=== PATIENT | male | born 1955 | race Caucasian/White ===

== ENCOUNTER → 2020-09-23 | Outpatient (CLI) | payer OTHER ==
[2020-09-23 19:00] LABS: HCT 41.9 % (39.6-50.0); HGB 13.6 g/dL (13.0-17.0); MCH 29.6 pg (27.0-32.0); MCHC 32.5 g/dL (32.0-37.0); MCV 91.3 fL (80.0-97.0); Mean Platelet Volume 10.6 fL (9.5-12.2); Platelet Count 180 X 10*3/uL (140-440); RBC 4.59 X 10*6/uL (4.40-5.60); RDW 13.3 % (11.5-14.5); WBC 6.69 X 10*3/uL (4.50-10.00)
[2020-09-24 05:07] LABS: African American GFR (CKD) 66.8 (60.0-200.0); Anion Gap 9.9 mmol/L (4.00-12.00); Carbon Dioxide 27.1 mmol/L (21.6-31.8); Non-African American GFR(CKD) 57.7 (60.0-200.0)
== END | disposition home or self-care (01) ==
LOC: LABWHC1 11:04
PROVIDERS: ATTEND Internal Medicine Cardiovascular Disease
DX: Z01.812 Encounter for preprocedural laboratory examination (principal); R07.2 Precordial pain
CPT/HCPCS: 36415; 80051; 82565; 84520; 85027

== ENCOUNTER 2020-09-26 08:35 | Day surgery (SDC) | payer OTHER ==
[2020-09-23 09:07] VITALS: BMI 37.5
[~2020-09-26 08:35] MED LIST: ALPRAZolam 0.25 MG TAB PO PRN; ALPRAZolam 0.5 MG TAB PO PRN; ASPIRIN 325 MG TAB PO STA; ATORVASTATIN 80 MG TAB PO STA; NITROGLYCERIN SL TABS 0.4 MG TAB SUBLINGUAL PRN; SODIUM CHLORIDE 0.9% 1,000 ML in EMPTY BAG 1 BAG IV ONE
[2020-09-26 09:10] LABS: Glucose,Whole Blood 155 mg/dL (75-99)
[2020-09-26 09:15] LABS: Basophils % (A) 1 %; Eosinophils # (A) 0.3 k/uL (0-0.7); Eosinophils % (A) 4 %; HCT 41.5 % (39.0-53.0); HGB 14.5 gm/dL (13.0-17.5); Lymphocytes # (A) 1.3 k/uL (1.0-4.8); Lymphocytes % (A) 20 %; MCH 30.5 pg (25.0-35.0); MCHC 34.9 g/dL (31.0-37.0); MCV 87.5 fL (80.0-100.0); Mean Platelet Volume 7.5; Monocytes # (A) 0.5 k/uL (0-1.0); Monocytes % (A) 7 %; Neutrophils # (A) 4.3 k/uL (1.3-7.7); Neutrophils % (A) 66 %; Platelet Count 173 k/uL (150-450); RBC 4.74 m/uL (4.30-5.90); RDW 13.2 % (11.5-15.5); WBC 6.5 k/uL (3.8-10.6)
[2020-09-26 09:27] LABS: Calcium 9.4 mg/dL (8.4-10.2); Potassium 4.3 mmol/L (3.5-5.1)
[2020-09-26] MEDS ORDERED: LIDOCAINE 1% INJ 10MG/ML (20 ML MDV) ONE (10:28)
[2020-09-26] MEDS ORDERED: fentaNYL (PF) 50 MCG/ML 2 ML AMP ONE (10:28)
[2020-09-26] MEDS ORDERED: LIDOCAINE 1% INJ 10MG/ML (20 ML MDV) SQ ONE (10:43)
[2020-09-26] MEDS ORDERED: MIDAZOLAM 2 MG/2 ML VIAL IV ONE (10:43)
[2020-09-26] MEDS ORDERED: fentaNYL (PF) 50 MCG/ML 2 ML AMP IV ONE (10:44)
[2020-09-26] MEDS ORDERED: IOPAMIDOL-370 125ML BTL INJ ONE (11:09)
[2020-09-26] MEDS ORDERED: RX INFO: IV CONTRAST WAS GIVEN 1 EACH MISC MISCELLANE PRN (11:23)
--- NOTE | 2020-09-26 13:45 | P.GSCN ---
History of Present Illness Consult date: 09/26/20 Reason for Consult: Triple vessel coronary artery disease Requesting physician: Domingo Velazquez History of present illness: This is a 65-year-old gentleman who follows on an outpatient basis with Dr. Terry King and physician web production assistant Micki Walden. 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 Over the last several weeks he has been experiencing unstable angina in the form of precordial chest tightness with radiation to both arms, worse with exertion, relieved with rest. He has had a few episodes that happened even at rest. He was seen by Dr. Velazquez, EKG demonstrated evidence of prior inferior wall myocardial infarction, and he was recommended to undergo heart catheterization which was completed today and which demonstrated right coronary stenosis 70-80%, circumflex coronary stenosis 90%, proximal LAD stenosis 90%, and diagonal stenosis 70-80%. Due to these findings consultation was placed to Dr. Nichols from cardiac thoracic surgery for surgical revascularization recommendations. Of note he did have a transthoracic echocardiogram in the office on September 23 which demonstrated normal left ventricular systolic function with EF 55%, normal diastolic dysfunction, trace central mitral regurgitation, and mild central tricuspid regurgitation. Review of Systems Review of systems was completed and was negative except as noted - Cardiovascular Reports as per HPI, Reports chest pain - Integumentary Reports as per HPI, Reports foot/leg ulcers Past Medical History Past Medical History: Coronary Artery Disease (CAD), Chest Pain / Angina, Diabetes Mellitus, Hypertension, Skin Disorder, Vascular Disorder Additional Past Medical History / Comment(s): WOUND BELOW LITTLE TOE LEFT FOOT- HAS CAST & WALKING BOOT., History see 60 treatments of hyperbaric oxygen therapy last dose 07/28/2020 SEE CARDIOLOGY [facility] & P. History of Any Multi-Drug Resistant Organisms: MRSA Year Discovered:: 2013 MDRO Source:: toe Additional Past Surgical History / Comment(s): tin big toe amputation (2009, 2013)., Cataracts Past Anesthesia/Blood Transfusion Reactions: No Reported Reaction Past Psychological History: No Psychological Hx Reported Smoking Status: Never smoker Past Alcohol Use History: None Reported Past Drug Use History: None Reported - Past Family History Mother Family Medical History: Cancer Additional Family Medical History / Comment(s): of an aneurysm at 88 years old Father Family Medical History: Diabetes Mellitus Medications and Allergies Home Medications Medication Instructions Recorded Confirmed Type Ascorbic Acid [Vitamin C] 1,000 mg PO DAILY 09/23/20 09/26/20 History Aspirin [Adult Low Dose Aspirin EC] 81 mg PO DAILY 09/23/20 09/26/20 History Carvedilol [Coreg] 12.5 mg PO BID 09/23/20 09/26/20 History Cholecalciferol (Vitamin D3) 125 mcg PO DAILY 09/23/20 09/26/20 History [Vitamin D3 (5000 Iu)] Empagliflozin [Jardiance] 25 mg PO DAILY 09/23/20 09/26/20 History Lisinopril-Hctz 20-25 mg 1 tab PO DAILY 09/23/20 09/26/20 History [Zestoretic 20-25] Multivit-Min/FA/Lycopen/Lutein 1 each PO DAILY 09/23/20 09/26/20 History [Centrum Silver Men Tablet] glipiZIDE [Glucotrol] 10 mg PO BID 09/23/20 09/26/20 History sitaGLIPtin PHOS/metFORMIN HCL 1 each PO BID 09/23/20 09/26/20 History [Janumet Xr 50-1,000 mg Tablet] Allergies Allergy/AdvReac Type Severity Reaction Status Date / Time No Known Allergies Allergy Verified 09/26/20 08:49 Surgical - Exam Vital Signs Temp Pulse Resp BP 98 F 74 18 175/87 09/26/20 09:02 09/26/20 09:02 09/26/20 09:02 09/26/20 09:02 CONSTITUTIONAL: Awake and alert, appears comfortable, cooperative, well- developed, well-nourished, no pain, no acute distress EYES: Pupils equal, round, reactive to light, normal ocular movement ENT: Moist mucous membranes without oral lesions present NECK: No masses, no bruits, trachea midline RESPIRATORY: Lungs sounds clear to auscultation bilaterally. Respirations even, nonlabored. Currently on room air with oxygen saturation 98%. Strong cough. No chest wall deformities. No clubbing or cyanosis present CARDIOVASCULAR: S1, S2 present. Regular rate and rhythm, sinus rhythm on telemetry. Palpable peripheral pulses bilaterally. 1+ bilateral lower extremity edema present. No calf pain or tenderness noted. Left radial Christiano's test less than 8 seconds. GASTROINTESTINAL: Abdomen soft, nontender, nondistended without masses or organomegaly noted. There is no rebound or guarding present. Active bowel sounds present 4 quadrants. GENITOURINARY: Deferred INTEGUMENTARY: Skin is warm and dry. Right lower extremity with evidence of peripheral arterial disease, smooth and hairless. Left lower extremity in no contact cast NEUROLOGIC: Cranial nerves II through XII intact, normal coordination, no obvious motor or sensory deficits, speech is normal MUSKULOSKELETAL: Able to move all extremities, strength equal bilaterally, normal posture PSYCHIATRIC: Alert and oriented to person place and time, appropriate affect, intact judgment and insight Results - Labs 09/26/20 09:00 09/26/20 09:00 Abnormal Lab Results - Last 24 Hours (Table) 09/26/20 09/26/20 Range/Units 08:58 09:00 BUN 32 H (9-20) mg/dL Glucose 163 H (74-99) mg/dL POC Glucose (mg/dL) 155 H (75-99) mg/dL Diabetes panel 09/26/20 Range/Units 09:00 Sodium 140 (137-145) mmol/L Potassium 4.3 (3.5-5.1) mmol/L Chloride 107 (98-107) mmol/L Carbon Dioxide 26 (22-30) mmol/L BUN 32 H (9-20) mg/dL Creatinine 1.23 (0.66-1.25) mg/dL Glucose 163 H (74-99) mg/dL Calcium 9.4 (8.4-10.2) mg/dL Calcium panel 09/26/20 Range/Units 09:00 Calcium 9.4 (8.4-10.2) mg/dL Pituitary panel 09/26/20 Range/Units 09:00 Sodium 140 (137-145) mmol/L Potassium 4.3 (3.5-5.1) mmol/L Chloride 107 (98-107) mmol/L Carbon Dioxide 26 (22-30) mmol/L BUN 32 H (9-20) mg/dL Creatinine 1.23 (0.66-1.25) mg/dL Glucose 163 H (74-99) mg/dL Calcium 9.4 (8.4-10.2) mg/dL Adrenal panel 09/26/20 Range/Units 09:00 Sodium 140 (137-145) mmol/L Potassium 4.3 (3.5-5.1) mmol/L Chloride 107 (98-107) mmol/L Carbon Dioxide 26 (22-30) mmol/L BUN 32 H (9-20) mg/dL Creatinine 1.23 (0.66-1.25) mg/dL Glucose 163 H (74-99) mg/dL Calcium 9.4 (8.4-10.2) mg/dL - Imaging Additional studies: Heart catheterization films reviewed Assessment and Plan Assessment: 1. Triple-vessel coronary artery disease, unstable angina 2. Hypertension 3. Type 2 diabetes, patient reports last hemoglobin A1c 6.2% in March 2020 4. Peripheral arterial disease with bilateral lower cavity ulcers 5. 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 Never smoker Plan: The patient was seen and examined in the extended stay unit. Chart/diagnostics reviewed. The case was discussed in detail with Dr. Nichols who has been contacted by Dr. Velazquez. The usual perioperative course of coronary artery bypass surgery were discussed in detail with the patient and his daughter, risks and benefits were reviewed, all questions were answered. The patient does consent to surgery and preoperative testing has been initiated. Once all preoperative testing has been completed STS risk score will be calculated and discussed with the patient. Recommend continuing aspirin, beta ruperto therapy, initiate statin. Patient needs tight blood sugar control, he admits that he does not check his blood sugar which he was educated on. Patient may be discharged home from our standpoint after all testing has been completed to return as an outpatient for surgery, timing to be determined dependent on results of preoperative testing. This was discussed with the patient and daughter at length and they are in complete agreement. Medical management of other comorbidities per primary care service, cardiology. More recommendations to follow. Thank you Dr. Velazquez for this consult. We look forward to working with you in the care of your patient. Time with Patient: Greater than 30
[2020-09-26 14:30] LABS: Basophils % (A) 1 %; Eosinophils # (A) 0.2 k/uL (0-0.7); Eosinophils % (A) 4 %; HCT 39.7 % (39.0-53.0); Lymphocytes # (A) 1.2 k/uL (1.0-4.8); Lymphocytes % (A) 25 %; MCH 29.6 pg (25.0-35.0); MCHC 32.7 g/dL (31.0-37.0); MCV 90.6 fL (80.0-100.0); Monocytes # (A) 0.3 k/uL (0-1.0); Monocytes % (A) 7 %; Neutrophils # (A) 2.9 k/uL (1.3-7.7); Neutrophils % (A) 60 %; Platelet Count 144 k/uL (150-450); RBC 4.39 m/uL (4.30-5.90); RDW 13.8 % (11.5-15.5); WBC 4.8 k/uL (3.8-10.6)
[2020-09-26 14:34] LABS: Partial Thromboplastin Time 25.1 sec (22.0-30.0); Prothrombin Time 10.9 sec (9.0-12.0)
[2020-09-26 14:42] LABS: ALT 25 U/L (4-49); AST 27 U/L (17-59); African American GFR (CKD) 83 (>60 ml/min/1.73 sqM); Albumin 3.5 g/dL (3.5-5.0); Albumin/Globulin Ratio 1.3; Alkaline Phosphatase 81 U/L (38-126); Anion Gap 7 mmol/L; Blood Urea Nitrogen 30 mg/dL (9-20); Calcium 8.8 mg/dL (8.4-10.2); Carbon Dioxide 27 mmol/L (22-30); Chloride 105 mmol/L (98-107); Globulin 2.8 g/dL; Glucose 237 mg/dL (74-99); Non-African American GFR(CKD) 72 (>60 ml/min/1.73 sqM); Potassium 4.2 mmol/L (3.5-5.1); Sodium 139 mmol/L (137-145); Total Bilirubin 0.3 mg/dL (0.2-1.3); Total Protein 6.3 g/dL (6.3-8.2)
[2020-09-26 15:51] VITALS: RESP 16
[2020-09-26 15:53] LABS: Chol/HDL Ratio 4.88
--- NOTE | 2020-09-26 16:09 | US ---
EXAMINATION TYPE: US carotid duplex BILAT DATE OF EXAM: 09/26/2020 COMPARISON: NONE CLINICAL HISTORY: preop cardiac surgery. Preop EXAM MEASUREMENTS: RIGHT: Peak Systolic Velocity (PSV) cm/sec ----- Right CCA: 59.8 ----- Right ICA: 82.0 ----- Right ECA: 89.7 ICA/CCA ratio: 1.4 RIGHT: End Diastole cm/sec ----- Right CCA: 13.6 ----- Right ICA: 24.8 ----- Right ECA: 16.0 LEFT: Peak Systolic Velocity (PSV) cm/sec ----- Left CCA: 61.6 ----- Left ICA: 95.2 ----- Left ECA: 83.1 ICA/CCA ratio: 1.5 LEFT: End Diastole cm/sec ----- Left CCA: 13.6 ----- Left ICA: 32.5 ----- Left ECA: 9.5 VERTEBRALS (direction of flow): Right Vertebral: Antegrade Left Vertebral: Antegrade Rhythm: Normal Plaque in bilateral bulbs. Wall thickening. No elevated velocities. IMPRESSION: 1. Atheromatous plaquing without significant flow-limiting stenosis. Criteria for Assigning % of Stenosis / Diameter reduction (Estimation based on the indirect measurements of the internal carotid artery velocities (ICA PSV). 1. Normal (no stenosis)=ICA PSV < 125 cm/s: ratio < 2.0: ICA EDV<40 cm/s. 2. Less than 50% stenosis=ICA PSV < 125 cm/s: ratio < 2.0: ICA EDV<40 cm/s. 3. 50 to 69% stenosis=ICA PSV of 125 to 230 cm/s: ration 2.0 ? 4.0: ICA EDV 40-100 cm/s. 4. Greater than 70% stenosis to near occlusion= ICA PSV > 230 cm/s: ratio > 4.0: ICA EDV > 100 cm/s. 5. Near occlusion= ICA PSV velocities may be low or undetectable: variable ratio and ICA EDV. 6. Total occlusion=unable to detect flow.
--- NOTE | 2020-09-26 16:48 | XR ---
EXAMINATION TYPE: XR chest 2V DATE OF EXAM: 09/26/2020 COMPARISON: NONE HISTORY: Preop heart surgery TECHNIQUE: 2 views FINDINGS: Heart and mediastinum are normal. Lungs are clear. Diaphragm is normal. Bony thorax is inta ct. There are chest leads. IMPRESSION: Normal chest.
[2020-09-26] MEDS: ISOSORBIDE MONONITRATE ER 30 MG TAB.ER.24H PO SCH (17:04)
[2020-09-26] MEDS: INSULIN ASPART (NovoLOG) 100 UNIT/ML VIAL SQ SCH ×3 (17:04→22:41)
[2020-09-26 17:27] LABS: Glucose,Whole Blood 266 mg/dL (75-99)
[2020-09-26] MEDS: carvediloL 12.5 MG TAB PO SCH (17:35)
[2020-09-26 20:23] LABS: Glucose,Whole Blood 150 mg/dL (75-99)
[2020-09-26 20:54] LABS: Hepatitis A Antibody IgM Non-Reactive (Non-Reactive); Hepatitis B Core IgM Non-Reactive (Non-Reactive); Hepatitis B Surface Antigen Non-Reactive (Non-Reactive); Hepatitis C IgG Antibody Non-Reactive (Non-Reactive)
[2020-09-26] MEDS ORDERED: ATORVASTATIN 40 MG TAB PO SCH (21:00)
[2020-09-26 21:36] LABS: Appearance,Urine Clear (Clear); Bilirubin,Urine Negative (Negative); Blood,Urine Negative (Negative); Color,Urine Light Yellow; Glucose,Urine (UA) 4+ (Negative); Ketones,Urine Negative (Negative); Leukocyte Esterase,Urine Negative (Negative); Nitrite,Urine Negative (Negative); PH, Urine 6.5 (5.0-8.0); Protein,Urine Negative (Negative); Specific Gravity,Urine 1.025 (1.001-1.035); Urobilinogen,Urine <2.0 mg/dL (<2.0)
[2020-09-26] MEDS: glipiZIDE 10 MG TAB PO SCH (22:41)
[2020-09-26] MEDS: MUPIROCIN 2% OINT 22 GM TUBE NASAL SCH (22:47)
--- NOTE | 2020-09-26 23:10 | CC ---
CARDIAC CATHETERIZATION REPORT INDICATION: Unstable angina. PROCEDURE NOTE: After obtaining informed consent, left heart catheterization and coronary angiogram were performed via the right femoral artery using standard Daniel catheters. Patient tolerated the procedure well without any obvious immediate complications. A femoral angiogram was performed and Angio-Seal was deployed for hemostasis. Patient received moderate conscious sedation. Total sedation time was 15 minutes. FINDINGS: HEMODYNAMICS: Left ventricular end-diastolic pressure is 14 mm. There is no significant gradient across the aortic valve. LEFT VENTRICULOGRAM: Not performed. ANGIOGRAPHIC DATA: LEFT MAIN CORONARY ARTERY: Left main coronary artery appears calcified as does the LAD and circumflex coronary artery. There is a focal area of 95% stenosis in the proximal LAD and 70% stenosis involving the diagonal branch. CIRCUMFLEX CORONARY ARTERY: Circumflex coronary artery shows an 80% to 90% proximal stenosis. RIGHT CORONARY ARTERY: Right coronary artery is a large dominant vessel. In the mid right coronary artery shows a 70% stenosis. CONCLUSIONS: Severe three-vessel coronary artery disease as described above. PLAN: I am going to consult cardiothoracic surgeon to evaluate the patient for bypass surgery. MMODL / IJN: [id number] /
[2020-09-26 23:44] LABS: Hemoglobin A1C 6.4 % (4.0-6.0)
[2020-09-27 07:11] LABS: African American GFR (CKD) >90 (>60 ml/min/1.73 sqM); Anion Gap 6 mmol/L; Blood Urea Nitrogen 23 mg/dL (9-20); Calcium 9.1 mg/dL (8.4-10.2); Carbon Dioxide 28 mmol/L (22-30); Chloride 108 mmol/L (98-107); Glucose 121 mg/dL (74-99); Non-African American GFR(CKD) 78 (>60 ml/min/1.73 sqM); Potassium 4.2 mmol/L (3.5-5.1); Sodium 142 mmol/L (137-145)
[2020-09-27 07:18] LABS: Glucose,Whole Blood 132 mg/dL (75-99)
[2020-09-27 07:52] VITALS: BP 149/83; PULSE 73; TEMP 97.9
--- NOTE | 2020-09-27 07:59 | P.PN ---
Subjective Progress Note Date: 09/27/20 Principal diagnosis: Triple-vessel coronary artery disease, unstable angina. 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 Denies any chest pain or shortness of breath. Dr. Andrew did meet with the patient and his daughter yesterday, discussed open heart surgery, all questions answered. Catheterization films reviewed with Dr. Andrew, sent electronically to Dr. Nichols. All preoperative testing completed, STS risk score calculated and discussed with the patient. No new concerns. Objective - Vital Signs Vital signs: Vital Signs Temp 98.2 F 09/27/20 01:45 Pulse 76 09/27/20 01:45 Resp 16 09/27/20 01:45 BP 113/71 09/27/20 01:45 Pulse Ox 100 09/27/20 01:45 Intake & Output 09/26/20 09/27/20 09/27/20 18:59 06:59 18:59 Intake Total 200 Balance 200 Weight 129.274 kg Intake: IV 200 Other: Voiding Method Toilet # Voids 1 1 - Exam CONSTITUTIONAL: Appears comfortable, cooperative, no acute distress RESPIRATORY: Lungs sounds clear bilaterally. Respirations even, nonlabored. Currently on room air with oxygen saturation 100%. Able to achieve 3000 mL on incentive spirometry. Strong cough. CARDIOVASCULAR: S1, S2 present. Regular rate and rhythm, sinus rhythm on telemetry. Sternum stable. Palpable peripheral pulses bilaterally. Bilateral lower extremity edema present. No calf pain or tenderness noted. GASTROINTESTINAL: Abdomen soft, nontender, nondistended. Active bowel sounds present 4 quadrants. Tolerating diet. GENITOURINARY: Continues to void INTEGUMENTARY: Skin is warm and dry. No contact cast presents to left lower extremity NEUROLOGIC: Cranial nerves II through XII intact MUSKULOSKELETAL: Able to move all extremities, strength equal bilaterally, gait normal PSYCHIATRIC: Alert and oriented to person place and time, appropriate affect, intact judgment and insight - Labs CBC & Chem 7: 09/26/20 14:09 09/27/20 06:22 Labs: Abnormal Lab Results - Last 24 Hours (Table) 09/26/20 09/26/20 09/26/20 Range/Units 08:58 09:00 11:00 Plt Count (150-450) k/uL Chloride (98-107) mmol/L BUN 32 H (9-20) mg/dL Glucose 163 H (74-99) mg/dL POC Glucose (mg/dL) 155 H (75-99) mg/dL Hemoglobin A1c (4.0-6.0) % HDL Cholesterol 26.0 L (40.0-60.0) mg/dL Urine Glucose (UA) (Negative) 09/26/20 09/26/20 09/26/20 Range/Units 14:09 14:09 14:09 Plt Count 144 L (150-450) k/uL Chloride (98-107) mmol/L BUN 30 H (9-20) mg/dL Glucose 237 H (74-99) mg/dL POC Glucose (mg/dL) (75-99) mg/dL Hemoglobin A1c 6.4 H (4.0-6.0) % HDL Cholesterol (40.0-60.0) mg/dL Urine Glucose (UA) (Negative) 09/26/20 09/26/20 09/26/20 Range/Units 17:26 20:21 21:31 Plt Count (150-450) k/uL Chloride (98-107) mmol/L BUN (9-20) mg/dL Glucose (74-99) mg/dL POC Glucose (mg/dL) 266 H 150 H (75-99) mg/dL Hemoglobin A1c (4.0-6.0) % HDL Cholesterol (40.0-60.0) mg/dL Urine Glucose (UA) 4+ H (Negative) 09/27/20 09/27/20 Range/Units 06:22 07:16 Plt Count (150-450) k/uL Chloride 108 H (98-107) mmol/L BUN 23 H (9-20) mg/dL Glucose 121 H (74-99) mg/dL POC Glucose (mg/dL) 132 H (75-99) mg/dL Hemoglobin A1c (4.0-6.0) % HDL Cholesterol (40.0-60.0) mg/dL Urine Glucose (UA) (Negative) Microbiology - Last 24 Hours (Table) 09/26/20 16:54 Nasal Screen MRSA/MSSA - Preliminary Nasal Swab - Imaging and Cardiology Chest x-ray: report reviewed, image reviewed Carotid Dopplers, pulmonary function tests, labs reviewed Assessment and Plan Assessment: 1. Triple-vessel coronary artery disease, unstable angina 2. Hypertension 3. Type 2 diabetes, current hemoglobin A1c 6.4% 4. Peripheral arterial disease with bilateral lower cavity ulcers 5. 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 Never smoker, preoperative FEV1 87% of predicted Plan: 1. Continue aspirin, statin, beta ruperto therapy. Will stop Alex inhibitor 48 hours prior to surgery to prevent intraoperative and postoperative hypotension due to vasoplegia 2. Increase activity, ambulate as tolerated 3. Encourage incentive spirometry practice 4. Patient may be discharged home from cardiothoracic surgery standpoint to return for outpatient coronary artery bypass surgery with left internal mammary artery, possible left radial artery harvest, endovascular vein harvest with left atrial appendage ligation to be performed by Dr. Nichols on 10/04/2020. 5. Medical management comorbidities per primary Service, cardiology Time with Patient: Greater than 30
[2020-09-27] MEDS: glipiZIDE 10 MG TAB PO SCH (08:24)
[2020-09-27] MEDS: carvediloL 12.5 MG TAB PO SCH (08:24)
[2020-09-27] MEDS: INSULIN ASPART (NovoLOG) 100 UNIT/ML VIAL SQ SCH (08:24)
[2020-09-27] MEDS: ISOSORBIDE MONONITRATE ER 30 MG TAB.ER.24H PO SCH (08:24)
[2020-09-27] MEDS: MUPIROCIN 2% OINT 22 GM TUBE NASAL SCH (08:25)
[2020-09-27] MEDS ORDERED: LISINOPRIL-HCTZ 20-25 MG 1 EACH TAB PO SCH (09:00)
[2020-09-27] MEDS ORDERED: ASPIRIN 81 MG PO SCH (09:00)
--- NOTE | 2020-09-27 11:46 | P.DS ---
Providers Attending physician: Domingo Velazquez Consults: 09/26/20 11:31 Consult Physician Routine Consulting Provider: Augustine Nichols Consult Reason/Comments: triple vessel disease Do you want consulting provider notified?: Already Contacted Primary care physician: Terry Hunt [facility] Course: This is a pleasant 65-year-old male who was brought in electively for left heart catheterization revealing left main calcified. LAD with a focal 95% stenosis proximally, diagonal branch with a 70% stenosis, circumflex with 80-90% stenosis proximally and RCA with a 70% stenosis in the midportion. He was seen and evaluated by CT surgery and they recommend bypass grafting to be done on October 04. Patient is seen and examined resting comfortably sitting up in bed in no acute distress. He is having no active chest discomfort. He denies dizziness, shortness of breath or palpitations. Blood pressure 149/83 heart rate 73 afebrile maintaining oxygen saturation on room air. Laboratory data reviewed, sodium 142, potassium 4.2, creatinine 1.01. Bilateral carotid Doppler reveals erythematous plaquing without significant flow-limiting stenosis. Chest x-ray is negative for an acute cardiopulmonary process. He is currently maintained on aspirin 81 mg daily, atorvastatin 40 mg daily, carvedilol 12.5 mg twice a day and lisinopril/hydrochlorothiazide 20/25 mg daily. GENERAL: Well-appearing, well-nourished and in no acute distress. NECK: Supple without JVD or thyromegaly. LUNGS: Breath sounds clear to auscultation bilaterally. Respiration equal and unlabored. No wheezes, rales or rhonchi. HEART: Regular rate and rhythm without murmurs, rubs or gallops. S1 and S2 heard. EXTREMITIES: Normal range of motion, no edema. No clubbing or cyanosis. Peripheral pulses intact. ASSESSMENT Multi-vessel coronary artery disease Dyslipidemia Hypertension Diabetes mellitus PLAN Continue nitrates, aspirin, statin, beta ruperto and TUNDE inhibitor as previously ordered. Plan for bypass grafting with Dr. Nichols 10/04/2020. Clinically stable for discharge on current medical regimen. Nurse Practitioner note has been reviewed, I agree with a documented findings and plan of care. Patient was seen and examined. Patient Condition at Discharge: Stable Plan - Discharge Summary Discharge Rx Participant: Yes New Discharge Prescriptions: New Atorvastatin [Lipitor] 40 mg PO HS #90 tab Nitroglycerin Sl Tabs [Nitrostat] 0.4 mg SUBLINGUAL Q5M PRN #1 bottle PRN Reason: Chest Pain Isosorbide Mononitrate ER [Imdur] 30 mg PO DAILY #90 tab.er.24h Continue glipiZIDE [Glucotrol] 10 mg PO BID Lisinopril-Hctz 20-25 mg [Zestoretic 20-25] 1 tab PO DAILY Empagliflozin [Jardiance] 25 mg PO DAILY Ascorbic Acid [Vitamin C] 1,000 mg PO DAILY Aspirin [Adult Low Dose Aspirin EC] 81 mg PO DAILY Carvedilol [Coreg] 12.5 mg PO BID sitaGLIPtin PHOS/metFORMIN HCL [Janumet Xr 50-1,000 mg Tablet] 1 each PO BID Cholecalciferol (Vitamin D3) [Vitamin D3 (5000 Iu)] 125 mcg PO DAILY Multivit-Min/FA/Lycopen/Lutein [Centrum Silver Men Tablet] 1 each PO DAILY Discharge Medication List Ascorbic Acid [Vitamin C] 1,000 mg PO DAILY 09/23/20 [History] Aspirin [Adult Low Dose Aspirin EC] 81 mg PO DAILY 09/23/20 [History] Carvedilol [Coreg] 12.5 mg PO BID 09/23/20 [History] Cholecalciferol (Vitamin D3) [Vitamin D3 (5000 Iu)] 125 mcg PO DAILY 09/23/20 [History] Empagliflozin [Jardiance] 25 mg PO DAILY 09/23/20 [History] Lisinopril-Hctz 20-25 mg [Zestoretic 20-25] 1 tab PO DAILY 09/23/20 [History] Multivit-Min/FA/Lycopen/Lutein [Centrum Silver Men Tablet] 1 each PO DAILY 09/23/20 [History] glipiZIDE [Glucotrol] 10 mg PO BID 09/23/20 [History] sitaGLIPtin PHOS/metFORMIN HCL [Janumet Xr 50-1,000 mg Tablet] 1 each PO BID 09/23/20 [History] Atorvastatin [Lipitor] 40 mg PO HS #90 tab 09/27/20 [Rx] Isosorbide Mononitrate ER [Imdur] 30 mg PO DAILY #90 tab.er.24h 09/27/20 [Rx] Nitroglycerin Sl Tabs [Nitrostat] 0.4 mg SUBLINGUAL Q5M PRN #1 bottle 09/27/20 [Rx] Follow up Appointment(s)/Referral(s): Domingo Velazquez MD [STAFF PHYSICIAN] - 1 Week Patient Instructions/Handouts: Chest Pain (GEN), Heart Catheterization (GEN) Activity/Diet/Wound Care/Special Instructions: Open heart surgery planned for 10/07/20 @ 8 am. The OR will call the day before to let you know what time to come to the hospital and where to go. Preadmission testing will call to let you know what medications to take the day of surgery. For any other questions related to surgery please call expeditionary fighting vehicle crewman Andria or Tj
--- NOTE | 2020-09-28 12:35 | P.ARTDOP ---
Arterial Doppler Left radial artery study: Left side only, at physician request Date of study: 09/26/2020 Reason for study: Preop CABG Findings: Doppler assessment shows no significant right to left or segmental pressure gradient. With radial artery compression, there is a 61 mmHg pressure change in the first digit. Size is over 2 mm throughout. Impression: The left radial is not usable based on plethysmography criteria.
--- NOTE | 2020-09-28 12:38 | P.VSCSTY ---
Greater Saphenous Vein Mapping This is bilateral lower extremity greater saphenous vein mapping. Date of service: 09/26/2020 Vein quality and ultrasound appearance: We see no intraluminal thrombus or wall changes. Vein size groin right : 7.4 x 7.5 groin left: 7.6 x 7.3 High thigh right: 3.3 x 3.1 high thigh left: 3.1 x 3.3 Mid thigh right: 2.6 x 2.6 mid thigh left: 2.4 x 2.4 Above-knee right: 3.6 x 2.7 above-knee left: 2.7 x 2.1 Below knee right: 3.3 x 3.1 below-knee left: 3.9 x 2.9 Mid calf right: 2.9 x 2.7 mid calf left: 3.8 x 3.2 Ankle right: 3.0 x 2.6 ankle left: Cast Impression: Usable bilateral greater saphenous vein..
--- NOTE | 2020-10-03 16:01 | CONS ---
CONSULTATION DATE OF SERVICE: 09/26/20 I have seen, examined, and agree with the midlevel's findings. MMODL / IJN: [id number] / -02
== END 2020-09-27 11:40 | disposition home or self-care (01) ==
LOC: CATHCVL 08:35 → 6NMEDSUR 12:50 → CATHCVL 09-27 11:40
PROVIDERS: ATTEND Internal Medicine Cardiovascular Disease
DX: I25.110 Atherosclerotic heart disease of native coronary artery with unstable angina pectoris (principal); I25.84 Coronary atherosclerosis due to calcified coronary lesion; I10 Essential (primary) hypertension; E11.622 Type 2 diabetes mellitus with other skin ulcer; L97.929 Non-pressure chronic ulcer of unspecified part of left lower leg with unspecified severity; E11.51 Type 2 diabetes mellitus with diabetic peripheral angiopathy without gangrene; R94.31 Abnormal electrocardiogram [ECG] [EKG]; E78.5 Hyperlipidemia, unspecified; I25.2 Old myocardial infarction; Z83.3 Family history of diabetes mellitus; Z89.429 Acquired absence of other toe(s), unspecified side; Z79.84 Long term (current) use of oral hypoglycemic drugs; Z79.82 Long term (current) use of aspirin; Z79.899 Other long term (current) drug therapy; Z20.822 Contact with and (suspected) exposure to COVID-19
CPT/HCPCS: 94150; 93458; 80061; 80053; 80048; 80074; 84443; 83735; 85025; 85610; 85730; 81003; 87070; 83036; 87635; 71046; 93931; 93970; 93922; 93880; C1769 ×2; C1760; C1894; J2250; J2001; J3010; Q9967; 86850; 86900; 86901; 86920

== ENCOUNTER 2020-10-04 05:22 | Inpatient (IN) | payer OTHER ==
[~2020-10-04 05:22] MED LIST changes: +ALBUMIN HUMAN 25% 50 ML IV ONE; +ALBUMIN HUMAN 5% 500 ML IVPB ONE; -ALPRAZolam 0.25 MG TAB PO PRN; -ALPRAZolam 0.5 MG TAB PO PRN; +ASPIRIN 325 MG TAB PO ONE; -ASPIRIN 325 MG TAB PO STA; -ATORVASTATIN 80 MG TAB PO STA; +CALCIUM CHLORIDE 100 MG/ML 10 ML SYRINGE IV ONE; +CHLORHEXIDINE GLUCONATE 15 ML CUP MUCOUS MEM ONE; +CLEVIDIPINE BUTYRATE 25 MG in EMPTY BAG 1 BAG IV ONE; +DEXAMETHASONE SOD PHOSPHATE 4 MG/ML 1 ML VIAL IV ONE; +DILTIAZEM 125 MG in SODIUM CHLORIDE 0.9% 100 ML IV ONE; +ELECTROLYTE-A SOLUTION 1,000 ML with POTASSIUM CHLORIDE 100 MEQ, MAGNESIUM SULFATE 16 M... IV ONE; +ELECTROLYTE-A SOLUTION 1,000 ML with POTASSIUM CHLORIDE 40 MEQ, MAGNESIUM SULFATE 16 ME... IV ONE; +HEPARIN SODIUM 1,000 UN/ML (10ML VL) IV ONE; +HEPARIN SODIUM,PORCINE 5,000 UNIT in SODIUM CHLORIDE 0.9% 500 ML 500 ML IV ONE; +INSULIN REGULAR 100 UNIT in SODIUM CHLORIDE 0.9% 100 ML IV ONE; +LACTATED RINGERS 1,000 ML IV ONE; +LACTATED RINGERS 1,000 ML IV SCH; +MAGNESIUM SULFATE MG 500 MG/ML IV ONE; +MANNITOL 25% 12.5 GM/50 ML VIAL IV ONE; +NITROGLYCERIN SL TABS 0.4 MG TAB SUBLINGUAL ONE; -NITROGLYCERIN SL TABS 0.4 MG TAB SUBLINGUAL PRN; +NITROGLYCERIN-D5W PMX 25 MG/250 ML BTL IV ONE; +NITROGLYCERIN-D5W PMX 50 MG in DEXTROSE/WATER 1 250ML.BAG IV ONE; +NOREPINEPHRINE 4 MG in SODIUM CHLORIDE 0.9% 250 ML IV ONE; +ONDANSETRON 4 MG/2 ML VIAL IVP ONE; +PAPAVERINE 360 MG in SODIUM CHLORIDE 0.9% 90 ML IV ONE; +PHENYLEPHRINE 10 MG/ML VIAL IV ONE; +PHENYLEPHRINE 40 MG in SODIUM CHLORIDE 0.9% 250 ML IV ONE; +PROTAMINE SULFATE 10 MG/ML 25 ML VIAL IV ONE; +PROTAMINE SULFATE 250 MG in EMPTY BAG 1 BAG IV ONE; +SODIUM BICARB 8.4% 50 ML SYR (1 MEQ/ML) IV ONE; +SODIUM CHLORIDE 0.9% 1,000 ML IV ONE; -SODIUM CHLORIDE 0.9% 1,000 ML in EMPTY BAG 1 BAG IV ONE; +TRANEXAMIC ACID 2,000 MG in SODIUM CHLORIDE 0.9% 80 ML IV ONE; +ceFAZolin 1,000 MG in SODIUM CHLORIDE 0.9% IRRIGATIO 1,000 ML IRRIGATION ONE; +ceFAZolin 3 GM in SODIUM CHLORIDE 0.9% 100 ML IVPB ONE; +propofoL 1,000 MG/100 ML VIAL IV ONE
[2020-10-04] MEDS: ATORVASTATIN 10 MG TAB PO ONE ×2 (06:22→16:09)
[2020-10-04] MEDS: METOPROLOL TARTRATE 12.5 MG TAB PO ONE ×2 (06:22→16:09)
[2020-10-04] MEDS ORDERED: LIDOCAINE 1% (10MG/ML) FOR IV START SQ ONE (06:30)
[2020-10-04 06:35] LABS: Glucose,Whole Blood 132 mg/dL (75-99)
[2020-10-04] MEDS ORDERED: HYDROmorphone 0.5 MG/0.5 ML SYRINGE IVP PRN (07:00)
[2020-10-04] MEDS ORDERED: ELECTROLYTE-R (PH 7.4) 1,000 ML IV.SOLN IV ONE (07:35)
[2020-10-04] MEDS ORDERED: MIDAZOLAM 2 MG/2 ML VIAL ONE (07:35)
[2020-10-04] MEDS ORDERED: SODIUM CHLORIDE 0.9% 250 ML BAG ONE (07:35)
[2020-10-04] MEDS ORDERED: TRANEXAMIC ACID 1,000 MG/10 ML VIAL ONE (07:35)
[2020-10-04] MEDS ORDERED: HEPARIN SODIUM,PORCINE 10,000 UNIT/ML 1 ML VIAL ONE (07:35)
[2020-10-04] MEDS ORDERED: VECURONIUM 10 MG VIAL IV ONE (07:35)
[2020-10-04] MEDS ORDERED: LIDOCAINE 2% SYG (PF) 100 MG/5 ML ONE (07:35)
[2020-10-04] MEDS ORDERED: PROPOFOL 10 MG/ML 20 ML VIAL IV ONE (07:35)
[2020-10-04] MEDS ORDERED: SODIUM CHLORIDE 0.9% IRRIG 1,000 ML BTL IRRIGATION ONE (07:35)
[2020-10-04] MEDS ORDERED: fentaNYL (PF) 50 MCG/ML 50 ML VIAL ONE (07:35)
[2020-10-04] MEDS ORDERED: MAGNESIUM SULFATE 4 MEQ/ML 10ML VIAL ONE (07:35)
[2020-10-04] MEDS ORDERED: NITROGLYCERIN-D5W PMX 50 MG/250 ML BOTTLE IV ONE (07:35)
[2020-10-04] MEDS ORDERED: INSULIN REGULAR 100 UNIT/ML VIAL (IV) IV ONE (07:35)
[2020-10-04] MEDS ORDERED: PHENYLEPHRINE-0.9% NACL SYG 1,000 MCG/10 ML SYRINGE ONE (07:35)
[2020-10-04 08:38] LABS: ABG Base Excess 0.4 mmol/L; ABG Glucose Whole Blood 132 mg/dL (75-99); ABG HCO3 26 mmol/L (21-25); ABG Hematocrit 39 % (34.0-46.0); ABG Ionized Calcium 4.8 mg/dL (4.5-5.3); ABG Lactic Acid Whole Blood 1.1 mmol/L (0.5-1.6); ABG PCO2 43 mmHg (35-45); ABG PH 7.39 (7.35-7.45); ABG Sodium Whole Blood 142 mmol/L (135-146); ABG TCO2 27 mmol/L (19-24)
--- NOTE | 2020-10-04 09:00 | P.ANPRN ---
Procedure Note - Anesthesia - Invasive Line Right Arterial Line Time Out Performed: Yes Date of Procedure: 10/04/20 Time of Procedure: 06:54 Location of Patient: Phase I Preparation: Sterile Prep, Sterile Dressing Arterial Line Location: Radial Ultrasound Used: No Needle Guage: 20 Narrative: Right radial arterial line placed under sterile conditions by WAREHOUSE ANALYST Right Central Line Time Out Performed: Yes Date of Procedure: 10/04/20 Time of Procedure: 07:01 Location of Patient: Phase I Preparation: Sterile Prep, Sterile Dressing Ultrasound Used: Yes Purpose - Visualization and Identification of Vasculature: Yes Needle Guage: 18 Image Stored and Saved: Yes Narrative: Central line placement per sterile protocol utilized. 9F cordis under u/s guidance Right [place] Time Out Performed: Yes Date of Procedure: 10/04/20 Time of Procedure: 07:12 Location of Patient: Phase I Preparation: Sterile Prep, Sterile Dressing Narrative: SWAN placed under sterile conditions. Secured @ 43 cm once PA waveform obtained.
[2020-10-04 10:06] LABS: ABG Base Excess -1.3 mmol/L; ABG Glucose Whole Blood 152 mg/dL (75-99); ABG HCO3 24 mmol/L (21-25); ABG Hematocrit 37 % (34.0-46.0); ABG Ionized Calcium 4.7 mg/dL (4.5-5.3); ABG Lactic Acid Whole Blood 1.5 mmol/L (0.5-1.6); ABG PCO2 41 mmHg (35-45); ABG PH 7.37 (7.35-7.45); ABG PO2 228 mmHg (83-108); ABG Sodium Whole Blood 141 mmol/L (135-146); ABG TCO2 25 mmol/L (19-24)
[2020-10-04 11:27] LABS: ABG Glucose Whole Blood 131 mg/dL (75-99); ABG HCO3 24 mmol/L (21-25); ABG Hematocrit 35 % (34.0-46.0); ABG Ionized Calcium 4.7 mg/dL (4.5-5.3); ABG Lactic Acid Whole Blood 1.4 mmol/L (0.5-1.6); ABG PCO2 42 mmHg (35-45); ABG PH 7.38 (7.35-7.45); ABG PO2 276 mmHg (83-108); ABG Potassium Whole Blood 3.7 mmol/L (3.4-4.5); ABG Sodium Whole Blood 141 mmol/L (135-146); ABG TCO2 26 mmol/L (19-24)
[2020-10-04 11:53] LABS: ABG Base Excess -1.1 mmol/L; ABG Glucose Whole Blood 117 mg/dL (75-99); ABG HCO3 25 mmol/L (21-25); ABG Hematocrit 28 % (34.0-46.0); ABG Ionized Calcium 4.4 mg/dL (4.5-5.3); ABG Lactic Acid Whole Blood 1.8 mmol/L (0.5-1.6); ABG PCO2 46 mmHg (35-45); ABG PH 7.34 (7.35-7.45); ABG PO2 342 mmHg (83-108); ABG Potassium Whole Blood 4.7 mmol/L (3.4-4.5); ABG Sodium Whole Blood 139 mmol/L (135-146); ABG TCO2 26 mmol/L (19-24)
[2020-10-04 12:22] LABS: ABG Base Excess -0.7 mmol/L; ABG Glucose Whole Blood 112 mg/dL (75-99); ABG HCO3 25 mmol/L (21-25); ABG Hematocrit 28 % (34.0-46.0); ABG Ionized Calcium 4.4 mg/dL (4.5-5.3); ABG Lactic Acid Whole Blood 1.8 mmol/L (0.5-1.6); ABG PCO2 42 mmHg (35-45); ABG PH 7.37 (7.35-7.45); ABG PO2 268 mmHg (83-108); ABG Potassium Whole Blood 4.7 mmol/L (3.4-4.5); ABG Sodium Whole Blood 140 mmol/L (135-146); ABG TCO2 26 mmol/L (19-24)
[2020-10-04 12:56] LABS: ABG Base Excess -0.2 mmol/L; ABG Glucose Whole Blood 102 mg/dL (75-99); ABG HCO3 25 mmol/L (21-25); ABG Hematocrit 27 % (34.0-46.0); ABG Ionized Calcium 4.4 mg/dL (4.5-5.3); ABG Lactic Acid Whole Blood 1.8 mmol/L (0.5-1.6); ABG PCO2 42 mmHg (35-45); ABG PH 7.38 (7.35-7.45); ABG PO2 344 mmHg (83-108); ABG Potassium Whole Blood 4.6 mmol/L (3.4-4.5); ABG Sodium Whole Blood 140 mmol/L (135-146); ABG TCO2 26 mmol/L (19-24)
[2020-10-04 13:28] LABS: ABG Base Excess -0.4 mmol/L; ABG Glucose Whole Blood 97 mg/dL (75-99); ABG HCO3 25 mmol/L (21-25); ABG Hematocrit 28 % (34.0-46.0); ABG Ionized Calcium 4.4 mg/dL (4.5-5.3); ABG Lactic Acid Whole Blood 1.8 mmol/L (0.5-1.6); ABG PCO2 43 mmHg (35-45); ABG PH 7.38 (7.35-7.45); ABG PO2 322 mmHg (83-108); ABG Potassium Whole Blood 4.8 mmol/L (3.4-4.5); ABG Sodium Whole Blood 140 mmol/L (135-146); ABG TCO2 26 mmol/L (19-24)
[2020-10-04 14:19] LABS: ABG PO2 >420 mmHg (83-108)
--- NOTE | 2020-10-04 14:34 | P.ANPRN ---
Procedure Note - Anesthesia - KARLA Intraop Pre Bypass KARLA Intraop - Anesthesia Indication: CAD Date of Procedure: 10/04/20 Pre-operative Diagnosis: CAD Post-operative Diagnosis: Same Surgeon: Augustine Nichols Left Ventricle: EF 55% Ejection Fraction: Normal Regional Wall Motion Abnormalities: None Left Ventricle Hypertrophy: No R. Ventricle Function: Normal Anatomy: Trileaflet Aortic Stenosis: None Aortic Regurgitation: None Mitral Stenosis: None Mitral Regurgitation: Trace Tricuspid Stenosis: None Tricuspid Regurgitation: Trace Pulmonic Stenosis: None Pulmonic Regurgitation: None R. Atrial Dilation: No R. Atrial PFO: No L. Atrial Dilation: No Aortic Dissection: No Aortic Calcification: Moderate Plural Effusion: None - KARLA Intraop Post Bypass KARLA Intraop Post Bypass Procedure Performed: s/p CABG x 4 Left Ventricle: EF 50% Ejection Fraction: Normal Regional Wall Motion Abnormalities: Other (Paced. Good LV wall thickening) R. Ventricle Function: Normal Aortic Valve: Unchanged Mitral Valve: Unchanged Tricuspid: Unchanged Pulmonic: Unchanged Aortic Dissection: No
[2020-10-04] MEDS ORDERED: Phosphorus Replacement Protoco 1 EACH MISC MISCELLANE PRN (15:28)
[2020-10-04] MEDS ORDERED: Magnesium Replacement Protocol 1 EACH MISC MISCELLANE PRN (15:28)
[2020-10-04] MEDS ORDERED: ONDANSETRON 4 MG/2 ML VIAL IVP PRN (15:28)
[2020-10-04] MEDS ORDERED: METOCLOPRAMIDE 5 MG/ML 2 ML VIAL IVP PRN (15:28)
[2020-10-04] MEDS ORDERED: Potassium Replacement Protocol 1 EACH MISC MISCELLANE PRN (15:28)
[2020-10-04 15:45] LABS: Glucose,Whole Blood 103 mg/dL (75-99)
[2020-10-04] MEDS: LACTATED RINGERS 1,000 ML IV SCH (16:10)
--- NOTE | 2020-10-04 16:11 | XR ---
EXAMINATION TYPE: XR chest 1V portable DATE OF EXAM: 10/04/2020 COMPARISON: 09/26/2020 INDICATION: Postop cardiac surgery TECHNIQUE: Single frontal view of the chest is obtained. FINDINGS: The heart size is enlarged. The pulmonary vasculature is normal. Mild increased lung markings at the left base. Correlate for atelectasis. Left sided chest tube is present. No pneumothorax is evident. Endotracheal tube has tip above the car spencer. Nasogastric tube extends into the proximal left upper quadrant of the abdomen and could be advan wilbur. Mediastinal tube is present. [place] catheter has its tip in the main pulmonary artery region. IMPRESSION: 1. Suggestion of some mild atelectasis at the left base. 2. Multiple lines and catheters discussed above.
[2020-10-04] MEDS ORDERED: NITROGLYCERIN-D5W PMX 50 MG in DEXTROSE/WATER 1 250ML.BAG IV SCH (16:15)
[2020-10-04] MEDS ORDERED: CLEVIDIPINE BUTYRATE 25 MG in EMPTY BAG 1 BAG IV SCH (16:15)
[2020-10-04] MEDS ORDERED: DEXMEDETOMIDINE/0.9% NACL(PMX) 400 MCG in EMPTY BAG 1 BAG IV SCH (16:15)
[2020-10-04] MEDS ORDERED: DEXTROSE 5% IN WATER 100 ML with AMIODARONE 150 MG IV PRN (16:15)
[2020-10-04 16:19] LABS: ABG Base Excess -1.7 mmol/L; ABG HCO3 24 mmol/L (21-25); ABG Oxygen Saturation 99.7 % (94-97); ABG PCO2 45 mmHg (35-45); ABG PH 7.34 (7.35-7.45); ABG PO2 >400 mmHg (83-108); ABG TCO2 26 mmol/L (19-24); Allen Test Performed? Yes
[2020-10-04] MEDS ORDERED: AMIODARONE 360 MG in DEXTROSE 5% IN WATER 200 ML IV PRN ×2 (16:30)
[2020-10-04] MEDS ORDERED: hydrALAZINE HCL 20 MG/ML 1 ML VIAL IVP PRN (16:30)
[2020-10-04] MEDS ORDERED: IPRATROPIUM-ALBUTEROL 3 ML NEB INHALATION SCH (16:30)
[2020-10-04] MEDS ORDERED: CALCIUM GLUCONATE 2 GM in SODIUM CHLORIDE 0.9% 100 ML IVPB PRN (16:30)
[2020-10-04] MEDS ORDERED: IPRATROPIUM-ALBUTEROL 3 ML NEB INHALATION PRN (16:30)
[2020-10-04] MEDS ORDERED: BENZOCAINE/MENTHOL LOZENG 1 EACH LOZENGE MUCOUS MEM PRN (16:30)
[2020-10-04 16:37] LABS: Basophils # (A) 0.1 k/uL (0-0.2); Basophils % (A) 1 %; Eosinophils # (A) 0.1 k/uL (0-0.7); Eosinophils % (A) 1 %; HGB 11.4 gm/dL (13.0-17.5); Lymphocytes % (A) 10 %; MCH 30.5 pg (25.0-35.0); MCHC 33.5 g/dL (31.0-37.0); MCV 91.2 fL (80.0-100.0); Mean Platelet Volume 7.6; Monocytes # (A) 0.7 k/uL (0-1.0); Monocytes % (A) 7 %; Neutrophils # (A) 8.4 k/uL (1.3-7.7); Neutrophils % (A) 81 %; Platelet Count 119 k/uL (150-450); RBC 3.73 m/uL (4.30-5.90); RDW 13.5 % (11.5-15.5); WBC 10.4 k/uL (3.8-10.6)
[2020-10-04] MEDS: ceFAZolin 3 GM in SODIUM CHLORIDE 0.9% 100 ML IVPB SCH ×2 (16:45→22:53)
[2020-10-04] MEDS: DILTIAZEM 125 MG in SODIUM CHLORIDE 0.9% 100 ML IV SCH ×2 (16:45→21:06)
[2020-10-04 16:47] LABS: ALT 24 U/L (4-49); AST 57 U/L (17-59); African American GFR (CKD) >90 (>60 ml/min/1.73 sqM); Albumin 2.6 g/dL (3.5-5.0); Alkaline Phosphatase 58 U/L (38-126); Anion Gap 4 mmol/L; Blood Urea Nitrogen 23 mg/dL (9-20); Calcium 8.1 mg/dL (8.4-10.2); Carbon Dioxide 25 mmol/L (22-30); Chloride 111 mmol/L (98-107); Glucose 109 mg/dL (74-99); Magnesium 2.4 mg/dL (1.6-2.3); Non-African American GFR(CKD) 88 (>60 ml/min/1.73 sqM); Potassium 4.7 mmol/L (3.5-5.1); Sodium 140 mmol/L (137-145); Total Bilirubin 0.9 mg/dL (0.2-1.3); Total Protein 4.9 g/dL (6.3-8.2)
[2020-10-04 17:00] LABS: INR 1.1 (<1.2); Partial Thromboplastin Time 32.7 sec (22.0-30.0); Prothrombin Time 11.4 sec (9.0-12.0)
[2020-10-04 17:06] LABS: Glucose,Whole Blood 134 mg/dL (75-99)
[2020-10-04 18:10] LABS: Glucose,Whole Blood 141 mg/dL (75-99)
[2020-10-04] MEDS: ACETAMINOPHEN IV (For NPO) 1,000 MG in EMPTY BAG 1 BAG IVPB SCH ×2 (18:10→22:53)
[2020-10-04] MEDS: INSULIN REGULAR 100 UNIT in SODIUM CHLORIDE 0.9% 100 ML IV SCH (18:11)
[2020-10-04 18:15] LABS: Basophils % (A) 0 %; Eosinophils # (A) 0.1 k/uL (0-0.7); Eosinophils % (A) 0 %; HCT 35.1 % (39.0-53.0); HGB 11.9 gm/dL (13.0-17.5); Lymphocytes # (A) 0.8 k/uL (1.0-4.8); Lymphocytes % (A) 7 %; MCH 30.9 pg (25.0-35.0); MCHC 33.8 g/dL (31.0-37.0); MCV 91.5 fL (80.0-100.0); Mean Platelet Volume 9.7; Monocytes # (A) 0.6 k/uL (0-1.0); Monocytes % (A) 6 %; Neutrophils # (A) 9.8 k/uL (1.3-7.7); Neutrophils % (A) 86 %; Platelet Count 131 k/uL (150-450); RBC 3.83 m/uL (4.30-5.90); RDW 13.4 % (11.5-15.5); WBC 11.4 k/uL (3.8-10.6)
[2020-10-04 19:06] LABS: Glucose,Whole Blood 137 mg/dL (75-99)
--- NOTE | 2020-10-04 19:26 | OP ---
OPERATIVE REPORT DATE OF SERVICE: 10/04/2020 PREOPERATIVE DIAGNOSIS: Coronary artery disease. POSTOPERATIVE DIAGNOSIS: Same. PROCEDURE: 1. Coronary artery bypass grafting x3 vessels (left internal mammary artery to the left anterior descending artery, radial artery to obtuse marginal artery, saphenous vein graft to posterior descending artery). 2. Endoscopic harvest, left greater saphenous vein. 3. Endoscopic harvest, left radial artery. 4. Ligation of left atrial appendage using 55 mm atrial clip. 5. Epiaortic ultrasound. 6. Transesophageal cardiogram. 7. Closure of sternum using titanium plating system. SURGEON: Augustine Nichols MD. ASSISTANTS: Tj GALLEGOS NP. aMdhavi Garcia, ( ). ANESTHESIA: General. SPECIMEN: None. COMPLICATION: None. INDICATION: The patient is a 65-year-old male with past medical history significant for hypertension, diabetes mellitus, peripheral arterial disease with bilateral lower extremity ulcers with a nonhealing ulcer in his left leg despite hyperbaric oxygen therapy, who reports chest pain with radiation to both arms, worsening over the past several weeks. Cardiac catheterization revealed multivessel coronary artery disease. Coronary bypass recommended. The risks, benefits and alternatives of the procedure were discussed with the patient. All his questions were answered. Consent was obtained. FINDINGS: The left internal mammary artery was good, brisk flow. The saphenous vein was an adequate conduit. The radial artery was good conduit. The LAD measured 1.5 mm. The obtuse marginal measured 1.5 mm. The PDA measured 1.3 mm. PROCEDURE IN DETAIL: The patient was taken to the operating room, placed supine on the operating table. After the induction of anesthesia, he was prepped and draped in the usual sterile fashion. Preoperative transesophageal cardiogram confirmed a preserved ejection fraction with trace to mild central mitral regurgitation. A median sternotomy was performed. The left internal mammary artery was harvested in standard fashion taking care to clip all branches. Intravenous heparin was administered. The vessel was transected distally revealing brisk flow. Simultaneously greater saphenous vein was harvested from left lower extremity, above the knee, and there was there were chronic skin changes below the knee. In addition, the radial artery was harvested from the left upper extremity using endoscopic technique. All branches were tied. A pericardial cradle was created. The ascending was palpated. There was no significant calcific plaque noted. Epiaortic ultrasound was then performed on the ascending aorta. Again, no calcific plaque or atheromatous disease was identified. Arterial cannula placed in the distal ACR. Venous cannula was placed through the right atrial appendage, directed into the IVC. Both antegrade and retrograde catheters were placed as well. The patient was then placed on a cardiopulmonary bypass with good decompression of the heart. The aortic cross-clamp was applied. Cold blood potassium cardioplegia was delivered both antegrade and retrograde fashion to achieve arrest of the heart. Of note, cardioplegia was delivered every 15-20 minutes with the patient under crossclamp. Again I identified the left atrial appendage. ( ) suture ligation. Next, attention was turned to the inferior wall. The posterior descending artery was ( ), dissected free proximally. A small tear was made. This vessel accepted a 1.0 mm probe. Using saphenous vein arch fashion, anastomosis created. This was performed several branches. The grafts were hemostatic and had great flow. Next, attention was turned to the lateral wall. The obtuse marginal was identified. Dissected free. Small tear was created. This vessel did contain diffuse calcific disease. The vessel accepted a 1.0 mm probe. Using the radial artery, an end-to-side anastomosis created. This was performed using running 7 Prolene suture. The graft was taking great flow. Attention was turned to the anterior wall. The left anterior descending artery was identified. It was dissected free and A small trial was With this vessel had a 1.5 mm probe. Using the left internal mammary artery, an end-to-side anastomosis. This was running 8-0 Prolene suture. The graft was hemostatic. The mammary pedicle was tacked down to the anterior side. Attention was then turned to the proximal anastomoses. These were both performed in end-to-side fashion using 6-0 Prolene suture. A liter of warm blood was delivered in retrograde fashion. Lidocaine and magnesium were administered as well. The cross- clamp was removed. The vein graft was de-aired in the standard fashion. Distal anastomoses were inspected and appeared hemostatic. The temporary atrial ventricular pacing wires were placed and brought through the skin. The patient was then weaned off cardiopulmonary bypass. He without difficulty. Followup transesophageal echocardiogram confirmed preserved ejection fraction with no change in trace to mild mitral regurgitation. Protamine was administered. There were no adverse reactions. The remaining cannulas were then removed. The was copiously irrigated with warm saline solution. All surgical sites were personally inspected appeared to be hemostatic. Soft tissues were reapproximated, the ascending aorta, as well as the apex of the heart. A straight 32-[place] chest tube was placed in the left pleural space. A straight 36-[place] chest tube was placed at this time. These were both secured to skin using sutures. Due to the patient's morbid obesity, I elected to reapproximate the sternum using the titanium plating system. Two [place] cables, 1 stainless steel wire, 2 X plates, and 2 B plates were used to bring the sternum together. A mixture of both 16 mm screws and 14 mm screws were used as well. was closed, the sternum was well aligned. The remainder of the wound was closed in multiple layers. Sterile dressing was applied. The patient appeared to tolerate the procedure well. No immediate complications. He returned to the ICU in critical but stable condition. He did not receive any intraoperative blood products. He was on low-dose Levophed upon arrival to the scene to the ICU. MMODL / IJN: [id number] /
[2020-10-04 19:49] LABS: Glucose,Whole Blood 148 mg/dL (75-99)
[2020-10-04] MEDS: ALBUMIN HUMAN 5% 250 ML in EMPTY BAG 1 BAG IVPB PRN (19:54)
[2020-10-04] MEDS: NOREPINEPHRINE 4 MG in SODIUM CHLORIDE 0.9% 250 ML IV SCH (20:06)
[2020-10-04] MEDS: HEPARIN SODIUM,PORCINE/PF 5,000 UNIT/0.5 ML SYRINGE SQ SCH ×2 (20:07→22:54)
[2020-10-04] MEDS: ATORVASTATIN 40 MG TAB PO SCH (20:11)
[2020-10-04] MEDS: KETOROLAC 15 MG/ML 1 ML VIAL IVP SCH ×2 (20:12→22:53)
[2020-10-04 20:29] LABS: Glucose,Whole Blood 148 mg/dL (75-99)
[2020-10-04 20:41] LABS: Basophils % (A) 0 %; Eosinophils % (A) 0 %; HCT 32.3 % (39.0-53.0); HGB 10.9 gm/dL (13.0-17.5); Lymphocytes # (A) 0.6 k/uL (1.0-4.8); Lymphocytes % (A) 5 %; MCH 30.9 pg (25.0-35.0); MCHC 33.7 g/dL (31.0-37.0); MCV 91.7 fL (80.0-100.0); Mean Platelet Volume 9.4; Monocytes # (A) 0.7 k/uL (0-1.0); Monocytes % (A) 6 %; Neutrophils % (A) 88 %; Platelet Count 123 k/uL (150-450); RBC 3.53 m/uL (4.30-5.90); RDW 13.6 % (11.5-15.5); WBC 12.6 k/uL (3.8-10.6)
[2020-10-04 21:33] LABS: ABG Base Excess -2.6 mmol/L; ABG HCO3 23 mmol/L (21-25); ABG Oxygen Saturation 99.1 % (94-97); ABG PCO2 41 mmHg (35-45); ABG PH 7.36 (7.35-7.45); ABG PO2 138 mmHg (83-108); ABG TCO2 24 mmol/L (19-24); Allen Test Performed? Yes
[2020-10-04] MEDS ORDERED: MUPIROCIN 2% OINT 22 GM TUBE NASAL ONE (21:45)
[2020-10-04 22:04] LABS: Glucose,Whole Blood 143 mg/dL (75-99)
[2020-10-04] MEDS: METOPROLOL TARTRATE 12.5 MG TAB PO SCH (22:16)
[2020-10-04] MEDS ORDERED: AMIODARONE 450 MG in DEXTROSE 5% IN WATER 250 ML IV PRN ×2 (22:30)
[2020-10-04 22:52] LABS: Glucose,Whole Blood 145 mg/dL (75-99)
[2020-10-05] MEDS: NOREPINEPHRINE 4 MG in SODIUM CHLORIDE 0.9% 250 ML IV SCH ×3 (01:20→23:31)
[2020-10-05] MEDS ORDERED: HYDROcodone/APAP 5-325MG 1 EACH TAB PO PRN ×2 (02:26)
[2020-10-05 05:18] LABS: Basophils % (A) 0 %; Eosinophils % (A) 0 %; HCT 28.6 % (39.0-53.0); Ionized Calcium 4.9 mg/dL (4.5-5.3); Lymphocytes # (A) 0.7 k/uL (1.0-4.8); Lymphocytes % (A) 7 %; MCH 30.2 pg (25.0-35.0); MCHC 32.7 g/dL (31.0-37.0); MCV 92.6 fL (80.0-100.0); Mean Platelet Volume 8.7; Monocytes # (A) 0.6 k/uL (0-1.0); Monocytes % (A) 6 %; Neutrophils # (A) 8.9 k/uL (1.3-7.7); Neutrophils % (A) 86 %; Platelet Count 135 k/uL (150-450); RBC 3.09 m/uL (4.30-5.90); RDW 14.1 % (11.5-15.5); WBC 10.4 k/uL (3.8-10.6)
[2020-10-05 05:33] LABS: Albumin 2.9 g/dL (3.5-5.0); Calcium 8.2 mg/dL (8.4-10.2); Magnesium 2.1 mg/dL (1.6-2.3); Potassium 4.5 mmol/L (3.5-5.1); Total Bilirubin 0.6 mg/dL (0.2-1.3); Total Protein 5.1 g/dL (6.3-8.2)
[2020-10-05 05:57] LABS: Glucose,Whole Blood 138 mg/dL (75-99)
[2020-10-05 05:57] LABS: Glucose,Whole Blood 134 mg/dL (75-99)
[2020-10-05 05:57] LABS: Glucose,Whole Blood 142 mg/dL (75-99)
[2020-10-05 05:57] LABS: Glucose,Whole Blood 141 mg/dL (75-99)
[2020-10-05 06:02] LABS: Glucose,Whole Blood 144 mg/dL (75-99)
[2020-10-05] MEDS: KETOROLAC 15 MG/ML 1 ML VIAL IVP SCH ×3 (06:44→18:03)
[2020-10-05 06:59] LABS: Glucose,Whole Blood 145 mg/dL (75-99)
[2020-10-05 07:19] LABS: HGB 9.3 gm/dL (13.0-17.5)
[2020-10-05 08:07] LABS: Glucose,Whole Blood 230 mg/dL (75-99)
--- NOTE | 2020-10-05 08:15 | P.PN ---
Subjective Progress Note Date: 10/05/20 Principal diagnosis: Triple-vessel coronary artery disease, unstable angina. 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, never smoker, history of Covid infection in December 2019, remains unvaccinated POD #1 coronary artery bypass grafting 3 vessels, left internal mammary artery to the left anterior descending artery, left radial artery to the obtuse m arginal artery, reverse saphenous vein graft to posterior descending artery, endoscopic harvesting of the left greater saphenous vein above the knee, endoscopic harvesting of the left radial artery, ligation of the left atrial appendage using a 35 mm AtriClip, epi-aortic ultrasound, intraoperative t ransesophageal echocardiogram, closure of the sternum using titanium plating system Postoperative acute blood loss anemia and thrombocytopenia, expected outcomes of cardiac surgery given hemodilution and cardiopulmonary bypass pump Patient's currently sitting up in a recliner in the intensive care unit in no acute distress. He was successfully extubated last night at 21:43. States pain is controlled on current medication regimen, denies shortness of breath. Had a relatively uneventful night. Remains in sinus rhythm with PACs, hemodynamically stable on low-dose Levophed, remains on IV Cardizem for radial artery spasm prophylaxis. Right internal jugular Kingston/Cordis, right radial arterial line, mediastinal/left pleural chest tubes all remaining present. No new concerns. Objective - Vital Signs Vital signs: Vital Signs Temp 98.4 F 10/05/20 04:00 Pulse 81 10/05/20 04:00 Resp 8 L 10/05/20 04:00 BP 101/57 10/05/20 04:00 Pulse Ox 97 10/05/20 04:00 Intake & Output 10/04/20 10/05/20 10/05/20 18:59 06:59 18:59 Intake Total 135.152 4494.458 100.609 Output Total 2775 1101 90 Balance -2142.062 739.458 10.609 Weight 132 kg Intake: IV 239 1608 59 Albumin Human 5% 250 ml 750 In Empty Bag 1 bag @ 250 mls/hr IVPB Q1HR PRN Rx#: [id number] Lactated Ringers 1,000 ml 550 50 @ 50 mls/hr IV .Q20H JACOB Rx#:[id number] cardiac output 60 200 pressure bag 27 108 9 Intake, IV Titration 393.938 232.458 41.609 Amount ACETAMINOPHEN IV (For NPO 100 ) 1,000 mg In Empty Bag 1 bag @ 400 mls/hr IVPB Q6HR JACOB Rx#:[id number] Clevidipine Butyrate 25 4.8 0.867 mg In Empty Bag 1 bag @ 1 MG/HR 2 mls/hr IV .Q24H JACOB Rx#:[id number] Diltiazem 125 mg In 21.75 Sodium Chloride 0.9% 100 ml @ 5 MG/HR 5 mls/hr IV .Q24H JACOB Rx#:[id number] Insulin Regular 100 unit 21.092 7.701 In Sodium Chloride 0.9% 100 ml @ Per Protocol IV .Q0M AJCOB Rx#:[id number] Lactated Ringers 1,000 ml 150 50 @ 50 mls/hr IV .Q20H JACOB Rx#:[id number] Nitroglycerin-D5w Pmx 50 22.7 mg In Dextrose/Water 1 250ml.bag @ 5 MCG/MIN 1.5 mls/hr IV .Q24H JACOB Rx#: [id number] Norepinephrine 4 mg In 129.540 11.208 Sodium Chloride 0.9% 250 ml @ 0.05 MCG/KG/MIN 24. 365 mls/hr IV .[id number] JACOB Rx#:[id number] ceFAZolin 3 gm In Sodium 100 Chloride 0.9% 100 ml @ 100 mls/hr IVPB Q8HR JACOB Rx#:[id number] propofoL 1,000 mg In 39.138 9.209 Empty Bag 1 bag @ Titrate IV .Q0M JACOB Rx#: [id number] Output: Chest Tube Drainage 160 461 50 left pleural 65 171 30 mediastinal 95 290 20 Drainage 10 30 Left Arm 10 30 Urine 805 610 40 Estimated Blood Loss 1800 Other: Voiding Method Indwelling Catheter Indwelling Catheter ABP, PAP, CO, CI - Last Documented Arterial Blood Pressure 119/49 Pulmonary Artery Pressure 26/11 Cardiac Output 6.1 Cardiac Index 2.5 - Exam CONSTITUTIONAL: Appears comfortable, cooperative, no acute distress RESPIRATORY: Lungs sounds diminished bilaterally. Respirations even, nonlabored. Currently on 2 L nasal cannula with oxygen saturation 98%. Able to achieve 1250 mL on incentive spirometry. Strong cough. CARDIOVASCULAR: S1, S2 present. Regular rate and rhythm, sinus rhythm with PACs on telemetry. Sternum stable. Palpable peripheral pulses bilaterally. No edema present. No calf pain or tenderness noted. Heart hugger in place with patient demonstrating appropriate use. Antiembolism stockings, SCDs present. GASTROINTESTINAL: Abdomen soft, nontender, nondistended. Active bowel sounds present 4 quadrants. Tolerating clear liquids. Positive flatus. GENITOURINARY: Padgett present draining clear, yellow urine. Output overnight 40-50 mL per hour INTEGUMENTARY: Skin is warm and dry with evidence of good perfusion. Anterior chest incision well approximated and covered with dry intact dressing. EVH site well approximated without redness or drainage. Left radial artery harvest site without redness, ABHAY drain present with minimal output, patient able to wiggle all fingers and group appropriately, good cap refill. Chronic pressure ulcer present to plantar surface of foot, no redness or drainage present. NEUROLOGIC: Cranial nerves II through XII intact MUSKULOSKELETAL: Able to move all extremities, strength equal bilaterally PSYCHIATRIC: Alert and oriented to person place and time, appropriate affect, intact judgment and insight INVASIVE LINES AND TUBES: Mediastinal/left pleural chest tubes present and c onnected to wall suction, no air leaks present. Mediastinal tube with 220 mL serosanguineous drainage overnight, 400 mL since surgery. Left pleural chest tube with 125 mL serosanguineous drainage overnight, 400 mL since surgery. A/V epicardial pacemaker wires present, connected to generator, AAI mode with backup rate 50 bpm. Right internal jugular Kingston/Cordis, right radial arterial line present. Last CO/CI 6.3/2.6, PA 19/5, CVP 4. - Allied health notes Allied health notes reviewed: nursing - Labs CBC & Chem 7: 10/05/20 03:29 10/05/20 03:29 Labs: Abnormal Lab Results - Last 24 Hours (Table) 09/27/20 10/04/20 10/04/20 Range/Units 06:22 08:30 08:41 WBC (3.8-10.6) k/uL RBC (4.30-5.90) m/uL Hgb (13.0-17.5) gm/dL Hct (39.0-53.0) % Plt Count (150-450) k/uL Neutrophils # (1.3-7.7) k/uL Lymphocytes # (1.0-4.8) k/uL APTT (22.0-30.0) sec ABG pH (7.35-7.45) ABG pCO2 (35-45) mmHg ABG pO2 276 H >420 H (83-108) mmHg ABG HCO3 26 H (21-25) mmol/L ABG Total CO2 26 H 27 H (19-24) mmol/L ABG O2 Saturation 100.0 H 100.0 H (94-97) % ABG Hematocrit (34.0-46.0) % ABG Potassium (3.4-4.5) mmol/L ABG Ionized Calcium (4.5-5.3) mg/dL ABG Glucose 131 H 132 H (75-99) mg/dL ABG Lactic Acid (0.5-1.6) mmol/L Hemoglobin 11.5 L 12.7 L (13.0-17.5) gm/dL Chloride (98-107) mmol/L BUN (9-20) mg/dL Glucose (74-99) mg/dL POC Glucose (mg/dL) (75-99) mg/dL Calcium (8.4-10.2) mg/dL Magnesium (1.6-2.3) mg/dL Total Protein (6.3-8.2) g/dL Albumin (3.5-5.0) g/dL Arterial Blood Potassium (3.4-4.5) mmol/L Arterial Blood Glucose 131 H 132 H (75-99) mg/dL Crossmatch See Detail 10/04/20 10/04/20 10/04/20 Range/Units 10:09 11:56 12:25 WBC (3.8-10.6) k/uL RBC (4.30-5.90) m/uL Hgb (13.0-17.5) gm/dL Hct (39.0-53.0) % Plt Count (150-450) k/uL Neutrophils # (1.3-7.7) k/uL Lymphocytes # (1.0-4.8) k/uL APTT (22.0-30.0) sec ABG pH 7.34 L (7.35-7.45) ABG pCO2 46 H (35-45) mmHg ABG pO2 228 H 342 H 268 H (83-108) mmHg ABG HCO3 (21-25) mmol/L ABG Total CO2 25 H 26 H 26 H (19-24) mmol/L ABG O2 Saturation 100.0 H 100.0 H 100.0 H (94-97) % ABG Hematocrit 28 L 28 L (34.0-46.0) % ABG Potassium 4.7 H 4.7 H (3.4-4.5) mmol/L ABG Ionized Calcium 4.4 L 4.4 L (4.5-5.3) mg/dL ABG Glucose 152 H 117 H 112 H (75-99) mg/dL ABG Lactic Acid 1.8 H 1.8 H (0.5-1.6) mmol/L Hemoglobin 12.1 L 9.0 L 9.1 L (13.0-17.5) gm/dL Chloride (98-107) mmol/L BUN (9-20) mg/dL Glucose (74-99) mg/dL POC Glucose (mg/dL) (75-99) mg/dL Calcium (8.4-10.2) mg/dL Magnesium (1.6-2.3) mg/dL Total Protein (6.3-8.2) g/dL Albumin (3.5-5.0) g/dL Arterial Blood Potassium 4.7 H 4.7 H (3.4-4.5) mmol/L Arterial Blood Glucose 152 H 117 H 112 H (75-99) mg/dL Crossmatch 10/04/20 10/04/20 10/04/20 Range/Units 12:59 13:31 15:44 WBC (3.8-10.6) k/uL RBC (4.30-5.90) m/uL Hgb (13.0-17.5) gm/dL Hct (39.0-53.0) % Plt Count (150-450) k/uL Neutrophils # (1.3-7.7) k/uL Lymphocytes # (1.0-4.8) k/uL APTT (22.0-30.0) sec ABG pH (7.35-7.45) ABG pCO2 (35-45) mmHg ABG pO2 344 H 322 H (83-108) mmHg ABG HCO3 (21-25) mmol/L ABG Total CO2 26 H 26 H (19-24) mmol/L ABG O2 Saturation 100.0 H 100.0 H (94-97) % ABG Hematocrit 27 L 28 L (34.0-46.0) % ABG Potassium 4.6 H 4.8 H (3.4-4.5) mmol/L ABG Ionized Calcium 4.4 L 4.4 L (4.5-5.3) mg/dL ABG Glucose 102 H (75-99) mg/dL ABG Lactic Acid 1.8 H 1.8 H (0.5-1.6) mmol/L Hemoglobin 8.9 L 9.2 L (13.0-17.5) gm/dL Chloride (98-107) mmol/L BUN (9-20) mg/dL Glucose (74-99) mg/dL POC Glucose (mg/dL) 103 H (75-99) mg/dL Calcium (8.4-10.2) mg/dL Magnesium (1.6-2.3) mg/dL Total Protein (6.3-8.2) g/dL Albumin (3.5-5.0) g/dL Arterial Blood Potassium 4.6 H 4.8 H (3.4-4.5) mmol/L Arterial Blood Glucose 102 H (75-99) mg/dL Crossmatch 10/04/20 10/04/20 10/04/20 Range/Units 15:45 15:45 15:45 WBC (3.8-10.6) k/uL RBC 3.73 L (4.30-5.90) m/uL Hgb 11.4 L (13.0-17.5) gm/dL Hct 34.0 L (39.0-53.0) % Plt Count 119 L (150-450) k/uL Neutrophils # 8.4 H (1.3-7.7) k/uL Lymphocytes # (1.0-4.8) k/uL APTT 32.7 H (22.0-30.0) sec ABG pH (7.35-7.45) ABG pCO2 (35-45) mmHg ABG pO2 (83-108) mmHg ABG HCO3 (21-25) mmol/L ABG Total CO2 (19-24) mmol/L ABG O2 Saturation (94-97) % ABG Hematocrit (34.0-46.0) % ABG Potassium (3.4-4.5) mmol/L ABG Ionized Calcium (4.5-5.3) mg/dL ABG Glucose (75-99) mg/dL ABG Lactic Acid (0.5-1.6) mmol/L Hemoglobin (13.0-17.5) gm/dL Chloride 111 H (98-107) mmol/L BUN 23 H (9-20) mg/dL Glucose 109 H (74-99) mg/dL POC Glucose (mg/dL) (75-99) mg/dL Calcium 8.1 L (8.4-10.2) mg/dL Magnesium 2.4 H (1.6-2.3) mg/dL Total Protein 4.9 L (6.3-8.2) g/dL Albumin 2.6 L (3.5-5.0) g/dL Arterial Blood Potassium (3.4-4.5) mmol/L Arterial Blood Glucose (75-99) mg/dL Crossmatch 10/04/20 10/04/20 10/04/20 Range/Units 16:16 17:04 18:05 WBC 11.4 H (3.8-10.6) k/uL RBC 3.83 L (4.30-5.90) m/uL Hgb 11.9 L (13.0-17.5) gm/dL Hct 35.1 L (39.0-53.0) % Plt Count 131 L (150-450) k/uL Neutrophils # 9.8 H (1.3-7.7) k/uL Lymphocytes # 0.8 L (1.0-4.8) k/uL APTT (22.0-30.0) sec ABG pH 7.34 L (7.35-7.45) ABG pCO2 (35-45) mmHg ABG pO2 >400 H (83-108) mmHg ABG HCO3 (21-25) mmol/L ABG Total CO2 26 H (19-24) mmol/L ABG O2 Saturation 99.7 H (94-97) % ABG Hematocrit (34.0-46.0) % ABG Potassium (3.4-4.5) mmol/L ABG Ionized Calcium (4.5-5.3) mg/dL ABG Glucose (75-99) mg/dL ABG Lactic Acid (0.5-1.6) mmol/L Hemoglobin (13.0-17.5) gm/dL Chloride (98-107) mmol/L BUN (9-20) mg/dL Glucose (74-99) mg/dL POC Glucose (mg/dL) 134 H (75-99) mg/dL Calcium (8.4-10.2) mg/dL Magnesium (1.6-2.3) mg/dL Total Protein (6.3-8.2) g/dL Albumin (3.5-5.0) g/dL Arterial Blood Potassium (3.4-4.5) mmol/L Arterial Blood Glucose (75-99) mg/dL Crossmatch 10/04/20 10/04/20 10/04/20 Range/Units 18:08 19:05 19:47 WBC (3.8-10.6) k/uL RBC (4.30-5.90) m/uL Hgb (13.0-17.5) gm/dL Hct (39.0-53.0) % Plt Count (150-450) k/uL Neutrophils # (1.3-7.7) k/uL Lymphocytes # (1.0-4.8) k/uL APTT (22.0-30.0) sec ABG pH (7.35-7.45) ABG pCO2 (35-45) mmHg ABG pO2 (83-108) mmHg ABG HCO3 (21-25) mmol/L ABG Total CO2 (19-24) mmol/L ABG O2 Saturation (94-97) % ABG Hematocrit (34.0-46.0) % ABG Potassium (3.4-4.5) mmol/L ABG Ionized Calcium (4.5-5.3) mg/dL ABG Glucose (75-99) mg/dL ABG Lactic Acid (0.5-1.6) mmol/L Hemoglobin (13.0-17.5) gm/dL Chloride (98-107) mmol/L BUN (9-20) mg/dL Glucose (74-99) mg/dL POC Glucose (mg/dL) 141 H 137 H 148 H (75-99) mg/dL Calcium (8.4-10.2) mg/dL Magnesium (1.6-2.3) mg/dL Total Protein (6.3-8.2) g/dL Albumin (3.5-5.0) g/dL Arterial Blood Potassium (3.4-4.5) mmol/L Arterial Blood Glucose (75-99) mg/dL Crossmatch 10/04/20 10/04/20 10/04/20 Range/Units 20:10 20:27 21:28 WBC 12.6 H (3.8-10.6) k/uL RBC 3.53 L (4.30-5.90) m/uL Hgb 10.9 L (13.0-17.5) gm/dL Hct 32.3 L (39.0-53.0) % Plt Count 123 L (150-450) k/uL Neutrophils # 11.0 H (1.3-7.7) k/uL Lymphocytes # 0.6 L (1.0-4.8) k/uL APTT (22.0-30.0) sec ABG pH (7.35-7.45) ABG pCO2 (35-45) mmHg ABG pO2 138 H (83-108) mmHg ABG HCO3 (21-25) mmol/L ABG Total CO2 (19-24) mmol/L ABG O2 Saturation 99.1 H (94-97) % ABG Hematocrit (34.0-46.0) % ABG Potassium (3.4-4.5) mmol/L ABG Ionized Calcium (4.5-5.3) mg/dL ABG Glucose (75-99) mg/dL ABG Lactic Acid (0.5-1.6) mmol/L Hemoglobin (13.0-17.5) gm/dL Chloride (98-107) mmol/L BUN (9-20) mg/dL Glucose (74-99) mg/dL POC Glucose (mg/dL) 148 H (75-99) mg/dL Calcium (8.4-10.2) mg/dL Magnesium (1.6-2.3) mg/dL Total Protein (6.3-8.2) g/dL Albumin (3.5-5.0) g/dL Arterial Blood Potassium (3.4-4.5) mmol/L Arterial Blood Glucose (75-99) mg/dL Crossmatch 10/04/20 10/04/20 10/05/20 Range/Units 22:03 22:50 00:05 WBC (3.8-10.6) k/uL RBC (4.30-5.90) m/uL Hgb (13.0-17.5) gm/dL Hct (39.0-53.0) % Plt Count (150-450) k/uL Neutrophils # (1.3-7.7) k/uL Lymphocytes # (1.0-4.8) k/uL APTT (22.0-30.0) sec ABG pH (7.35-7.45) ABG pCO2 (35-45) mmHg ABG pO2 (83-108) mmHg ABG HCO3 (21-25) mmol/L ABG Total CO2 (19-24) mmol/L ABG O2 Saturation (94-97) % ABG Hematocrit (34.0-46.0) % ABG Potassium (3.4-4.5) mmol/L ABG Ionized Calcium (4.5-5.3) mg/dL ABG Glucose (75-99) mg/dL ABG Lactic Acid (0.5-1.6) mmol/L Hemoglobin (13.0-17.5) gm/dL Chloride (98-107) mmol/L BUN (9-20) mg/dL Glucose (74-99) mg/dL POC Glucose (mg/dL) 143 H 145 H 141 H (75-99) mg/dL Calcium (8.4-10.2) mg/dL Magnesium (1.6-2.3) mg/dL Total Protein (6.3-8.2) g/dL Albumin (3.5-5.0) g/dL Arterial Blood Potassium (3.4-4.5) mmol/L Arterial Blood Glucose (75-99) mg/dL Crossmatch 10/05/20 10/05/20 10/05/20 Range/Units 01:22 02:15 03:29 WBC (3.8-10.6) k/uL RBC 3.09 L (4.30-5.90) m/uL Hgb 9.3 L D (13.0-17.5) gm/dL Hct 28.6 L (39.0-53.0) % Plt Count 135 L (150-450) k/uL Neutrophils # 8.9 H (1.3-7.7) k/uL Lymphocytes # 0.7 L (1.0-4.8) k/uL APTT (22.0-30.0) sec ABG pH (7.35-7.45) ABG pCO2 (35-45) mmHg ABG pO2 (83-108) mmHg ABG HCO3 (21-25) mmol/L ABG Total CO2 (19-24) mmol/L ABG O2 Saturation (94-97) % ABG Hematocrit (34.0-46.0) % ABG Potassium (3.4-4.5) mmol/L ABG Ionized Calcium (4.5-5.3) mg/dL ABG Glucose (75-99) mg/dL ABG Lactic Acid (0.5-1.6) mmol/L Hemoglobin (13.0-17.5) gm/dL Chloride (98-107) mmol/L BUN (9-20) mg/dL Glucose (74-99) mg/dL POC Glucose (mg/dL) 134 H 138 H (75-99) mg/dL Calcium (8.4-10.2) mg/dL Magnesium (1.6-2.3) mg/dL Total Protein (6.3-8.2) g/dL Albumin (3.5-5.0) g/dL Arterial Blood Potassium (3.4-4.5) mmol/L Arterial Blood Glucose (75-99) mg/dL Crossmatch 10/05/20 10/05/20 10/05/20 Range/Units 03:29 03:34 06:01 WBC (3.8-10.6) k/uL RBC (4.30-5.90) m/uL Hgb (13.0-17.5) gm/dL Hct (39.0-53.0) % Plt Count (150-450) k/uL Neutrophils # (1.3-7.7) k/uL Lymphocytes # (1.0-4.8) k/uL APTT (22.0-30.0) sec ABG pH (7.35-7.45) ABG pCO2 (35-45) mmHg ABG pO2 (83-108) mmHg ABG HCO3 (21-25) mmol/L ABG Total CO2 (19-24) mmol/L ABG O2 Saturation (94-97) % ABG Hematocrit (34.0-46.0) % ABG Potassium (3.4-4.5) mmol/L ABG Ionized Calcium (4.5-5.3) mg/dL ABG Glucose (75-99) mg/dL ABG Lactic Acid (0.5-1.6) mmol/L Hemoglobin (13.0-17.5) gm/dL Chloride 110 H (98-107) mmol/L BUN 27 H (9-20) mg/dL Glucose 140 H (74-99) mg/dL POC Glucose (mg/dL) 142 H 144 H (75-99) mg/dL Calcium 8.2 L (8.4-10.2) mg/dL Magnesium (1.6-2.3) mg/dL Total Protein 5.1 L (6.3-8.2) g/dL Albumin 2.9 L (3.5-5.0) g/dL Arterial Blood Potassium (3.4-4.5) mmol/L Arterial Blood Glucose (75-99) mg/dL Crossmatch 10/05/20 Range/Units 06:58 WBC (3.8-10.6) k/uL RBC (4.30-5.90) m/uL Hgb (13.0-17.5) gm/dL Hct (39.0-53.0) % Plt Count (150-450) k/uL Neutrophils # (1.3-7.7) k/uL Lymphocytes # (1.0-4.8) k/uL APTT (22.0-30.0) sec ABG pH (7.35-7.45) ABG pCO2 (35-45) mmHg ABG pO2 (83-108) mmHg ABG HCO3 (21-25) mmol/L ABG Total CO2 (19-24) mmol/L ABG O2 Saturation (94-97) % ABG Hematocrit (34.0-46.0) % ABG Potassium (3.4-4.5) mmol/L ABG Ionized Calcium (4.5-5.3) mg/dL ABG Glucose (75-99) mg/dL ABG Lactic Acid (0.5-1.6) mmol/L Hemoglobin (13.0-17.5) gm/dL Chloride (98-107) mmol/L BUN (9-20) mg/dL Glucose (74-99) mg/dL POC Glucose (mg/dL) 145 H (75-99) mg/dL Calcium (8.4-10.2) mg/dL Magnesium (1.6-2.3) mg/dL Total Protein (6.3-8.2) g/dL Albumin (3.5-5.0) g/dL Arterial Blood Potassium (3.4-4.5) mmol/L Arterial Blood Glucose (75-99) mg/dL Crossmatch - Imaging and Cardiology Chest x-ray: image reviewed Assessment and Plan Assessment: 1. Triple-vessel coronary artery disease, unstable angina, status post three- vessel CABG 2. History of hypertension, currently hypotensive on IV Levophed 3. Type 2 diabetes, preoperative hemoglobin A1c 6.4% 4. Peripheral arterial disease with bilateral lower extremity ulcers 5. Current nonhealing ulcer to the left foot with completion of 60 treatments of hyperbaric oxygen therapy, seeks treatment in the wound care center in [place] every Saturday 6. 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 Never smoker 8. History of Covid infection in December 2019, remains unvaccinated 9. Postoperative acute blood loss anemia and thrombocytopenia Plan: 1. Continue aspirin, statin, Plavix, beta ruperto therapy. Will increase beta ruperto therapy as tolerated 2. Discontinue IV nitro. Wean levo as tolerated 3. Continue Cardizem for radial artery spasm, will transition to oral. Do not discontinue CCB without discussed with cardiac surgery 4. Wean O2 as tolerated. Encourage incentive spirometry use 10 times every hour while awake. Bronchodilators per pulmonology 5. Increase activity, ambulate as tolerated. PT/OT/cardiac rehab consulted 6. Will monitor daily labs and x-rays. Electrolyte replacement per protocol. No transfusion 7. GI/DVT prophylaxis 8. Pain control with current medication regimen 9. Insulin management per primary care service. Patient needs tight blood sugar control to promote sternal union and prevent infection 10. Wound care consulted for management of patient's chronic left foot wound, may replace noncontact cast 11. Discontinue [place]. Connect cordis to continuous CVP monitoring 12. Continue mediastinal/left pleural chest tubes, Cordis, arterial line for another 24 hours 13. Continue Padgett catheter for another 24 hours for strict accurate intake and output. Daily weights 14. More recommendations to follow Time with Patient: Greater than 30
[2020-10-05] MEDS: IPRATROPIUM-ALBUTEROL 3 ML NEB INHALATION SCH ×4 (08:21→19:29)
--- NOTE | 2020-10-05 08:55 | XR ---
EXAMINATION TYPE: XR chest 1V portable DATE OF EXAM: 10/05/2020 COMPARISON: 10/04/2020 HISTORY: Postop TECHNIQUE: Single frontal view of the chest is obtained. FINDINGS: Heart is enlarged and there is a [place] catheter and left-sided chest tube. ET and NG t ube have been removed. Scattered areas of patchy infiltrate are noted. No sizable pneumothorax. Media stinal drain may still be present. Correlate clinically. IMPRESSION: 1. Postoperative change with patchy bilateral areas of infiltrate and suspected mild residual venous congestion
[2020-10-05 08:56] LABS: Glucose,Whole Blood 247 mg/dL (75-99)
[2020-10-05] MEDS ORDERED: PANTOPRAZOLE 40 MG/10 ML VIAL IVP SCH (09:00)
[2020-10-05] MEDS ORDERED: METOPROLOL TARTRATE 12.5 MG TAB PO SCH (09:00)
[2020-10-05] MEDS ORDERED: MAGNESIUM HYDROXIDE 2,400 MG/10 ML CUP PO PRN (09:00)
[2020-10-05] MEDS ORDERED: bisacodyL 10 MG SUPP RECTAL PRN (09:00)
--- NOTE | 2020-10-05 09:07 | P.CNPUL ---
History of Present Illness Consult date: 10/05/20 Requesting physician: Augustine Nichols Reason for consult: other Chief complaint: Coronary artery disease History of present illness: This is a 65-year-old white male patient of Dr. Terry Watts/Lacie Walden with past medical history of hypertension, type 2 diabetes mellitus, peripheral arterial disease with left lower extremity nonhealing ulcer with history of amputation of toes. Patient was recently hospitalized with unstable angina at this hospital. EKG demonstrated evidence of prior inferior wall myocardial infarction. Heart catheterization showed RCA stenosis of 70-80%, circumflex stenosis of 90%, proximal LAD stenosis of 90% and the diagonal stenosis of 70- 80%. Transthoracic echocardiogram from 09/23/2020 demonstrated normal left ventricular systolic function with an EF of 55%, normal diastolic dysfunction, trace central mitral regurgitation and mild central tricuspid regurgitation. He was referred to CT surgery for coronary artery bypass grafting. On 10/04/2020 patient had a three-vessel coronary artery bypass grafting with a ARAMBULA to LAD, radial artery to obtuse marginal, SVG to the PDA, with endoscopic harvest of the left greater saphenous vein, and left radial artery, and ligation of the left atrial appendage. We are seeing the patient today on 10/05/2020, this is postoperative day #1. He was successfully weaned and extubated on postoperative day #0 at 215. This morning he is on 2 L of oxygen his pulse ox is 100%. Today's chest x-ray has been reviewed showing some mild atelectasis at the left base. Is breathing comfortably, is awake and alert. He has left pleural and mediastinal chest tubes in place, with 400 mL of serosanguineous output from the left and 385 ML of serosanguineous output from the mediastinal chest tube. Urine output is in the order of 40-50 ML per hour. He is on lactated Ringer's at 50 ML per hour, insulin drip is at 3 units per hour, he is on Cardizem 5 mg per hour, and levofed at 0.02 mics per kilo per minute. patient received 1 L of 5% albumin early this morning. Today's labs have been reviewed, white blood cell count is 10.4, hemoglobin is 9.3, INR is 1.1 from yesterday's labs, sodium is 139, potassium is 4.5, chloride is 110, BUN of 27, and creatinine of 1.1, LFTs are unremarkable. Currently patient is in sinus mechanism with a rate of 83 bpm, blood pressure is 101/57, PA pressure is 22/10, with CVP of 9, cardiac output is 7.3, and cardiac index is 3.0. Review of Systems All systems: negative Constitutional: Denies chills, Denies fever Eyes: denies blurred vision, denies pain Ears, nose, mouth and throat: Denies headache, Denies sore throat Cardiovascular: Reports chest pain, Denies shortness of breath Respiratory: Denies cough Gastrointestinal: Denies abdominal pain, Denies diarrhea, Denies nausea, Denies vomiting Musculoskeletal: Denies myalgias Integumentary: Denies pruritus, Denies rash Neurological: Denies numbness, Denies weakness Psychiatric: Denies anxiety, Denies depression Endocrine: Denies fatigue, Denies weight change Past Medical History Past Medical History: Coronary Artery Disease (CAD), Chest Pain / Angina, Diabetes Mellitus, Hyperlipidemia, Hypertension, Skin Disorder, Vascular Disorder Additional Past Medical History / Comment(s): WOUND BELOW LITTLE TOE LEFT FOOT- HAS CAST & WALKING BOOT., 60 treatments of hyperbaric oxygen therapy last dose 07/28/2020 History of Any Multi-Drug Resistant Organisms: MRSA Date of last positivie culture/infection: 2013 MDRO Source:: toe Past Surgical History: Heart Catheterization Additional Past Surgical History / Comment(s): tin big toe amputation (2009, 2013)., Cataract removed left eye Past Anesthesia/Blood Transfusion Reactions: No Reported Reaction Smoking Status: Never smoker - Past Family History Mother Family Medical History: Cancer Additional Family Medical History / Comment(s): of an aneurysm at 88 years old Father Family Medical History: Diabetes Mellitus Medications and Allergies Home Medications Medication Instructions Recorded Confirmed Type Ascorbic Acid [Vitamin C] 1,000 mg PO DAILY 09/23/20 09/28/20 History Aspirin [Adult Low Dose Aspirin EC] 81 mg PO DAILY 09/23/20 09/28/20 History Carvedilol [Coreg] 12.5 mg PO BID 09/23/20 09/28/20 History Cholecalciferol (Vitamin D3) 125 mcg PO DAILY 09/23/20 09/28/20 History [Vitamin D3 (5000 Iu)] Empagliflozin [Jardiance] 25 mg PO DAILY 09/23/20 09/28/20 History Lisinopril-Hctz 20-25 mg 1 tab PO DAILY 09/23/20 09/28/20 History [Zestoretic 20-25] Multivit-Min/FA/Lycopen/Lutein 1 each PO DAILY 09/23/20 09/28/20 History [Centrum Silver Men Tablet] glipiZIDE [Glucotrol] 10 mg PO BID 09/23/20 09/28/20 History Atorvastatin [Lipitor] 40 mg PO HS #90 tab 09/27/20 09/28/20 Rx Isosorbide Mononitrate ER [Imdur] 30 mg PO DAILY #90 tab.er.24h 09/27/20 09/28/20 Rx Nitroglycerin Sl Tabs [Nitrostat] 0.4 mg SUBLINGUAL Q5M PRN #1 bottle 09/27/20 09/28/20 Rx Mupirocin 2% Oint [Bactroban 2% 1 applic NASAL DAILY 09/28/20 09/28/20 History Oint] Allergies Allergy/AdvReac Type Severity Reaction Status Date / Time No Known Allergies Allergy Verified 10/04/20 06:40 Physical Exam Vitals: Vital Signs Temp Pulse Pulse Resp BP BP Pulse Ox 10/05/20 07:00 72 11 L 99/53 100 10/05/20 06:00 88 70 10 L 101/57 102/55 97 10/05/20 05:00 83 71 12 101/57 97 10/05/20 04:00 98.4 F 81 8 L 101/57 97 10/05/20 03:00 78 8 L 100/55 98 10/05/20 02:30 78 8 L 100/55 98 10/05/20 02:00 74 8 L 98 10/05/20 01:30 77 7 L 82/49 96 10/05/20 01:00 78 8 L 83/53 95 10/05/20 00:36 79 9 L 96 10/05/20 00:30 79 11 L 95/56 95 10/05/20 00:00 98.2 F 78 14 97 10/04/20 23:30 79 9 L 96 10/04/20 23:00 80 9 L 95 10/04/20 22:30 79 12 143/62 95 10/04/20 22:00 84 13 143/62 96 10/04/20 21:51 99 10/04/20 21:43 96 10/04/20 21:30 71 8 L 99 10/04/20 21:00 71 9 L 95/55 99 10/04/20 20:30 68 12 99 10/04/20 20:24 70 10/04/20 20:08 68 10/04/20 20:00 98.6 F 67 12 91/54 99 10/04/20 19:30 73 10 L 100 10/04/20 19:00 72 11 L 100 10/04/20 18:30 74 10 L 100 10/04/20 18:00 70 13 100 10/04/20 17:30 71 12 100 10/04/20 17:10 73 13 100 10/04/20 17:00 71 14 100 10/04/20 16:50 73 14 99 10/04/20 16:40 76 13 99 10/04/20 16:30 79 14 100 10/04/20 16:28 88 10/04/20 16:20 71 21 100 10/04/20 16:15 98 10/04/20 16:10 74 11 L 100 10/04/20 16:00 80 9 L 100 10/04/20 15:50 80 16 100 10/04/20 15:40 98.1 F 80 11 L 100 10/04/20 15:30 100 Intake and Output 10/04/20 10/05/20 10/05/20 22:59 06:59 14:59 Intake Total 489.955 6719.175 100.609 Output Total 3231 645 90 Balance -2325.779 771.175 10.609 Intake: IV 422 1273 59 Albumin Human 5% 250 ml 750 In Empty Bag 1 bag @ 250 mls/hr IVPB Q1HR PRN Rx#: [id number] Lactated Ringers 1,000 ml 200 350 50 @ 50 mls/hr IV .Q20H JACOB Rx#:[id number] cardiac output 150 110 pressure bag 72 63 9 Intake, IV Titration 483.221 143.175 41.609 Amount ACETAMINOPHEN IV (For NPO 100 ) 1,000 mg In Empty Bag 1 bag @ 400 mls/hr IVPB Q6HR JACOB Rx#:[id number] Clevidipine Butyrate 25 5.667 mg In Empty Bag 1 bag @ 1 MG/HR 2 mls/hr IV .Q24H JACOB Rx#:[id number] Diltiazem 125 mg In 21.75 Sodium Chloride 0.9% 100 ml @ 5 MG/HR 5 mls/hr IV .Q24H JACOB Rx#:[id number] Insulin Regular 100 unit 7.457 13.635 7.701 In Sodium Chloride 0.9% 100 ml @ Per Protocol IV .Q0M JACOB Rx#:[id number] Lactated Ringers 1,000 ml 200 @ 50 mls/hr IV .Q20H JACOB Rx#:[id number] Nitroglycerin-D5w Pmx 50 22.7 mg In Dextrose/Water 1 250ml.bag @ 5 MCG/MIN 1.5 mls/hr IV .Q24H JACOB Rx#: [id number] Norepinephrine 4 mg In 129.540 11.208 Sodium Chloride 0.9% 250 ml @ 0.05 MCG/KG/MIN 24. 365 mls/hr IV .[id number] JACOB Rx#:[id number] ceFAZolin 3 gm In Sodium 100 Chloride 0.9% 100 ml @ 100 mls/hr IVPB Q8HR JACOB Rx#:[id number] propofoL 1,000 mg In 48.347 Empty Bag 1 bag @ Titrate IV .Q0M JACOB Rx#: [id number] Output: Chest Tube Drainage 311 310 50 left pleural 136 100 30 mediastinal 175 210 20 Drainage 20 20 Left Arm 20 20 Urine 1100 315 40 Estimated Blood Loss 1800 Other: Voiding Method Indwelling Catheter Indwelling Catheter Weight 132 kg ABP, PAP, CO, CI - Last 8 Hours Arterial Blood Pressure 99/43 Arterial Blood Pressure 90/50 Arterial Blood Pressure 119/49 Arterial Blood Pressure 117/49 Arterial Blood Pressure 109/46 Arterial Blood Pressure 113/47 Arterial Blood Pressure 88/42 Arterial Blood Pressure 88/40 Arterial Blood Pressure 90/43 Arterial Blood Pressure 86/41 Arterial Blood Pressure 110/47 Pulmonary Artery Pressure 13/5 Pulmonary Artery Pressure 22/10 Pulmonary Artery Pressure 26/11 Pulmonary Artery Pressure 27/10 Pulmonary Artery Pressure 29/13 Pulmonary Artery Pressure 22/11 Pulmonary Artery Pressure 23/11 Pulmonary Artery Pressure 21/10 Pulmonary Artery Pressure 21/10 Pulmonary Artery Pressure 22/9 Cardiac Output 5.2 Cardiac Output 6.1 Cardiac Output 5.2 Cardiac Output 5.4 Cardiac Index 2.1 Cardiac Index 2.5 Cardiac Index 2.1 Cardiac Index 2.2 GENERAL EXAM: 65-year-old white male, sitting up in the recliner, currently on 2 L of oxygen a pulse ox in the 100% comfortable in no apparent distress. HEAD: Normocephalic/atraumatic. EYES: Normal reaction of pupils, equal size. Conjunctiva pink, sclera white. NOSE: Clear with pink turbinates. THROAT: No erythema or exudates. NECK: No masses, no JVD, no thyroid enlargement, no adenopathy. CHEST: No chest wall deformity. Symmetrical expansion. Midsternal incision is clean dry and intact, left pleural and mediastinal chest tubes in place, insertion site clean dry and intact, chest tubes are connected to Pleur-evac's, with small amount of serosanguineous output, no evidence of air leak noted. LUNGS: Equal air entry with no crackles, wheeze, rhonchi or dullness. CVS: Regular rate and rhythm, normal S1 and S2, no gallops, no murmurs, no rubs ABDOMEN: Soft, nontender. No hepatosplenomegaly, normal bowel sounds, no guarding or rigidity. EXTREMITIES: No clubbing, no edema, no cyanosis, 2+ pulses and upper and lower extremities. Patient has an ulcer on his left lateral foot, an open sore to the right hedrick. 2 toes amputated from his left foot MUSCULOSKELETAL: Muscle strength and tone normal. SPINE: No scoliosis or deformity SKIN: No rashes CENTRAL NERVOUS SYSTEM: Alert and oriented -3. No focal deficits, tone is normal in all 4 extremities. PSYCHIATRIC: Alert and oriented -3. Appropriate affect. Intact judgment and insight. Results - Laboratory Findings CBC and BMP: 10/05/20 03:29 10/05/20 03:29 ABG ABG pH 7.36 (7.35-7.45) 10/04/20 21:28 ABG pCO2 41 mmHg (35-45) 10/04/20 21:28 ABG pO2 138 mmHg (83-108) H 10/04/20 21:28 ABG O2 Saturation 99.1 % (94-97) H 10/04/20 21:28 PT/INR, D-dimer PT 11.4 sec (9.0-12.0) 10/04/20 15:45 INR 1.1 (<1.2) 10/04/20 15:45 Abnormal lab findings: Abnormal Labs 09/27/20 10/04/20 10/04/20 06:22 06:24 08:30 WBC RBC Hgb Hct Plt Count Neutrophils # Lymphocytes # APTT ABG pH ABG pCO2 ABG pO2 276 H ABG HCO3 ABG Total CO2 26 H ABG O2 Saturation 100.0 H ABG Hematocrit ABG Potassium ABG Ionized Calcium ABG Glucose 131 H ABG Lactic Acid Hemoglobin 11.5 L Chloride BUN Glucose POC Glucose (mg/dL) 132 H Calcium Magnesium Total Protein Albumin Arterial Blood Potassium Arterial Blood Glucose 131 H Crossmatch See Detail 10/04/20 10/04/20 10/04/20 08:41 10:09 11:56 WBC RBC Hgb Hct Plt Count Neutrophils # Lymphocytes # APTT ABG pH 7.34 L ABG pCO2 46 H ABG pO2 >420 H 228 H 342 H ABG HCO3 26 H ABG Total CO2 27 H 25 H 26 H ABG O2 Saturation 100.0 H 100.0 H 100.0 H ABG Hematocrit 28 L ABG Potassium 4.7 H ABG Ionized Calcium 4.4 L ABG Glucose 132 H 152 H 117 H ABG Lactic Acid 1.8 H Hemoglobin 12.7 L 12.1 L 9.0 L Chloride BUN Glucose POC Glucose (mg/dL) Calcium Magnesium Total Protein Albumin Arterial Blood Potassium 4.7 H Arterial Blood Glucose 132 H 152 H 117 H Crossmatch 10/04/20 10/04/20 10/04/20 12:25 12:59 13:31 WBC RBC Hgb Hct Plt Count Neutrophils # Lymphocytes # APTT ABG pH ABG pCO2 ABG pO2 268 H 344 H 322 H ABG HCO3 ABG Total CO2 26 H 26 H 26 H ABG O2 Saturation 100.0 H 100.0 H 100.0 H ABG Hematocrit 28 L 27 L 28 L ABG Potassium 4.7 H 4.6 H 4.8 H ABG Ionized Calcium 4.4 L 4.4 L 4.4 L ABG Glucose 112 H 102 H ABG Lactic Acid 1.8 H 1.8 H 1.8 H Hemoglobin 9.1 L 8.9 L 9.2 L Chloride BUN Glucose POC Glucose (mg/dL) Calcium Magnesium Total Protein Albumin Arterial Blood Potassium 4.7 H 4.6 H 4.8 H Arterial Blood Glucose 112 H 102 H Crossmatch 10/04/20 10/04/20 10/04/20 15:44 15:45 15:45 WBC RBC 3.73 L Hgb 11.4 L Hct 34.0 L Plt Count 119 L Neutrophils # 8.4 H Lymphocytes # APTT 32.7 H ABG pH ABG pCO2 ABG pO2 ABG HCO3 ABG Total CO2 ABG O2 Saturation ABG Hematocrit ABG Potassium ABG Ionized Calcium ABG Glucose ABG Lactic Acid Hemoglobin Chloride BUN Glucose POC Glucose (mg/dL) 103 H Calcium Magnesium Total Protein Albumin Arterial Blood Potassium Arterial Blood Glucose Crossmatch 10/04/20 10/04/20 10/04/20 15:45 16:16 17:04 WBC RBC Hgb Hct Plt Count Neutrophils # Lymphocytes # APTT ABG pH 7.34 L ABG pCO2 ABG pO2 >400 H ABG HCO3 ABG Total CO2 26 H ABG O2 Saturation 99.7 H ABG Hematocrit ABG Potassium ABG Ionized Calcium ABG Glucose ABG Lactic Acid Hemoglobin Chloride 111 H BUN 23 H Glucose 109 H POC Glucose (mg/dL) 134 H Calcium 8.1 L Magnesium 2.4 H Total Protein 4.9 L Albumin 2.6 L Arterial Blood Potassium Arterial Blood Glucose Crossmatch 10/04/20 10/04/20 10/04/20 18:05 18:08 19:05 WBC 11.4 H RBC 3.83 L Hgb 11.9 L Hct 35.1 L Plt Count 131 L Neutrophils # 9.8 H Lymphocytes # 0.8 L APTT ABG pH ABG pCO2 ABG pO2 ABG HCO3 ABG Total CO2 ABG O2 Saturation ABG Hematocrit ABG Potassium ABG Ionized Calcium ABG Glucose ABG Lactic Acid Hemoglobin Chloride BUN Glucose POC Glucose (mg/dL) 141 H 137 H Calcium Magnesium Total Protein Albumin Arterial Blood Potassium Arterial Blood Glucose Crossmatch 10/04/20 10/04/20 10/04/20 19:47 20:10 20:27 WBC 12.6 H RBC 3.53 L Hgb 10.9 L Hct 32.3 L Plt Count 123 L Neutrophils # 11.0 H Lymphocytes # 0.6 L APTT ABG pH ABG pCO2 ABG pO2 ABG HCO3 ABG Total CO2 ABG O2 Saturation ABG Hematocrit ABG Potassium ABG Ionized Calcium ABG Glucose ABG Lactic Acid Hemoglobin Chloride BUN Glucose POC Glucose (mg/dL) 148 H 148 H Calcium Magnesium Total Protein Albumin Arterial Blood Potassium Arterial Blood Glucose Crossmatch 10/04/20 10/04/20 10/04/20 21:28 22:03 22:50 WBC RBC Hgb Hct Plt Count Neutrophils # Lymphocytes # APTT ABG pH ABG pCO2 ABG pO2 138 H ABG HCO3 ABG Total CO2 ABG O2 Saturation 99.1 H ABG Hematocrit ABG Potassium ABG Ionized Calcium ABG Glucose ABG Lactic Acid Hemoglobin Chloride BUN Glucose POC Glucose (mg/dL) 143 H 145 H Calcium Magnesium Total Protein Albumin Arterial Blood Potassium Arterial Blood Glucose Crossmatch 10/05/20 10/05/20 10/05/20 00:05 01:22 02:15 WBC RBC Hgb Hct Plt Count Neutrophils # Lymphocytes # APTT ABG pH ABG pCO2 ABG pO2 ABG HCO3 ABG Total CO2 ABG O2 Saturation ABG Hematocrit ABG Potassium ABG Ionized Calcium ABG Glucose ABG Lactic Acid Hemoglobin Chloride BUN Glucose POC Glucose (mg/dL) 141 H 134 H 138 H Calcium Magnesium Total Protein Albumin Arterial Blood Potassium Arterial Blood Glucose Crossmatch 10/05/20 10/05/20 10/05/20 03:29 03:29 03:34 WBC RBC 3.09 L Hgb 9.3 L D Hct 28.6 L Plt Count 135 L Neutrophils # 8.9 H Lymphocytes # 0.7 L APTT ABG pH ABG pCO2 ABG pO2 ABG HCO3 ABG Total CO2 ABG O2 Saturation ABG Hematocrit ABG Potassium ABG Ionized Calcium ABG Glucose ABG Lactic Acid Hemoglobin Chloride 110 H BUN 27 H Glucose 140 H POC Glucose (mg/dL) 142 H Calcium 8.2 L Magnesium Total Protein 5.1 L Albumin 2.9 L Arterial Blood Potassium Arterial Blood Glucose Crossmatch 10/05/20 10/05/20 06:01 06:58 WBC RBC Hgb Hct Plt Count Neutrophils # Lymphocytes # APTT ABG pH ABG pCO2 ABG pO2 ABG HCO3 ABG Total CO2 ABG O2 Saturation ABG Hematocrit ABG Potassium ABG Ionized Calcium ABG Glucose ABG Lactic Acid Hemoglobin Chloride BUN Glucose POC Glucose (mg/dL) 144 H 145 H Calcium Magnesium Total Protein Albumin Arterial Blood Potassium Arterial Blood Glucose Crossmatch - Diagnostic Findings Chest x-ray: report reviewed, image reviewed Assessment and Plan Plan: Assessment: #1. Symptomatic coronary artery disease, status post three-vessel coronary artery bypass grafting with the ARAMBULA to LAD, radial arterial graft to obtuse marginal, SVG to PDA, with endoscopic harvest of the left greater saphenous vein, and left radial artery, and ligation of the left atrial appendage on 10/04/2020, today is postoperative day #1 #2. Routine postoperative ventilator management, patient was successfully weaned and extubated on postop day #0 on 10/04/2020 at 2155, a little over 6 hour shalom after OR exit time #3. Hypertension #4. Type 2 diabetes mellitus #5. Peripheral arterial disease with bilateral lower extremity ulcers, status post amputation of 2 toes on left foot #6. Nonhealing ulcer to left foot #7. History of cataracts #8. Never smoker, with a normal preop FEV1 of 3.1 L or 87% of predicted Plan: Continue encouraging deep breathing and coughing Incentive spirometry use Today's chest x-ray has been reviewed showing bibasilar atelectasis Questionable small apical pneumothorax however the radiologist did not see any pneumothorax Patient is tolerating extubation well so far patient is in sinus mechanism, there has been no arrhythmias Continues on small amount of Cardizem for radial artery radial artery spasm He is requiring small amount of norepinephrine Urine output is adequate and has received 1 L in the 5% albumin No significant bleeding out of the chest tubes Continue close glucose monitoring Pain control Continue to monitor the patient in the intensive care unit I performed a history & physical examination of the patient and discussed their management with my nurse practitioner, Alexus Jc. I reviewed the nurse practitioner's note and agree with the documented findings and plan of care. Lung sounds are positive for diminished breath sounds throughout the lung marsh. The findings and the impression was discussed with the patient. I attest to the documentation by the nurse practitioner. Time with Patient: Greater than 30
[2020-10-05] MEDS: HEPARIN SODIUM,PORCINE/PF 5,000 UNIT/0.5 ML SYRINGE SQ SCH ×2 (09:16→16:18)
[2020-10-05] MEDS: ceFAZolin 3 GM in SODIUM CHLORIDE 0.9% 100 ML IVPB SCH ×2 (09:16→16:18)
[2020-10-05] MEDS: DILTIAZEM ORAL 30 MG TAB PO SCH ×2 (09:16→16:18)
[2020-10-05] MEDS: MULTIVITAMINS, THERA 1 EACH TAB PO SCH (09:17)
[2020-10-05] MEDS: ASPIRIN 325 MG TAB PO SCH (09:17)
[2020-10-05] MEDS: METOPROLOL TARTRATE 12.5 MG TAB PO SCH ×2 (09:17→20:34)
[2020-10-05] MEDS: CLOPIDOGREL 75 MG TAB PO SCH (09:17)
[2020-10-05] MEDS: CHOLECALCIFEROL 25 MCG (1000 IU) TABLET PO SCH (09:17)
[2020-10-05] MEDS: ASCORBIC ACID 500 MG TAB PO SCH (09:17)
--- NOTE | 2020-10-05 09:36 | P.CRDCN ---
History of Present Illness History of present illness: HISTORY OF PRESENTING ILLNESS This is a pleasant 65-year-old male past medical history significant for coronary artery disease, hypertension, dyslipidemia and diabetes mellitus. He follows in the office with Dr. Velazquez. He underwent coronary artery bypass grafting with ARAMBULA to LAD, ANNA to OM and SVG to PDA with left atrial appendage ligation. He is seen and examined sitting up in the recliner in no acute distress. He complains of incisional site pain and soreness but no exertional chest pain or significant shortness of breath. Chest x-ray this morning reveals patchy bilateral areas of infiltrate with some residual venous congestion. I reviewed her data reviewed, WBC 10.4, hemoglobin 9.3, platelets 135, sodium 139, potassium 4.5, creatinine 1.11 and magnesium 2.1. Preoperative echocardiogram reveals preserved LV systolic function with ejection fraction 55%. REVIEW OF SYSTEMS At the time of my exam: CONSTITUTIONAL: Denies fever or chills. CARDIOVASCULAR: Complains of incisional site discomfort. Denies chest pain, shortness of breath, orthopnea, PND or palpitations. RESPIRATORY: Denies cough. GASTROINTESTINAL: Denies abdominal pain, diarrhea, constipation, nausea or vomiting. MUSCULOSKELETAL: Denies myalgias. NEUROLOGIC: Denies numbness, tingling, headacbe or weakness. ENDOCRINE: Denies fatigue, weight change, polydipsia or polyurina. GENITOURINARY: Denies burning, hematuria or urgency with micturation. HEMATOLOGIC: Denies history of anemia or bleeding. PHYSICAL EXAMINATION Blood pressure 105/39 CVP 6 heart rate 86 afebrile and maintaining oxygen saturation on oh cannula cardiac output 6.3. CONSTITUTIONAL: No apparent distress. HEENT: Head is normocephalic. Pupils are equal, round. Sclerae anicteric. Mucous membranes of the mouth are moist. No JVD. No carotid bruit. CHEST EXAMINATION: Lungs are clear to auscultation. No chest wall tenderness is noted on palpation or with deep breathing. Heart regular in place. Mediastinal and left pleural chest tube in place. HEART EXAMINATION: Regular rate and rhythm. S1, S2 heard. No murmurs, gallops or rub. ABDOMEN: Soft, nontender. Positive bowel sounds. EXTREMITIES: 2+ peripheral pulses, no lower extremity edema and no calf tenderness. Right IJ [place] in place. Right radial art line in place. NEUROLOGIC EXAMINATION: Patient is awake, alert and oriented x3. ASSESSMENT Triple-vessel coronary artery disease status post bypass grafting Hypertension Diabetes mellitus Dyslipidemia Peripheral vascular disease PLAN Continue current medical regimen, primary care provided by CT surgery. Encourage incentive spirometer use. Encourage activity and ambulation as tolerated. Further recommendations to follow based upon clinical course. Thank you kindly for this consultation. Nurse Practitioner note has been reviewed, I agree with a documented findings and plan of care. Patient was seen and examined. Past Medical History Past Medical History: Coronary Artery Disease (CAD), Chest Pain / Angina, Diabetes Mellitus, Hyperlipidemia, Hypertension, Skin Disorder, Vascular Disorder Additional Past Medical History / Comment(s): WOUND BELOW LITTLE TOE LEFT FOOT- HAS CAST & WALKING BOOT., 60 treatments of hyperbaric oxygen therapy last dose 07/28/2020 History of Any Multi-Drug Resistant Organisms: MRSA Date of last positivie culture/infection: 2013 MDRO Source:: toe Past Surgical History: Heart Catheterization Additional Past Surgical History / Comment(s): tin big toe amputation (2009, 2013)., Cataract removed left eye Past Anesthesia/Blood Transfusion Reactions: No Reported Reaction Smoking Status: Never smoker - Past Family History Mother Family Medical History: Cancer Additional Family Medical History / Comment(s): of an aneurysm at 88 years old Father Family Medical History: Diabetes Mellitus Medications and Allergies Home Medications Medication Instructions Recorded Confirmed Type Ascorbic Acid [Vitamin C] 1,000 mg PO DAILY 09/23/20 09/28/20 History Aspirin [Adult Low Dose Aspirin EC] 81 mg PO DAILY 09/23/20 09/28/20 History Carvedilol [Coreg] 12.5 mg PO BID 09/23/20 09/28/20 History Cholecalciferol (Vitamin D3) 125 mcg PO DAILY 09/23/20 09/28/20 History [Vitamin D3 (5000 Iu)] Empagliflozin [Jardiance] 25 mg PO DAILY 09/23/20 09/28/20 History Lisinopril-Hctz 20-25 mg 1 tab PO DAILY 09/23/20 09/28/20 History [Zestoretic 20-25] Multivit-Min/FA/Lycopen/Lutein 1 each PO DAILY 09/23/20 09/28/20 History [Centrum Silver Men Tablet] glipiZIDE [Glucotrol] 10 mg PO BID 09/23/20 09/28/20 History Atorvastatin [Lipitor] 40 mg PO HS #90 tab 09/27/20 09/28/20 Rx Isosorbide Mononitrate ER [Imdur] 30 mg PO DAILY #90 tab.er.24h 09/27/20 09/28/20 Rx Nitroglycerin Sl Tabs [Nitrostat] 0.4 mg SUBLINGUAL Q5M PRN #1 bottle 09/27/20 09/28/20 Rx Mupirocin 2% Oint [Bactroban 2% 1 applic NASAL DAILY 09/28/20 09/28/20 History Oint] Allergies Allergy/AdvReac Type Severity Reaction Status Date / Time No Known Allergies Allergy Verified 10/04/20 06:40 Physical Exam Vitals: Vital Signs Temp Pulse Pulse Resp BP BP Pulse Ox 10/05/20 08:40 86 10/05/20 08:25 90 10/05/20 08:00 98.2 F 95 15 97 10/05/20 07:00 92 72 17 99/53 99 10/05/20 06:00 88 70 10 L 101/57 102/55 97 10/05/20 05:00 83 71 12 101/57 97 10/05/20 04:00 98.4 F 81 8 L 101/57 97 10/05/20 03:00 78 8 L 100/55 98 10/05/20 02:30 78 8 L 100/55 98 10/05/20 02:00 74 8 L 98 10/05/20 01:30 77 7 L 82/49 96 10/05/20 01:00 78 8 L 83/53 95 10/05/20 00:36 79 9 L 96 10/05/20 00:30 79 11 L 95/56 95 10/05/20 00:00 98.2 F 78 14 97 10/04/20 23:30 79 9 L 96 10/04/20 23:00 80 9 L 95 10/04/20 22:30 79 12 143/62 95 10/04/20 22:00 84 13 143/62 96 10/04/20 21:51 99 10/04/20 21:43 96 10/04/20 21:30 71 8 L 99 10/04/20 21:00 71 9 L 95/55 99 10/04/20 20:30 68 12 99 10/04/20 20:24 70 10/04/20 20:08 68 10/04/20 20:00 98.6 F 67 12 91/54 99 10/04/20 19:30 73 10 L 100 10/04/20 19:00 72 11 L 100 10/04/20 18:30 74 10 L 100 10/04/20 18:00 70 13 100 10/04/20 17:30 71 12 100 10/04/20 17:10 73 13 100 10/04/20 17:00 71 14 100 10/04/20 16:50 73 14 99 10/04/20 16:40 76 13 99 10/04/20 16:30 79 14 100 10/04/20 16:28 88 10/04/20 16:20 71 21 100 10/04/20 16:15 98 10/04/20 16:10 74 11 L 100 10/04/20 16:00 80 9 L 100 10/04/20 15:50 80 16 100 10/04/20 15:40 98.1 F 80 11 L 100 10/04/20 15:30 100 Intake and Output 10/04/20 10/05/20 10/05/20 22:59 06:59 14:59 Intake Total 040.990 1166.175 132.189 Output Total 3231 645 90 Balance -2325.779 771.175 42.189 Intake: IV 422 1273 59 Albumin Human 5% 250 ml 750 In Empty Bag 1 bag @ 250 mls/hr IVPB Q1HR PRN Rx#: [id number] Lactated Ringers 1,000 ml 200 350 50 @ 50 mls/hr IV .Q20H JACOB Rx#:[id number] cardiac output 150 110 pressure bag 72 63 9 Intake, IV Titration 483.221 143.175 73.189 Amount ACETAMINOPHEN IV (For NPO 100 ) 1,000 mg In Empty Bag 1 bag @ 400 mls/hr IVPB Q6HR JACOB Rx#:[id number] Clevidipine Butyrate 25 5.667 mg In Empty Bag 1 bag @ 1 MG/HR 2 mls/hr IV .Q24H JACOB Rx#:[id number] Diltiazem 125 mg In 21.75 Sodium Chloride 0.9% 100 ml @ 5 MG/HR 5 mls/hr IV .Q24H JACOB Rx#:[id number] Insulin Regular 100 unit 7.457 13.635 19.139 In Sodium Chloride 0.9% 100 ml @ Per Protocol IV .Q0M JACOB Rx#:[id number] Lactated Ringers 1,000 ml 200 @ 50 mls/hr IV .Q20H JACOB Rx#:[id number] Nitroglycerin-D5w Pmx 50 22.7 mg In Dextrose/Water 1 250ml.bag @ 5 MCG/MIN 1.5 mls/hr IV .Q24H JACOB Rx#: [id number] Norepinephrine 4 mg In 129.540 31.350 Sodium Chloride 0.9% 250 ml @ 0.05 MCG/KG/MIN 24. 365 mls/hr IV .[id number] JACOB Rx#:[id number] ceFAZolin 3 gm In Sodium 100 Chloride 0.9% 100 ml @ 100 mls/hr IVPB Q8HR JACOB Rx#:[id number] propofoL 1,000 mg In 48.347 Empty Bag 1 bag @ Titrate IV .Q0M JACOB Rx#: [id number] Output: Chest Tube Drainage 311 310 50 left pleural 136 100 30 mediastinal 175 210 20 Drainage 20 20 Left Arm 20 20 Urine 1100 315 40 Estimated Blood Loss 1800 Other: Voiding Method Indwelling Catheter Indwelling Catheter Weight 132 kg ABP, PAP, CO, CI - Last 8 Hours Arterial Blood Pressure 105/39 Arterial Blood Pressure 100/44 Arterial Blood Pressure 99/43 Arterial Blood Pressure 90/50 Arterial Blood Pressure 119/49 Arterial Blood Pressure 117/49 Arterial Blood Pressure 109/46 Arterial Blood Pressure 113/47 Arterial Blood Pressure 88/42 Pulmonary Artery Pressure 19/4 Pulmonary Artery Pressure 13/5 Pulmonary Artery Pressure 22/10 Pulmonary Artery Pressure 26/11 Pulmonary Artery Pressure 27/10 Pulmonary Artery Pressure 29/13 Pulmonary Artery Pressure 22/11 Cardiac Output 7.3 Cardiac Output 5.2 Cardiac Output 6.1 Cardiac Output 5.2 Cardiac Index 3.0 Cardiac Index 2.1 Cardiac Index 2.5 Cardiac Index 2.1 Results 10/05/20 03:29 10/05/20 03:29 Cardiac Enzymes 10/04/20 10/05/20 Range/Units 15:45 03:29 AST 57 52 (17-59) U/L Coagulation 10/04/20 Range/Units 15:45 PT 11.4 (9.0-12.0) sec APTT 32.7 H (22.0-30.0) sec CBC 10/04/20 10/04/20 10/04/20 Range/Units 15:45 18:05 20:10 WBC 10.4 11.4 H 12.6 H (3.8-10.6) k/uL RBC 3.73 L 3.83 L 3.53 L (4.30-5.90) m/uL Hgb 11.4 L 11.9 L 10.9 L (13.0-17.5) gm/dL Hct 34.0 L 35.1 L 32.3 L (39.0-53.0) % Plt Count 119 L 131 L 123 L (150-450) k/uL 10/05/20 Range/Units 03:29 WBC 10.4 (3.8-10.6) k/uL RBC 3.09 L (4.30-5.90) m/uL Hgb 9.3 L D (13.0-17.5) gm/dL Hct 28.6 L (39.0-53.0) % Plt Count 135 L (150-450) k/uL Comprehensive Metabolic Panel 10/04/20 10/05/20 Range/Units 15:45 03:29 Sodium 140 139 (137-145) mmol/L Potassium 4.7 4.5 (3.5-5.1) mmol/L Chloride 111 H 110 H (98-107) mmol/L Carbon Dioxide 25 23 (22-30) mmol/L BUN 23 H 27 H (9-20) mg/dL Creatinine 0.92 1.11 (0.66-1.25) mg/dL Glucose 109 H 140 H (74-99) mg/dL Calcium 8.1 L 8.2 L (8.4-10.2) mg/dL AST 57 52 (17-59) U/L ALT 24 19 (4-49) U/L Alkaline Phosphatase 58 47 (38-126) U/L Total Protein 4.9 L 5.1 L (6.3-8.2) g/dL Albumin 2.6 L 2.9 L (3.5-5.0) g/dL Current Medications Generic Name Dose Route Start Last Admin Trade Name Freq PRN Reason Stop Dose Admin Hydrocodone Bitart/Acetaminophen 2 each 10/05/20 02:26 Hydrocodone/Apap 5-325mg 1 Each Tab PO Q4HR PRN Severe Pain Hydrocodone Bitart/Acetaminophen 1 each 10/05/20 02:26 Hydrocodone/Apap 5-325mg 1 Each Tab PO Q4HR PRN Moderate Pain Albuterol/Ipratropium 3 ml 10/04/20 16:30 10/04/20 20:08 Ipratropium-Albuterol 3 Ml Neb INHALATION 3 ml RT-Q2H PRN Administration Shortness Of Breath Or Wheezing Albuterol/Ipratropium 3 ml 10/05/20 08:00 10/05/20 08:21 Ipratropium-Albuterol 3 Ml Neb INHALATION 3 ml RT-QID JAOCB Administration Ascorbic Acid 1,000 mg 10/05/20 09:00 10/05/20 09:17 Ascorbic Acid 500 Mg Tab PO 1,000 mg DAILY JACOB Administration Aspirin 325 mg 10/05/20 09:00 10/05/20 09:17 Aspirin 325 Mg Tab PO 325 mg DAILY JACOB Administration Atorvastatin Calcium 40 mg 10/04/20 21:00 10/04/20 20:11 Atorvastatin 40 Mg Tab PO 40 mg HS JACOB Administration Benzocaine/Menthol 1 each 10/04/20 16:30 Benzocaine/Menthol Lozeng 1 Each Lozenge MUCOUS MEM Q2H PRN Sore Throat Bisacodyl 10 mg 10/05/20 09:00 Bisacodyl 10 Mg Supp RECTAL DAILY PRN Constipation Cholecalciferol 125 mcg 10/05/20 09:00 10/05/20 09:17 Cholecalciferol 25 Mcg (1000 Iu) Tablet PO 125 mcg DAILY JACOB Administration Clopidogrel Bisulfate 75 mg 10/05/20 09:00 10/05/20 09:17 Clopidogrel 75 Mg Tab PO 75 mg DAILY JACOB Administration Diltiazem HCl 30 mg 10/05/20 08:00 10/05/20 09:16 Diltiazem Oral 30 Mg Tab PO 30 mg Q8HR JACOB Administration Heparin Sodium (Porcine) 5,000 unit 10/04/20 17:00 10/05/20 09:16 Heparin Sodium,Porcine/Pf 5,000 Unit/0.5 Ml Syringe SQ 5,000 unit Q8H JACOB Administration Norepinephrine Bitartrate 4 mg 254 mls @ 24.365 mls/hr 10/04/20 16:00 10/05/20 09:17 / Sodium Chloride IV 0.03 mcg/kg/min .[id number] JACOB 14.619 mls/hr Titration Protocol 0.05 MCG/KG/MIN Amiodarone HCl 150 mg/ 103 mls @ 618 mls/hr 10/04/20 16:15 Dextrose/Water IV .Q10M PRN A.FIB/FLUTTER Protocol Amiodarone HCl 360 mg/ 207.2 mls @ 34.533 mls/hr 10/04/20 16:30 Dextrose/Water IV .Q6H PRN A.FIB/FLUTTER Protocol 1 MG/MIN Amiodarone HCl 450 mg/ 250 mls @ 16.667 mls/hr 10/04/20 22:30 Dextrose/Water IV .Q15H PRN A.FIB/FLUTTER Protocol 0.5 MG/MIN Albumin Human 250 ml/ IV 250 mls @ 250 mls/hr 10/04/20 15:28 10/04/20 19:54 Solution IVPB 10/06/20 15:29 250 mls/hr Q1HR PRN Administration For Volume Lactated Ringer's 1,000 mls @ 20 mls/hr 10/04/20 16:15 10/04/20 16:10 Lactated Ringers IV 50 mls/hr .Q24H JACOB Administration Cefazolin Sodium 3 gm/ Sodium 100 mls @ 100 mls/hr 10/04/20 16:00 10/05/20 09:16 Chloride IVPB 10/06/20 00:59 100 mls/hr Q8HR JACOB Administration Calcium Gluconate 2 gm/ Sodium 120 mls @ 100 mls/hr 10/04/20 16:30 Chloride IVPB 11/03/20 16:31 ONCE PRN Ionized Calcium less than 4.4 Insulin Human Regular 100 unit 101 mls @ 0 mls/hr 10/04/20 16:30 10/05/20 09:23 / Sodium Chloride IV 10 units/hr .Q0M JACOB 10.1 mls/hr Titration Protocol Per Protocol Ketorolac Tromethamine 15 mg 10/04/20 18:00 10/05/20 06:44 Ketorolac 15 Mg/Ml 1 Ml Vial IVP 10/07/20 16:48 15 mg Q6HR JACOB Administration Magnesium Hydroxide 2,400 mg 10/05/20 09:00 Magnesium Hydroxide 2,400 Mg/10 Ml Cup PO BID PRN Constipation Metoclopramide HCl 10 mg 10/04/20 15:28 Metoclopramide 5 Mg/Ml 2 Ml Vial IVP Q4H PRN Nausea And Vomiting Metoprolol Tartrate 12.5 mg 10/04/20 21:00 10/05/20 09:17 Metoprolol Tartrate 12.5 Mg Tab PO 12.5 mg BID JACOB Administration Miscellaneous Information 1 each 10/04/20 15:28 Magnesium Replacement Protocol 1 Each [facility] MISCELLANE DAILY PRN Per Protocol Protocol Miscellaneous Information 1 each 10/04/20 15:28 Potassium Replacement Protocol 1 Each [facility] MISCELLANE DAILY PRN Per Protocol Protocol Miscellaneous Information 1 each 10/04/20 15:28 Phosphorus Replacement Protoco 1 Each [facility] MISCELLANE DAILY PRN Per Protocol Protocol Multivitamins 1 each 10/05/20 09:00 10/05/20 09:17 Multivitamins, Thera 1 Each Tab PO 1 each DAILY JACOB Administration Ondansetron HCl 4 mg 10/04/20 15:28 Ondansetron 4 Mg/2 Ml Vial IVP Q6HR PRN Nausea And Vomiting Oxycodone HCl 10 mg 10/04/20 16:30 10/04/20 21:07 Oxycodone Hcl 5 Mg Tab PO 10/05/20 16:31 10 mg Q4H PRN Administration Severe Pain Oxycodone HCl 5 mg 10/04/20 16:30 Oxycodone Hcl 5 Mg Tab PO 10/05/20 16:31 Q4H PRN Moderate Pain Pantoprazole Sodium 40 mg 10/05/20 09:00 10/05/20 09:16 Pantoprazole 40 Mg/10 Ml Vial IVP 10/05/20 10:00 40 mg DAILY JACOB Administration Pantoprazole Sodium 40 mg 10/06/20 07:30 Pantoprazole 40 Mg Tablet PO [id number] JACOB Senna/Docusate Sodium 2 each 10/05/20 21:00 Sennosides-Docusate Sodium 1 Each Tab PO HS JACOB Sodium Chloride 10 ml 10/04/20 21:00 10/05/20 09:16 Sodium Chloride 0.9% Flush 10 Ml Syringe IV 10 ml BID JACOB Administration Intake and Output 10/04/20 10/05/20 10/05/20 22:59 06:59 14:59 Intake Total 459.068 1111.175 132.189 Output Total 3231 645 90 Balance -2325.779 771.175 42.189 Intake: IV 422 1273 59 Albumin Human 5% 250 ml 750 In Empty Bag 1 bag @ 250 mls/hr IVPB Q1HR PRN Rx#: [id number] Lactated Ringers 1,000 ml 200 350 50 @ 50 mls/hr IV .Q20H JACOB Rx#:[id number] cardiac output 150 110 pressure bag 72 63 9 Intake, IV Titration 483.221 143.175 73.189 Amount ACETAMINOPHEN IV (For NPO 100 ) 1,000 mg In Empty Bag 1 bag @ 400 mls/hr IVPB Q6HR JACOB Rx#:[id number] Clevidipine Butyrate 25 5.667 mg In Empty Bag 1 bag @ 1 MG/HR 2 mls/hr IV .Q24H JACOB Rx#:[id number] Diltiazem 125 mg In 21.75 Sodium Chloride 0.9% 100 ml @ 5 MG/HR 5 mls/hr IV .Q24H JACOB Rx#:[id number] Insulin Regular 100 unit 7.457 13.635 19.139 In Sodium Chloride 0.9% 100 ml @ Per Protocol IV .Q0M JACOB Rx#:[id number] Lactated Ringers 1,000 ml 200 @ 50 mls/hr IV .Q20H JACOB Rx#:[id number] Nitroglycerin-D5w Pmx 50 22.7 mg In Dextrose/Water 1 250ml.bag @ 5 MCG/MIN 1.5 mls/hr IV .Q24H JACOB Rx#: [id number] Norepinephrine 4 mg In 129.540 31.350 Sodium Chloride 0.9% 250 ml @ 0.05 MCG/KG/MIN 24. 365 mls/hr IV .[id number] JACOB Rx#:[id number] ceFAZolin 3 gm In Sodium 100 Chloride 0.9% 100 ml @ 100 mls/hr IVPB Q8HR JACOB Rx#:[id number] propofoL 1,000 mg In 48.347 Empty Bag 1 bag @ Titrate IV .Q0M JACOB Rx#: [id number] Output: Chest Tube Drainage 311 310 50 left pleural 136 100 30 mediastinal 175 210 20 Drainage 20 20 Left Arm 20 20 Urine 1100 315 40 Estimated Blood Loss 1800 Other: Voiding Method Indwelling Catheter Indwelling Catheter Weight 132 kg 10/05/20 03:29 10/05/20 03:29
[2020-10-05 10:04] LABS: Glucose,Whole Blood 197 mg/dL (75-99)
[2020-10-05 10:37] VITALS: BMI 38.4
[2020-10-05] MEDS: ALBUMIN HUMAN 5% 250 ML in EMPTY BAG 1 BAG IVPB PRN ×2 (10:45→11:44)
[2020-10-05 10:56] LABS: Glucose,Whole Blood 203 mg/dL (75-99)
[2020-10-05] MEDS: LACTATED RINGERS 1,000 ML IV SCH (11:47)
[2020-10-05 12:07] LABS: Glucose,Whole Blood 173 mg/dL (75-99)
--- NOTE | 2020-10-05 13:19 | P.CONS ---
History of Present Illness - History of Present Illness This is a pleasant 65 years old male with past medical history of coronary ar hallie disease, diabetes mellitus, hypertension, status post cardiac cath. He is with severe triple vessel coronary artery disease and underwent bypass grafting with ARAMBULA to LAD. Today is postoperative day #1 Patient was sitting in chair with no significant dyspnea. He still have some pain at the surgery site. No nausea vomiting, no abdominal pain. No fever. Patient is diabetic and he is on Glucotrol, and Jardiance Hemodynamically patient is stable. Patient WBC is normal at 10.4, hemoglobin 9.3. Platelets slightly low at 135. BMP and liver enzymes are unremarkable. Sugars currently controlled 173 -247. Chest x-ray: Postoperative changes with patchy bilateral area of infiltrate Currently patient is on aspirin and Plavix, Review of Systems CONSTITUTIONAL: No fever, no malaise, no fatigue. HEENT: No recent visual problems or hearing problems. Denied any sore throat. CARDIOVASCULAR: No orthopnea, PND, no palpitations, no syncope. PULMONARY: No shortness of breath, no cough, no hemoptysis. GASTROINTESTINAL: No diarrhea, no nausea, no vomiting, no abdominal pain. Normoactive bowel sounds. NEUROLOGICAL: No headaches, no weakness, no numbness. HEMATOLOGICAL: Denies any bleeding or petechiae. GENITOURINARY: Denies any burning micturition, frequency, or urgency. MUSCULOSKELETAL/RHEUMATOLOGICAL: Denies any joint pain, swelling, or any muscle pain. ENDOCRINE: Denies any polyuria or polydipsia. Past Medical History Past Medical History: Coronary Artery Disease (CAD), Chest Pain / Angina, Diabetes Mellitus, Hyperlipidemia, Hypertension, Skin Disorder, Vascular Disorder Additional Past Medical History / Comment(s): WOUND BELOW LITTLE TOE LEFT FOOT- HAS CAST & WALKING BOOT., 60 treatments of hyperbaric oxygen therapy last dose 07/28/2020 History of Any Multi-Drug Resistant Organisms: MRSA Year Discovered:: 2013 MDRO Source:: toe Past Surgical History: Heart Catheterization Additional Past Surgical History / Comment(s): tin big toe amputation (2009, 2013)., Cataract removed left eye Past Anesthesia/Blood Transfusion Reactions: No Reported Reaction Smoking Status: Never smoker - Past Family History Mother Family Medical History: Cancer Additional Family Medical History / Comment(s): of an aneurysm at 88 years old Father Family Medical History: Diabetes Mellitus Medications and Allergies Home Medications Medication Instructions Recorded Confirmed Type Ascorbic Acid [Vitamin C] 1,000 mg PO DAILY 09/23/20 09/28/20 History Aspirin [Adult Low Dose Aspirin EC] 81 mg PO DAILY 09/23/20 09/28/20 History Carvedilol [Coreg] 12.5 mg PO BID 09/23/20 09/28/20 History Cholecalciferol (Vitamin D3) 125 mcg PO DAILY 09/23/20 09/28/20 History [Vitamin D3 (5000 Iu)] Empagliflozin [Jardiance] 25 mg PO DAILY 09/23/20 09/28/20 History Lisinopril-Hctz 20-25 mg 1 tab PO DAILY 09/23/20 09/28/20 History [Zestoretic 20-25] Multivit-Min/FA/Lycopen/Lutein 1 each PO DAILY 09/23/20 09/28/20 History [Centrum Silver Men Tablet] glipiZIDE [Glucotrol] 10 mg PO BID 09/23/20 09/28/20 History Atorvastatin [Lipitor] 40 mg PO HS #90 tab 09/27/20 09/28/20 Rx Isosorbide Mononitrate ER [Imdur] 30 mg PO DAILY #90 tab.er.24h 09/27/20 09/28/20 Rx Nitroglycerin Sl Tabs [Nitrostat] 0.4 mg SUBLINGUAL Q5M PRN #1 bottle 09/27/20 09/28/20 Rx Mupirocin 2% Oint [Bactroban 2% 1 applic NASAL DAILY 09/28/20 09/28/20 History Oint] Allergies Allergy/AdvReac Type Severity Reaction Status Date / Time No Known Allergies Allergy Verified 10/04/20 06:40 Physical Exam Vitals: Vital Signs Temp Pulse Pulse Resp BP BP Pulse Ox 10/05/20 07:00 72 11 L 99/53 100 10/05/20 06:00 88 70 10 L 101/57 102/55 97 10/05/20 05:00 83 71 12 101/57 97 10/05/20 04:00 98.4 F 81 8 L 101/57 97 10/05/20 03:00 78 8 L 100/55 98 10/05/20 02:30 78 8 L 100/55 98 10/05/20 02:00 74 8 L 98 07/28/21 01:30 77 7 L 82/49 96 10/05/20 01:00 78 8 L 83/53 95 10/05/20 00:36 79 9 L 96 10/05/20 00:30 79 11 L 95/56 95 10/05/20 00:00 98.2 F 78 14 97 10/04/20 23:30 79 9 L 96 10/04/20 23:00 80 9 L 95 10/04/20 22:30 79 12 143/62 95 10/04/20 22:00 84 13 143/62 96 10/04/20 21:51 99 10/04/20 21:43 96 10/04/20 21:30 71 8 L 99 10/04/20 21:00 71 9 L 95/55 99 10/04/20 20:30 68 12 99 10/04/20 20:24 70 10/04/20 20:08 68 10/04/20 20:00 98.6 F 67 12 91/54 99 10/04/20 19:30 73 10 L 100 10/04/20 19:00 72 11 L 100 10/04/20 18:30 74 10 L 100 10/04/20 18:00 70 13 100 10/04/20 17:30 71 12 100 10/04/20 17:10 73 13 100 10/04/20 17:00 71 14 100 10/04/20 16:50 73 14 99 10/04/20 16:40 76 13 99 10/04/20 16:30 79 14 100 10/04/20 16:28 88 10/04/20 16:20 71 21 100 10/04/20 16:15 98 10/04/20 16:10 74 11 L 100 10/04/20 16:00 80 9 L 100 10/04/20 15:50 80 16 100 10/04/20 15:40 98.1 F 80 11 L 100 10/04/20 15:30 100 Intake and Output 10/04/20 10/05/20 10/05/20 22:59 06:59 14:59 Intake Total 394.741 5806.175 100.609 Output Total 3231 645 90 Balance -2325.779 771.175 10.609 Intake: IV 422 1273 59 Albumin Human 5% 250 ml 750 In Empty Bag 1 bag @ 250 mls/hr IVPB Q1HR PRN Rx#: [id number] Lactated Ringers 1,000 ml 200 350 50 @ 50 mls/hr IV .Q20H JACOB Rx#:[id number] cardiac output 150 110 pressure bag 72 63 9 Intake, IV Titration 483.221 143.175 41.609 Amount ACETAMINOPHEN IV (For NPO 100 ) 1,000 mg In Empty Bag 1 bag @ 400 mls/hr IVPB Q6HR JACOB Rx#:[id number] Clevidipine Butyrate 25 5.667 mg In Empty Bag 1 bag @ 1 MG/HR 2 mls/hr IV .Q24H JACOB Rx#:[id number] Diltiazem 125 mg In 21.75 Sodium Chloride 0.9% 100 ml @ 5 MG/HR 5 mls/hr IV .Q24H JACOB Rx#:[id number] Insulin Regular 100 unit 7.457 13.635 7.701 In Sodium Chloride 0.9% 100 ml @ Per Protocol IV .Q0M JACOB Rx#:[id number] Lactated Ringers 1,000 ml 200 @ 50 mls/hr IV .Q20H JACOB Rx#:[id number] Nitroglycerin-D5w Pmx 50 22.7 mg In Dextrose/Water 1 250ml.bag @ 5 MCG/MIN 1.5 mls/hr IV .Q24H JACOB Rx#: [id number] Norepinephrine 4 mg In 129.540 11.208 Sodium Chloride 0.9% 250 ml @ 0.05 MCG/KG/MIN 24. 365 mls/hr IV .[id number] JACOB Rx#:[id number] ceFAZolin 3 gm In Sodium 100 Chloride 0.9% 100 ml @ 100 mls/hr IVPB Q8HR JACOB Rx#:[id number] propofoL 1,000 mg In 48.347 Empty Bag 1 bag @ Titrate IV .Q0M JACOB Rx#: [id number] Output: Chest Tube Drainage 311 310 50 left pleural 136 100 30 mediastinal 175 210 20 Drainage 20 20 Left Arm 20 20 Urine 1100 315 40 Estimated Blood Loss 1800 Other: Voiding Method Indwelling Catheter Indwelling Catheter Weight 132 kg ABP, PAP, CO, CI - Last 8 Hours Arterial Blood Pressure 99/43 Arterial Blood Pressure 90/50 Arterial Blood Pressure 119/49 Arterial Blood Pressure 117/49 Arterial Blood Pressure 109/46 Arterial Blood Pressure 113/47 Arterial Blood Pressure 88/42 Arterial Blood Pressure 88/40 Arterial Blood Pressure 90/43 Arterial Blood Pressure 86/41 Arterial Blood Pressure 110/47 Pulmonary Artery Pressure 13/5 Pulmonary Artery Pressure 22/10 Pulmonary Artery Pressure 26/11 Pulmonary Artery Pressure 27/10 Pulmonary Artery Pressure 29/13 Pulmonary Artery Pressure 22/11 Pulmonary Artery Pressure 23/11 Pulmonary Artery Pressure 21/10 Pulmonary Artery Pressure 21/10 Pulmonary Artery Pressure 22/9 Cardiac Output 5.2 Cardiac Output 6.1 Cardiac Output 5.2 Cardiac Output 5.4 Cardiac Index 2.1 Cardiac Index 2.5 Cardiac Index 2.1 Cardiac Index 2.2 GENERAL: The patient is alert and oriented x3, not in any acute distress. Well developed, well nourished. HEENT: Pupils are round and equally reacting to light. EOMI. No scleral icterus. No conjunctival pallor. Normocephalic, atraumatic. No pharyngeal erythema. No thyromegaly. CARDIOVASCULAR: S1 and S2 present. No murmurs, rubs, or gallops. PULMONARY: Chest is clear to auscultation, no wheezing or crackles. ABDOMEN: Soft, nontender, nondistended, normoactive bowel sounds. No palpable organomegaly. MUSCULOSKELETAL: No joint swelling or deformity. EXTREMITIES: No cyanosis, clubbing, or pedal edema. NEUROLOGICAL: Gross neurological examination did not reveal any focal deficits. SKIN: No rashes. No petechiae Results CBC & Chem 7: 10/05/20 03:29 10/05/20 03:29 Labs: Abnormal Lab Results - Last 24 Hours (Table) 09/27/20 10/04/20 10/04/20 Range/Units 06:22 08:30 08:41 WBC (3.8-10.6) k/uL RBC (4.30-5.90) m/uL Hgb (13.0-17.5) gm/dL Hct (39.0-53.0) % Plt Count (150-450) k/uL Neutrophils # (1.3-7.7) k/uL Lymphocytes # (1.0-4.8) k/uL APTT (22.0-30.0) sec ABG pH (7.35-7.45) ABG pCO2 (35-45) mmHg ABG pO2 276 H >420 H (83-108) mmHg ABG HCO3 26 H (21-25) mmol/L ABG Total CO2 26 H 27 H (19-24) mmol/L ABG O2 Saturation 100.0 H 100.0 H (94-97) % ABG Hematocrit (34.0-46.0) % ABG Potassium (3.4-4.5) mmol/L ABG Ionized Calcium (4.5-5.3) mg/dL ABG Glucose 131 H 132 H (75-99) mg/dL ABG Lactic Acid (0.5-1.6) mmol/L Hemoglobin 11.5 L 12.7 L (13.0-17.5) gm/dL Chloride (98-107) mmol/L BUN (9-20) mg/dL Glucose (74-99) mg/dL POC Glucose (mg/dL) (75-99) mg/dL Calcium (8.4-10.2) mg/dL Magnesium (1.6-2.3) mg/dL Total Protein (6.3-8.2) g/dL Albumin (3.5-5.0) g/dL Arterial Blood Potassium (3.4-4.5) mmol/L Arterial Blood Glucose 131 H 132 H (75-99) mg/dL Crossmatch See Detail 10/04/20 10/04/20 10/04/20 Range/Units 10:09 11:56 12:25 WBC (3.8-10.6) k/uL RBC (4.30-5.90) m/uL Hgb (13.0-17.5) gm/dL Hct (39.0-53.0) % Plt Count (150-450) k/uL Neutrophils # (1.3-7.7) k/uL Lymphocytes # (1.0-4.8) k/uL APTT (22.0-30.0) sec ABG pH 7.34 L (7.35-7.45) ABG pCO2 46 H (35-45) mmHg ABG pO2 228 H 342 H 268 H (83-108) mmHg ABG HCO3 (21-25) mmol/L ABG Total CO2 25 H 26 H 26 H (19-24) mmol/L ABG O2 Saturation 100.0 H 100.0 H 100.0 H (94-97) % ABG Hematocrit 28 L 28 L (34.0-46.0) % ABG Potassium 4.7 H 4.7 H (3.4-4.5) mmol/L ABG Ionized Calcium 4.4 L 4.4 L (4.5-5.3) mg/dL ABG Glucose 152 H 117 H 112 H (75-99) mg/dL ABG Lactic Acid 1.8 H 1.8 H (0.5-1.6) mmol/L Hemoglobin 12.1 L 9.0 L 9.1 L (13.0-17.5) gm/dL Chloride (98-107) mmol/L BUN (9-20) mg/dL Glucose (74-99) mg/dL POC Glucose (mg/dL) (75-99) mg/dL Calcium (8.4-10.2) mg/dL Magnesium (1.6-2.3) mg/dL Total Protein (6.3-8.2) g/dL Albumin (3.5-5.0) g/dL Arterial Blood Potassium 4.7 H 4.7 H (3.4-4.5) mmol/L Arterial Blood Glucose 152 H 117 H 112 H (75-99) mg/dL Crossmatch 10/04/20 10/04/20 10/04/20 Range/Units 12:59 13:31 15:44 WBC (3.8-10.6) k/uL RBC (4.30-5.90) m/uL Hgb (13.0-17.5) gm/dL Hct (39.0-53.0) % Plt Count (150-450) k/uL Neutrophils # (1.3-7.7) k/uL Lymphocytes # (1.0-4.8) k/uL APTT (22.0-30.0) sec ABG pH (7.35-7.45) ABG pCO2 (35-45) mmHg ABG pO2 344 H 322 H (83-108) mmHg ABG HCO3 (21-25) mmol/L ABG Total CO2 26 H 26 H (19-24) mmol/L ABG O2 Saturation 100.0 H 100.0 H (94-97) % ABG Hematocrit 27 L 28 L (34.0-46.0) % ABG Potassium 4.6 H 4.8 H (3.4-4.5) mmol/L ABG Ionized Calcium 4.4 L 4.4 L (4.5-5.3) mg/dL ABG Glucose 102 H (75-99) mg/dL ABG Lactic Acid 1.8 H 1.8 H (0.5-1.6) mmol/L Hemoglobin 8.9 L 9.2 L (13.0-17.5) gm/dL Chloride (98-107) mmol/L BUN (9-20) mg/dL Glucose (74-99) mg/dL POC Glucose (mg/dL) 103 H (75-99) mg/dL Calcium (8.4-10.2) mg/dL Magnesium (1.6-2.3) mg/dL Total Protein (6.3-8.2) g/dL Albumin (3.5-5.0) g/dL Arterial Blood Potassium 4.6 H 4.8 H (3.4-4.5) mmol/L Arterial Blood Glucose 102 H (75-99) mg/dL Crossmatch 10/04/20 10/04/20 10/04/20 Range/Units 15:45 15:45 15:45 WBC (3.8-10.6) k/uL RBC 3.73 L (4.30-5.90) m/uL Hgb 11.4 L (13.0-17.5) gm/dL Hct 34.0 L (39.0-53.0) % Plt Count 119 L (150-450) k/uL Neutrophils # 8.4 H (1.3-7.7) k/uL Lymphocytes # (1.0-4.8) k/uL APTT 32.7 H (22.0-30.0) sec ABG pH (7.35-7.45) ABG pCO2 (35-45) mmHg ABG pO2 (83-108) mmHg ABG HCO3 (21-25) mmol/L ABG Total CO2 (19-24) mmol/L ABG O2 Saturation (94-97) % ABG Hematocrit (34.0-46.0) % ABG Potassium (3.4-4.5) mmol/L ABG Ionized Calcium (4.5-5.3) mg/dL ABG Glucose (75-99) mg/dL ABG Lactic Acid (0.5-1.6) mmol/L Hemoglobin (13.0-17.5) gm/dL Chloride 111 H (98-107) mmol/L BUN 23 H (9-20) mg/dL Glucose 109 H (74-99) mg/dL POC Glucose (mg/dL) (75-99) mg/dL Calcium 8.1 L (8.4-10.2) mg/dL Magnesium 2.4 H (1.6-2.3) mg/dL Total Protein 4.9 L (6.3-8.2) g/dL Albumin 2.6 L (3.5-5.0) g/dL Arterial Blood Potassium (3.4-4.5) mmol/L Arterial Blood Glucose (75-99) mg/dL Crossmatch 10/04/20 10/04/20 10/04/20 Range/Units 16:16 17:04 18:05 WBC 11.4 H (3.8-10.6) k/uL RBC 3.83 L (4.30-5.90) m/uL Hgb 11.9 L (13.0-17.5) gm/dL Hct 35.1 L (39.0-53.0) % Plt Count 131 L (150-450) k/uL Neutrophils # 9.8 H (1.3-7.7) k/uL Lymphocytes # 0.8 L (1.0-4.8) k/uL APTT (22.0-30.0) sec ABG pH 7.34 L (7.35-7.45) ABG pCO2 (35-45) mmHg ABG pO2 >400 H (83-108) mmHg ABG HCO3 (21-25) mmol/L ABG Total CO2 26 H (19-24) mmol/L ABG O2 Saturation 99.7 H (94-97) % ABG Hematocrit (34.0-46.0) % ABG Potassium (3.4-4.5) mmol/L ABG Ionized Calcium (4.5-5.3) mg/dL ABG Glucose (75-99) mg/dL ABG Lactic Acid (0.5-1.6) mmol/L Hemoglobin (13.0-17.5) gm/dL Chloride (98-107) mmol/L BUN (9-20) mg/dL Glucose (74-99) mg/dL POC Glucose (mg/dL) 134 H (75-99) mg/dL Calcium (8.4-10.2) mg/dL Magnesium (1.6-2.3) mg/dL Total Protein (6.3-8.2) g/dL Albumin (3.5-5.0) g/dL Arterial Blood Potassium (3.4-4.5) mmol/L Arterial Blood Glucose (75-99) mg/dL Crossmatch 10/04/20 10/04/20 10/04/20 Range/Units 18:08 19:05 19:47 WBC (3.8-10.6) k/uL RBC (4.30-5.90) m/uL Hgb (13.0-17.5) gm/dL Hct (39.0-53.0) % Plt Count (150-450) k/uL Neutrophils # (1.3-7.7) k/uL Lymphocytes # (1.0-4.8) k/uL APTT (22.0-30.0) sec ABG pH (7.35-7.45) ABG pCO2 (35-45) mmHg ABG pO2 (83-108) mmHg ABG HCO3 (21-25) mmol/L ABG Total CO2 (19-24) mmol/L ABG O2 Saturation (94-97) % ABG Hematocrit (34.0-46.0) % ABG Potassium (3.4-4.5) mmol/L ABG Ionized Calcium (4.5-5.3) mg/dL ABG Glucose (75-99) mg/dL ABG Lactic Acid (0.5-1.6) mmol/L Hemoglobin (13.0-17.5) gm/dL Chloride (98-107) mmol/L BUN (9-20) mg/dL Glucose (74-99) mg/dL POC Glucose (mg/dL) 141 H 137 H 148 H (75-99) mg/dL Calcium (8.4-10.2) mg/dL Magnesium (1.6-2.3) mg/dL Total Protein (6.3-8.2) g/dL Albumin (3.5-5.0) g/dL Arterial Blood Potassium (3.4-4.5) mmol/L Arterial Blood Glucose (75-99) mg/dL Crossmatch 10/04/20 10/04/20 10/04/20 Range/Units 20:10 20:27 21:28 WBC 12.6 H (3.8-10.6) k/uL RBC 3.53 L (4.30-5.90) m/uL Hgb 10.9 L (13.0-17.5) gm/dL Hct 32.3 L (39.0-53.0) % Plt Count 123 L (150-450) k/uL Neutrophils # 11.0 H (1.3-7.7) k/uL Lymphocytes # 0.6 L (1.0-4.8) k/uL APTT (22.0-30.0) sec ABG pH (7.35-7.45) ABG pCO2 (35-45) mmHg ABG pO2 138 H (83-108) mmHg ABG HCO3 (21-25) mmol/L ABG Total CO2 (19-24) mmol/L ABG O2 Saturation 99.1 H (94-97) % ABG Hematocrit (34.0-46.0) % ABG Potassium (3.4-4.5) mmol/L ABG Ionized Calcium (4.5-5.3) mg/dL ABG Glucose (75-99) mg/dL ABG Lactic Acid (0.5-1.6) mmol/L Hemoglobin (13.0-17.5) gm/dL Chloride (98-107) mmol/L BUN (9-20) mg/dL Glucose (74-99) mg/dL POC Glucose (mg/dL) 148 H (75-99) mg/dL Calcium (8.4-10.2) mg/dL Magnesium (1.6-2.3) mg/dL Total Protein (6.3-8.2) g/dL Albumin (3.5-5.0) g/dL Arterial Blood Potassium (3.4-4.5) mmol/L Arterial Blood Glucose (75-99) mg/dL Crossmatch 10/04/20 10/04/20 10/05/20 Range/Units 22:03 22:50 00:05 WBC (3.8-10.6) k/uL RBC (4.30-5.90) m/uL Hgb (13.0-17.5) gm/dL Hct (39.0-53.0) % Plt Count (150-450) k/uL Neutrophils # (1.3-7.7) k/uL Lymphocytes # (1.0-4.8) k/uL APTT (22.0-30.0) sec ABG pH (7.35-7.45) ABG pCO2 (35-45) mmHg ABG pO2 (83-108) mmHg ABG HCO3 (21-25) mmol/L ABG Total CO2 (19-24) mmol/L ABG O2 Saturation (94-97) % ABG Hematocrit (34.0-46.0) % ABG Potassium (3.4-4.5) mmol/L ABG Ionized Calcium (4.5-5.3) mg/dL ABG Glucose (75-99) mg/dL ABG Lactic Acid (0.5-1.6) mmol/L Hemoglobin (13.0-17.5) gm/dL Chloride (98-107) mmol/L BUN (9-20) mg/dL Glucose (74-99) mg/dL POC Glucose (mg/dL) 143 H 145 H 141 H (75-99) mg/dL Calcium (8.4-10.2) mg/dL Magnesium (1.6-2.3) mg/dL Total Protein (6.3-8.2) g/dL Albumin (3.5-5.0) g/dL Arterial Blood Potassium (3.4-4.5) mmol/L Arterial Blood Glucose (75-99) mg/dL Crossmatch 10/05/20 10/05/20 10/05/20 Range/Units 01:22 02:15 03:29 WBC (3.8-10.6) k/uL RBC 3.09 L (4.30-5.90) m/uL Hgb 9.3 L D (13.0-17.5) gm/dL Hct 28.6 L (39.0-53.0) % Plt Count 135 L (150-450) k/uL Neutrophils # 8.9 H (1.3-7.7) k/uL Lymphocytes # 0.7 L (1.0-4.8) k/uL APTT (22.0-30.0) sec ABG pH (7.35-7.45) ABG pCO2 (35-45) mmHg ABG pO2 (83-108) mmHg ABG HCO3 (21-25) mmol/L ABG Total CO2 (19-24) mmol/L ABG O2 Saturation (94-97) % ABG Hematocrit (34.0-46.0) % ABG Potassium (3.4-4.5) mmol/L ABG Ionized Calcium (4.5-5.3) mg/dL ABG Glucose (75-99) mg/dL ABG Lactic Acid (0.5-1.6) mmol/L Hemoglobin (13.0-17.5) gm/dL Chloride (98-107) mmol/L BUN (9-20) mg/dL Glucose (74-99) mg/dL POC Glucose (mg/dL) 134 H 138 H (75-99) mg/dL Calcium (8.4-10.2) mg/dL Magnesium (1.6-2.3) mg/dL Total Protein (6.3-8.2) g/dL Albumin (3.5-5.0) g/dL Arterial Blood Potassium (3.4-4.5) mmol/L Arterial Blood Glucose (75-99) mg/dL Crossmatch 10/05/20 10/05/20 10/05/20 Range/Units 03:29 03:34 06:01 WBC (3.8-10.6) k/uL RBC (4.30-5.90) m/uL Hgb (13.0-17.5) gm/dL Hct (39.0-53.0) % Plt Count (150-450) k/uL Neutrophils # (1.3-7.7) k/uL Lymphocytes # (1.0-4.8) k/uL APTT (22.0-30.0) sec ABG pH (7.35-7.45) ABG pCO2 (35-45) mmHg ABG pO2 (83-108) mmHg ABG HCO3 (21-25) mmol/L ABG Total CO2 (19-24) mmol/L ABG O2 Saturation (94-97) % ABG Hematocrit (34.0-46.0) % ABG Potassium (3.4-4.5) mmol/L ABG Ionized Calcium (4.5-5.3) mg/dL ABG Glucose (75-99) mg/dL ABG Lactic Acid (0.5-1.6) mmol/L Hemoglobin (13.0-17.5) gm/dL Chloride 110 H (98-107) mmol/L BUN 27 H (9-20) mg/dL Glucose 140 H (74-99) mg/dL POC Glucose (mg/dL) 142 H 144 H (75-99) mg/dL Calcium 8.2 L (8.4-10.2) mg/dL Magnesium (1.6-2.3) mg/dL Total Protein 5.1 L (6.3-8.2) g/dL Albumin 2.9 L (3.5-5.0) g/dL Arterial Blood Potassium (3.4-4.5) mmol/L Arterial Blood Glucose (75-99) mg/dL Crossmatch 10/05/20 Range/Units 06:58 WBC (3.8-10.6) k/uL RBC (4.30-5.90) m/uL Hgb (13.0-17.5) gm/dL Hct (39.0-53.0) % Plt Count (150-450) k/uL Neutrophils # (1.3-7.7) k/uL Lymphocytes # (1.0-4.8) k/uL APTT (22.0-30.0) sec ABG pH (7.35-7.45) ABG pCO2 (35-45) mmHg ABG pO2 (83-108) mmHg ABG HCO3 (21-25) mmol/L ABG Total CO2 (19-24) mmol/L ABG O2 Saturation (94-97) % ABG Hematocrit (34.0-46.0) % ABG Potassium (3.4-4.5) mmol/L ABG Ionized Calcium (4.5-5.3) mg/dL ABG Glucose (75-99) mg/dL ABG Lactic Acid (0.5-1.6) mmol/L Hemoglobin (13.0-17.5) gm/dL Chloride (98-107) mmol/L BUN (9-20) mg/dL Glucose (74-99) mg/dL POC Glucose (mg/dL) 145 H (75-99) mg/dL Calcium (8.4-10.2) mg/dL Magnesium (1.6-2.3) mg/dL Total Protein (6.3-8.2) g/dL Albumin (3.5-5.0) g/dL Arterial Blood Potassium (3.4-4.5) mmol/L Arterial Blood Glucose (75-99) mg/dL Crossmatch Assessment and Plan Assessment: Triple vessel coronary artery disease status post cardiac cath and bypass grafting with ARAMBULA to LAD Diabetes mellitus Hypertension Plan: This is a pleasant 65 years old male who presents with bypass grafting to the LAD. Continue with insulin sliding scale while monitoring his glucose closely. Continue with aspirin and Plavix Several consultants on the case Labs and medication were reviewed.. Continue same treatment. Continue with symptomatic treatment. Resume home medication. Monitor lytes and vitals. DVT and GI prophylaxis. Further recommendations depends on the clinical course of the patient DVT prophylaxis: Subcutaneous heparin GI Prophylaxis: Ppi
[2020-10-05 14:14] LABS: Glucose,Whole Blood 213 mg/dL (75-99)
[2020-10-05] MEDS: INSULIN REGULAR 100 UNIT in SODIUM CHLORIDE 0.9% 100 ML IV SCH (14:30)
[2020-10-05 15:05] LABS: Glucose,Whole Blood 203 mg/dL (75-99)
[2020-10-05 16:14] LABS: Glucose,Whole Blood 174 mg/dL (75-99)
[2020-10-05 17:05] LABS: Glucose,Whole Blood 163 mg/dL (75-99)
[2020-10-05 18:02] LABS: Glucose,Whole Blood 202 mg/dL (75-99)
[2020-10-05 18:59] LABS: Glucose,Whole Blood 213 mg/dL (75-99)
[2020-10-05 20:13] LABS: Glucose,Whole Blood 174 mg/dL (75-99)
[2020-10-05] MEDS: ATORVASTATIN 40 MG TAB PO SCH (20:33)
[2020-10-05] MEDS: SENNOSIDES-DOCUSATE SODIUM 1 EACH TAB PO SCH (20:34)
[2020-10-05 21:19] LABS: Glucose,Whole Blood 153 mg/dL (75-99)
[2020-10-05 22:10] LABS: Glucose,Whole Blood 162 mg/dL (75-99)
[2020-10-05 23:17] LABS: Glucose,Whole Blood 134 mg/dL (75-99)
[2020-10-06 00:15] LABS: Glucose,Whole Blood 114 mg/dL (75-99)
[2020-10-06] MEDS: HEPARIN SODIUM,PORCINE/PF 5,000 UNIT/0.5 ML SYRINGE SQ SCH ×2 (00:20→08:01)
[2020-10-06] MEDS: DILTIAZEM ORAL 30 MG TAB PO SCH ×3 (00:21→16:33)
[2020-10-06] MEDS: KETOROLAC 15 MG/ML 1 ML VIAL IVP SCH ×4 (00:21→18:43)
[2020-10-06] MEDS: ceFAZolin 3 GM in SODIUM CHLORIDE 0.9% 100 ML IVPB SCH (00:21)
[2020-10-06 01:16] LABS: Glucose,Whole Blood 124 mg/dL (75-99)
[2020-10-06 02:19] LABS: Glucose,Whole Blood 123 mg/dL (75-99)
[2020-10-06 03:24] LABS: Glucose,Whole Blood 119 mg/dL (75-99)
[2020-10-06 04:50] LABS: Glucose,Whole Blood 119 mg/dL (75-99)
[2020-10-06 05:00] LABS: Basophils % (A) 0 %; Eosinophils # (A) 0.1 k/uL (0-0.7); Eosinophils % (A) 1 %; HCT 23.7 % (39.0-53.0); HGB 8.1 gm/dL (13.0-17.5); Lymphocytes % (A) 13 %; MCH 31.1 pg (25.0-35.0); MCHC 34.1 g/dL (31.0-37.0); MCV 91.2 fL (80.0-100.0); Monocytes # (A) 0.5 k/uL (0-1.0); Monocytes % (A) 6 %; Neutrophils # (A) 5.8 k/uL (1.3-7.7); Neutrophils % (A) 77 %; RBC 2.59 m/uL (4.30-5.90); RDW 13.7 % (11.5-15.5); WBC 7.5 k/uL (3.8-10.6)
[2020-10-06 05:10] LABS: Platelet Count 72 k/uL (150-450)
[2020-10-06 05:19] LABS: Ionized Calcium 4.9 mg/dL (4.5-5.3)
[2020-10-06 05:29] LABS: ALT 13 U/L (4-49); AST 46 U/L (17-59); African American GFR (CKD) >90 (>60 ml/min/1.73 sqM); Albumin 2.7 g/dL (3.5-5.0); Alkaline Phosphatase 44 U/L (38-126); Anion Gap 4 mmol/L; Blood Urea Nitrogen 28 mg/dL (9-20); Calcium 8.1 mg/dL (8.4-10.2); Carbon Dioxide 25 mmol/L (22-30); Chloride 108 mmol/L (98-107); Glucose 108 mg/dL (74-99); Non-African American GFR(CKD) 80 (>60 ml/min/1.73 sqM); Potassium 3.9 mmol/L (3.5-5.1); Sodium 137 mmol/L (137-145); Total Bilirubin 0.6 mg/dL (0.2-1.3); Total Protein 4.9 g/dL (6.3-8.2)
[2020-10-06 06:27] LABS: Glucose,Whole Blood 109 mg/dL (75-99)
[2020-10-06] MEDS: PANTOPRAZOLE 40 MG TABLET PO SCH (06:41)
[2020-10-06] MEDS ORDERED: POTASSIUM CHLORIDE ER 20 MEQ TAB.ER PO SCH (07:00)
[2020-10-06 07:10] LABS: Glucose,Whole Blood 142 mg/dL (75-99)
[2020-10-06] MEDS: ASCORBIC ACID 500 MG TAB PO SCH (07:59)
[2020-10-06] MEDS: METOPROLOL TARTRATE 12.5 MG TAB PO SCH ×3 (07:59→21:24)
[2020-10-06] MEDS: CHOLECALCIFEROL 25 MCG (1000 IU) TABLET PO SCH (07:59)
[2020-10-06] MEDS: MULTIVITAMINS, THERA 1 EACH TAB PO SCH (07:59)
[2020-10-06] MEDS: ASPIRIN 325 MG TAB PO SCH (08:00)
[2020-10-06 08:20] LABS: Glucose,Whole Blood 215 mg/dL (75-99)
[2020-10-06] MEDS: IPRATROPIUM-ALBUTEROL 3 ML NEB INHALATION SCH ×4 (08:37→21:05)
--- NOTE | 2020-10-06 09:20 | XR ---
EXAMINATION TYPE: XR chest 1V portable DATE OF EXAM: 10/06/2020 COMPARISON: 10/05/2020 HISTORY: Postop TECHNIQUE: Single frontal view of the chest is obtained. FINDINGS: Monument-Flora catheter has been removed. Persistent interstitial pattern with patchy bilateral infiltrate stable. Postoperative change, mediastinal drain and left-sided chest tube stable. Less th an 5% left apical pneumothorax on today's exam. IMPRESSION: 1. Less than 5% left apical pneumothorax with chest tube noted in position. 2. Mon[place]-Flora catheter removal with no right-sided pneumothorax. 3. Patchy areas of infiltrate or congestion stable.
[2020-10-06] MEDS: INSULIN REGULAR 100 UNIT in SODIUM CHLORIDE 0.9% 100 ML IV SCH (09:28)
[2020-10-06] MEDS: CLOPIDOGREL 75 MG TAB PO SCH (09:31)
[2020-10-06 09:36] LABS: Glucose,Whole Blood 186 mg/dL (75-99)
--- NOTE | 2020-10-06 09:39 | P.PN ---
Subjective Progress Note Date: 10/06/20 Principal diagnosis: Triple-vessel coronary artery disease, unstable angina. 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 POD #2 coronary artery bypass grafting 3 vessels, left internal mammary artery to the left anterior descending artery, left radial artery to the obtuse marginal artery, a reverse greater saphenous vein graft to posterior descending artery, endoscopic harvesting of the left greater saphenous vein above the knee, endoscopic harvesting of the left radial artery, ligation of the left atrial appendage using a 35 mm AtriClip, epi-aortic ultrasound, intraoperative transesophageal echocardiogram, closure of the sternum using titanium plating system. Postoperative acute blood loss anemia and thrombocytopenia, expected outcomes of cardiac surgery given hemodilution and cardiopulmonary bypass pump. The patient was seen in follow-up today 10/06/2020 at his bedside in the intensive care unit. Currently he is sitting up to the bedside chair, is awake, alert and oriented 3 and is in no acute distress. Denies any complaints of pain or shortness of breath at this time. Bedside telemetry showing sinus tachycardia heart rate 104 BPM. Right IJ cordis remains in place with continuous CVP monitoring, current CVP pressure 80 mmHg. Remains hemodynamically stable and is currently on no inotropic or pressor support. Mediastinal and left pleural chest tube remained in place to low continuous wall suction -20 cm H2O. No air leak is present. Draining thin serosanguineous drainage. The patient reports he has been up ambulating in the room with standby assistance from nursing and physical therapy staff. Objective - Vital Signs Vital signs: Vital Signs Temp 98.8 F 10/06/20 08:00 Pulse 102 H 10/06/20 08:52 Resp 15 10/06/20 08:00 BP 102/53 10/06/20 08:00 Pulse Ox 95 10/06/20 08:00 Intake & Output 10/05/20 10/06/20 10/06/20 18:59 06:59 18:59 Intake Total 2480.644 416.555 56.183 Output Total 845 845 50 Balance 1635.644 -428.445 6.183 Weight 132 kg 135 kg Intake: IV 1225 369 52 Albumin Human 5% 250 ml 500 In Empty Bag 1 bag @ 250 mls/hr IVPB Q1HR PRN Rx#: [id number] Lactated Ringers 1,000 ml 430 200 40 @ 20 mls/hr IV .Q24H JACOB Rx#:[id number] cardiac output 90 ceFAZolin 3 gm In Sodium 100 100 Chloride 0.9% 100 ml @ 100 mls/hr IVPB Q8HR JACOB Rx#:[id number] pressure bag 105 69 12 Intake, IV Titration 175.644 47.555 4.183 Amount Insulin Regular 100 unit 76.356 47.555 4.183 In Sodium Chloride 0.9% 100 ml @ Per Protocol IV .Q0M JACOB Rx#:[id number] Nitroglycerin-D5w Pmx 50 22.7 mg In Dextrose/Water 1 250ml.bag @ 5 MCG/MIN 1.5 mls/hr IV .Q24H JACOB Rx#: [id number] Norepinephrine 4 mg In 76.588 Sodium Chloride 0.9% 250 ml @ 0.05 MCG/KG/MIN 24. 365 mls/hr IV .[id number] JACOB Rx#:[id number] Oral 1080 Output: Chest Tube Drainage 350 290 50 left pleural 330 290 50 mediastinal 20 0 0 Drainage 20 Left Arm 20 Urine 495 535 Other: Voiding Method Indwelling Catheter Indwelling Catheter # Voids 0 ABP, PAP, CO, CI - Last Documented Arterial Blood Pressure 106/41 Pulmonary Artery Pressure 29/14 Cardiac Output 8.7 Cardiac Index 3.6 - Exam CONSTITUTIONAL: Sitting up to the bedside chair in the intensive care unit, appears comfortable, cooperative, no apparent acute distress. HEENT: Neck is supple, no JVD, no lymphadenopathy. Right IJ Cordis in place and functioning. RESPIRATORY: Lungs sounds essentially clear throughout, diminished to his bilat eral bases. Respirations are symmetrical and nonlabored. Currently on room air with oxygen saturations 93%. Able to achieve 1250 mL on his incentive spirometry. Strong cough. CARDIOVASCULAR: Regular rhythm and rate. S1 and S2 present, negative for S3, gallop or murmur. Sternum is stable. Palpable peripheral pulses bilaterally, +1 edema to his bilateral lower extremities. No calf pain or tenderness noted. Heart hugger in place with patient demonstrating appropriate use. Knee-high VEL hose and sequential compression devices in place to his bilateral lower extremities. Bedside telemetry showing sinus tachycardia heart rate 104 BPM. GASTROINTESTINAL: Abdomen soft, nontender, nondistended. Active bowel sounds present 4 quadrants. Tolerating diet. Passing flatus. No guarding or rigidity. GENITOURINARY: Continues to void, 380 mL of urine output in the last 8 hours. INTEGUMENTARY: Skin is warm and dry with no evidence of clubbing or cyanosis. Midline sternal incision clean dry and well approximated, covered with dry intact dressing. Left lower extremity EVH sites well approximated without redness or drainage. Left arm radial artery harvest sites clean, dry and approx imated. No drainage or redness is present. NEUROLOGIC: Cranial nerves II through XII intact. No focal deficits. MUSKULOSKELETAL: Able to move all extremities, strength equal bilaterally, generalized weakness. PSYCHIATRIC: Alert and oriented to person place and time, appropriate affect, intact judgment and insight. INVASIVE LINES AND TUBES: Mediastinal/left pleural chest tubes present and con nected to low continuous wall suction, no air leaks present. Mediastinal tube with thin serosanguineous drainage 0 mL output in the last 24 hours. Left pleural chest tube with 230 mL of thin serosanguineous drainage overnight, 600 mL output in the last 24 hours. Atrial and ventricular epicardial pacemaker wires present, connected to generator, VVI backup rate 50 bpm. Right internal jugular Cordis, right radial arterial line present. Last CVP 8 mmHg. Left arm ABHAY drain in place with scant thin serosanguineous drainage, 20 mL output in the last 8 hours. - Labs CBC & Chem 7: 10/06/20 04:45 10/06/20 04:45 Labs: Abnormal Lab Results - Last 24 Hours (Table) 10/05/20 10/05/20 10/05/20 Range/Units 10:03 10:55 12:05 RBC (4.30-5.90) m/uL Hgb (13.0-17.5) gm/dL Hct (39.0-53.0) % Plt Count (150-450) k/uL Chloride (98-107) mmol/L BUN (9-20) mg/dL Glucose (74-99) mg/dL POC Glucose (mg/dL) 197 H 203 H 173 H (75-99) mg/dL Calcium (8.4-10.2) mg/dL Total Protein (6.3-8.2) g/dL Albumin (3.5-5.0) g/dL 10/05/20 10/05/20 10/05/20 Range/Units 14:12 15:03 16:12 RBC (4.30-5.90) m/uL Hgb (13.0-17.5) gm/dL Hct (39.0-53.0) % Plt Count (150-450) k/uL Chloride (98-107) mmol/L BUN (9-20) mg/dL Glucose (74-99) mg/dL POC Glucose (mg/dL) 213 H 203 H 174 H (75-99) mg/dL Calcium (8.4-10.2) mg/dL Total Protein (6.3-8.2) g/dL Albumin (3.5-5.0) g/dL 10/05/20 10/05/20 10/05/20 Range/Units 17:04 18:01 18:56 RBC (4.30-5.90) m/uL Hgb (13.0-17.5) gm/dL Hct (39.0-53.0) % Plt Count (150-450) k/uL Chloride (98-107) mmol/L BUN (9-20) mg/dL Glucose (74-99) mg/dL POC Glucose (mg/dL) 163 H 202 H 213 H (75-99) mg/dL Calcium (8.4-10.2) mg/dL Total Protein (6.3-8.2) g/dL Albumin (3.5-5.0) g/dL 10/05/20 10/05/20 10/05/20 Range/Units 20:12 21:18 22:08 RBC (4.30-5.90) m/uL Hgb (13.0-17.5) gm/dL Hct (39.0-53.0) % Plt Count (150-450) k/uL Chloride (98-107) mmol/L BUN (9-20) mg/dL Glucose (74-99) mg/dL POC Glucose (mg/dL) 174 H 153 H 162 H (75-99) mg/dL Calcium (8.4-10.2) mg/dL Total Protein (6.3-8.2) g/dL Albumin (3.5-5.0) g/dL 10/05/20 10/06/20 10/06/20 Range/Units 23:15 00:13 01:15 RBC (4.30-5.90) m/uL Hgb (13.0-17.5) gm/dL Hct (39.0-53.0) % Plt Count (150-450) k/uL Chloride (98-107) mmol/L BUN (9-20) mg/dL Glucose (74-99) mg/dL POC Glucose (mg/dL) 134 H 114 H 124 H (75-99) mg/dL Calcium (8.4-10.2) mg/dL Total Protein (6.3-8.2) g/dL Albumin (3.5-5.0) g/dL 10/06/20 10/06/20 10/06/20 Range/Units 02:19 03:21 04:45 RBC 2.59 L (4.30-5.90) m/uL Hgb 8.1 L (13.0-17.5) gm/dL Hct 23.7 L (39.0-53.0) % Plt Count 72 L (150-450) k/uL Chloride (98-107) mmol/L BUN (9-20) mg/dL Glucose (74-99) mg/dL POC Glucose (mg/dL) 123 H 119 H (75-99) mg/dL Calcium (8.4-10.2) mg/dL Total Protein (6.3-8.2) g/dL Albumin (3.5-5.0) g/dL 10/06/20 10/06/20 10/06/20 Range/Units 04:45 04:48 06:26 RBC (4.30-5.90) m/uL Hgb (13.0-17.5) gm/dL Hct (39.0-53.0) % Plt Count (150-450) k/uL Chloride 108 H (98-107) mmol/L BUN 28 H (9-20) mg/dL Glucose 108 H (74-99) mg/dL POC Glucose (mg/dL) 119 H 109 H (75-99) mg/dL Calcium 8.1 L (8.4-10.2) mg/dL Total Protein 4.9 L (6.3-8.2) g/dL Albumin 2.7 L (3.5-5.0) g/dL 10/06/20 10/06/20 Range/Units 07:09 08:19 RBC (4.30-5.90) m/uL Hgb (13.0-17.5) gm/dL Hct (39.0-53.0) % Plt Count (150-450) k/uL Chloride (98-107) mmol/L BUN (9-20) mg/dL Glucose (74-99) mg/dL POC Glucose (mg/dL) 142 H 215 H (75-99) mg/dL Calcium (8.4-10.2) mg/dL Total Protein (6.3-8.2) g/dL Albumin (3.5-5.0) g/dL Assessment and Plan Assessment: 1. Triple-vessel coronary artery disease, unstable angina, status post three- vessel CABG 2. History of hypertension 3. Type 2 diabetes, preoperative hemoglobin A1c 6.4% 4. Peripheral arterial disease with bilateral lower extremity ulcers 5. Current nonhealing ulcer to the left foot with completion of 60 treatments of hyperbaric oxygen therapy, seeks treatment in the wound care center in [place] every Saturday 6. Amputation of bilateral great toes from gangrene 7. Lifetime nonsmoker 8. History of Covid infection in December 2019, remains unvaccinated 9. Postoperative acute blood loss anemia and thrombocytopenia Plan: 1. Continue aspirin, statin, Plavix, beta ruperto therapy. Will increase metoprolol tartrate 25 mg by mouth twice a day. 2. Remove mediastinal chest tube and keep left pleural chest tube in place to low continuous wall suction -20 cm H2O. 3. Continue Cardizem for radial artery spasm. Do not discontinue CCB without discussed with cardiac surgery. 4. Encourage incentive spirometry use 10 times every hour while awake. Bronchodilators per pulmonology. 5. Increase activity, ambulate as tolerated. PT/OT/cardiac rehab following. 6. Will monitor daily labs and chest x-rays. Electrolyte replacement per pro tocol. No transfusion. 7. GI/DVT prophylaxis. Discontinue subcu heparin as his platelets are 72 t laith. 8. Pain control with current medication regimen. 9. Insulin management per primary care service. Patient needs tight blood sugar control to promote sternal union and prevent infection. 10. Wound care consult pending for management of patient's chronic left foot wound, may replace noncontact cast. 11. Discontinue right IJ cordis. 12. Continue to record strict inaccurate I's and O's. Continue record daily weights. 13. We will place transfer orders to third floor cardiac stepdown unit, transfer when bed available. 14. More recommendations to follow based on patient's clinical course. Time with Patient: Greater than 30
--- NOTE | 2020-10-06 10:08 | P.PN ---
Subjective HISTORY OF PRESENTING ILLNESS This is a pleasant 65-year-old male past medical history significant for coronary artery disease, hypertension, dyslipidemia and diabetes mellitus. He follows in the office with Dr. Velazquez. He underwent coronary artery bypass grafting with ARAMBULA to LAD, ANNA to OM and SVG to PDA with left atrial appendage ligation. He is seen and examined sitting up in the recliner in no acute distress. He complains of incisional site pain and soreness but no exertional chest pain or significant shortness of breath. Chest x-ray this morning reveals patchy bilateral areas of infiltrate with some residual venous congestion. I reviewed her data reviewed, WBC 10.4, hemoglobin 9.3, platelets 135, sodium 139, potassium 4.5, creatinine 1.11 and magnesium 2.1. Preoperative echocardiogram reveals preserved LV systolic function with ejection fraction 55%. 10/06/2020 Pt seen and examined sitting up in recliner in no acute distress. He continues to have surgical site incision pain with movement or deep breathing, 2/. No exertional chest pain. Denies shortness of breath, dizziness or palpitations. Blood pressure 106/42 heart rate 101 afebrile and maintaining oxygen saturation on room air, CVP 6. Laboratory data reviewed, WBC 7.5, hemoglobin 8.1, platelets 72, sodium 137, potassium 3.9, creatinine 0.99. Chest x-ray this morning reveals a less than 5% left apical pneumothorax with chest tube noted in position and patchy areas of infiltrate or congestion stable. Telemetry tracings reveal he is maintaining persistent sinus mechanism. According to the nurse he gets mildly tachycardic with activity or exertion, however through the night he maintained sinus rhythm in the 80s. PHYSICAL EXAMINATION CONSTITUTIONAL: No apparent distress. HEENT: Head is normocephalic. Pupils are equal, round. Sclerae anicteric. Mucous membranes of the mouth are moist. No JVD. No carotid bruit. CHEST EXAMINATION: Lungs are clear to auscultation. No chest wall tenderness is noted on palpation or with deep breathing. Heart regular in place. Mediastinal and left pleural chest tube in place. HEART EXAMINATION: Regular rate and rhythm. S1, S2 heard. No murmurs, gallops or rub. EXTREMITIES: 2+ peripheral pulses, no lower extremity edema and no calf tenderness. Right IJ Prather in place. Right radial art line in place. ASSESSMENT Triple-vessel coronary artery disease status post bypass grafting Thrombocytopenia Hypertension Diabetes mellitus Dyslipidemia Peripheral vascular disease PLAN Beta blockers increase per CT surgery. Hold SQ heparin and follow platelets. Encourage incentive spirometer use. Increase activity and ambulation as tolerated. Further recommendations to follow based upon clinical course. Nurse Practitioner note has been reviewed, I agree with a documented findings and plan of care. Patient was seen and examined. Objective - Vital Signs Vital signs: Vital Signs Temp 98.8 F 10/06/20 08:00 Pulse 101 H 10/06/20 09:00 Resp 12 10/06/20 09:00 BP 102/53 10/06/20 09:00 Pulse Ox 95 10/06/20 09:00 Intake & Output 10/05/20 10/06/20 10/06/20 18:59 06:59 18:59 Intake Total 2480.644 416.555 91.166 Output Total 845 845 80 Balance 1635.644 -428.445 11.166 Weight 132 kg 135 kg Intake: IV 1225 369 78 Albumin Human 5% 250 ml 500 In Empty Bag 1 bag @ 250 mls/hr IVPB Q1HR PRN Rx#: [id number] Lactated Ringers 1,000 ml 430 200 60 @ 20 mls/hr IV .Q24H JACOB Rx#:[id number] cardiac output 90 ceFAZolin 3 gm In Sodium 100 100 Chloride 0.9% 100 ml @ 100 mls/hr IVPB Q8HR JACOB Rx#:[id number] pressure bag 105 69 18 Intake, IV Titration 175.644 47.555 13.166 Amount Insulin Regular 100 unit 76.356 47.555 13.166 In Sodium Chloride 0.9% 100 ml @ Per Protocol IV .Q0M JACOB Rx#:[id number] Nitroglycerin-D5w Pmx 50 22.7 mg In Dextrose/Water 1 250ml.bag @ 5 MCG/MIN 1.5 mls/hr IV .Q24H JACOB Rx#: [id number] Norepinephrine 4 mg In 76.588 Sodium Chloride 0.9% 250 ml @ 0.05 MCG/KG/MIN 24. 365 mls/hr IV .[id number] JACOB Rx#:[id number] Oral 1080 Output: Chest Tube Drainage 350 290 80 left pleural 330 290 80 mediastinal 20 0 0 Drainage 20 Left Arm 20 Urine 495 535 Other: Voiding Method Indwelling Catheter Indwelling Catheter # Voids 0 ABP, PAP, CO, CI - Last Documented Arterial Blood Pressure 106/42 Pulmonary Artery Pressure 29/14 Cardiac Output 8.7 Cardiac Index 3.6 - Labs CBC & Chem 7: 10/06/20 04:45 10/06/20 04:45 Labs: Abnormal Lab Results - Last 24 Hours (Table) 10/05/20 10/05/20 10/05/20 Range/Units 10:03 10:55 12:05 RBC (4.30-5.90) m/uL Hgb (13.0-17.5) gm/dL Hct (39.0-53.0) % Plt Count (150-450) k/uL Chloride (98-107) mmol/L BUN (9-20) mg/dL Glucose (74-99) mg/dL POC Glucose (mg/dL) 197 H 203 H 173 H (75-99) mg/dL Calcium (8.4-10.2) mg/dL Total Protein (6.3-8.2) g/dL Albumin (3.5-5.0) g/dL 10/05/20 10/05/20 10/05/20 Range/Units 14:12 15:03 16:12 RBC (4.30-5.90) m/uL Hgb (13.0-17.5) gm/dL Hct (39.0-53.0) % Plt Count (150-450) k/uL Chloride (98-107) mmol/L BUN (9-20) mg/dL Glucose (74-99) mg/dL POC Glucose (mg/dL) 213 H 203 H 174 H (75-99) mg/dL Calcium (8.4-10.2) mg/dL Total Protein (6.3-8.2) g/dL Albumin (3.5-5.0) g/dL 10/05/20 10/05/20 10/05/20 Range/Units 17:04 18:01 18:56 RBC (4.30-5.90) m/uL Hgb (13.0-17.5) gm/dL Hct (39.0-53.0) % Plt Count (150-450) k/uL Chloride (98-107) mmol/L BUN (9-20) mg/dL Glucose (74-99) mg/dL POC Glucose (mg/dL) 163 H 202 H 213 H (75-99) mg/dL Calcium (8.4-10.2) mg/dL Total Protein (6.3-8.2) g/dL Albumin (3.5-5.0) g/dL 10/05/20 10/05/20 10/05/20 Range/Units 20:12 21:18 22:08 RBC (4.30-5.90) m/uL Hgb (13.0-17.5) gm/dL Hct (39.0-53.0) % Plt Count (150-450) k/uL Chloride (98-107) mmol/L BUN (9-20) mg/dL Glucose (74-99) mg/dL POC Glucose (mg/dL) 174 H 153 H 162 H (75-99) mg/dL Calcium (8.4-10.2) mg/dL Total Protein (6.3-8.2) g/dL Albumin (3.5-5.0) g/dL 10/05/20 10/06/20 10/06/20 Range/Units 23:15 00:13 01:15 RBC (4.30-5.90) m/uL Hgb (13.0-17.5) gm/dL Hct (39.0-53.0) % Plt Count (150-450) k/uL Chloride (98-107) mmol/L BUN (9-20) mg/dL Glucose (74-99) mg/dL POC Glucose (mg/dL) 134 H 114 H 124 H (75-99) mg/dL Calcium (8.4-10.2) mg/dL Total Protein (6.3-8.2) g/dL Albumin (3.5-5.0) g/dL 10/06/20 10/06/20 10/06/20 Range/Units 02:19 03:21 04:45 RBC 2.59 L (4.30-5.90) m/uL Hgb 8.1 L (13.0-17.5) gm/dL Hct 23.7 L (39.0-53.0) % Plt Count 72 L (150-450) k/uL Chloride (98-107) mmol/L BUN (9-20) mg/dL Glucose (74-99) mg/dL POC Glucose (mg/dL) 123 H 119 H (75-99) mg/dL Calcium (8.4-10.2) mg/dL Total Protein (6.3-8.2) g/dL Albumin (3.5-5.0) g/dL 10/06/20 10/06/20 10/06/20 Range/Units 04:45 04:48 06:26 RBC (4.30-5.90) m/uL Hgb (13.0-17.5) gm/dL Hct (39.0-53.0) % Plt Count (150-450) k/uL Chloride 108 H (98-107) mmol/L BUN 28 H (9-20) mg/dL Glucose 108 H (74-99) mg/dL POC Glucose (mg/dL) 119 H 109 H (75-99) mg/dL Calcium 8.1 L (8.4-10.2) mg/dL Total Protein 4.9 L (6.3-8.2) g/dL Albumin 2.7 L (3.5-5.0) g/dL 10/06/20 10/06/20 10/06/20 Range/Units 07:09 08:19 09:34 RBC (4.30-5.90) m/uL Hgb (13.0-17.5) gm/dL Hct (39.0-53.0) % Plt Count (150-450) k/uL Chloride (98-107) mmol/L BUN (9-20) mg/dL Glucose (74-99) mg/dL POC Glucose (mg/dL) 142 H 215 H 186 H (75-99) mg/dL Calcium (8.4-10.2) mg/dL Total Protein (6.3-8.2) g/dL Albumin (3.5-5.0) g/dL
[2020-10-06 10:15] LABS: Glucose,Whole Blood 174 mg/dL (75-99)
--- NOTE | 2020-10-06 10:21 | P.PN ---
Subjective Progress Note Date: 10/06/20 This is a 65-year-old white male patient of Dr. Terry Watts/Lacie Walden with past medical history of hypertension, type 2 diabetes mellitus, peripheral arterial disease with left lower extremity nonhealing ulcer with history of amputation of toes. Patient was recently hospitalized with unstable angina at this hospital. EKG demonstrated evidence of prior inferior wall myocardial infarction. Heart catheterization showed RCA stenosis of 70-80%, circumflex stenosis of 90%, proximal LAD stenosis of 90% and the diagonal stenosis of 70- 80%. Transthoracic echocardiogram from 09/23/2020 demonstrated normal left ventricular systolic function with an EF of 55%, normal diastolic dysfunction, trace central mitral regurgitation and mild central tricuspid regurgitation. He was referred to CT surgery for coronary artery bypass grafting. On 10/04/2020 patient had a three-vessel coronary artery bypass grafting with a ARAMBULA to LAD, radial artery to obtuse marginal, SVG to the PDA, with endoscopic harvest of the left greater saphenous vein, and left radial artery, and ligation of the left atrial appendage. We are seeing the patient today on 10/05/2020, this is postoperative day #1. He was successfully weaned and extubated on postoperative day #0 at 2151. This morning he is on 2 L of oxygen his pulse ox is 100%. Today's chest x-ray has been reviewed showing some mild atelectasis at the left base. Is breathing comfortably, is awake and alert. He has left pleural and mediastinal chest tubes in place, with 400 mL of serosanguineous output from the left and 385 ML of serosanguineous output from the mediastinal chest tube. Urine output is in the order of 40-50 ML per hour. He is on lactated Ringer's at 50 ML per hour, insulin drip is at 3 units per hour, he is on Cardizem 5 mg per hour, and levofed at 0.02 mics per kilo per minute. patient received 1 L of 5% albumin early this morning. Today's labs have been reviewed, white blood cell count is 10.4, hemoglobin is 9.3, INR is 1.1 from yesterday's labs, sodium is 139, potassium is 4.5, chloride is 110, BUN of 27, and creatinine of 1.1, LFTs are unremarkable. Currently patient is in sinus mechanism with a rate of 83 bpm, blood pressure is 101/57, PA pressure is 22/10, with CVP of 9, cardiac output is 7.3, and cardiac index is 3.0. On 10/06/2020 patient seen in follow-up in the intensive care, he is postoperative day #2, status post three-vessel coronary artery bypass grafting with a ARAMBULA to LAD, radial arterial graft to the obtuse marginal, and SVG to the PDA. Patient is awake and alert, oriented 3, currently on room air, with a pulse ox of 95%, he is on lactated Ringer's at 20 ML per hour, and insulin infusion is at 7 units per hour, no vasoactive drips, he is in sinus mechanism, with a controlled rate. Blood pressure is stable, 106/42, CVP is 11, his Kyle- Flora catheter has been removed. His left pleural chest tube had 620 ML of serosanguineous output in the last 24 hours, there is minimal output out of his mediastinal chest tube and there has only been 20 mL in last 24 hours, his urine output in the order of 35-45 ML per hour. He denies any shortness of breath, today's chest x-ray has been reviewed showing less than 5% left apical pneumothorax, and patchy areas of infiltrates or pulmonary congestion there is stable in appearance. No evidence of air leak out of the chest tubes, his pain is fairly well controlled, he is working on incentive spirometer, and he is achieving about all thousand units a day. Today's labs have been reviewed, his white blood cell count is 7.5, hemoglobin is 8.1, platelet count is 77, sodium is 137, potassium 3.9, chloride is 108, BUN is 28, creatinine 0.99 Objective - Vital Signs Vital signs: Vital Signs Temp 98.8 F 10/06/20 08:00 Pulse 101 H 10/06/20 09:00 Resp 12 10/06/20 09:00 BP 102/53 10/06/20 09:00 Pulse Ox 95 10/06/20 09:00 Intake & Output 10/05/20 10/06/20 10/06/20 18:59 06:59 18:59 Intake Total 2480.644 416.555 91.166 Output Total 845 845 80 Balance 1635.644 -428.445 11.166 Weight 132 kg 135 kg Intake: IV 1225 369 78 Albumin Human 5% 250 ml 500 In Empty Bag 1 bag @ 250 mls/hr IVPB Q1HR PRN Rx#: [id number] Lactated Ringers 1,000 ml 430 200 60 @ 20 mls/hr IV .Q24H JACOB Rx#:[id number] cardiac output 90 ceFAZolin 3 gm In Sodium 100 100 Chloride 0.9% 100 ml @ 100 mls/hr IVPB Q8HR JACOB Rx#:[id number] pressure bag 105 69 18 Intake, IV Titration 175.644 47.555 13.166 Amount Insulin Regular 100 unit 76.356 47.555 13.166 In Sodium Chloride 0.9% 100 ml @ Per Protocol IV .Q0M JACOB Rx#:[id number] Nitroglycerin-D5w Pmx 50 22.7 mg In Dextrose/Water 1 250ml.bag @ 5 MCG/MIN 1.5 mls/hr IV .Q24H JACOB Rx#: [id number] Norepinephrine 4 mg In 76.588 Sodium Chloride 0.9% 250 ml @ 0.05 MCG/KG/MIN 24. 365 mls/hr IV .[id number] JACOB Rx#:[id number] Oral 1080 Output: Chest Tube Drainage 350 290 80 left pleural 330 290 80 mediastinal 20 0 0 Drainage 20 Left Arm 20 Urine 495 535 Other: Voiding Method Indwelling Catheter Indwelling Catheter # Voids 0 ABP, PAP, CO, CI - Last Documented Arterial Blood Pressure 106/42 Pulmonary Artery Pressure 29/14 Cardiac Output 8.7 Cardiac Index 3.6 - Exam GENERAL EXAM: 65-year-old white male, sitting up in the recliner, currently on 2 L of oxygen a pulse ox in the 100% comfortable in no apparent distress. HEAD: Normocephalic/atraumatic. EYES: Normal reaction of pupils, equal size. Conjunctiva pink, sclera white. NOSE: Clear with pink turbinates. THROAT: No erythema or exudates. NECK: No masses, no JVD, no thyroid enlargement, no adenopathy. CHEST: No chest wall deformity. Symmetrical expansion. Midsternal incision is clean dry and intact, left pleural and mediastinal chest tubes in place, insertion site clean dry and intact, chest tubes are connected to Pleur-evac's, with small amount of serosanguineous output, no evidence of air leak noted. LUNGS: Equal air entry with no crackles, wheeze, rhonchi or dullness. CVS: Regular rate and rhythm, normal S1 and S2, no gallops, no murmurs, no rubs ABDOMEN: Soft, nontender. No hepatosplenomegaly, normal bowel sounds, no guarding or rigidity. EXTREMITIES: No clubbing, no edema, no cyanosis, 2+ pulses and upper and lower extremities. Patient has an ulcer on his left lateral foot, an open sore to the right hedrick. 2 toes amputated from his left foot MUSCULOSKELETAL: Muscle strength and tone normal. SPINE: No scoliosis or deformity SKIN: No rashes CENTRAL NERVOUS SYSTEM: Alert and oriented -3. No focal deficits, tone is normal in all 4 extremities. PSYCHIATRIC: Alert and oriented -3. Appropriate affect. Intact judgment and insight. - Labs CBC & Chem 7: 10/06/20 04:45 10/06/20 04:45 Labs: Abnormal Lab Results - Last 24 Hours (Table) 10/05/20 10/05/20 10/05/20 Range/Units 10:55 12:05 14:12 RBC (4.30-5.90) m/uL Hgb (13.0-17.5) gm/dL Hct (39.0-53.0) % Plt Count (150-450) k/uL Chloride (98-107) mmol/L BUN (9-20) mg/dL Glucose (74-99) mg/dL POC Glucose (mg/dL) 203 H 173 H 213 H (75-99) mg/dL Calcium (8.4-10.2) mg/dL Total Protein (6.3-8.2) g/dL Albumin (3.5-5.0) g/dL 10/05/20 10/05/20 10/05/20 Range/Units 15:03 16:12 17:04 RBC (4.30-5.90) m/uL Hgb (13.0-17.5) gm/dL Hct (39.0-53.0) % Plt Count (150-450) k/uL Chloride (98-107) mmol/L BUN (9-20) mg/dL Glucose (74-99) mg/dL POC Glucose (mg/dL) 203 H 174 H 163 H (75-99) mg/dL Calcium (8.4-10.2) mg/dL Total Protein (6.3-8.2) g/dL Albumin (3.5-5.0) g/dL 10/05/20 10/05/20 10/05/20 Range/Units 18:01 18:56 20:12 RBC (4.30-5.90) m/uL Hgb (13.0-17.5) gm/dL Hct (39.0-53.0) % Plt Count (150-450) k/uL Chloride (98-107) mmol/L BUN (9-20) mg/dL Glucose (74-99) mg/dL POC Glucose (mg/dL) 202 H 213 H 174 H (75-99) mg/dL Calcium (8.4-10.2) mg/dL Total Protein (6.3-8.2) g/dL Albumin (3.5-5.0) g/dL 10/05/20 10/05/20 10/05/20 Range/Units 21:18 22:08 23:15 RBC (4.30-5.90) m/uL Hgb (13.0-17.5) gm/dL Hct (39.0-53.0) % Plt Count (150-450) k/uL Chloride (98-107) mmol/L BUN (9-20) mg/dL Glucose (74-99) mg/dL POC Glucose (mg/dL) 153 H 162 H 134 H (75-99) mg/dL Calcium (8.4-10.2) mg/dL Total Protein (6.3-8.2) g/dL Albumin (3.5-5.0) g/dL 10/06/20 10/06/20 10/06/20 Range/Units 00:13 01:15 02:19 RBC (4.30-5.90) m/uL Hgb (13.0-17.5) gm/dL Hct (39.0-53.0) % Plt Count (150-450) k/uL Chloride (98-107) mmol/L BUN (9-20) mg/dL Glucose (74-99) mg/dL POC Glucose (mg/dL) 114 H 124 H 123 H (75-99) mg/dL Calcium (8.4-10.2) mg/dL Total Protein (6.3-8.2) g/dL Albumin (3.5-5.0) g/dL 10/06/20 10/06/20 10/06/20 Range/Units 03:21 04:45 04:45 RBC 2.59 L (4.30-5.90) m/uL Hgb 8.1 L (13.0-17.5) gm/dL Hct 23.7 L (39.0-53.0) % Plt Count 72 L (150-450) k/uL Chloride 108 H (98-107) mmol/L BUN 28 H (9-20) mg/dL Glucose 108 H (74-99) mg/dL POC Glucose (mg/dL) 119 H (75-99) mg/dL Calcium 8.1 L (8.4-10.2) mg/dL Total Protein 4.9 L (6.3-8.2) g/dL Albumin 2.7 L (3.5-5.0) g/dL 10/06/20 10/06/20 10/06/20 Range/Units 04:48 06:26 07:09 RBC (4.30-5.90) m/uL Hgb (13.0-17.5) gm/dL Hct (39.0-53.0) % Plt Count (150-450) k/uL Chloride (98-107) mmol/L BUN (9-20) mg/dL Glucose (74-99) mg/dL POC Glucose (mg/dL) 119 H 109 H 142 H (75-99) mg/dL Calcium (8.4-10.2) mg/dL Total Protein (6.3-8.2) g/dL Albumin (3.5-5.0) g/dL 10/06/20 10/06/20 10/06/20 Range/Units 08:19 09:34 10:13 RBC (4.30-5.90) m/uL Hgb (13.0-17.5) gm/dL Hct (39.0-53.0) % Plt Count (150-450) k/uL Chloride (98-107) mmol/L BUN (9-20) mg/dL Glucose (74-99) mg/dL POC Glucose (mg/dL) 215 H 186 H 174 H (75-99) mg/dL Calcium (8.4-10.2) mg/dL Total Protein (6.3-8.2) g/dL Albumin (3.5-5.0) g/dL Assessment and Plan Plan: Assessment: #1. Symptomatic coronary artery disease, status post three-vessel coronary artery bypass grafting with the ARAMBULA to LAD, radial arterial graft to obtuse marginal, SVG to PDA, with endoscopic harvest of the left greater saphenous vein, and left radial artery, and ligation of the left atrial appendage on 10/04/2020, today is postoperative day #2 #2. Routine postoperative ventilator management, patient was successfully weaned and extubated on postop day #0 on 10/04/2020 at 2155, a little over 6 hour shalom after OR exit time #3. Hypertension #4. Type 2 diabetes mellitus #5. Peripheral arterial disease with bilateral lower extremity ulcers, status post amputation of 2 toes on left foot #6. Nonhealing ulcer to left foot #7. History of cataracts #8. Never smoker, with a normal preop FEV1 of 3.1 L or 87% of predicted Plan: Patient is doing well on the postoperative day #2 Not on any vasoactive drips Breathing comfortably Today's chest x-ray has been reviewed showing small left apical pneumothorax Encourage deep breathing and coughing Encourage incentive spirometry use Remains in sinus mechanism, there has been no arrhythmias Kyle-Flora catheter has been discontinued Possibly mediastinal chest tube will be discontinued Ambulate the patient Weaning FiO2 Continue to follow in the intensive care unit I performed a history & physical examination of and discussed their management with my nurse practitioner, Alexus Jc. I reviewed the nurse practitioner's note and agree with the documented findings and plan of care. Lung sounds are positive for diminished breath sounds throughout the lung marsh. The findings and the impression was discussed with the patient. I attest to the documentation by the nurse practitioner. Time with Patient: Greater than 30
--- NOTE | 2020-10-06 10:53 | P.CONS ---
History of Present Illness - Reason for Consult Consult date: 10/06/20 wound care - History of Present Illness This is a 65-year-old patient being seen in ICU post CABG. Patient has a nonhealing ulceration to the left foot lateral plantar aspect. Patient was recently and a total contact cast. He received his wound care at [facility]. The total contact cast was removed prior to surgery. Patient has been utilizing absorptive silver to the site. The ulceration measures katlin roximately 1.4 x 1.6 x 0.2 cm with granulation seen with throughout the wound bed and minimal Slough and nonviable tissue. The wound edges are attached to the wound base no tenderness or undermining noted. Periwound shows no scarring or maceration. Patient's past medical history significant for coronary artery disease, diabetes mellitus, hypo-tension, hyperlipidemia, peripheral vascular disease. Patient is a lifelong nonsmoker. Review Of Systems: Constitutional: No fever, no chills, no night sweats. No weight change. No weakness, fatigue or lethargy. No daytime sleepiness. Integumentary:reports wounds, no lesions. No rash or pruritus. No unusual bruising. No change in hair or nails. Physical exam: General Appearance: Alert, cooperative, no distress, appears stated age. Skin: See HPI all other Skin color, texture, tugor normal, no rashes or lesions. Neurologic: Alert oriented x3 Assessment: 1. Nonhealing ulceration of left foot with fat layer exposure 2. Diabetic foot ulcer Plan: 1.Apply absorptive silver, saline moistened gauze, dry gauze, rolled gauze secured with paper tape. Change Saturday. Patient to return to [facility] upon discharge. Nonweightbearing to the left forefoot. May use heel for transfer. Patient to utilize walker when walking. Thank you for the consultation any questions please contact the wound care center DNP note has been reviewed and discussed with Dr. Yancey and the impression and plan of care has been directed as dictated. Past Medical History Past Medical History: Coronary Artery Disease (CAD), Chest Pain / Angina, Diabetes Mellitus, Hyperlipidemia, Hypertension, Skin Disorder, Vascular Disorder Additional Past Medical History / Comment(s): WOUND BELOW LITTLE TOE LEFT FOOT- HAS CAST & WALKING BOOT., 60 treatments of hyperbaric oxygen therapy last dose 07/28/2020 History of Any Multi-Drug Resistant Organisms: MRSA Year Discovered:: 2013 MDRO Source:: toe Past Surgical History: Heart Catheterization Additional Past Surgical History / Comment(s): tin big toe amputation (2009, 2013)., Cataract removed left eye Past Anesthesia/Blood Transfusion Reactions: No Reported Reaction Smoking Status: Never smoker - Past Family History Mother Family Medical History: Cancer Additional Family Medical History / Comment(s): of an aneurysm at 88 years old Father Family Medical History: Diabetes Mellitus Medications and Allergies Home Medications Medication Instructions Recorded Confirmed Type Ascorbic Acid [Vitamin C] 1,000 mg PO DAILY 09/23/20 09/28/20 History Aspirin [Adult Low Dose Aspirin EC] 81 mg PO DAILY 09/23/20 09/28/20 History Carvedilol [Coreg] 12.5 mg PO BID 09/23/20 09/28/20 History Cholecalciferol (Vitamin D3) 125 mcg PO DAILY 09/23/20 09/28/20 History [Vitamin D3 (5000 Iu)] Empagliflozin [Jardiance] 25 mg PO DAILY 09/23/20 09/28/20 History Lisinopril-Hctz 20-25 mg 1 tab PO DAILY 09/23/20 09/28/20 History [Zestoretic 20-25] Multivit-Min/FA/Lycopen/Lutein 1 each PO DAILY 09/23/20 09/28/20 History [Centrum Silver Men Tablet] glipiZIDE [Glucotrol] 10 mg PO BID 09/23/20 09/28/20 History Atorvastatin [Lipitor] 40 mg PO HS #90 tab 09/27/20 09/28/20 Rx Isosorbide Mononitrate ER [Imdur] 30 mg PO DAILY #90 tab.er.24h 09/27/20 1 Rx Nitroglycerin Sl Tabs [Nitrostat] 0.4 mg SUBLINGUAL Q5M PRN #1 bottle 09/27/20 09/28/20 Rx Mupirocin 2% Oint [Bactroban 2% 1 applic NASAL DAILY 09/28/20 09/28/20 History Oint] Allergies Allergy/AdvReac Type Severity Reaction Status Date / Time No Known Allergies Allergy Verified 10/04/20 06:40 Physical Exam Vitals: Vital Signs Temp Pulse Resp BP Pulse Ox 10/06/20 09:00 101 H 12 102/53 95 10/06/20 08:52 102 H 10/06/20 08:40 104 H 10/06/20 08:30 101 H 13 102/53 95 10/06/20 08:00 98.8 F 104 H 15 102/53 95 10/06/20 07:30 106 H 17 95 10/06/20 07:00 101 H 17 94 L 10/06/20 06:30 101 H 18 93 L 10/06/20 06:00 101 H 17 96 10/06/20 05:30 101 H 17 97 10/06/20 05:00 98 15 98 10/06/20 04:30 98.6 F 97 16 97 10/06/20 04:00 93 15 98 10/06/20 03:30 90 13 98 10/06/20 03:00 89 13 98 10/06/20 02:30 88 13 98 10/06/20 02:00 87 11 L 97 10/06/20 01:30 90 13 99 10/06/20 01:00 90 14 99 10/06/20 00:30 91 17 99 10/06/20 00:00 98.2 F 88 14 99 10/05/20 23:30 89 16 100 10/05/20 23:00 82 12 100 10/05/20 22:30 85 13 100 10/05/20 22:00 87 15 100 10/05/20 21:30 89 15 99 10/05/20 21:00 96 18 120/54 99 10/05/20 20:30 90 14 100 10/05/20 20:00 98.3 F 96 14 99 10/05/20 19:41 88 10/05/20 19:30 89 18 99 10/05/20 19:29 88 10/05/20 19:00 87 19 99 10/05/20 18:30 92 11 L 98 10/05/20 18:00 85 16 99 10/05/20 17:30 98 19 97 10/05/20 17:03 82 10/05/20 17:00 80 13 100 10/05/20 16:53 81 10/05/20 16:30 90 13 100 10/05/20 16:00 82 15 99 10/05/20 15:30 87 16 100 10/05/20 15:00 80 12 95/50 100 10/05/20 14:30 79 18 100 10/05/20 14:00 75 11 L 100 10/05/20 13:30 77 10 L 113/56 99 10/05/20 13:00 80 18 100 10/05/20 12:30 94 17 99 10/05/20 12:17 82 10/05/20 12:07 80 10/05/20 12:00 98.1 F 79 14 99 10/05/20 11:00 84 17 113/56 99 Intake and Output 10/05/20 10/06/20 10/06/20 22:59 06:59 14:59 Intake Total 865.401 311.412 91.166 Output Total 430 630 80 Balance 435.401 -318.588 11.166 Intake: IV 317 285 78 Lactated Ringers 1,000 ml 150 140 60 @ 20 mls/hr IV .Q24H JACOB Rx#:[id number] cardiac output 10 ceFAZolin 3 gm In Sodium 100 100 Chloride 0.9% 100 ml @ 100 mls/hr IVPB Q8HR JACOB Rx#:[id number] pressure bag 57 45 18 Intake, IV Titration 68.401 26.412 13.166 Amount Insulin Regular 100 unit 46.797 26.412 13.166 In Sodium Chloride 0.9% 100 ml @ Per Protocol IV .Q0M JACOB Rx#:[id number] Norepinephrine 4 mg In 21.604 Sodium Chloride 0.9% 250 ml @ 0.05 MCG/KG/MIN 24. 365 mls/hr IV .[id number] JACOB Rx#:[id number] Oral 480 Output: Chest Tube Drainage 120 230 80 left pleural 120 230 80 mediastinal 0 0 0 Drainage 20 Left Arm 20 Urine 310 380 Other: Voiding Method Indwelling Catheter Indwelling Catheter # Voids 0 Weight 135 kg ABP, PAP, CO, CI - Last 8 Hours Arterial Blood Pressure 106/42 Arterial Blood Pressure 113/43 Arterial Blood Pressure 106/41 Arterial Blood Pressure 127/46 Arterial Blood Pressure 117/46 Arterial Blood Pressure 134/51 Arterial Blood Pressure 153/60 Arterial Blood Pressure 128/49 Arterial Blood Pressure 128/48 Arterial Blood Pressure 136/52 Arterial Blood Pressure 131/50 Arterial Blood Pressure 118/46 Arterial Blood Pressure 111/43 Results CBC & Chem 7: 10/06/20 04:45 10/06/20 04:45 Labs: Abnormal Lab Results - Last 24 Hours (Table) 10/05/20 10/05/20 10/05/20 Range/Units 10:55 12:05 14:12 RBC (4.30-5.90) m/uL Hgb (13.0-17.5) gm/dL Hct (39.0-53.0) % Plt Count (150-450) k/uL Chloride (98-107) mmol/L BUN (9-20) mg/dL Glucose (74-99) mg/dL POC Glucose (mg/dL) 203 H 173 H 213 H (75-99) mg/dL Calcium (8.4-10.2) mg/dL Total Protein (6.3-8.2) g/dL Albumin (3.5-5.0) g/dL 10/05/20 10/05/20 10/05/20 Range/Units 15:03 16:12 17:04 RBC (4.30-5.90) m/uL Hgb (13.0-17.5) gm/dL Hct (39.0-53.0) % Plt Count (150-450) k/uL Chloride (98-107) mmol/L BUN (9-20) mg/dL Glucose (74-99) mg/dL POC Glucose (mg/dL) 203 H 174 H 163 H (75-99) mg/dL Calcium (8.4-10.2) mg/dL Total Protein (6.3-8.2) g/dL Albumin (3.5-5.0) g/dL 10/05/20 10/05/20 10/05/20 Range/Units 18:01 18:56 20:12 RBC (4.30-5.90) m/uL Hgb (13.0-17.5) gm/dL Hct (39.0-53.0) % Plt Count (150-450) k/uL Chloride (98-107) mmol/L BUN (9-20) mg/dL Glucose (74-99) mg/dL POC Glucose (mg/dL) 202 H 213 H 174 H (75-99) mg/dL Calcium (8.4-10.2) mg/dL Total Protein (6.3-8.2) g/dL Albumin (3.5-5.0) g/dL 10/05/20 10/05/20 10/05/20 Range/Units 21:18 22:08 23:15 RBC (4.30-5.90) m/uL Hgb (13.0-17.5) gm/dL Hct (39.0-53.0) % Plt Count (150-450) k/uL Chloride (98-107) mmol/L BUN (9-20) mg/dL Glucose (74-99) mg/dL POC Glucose (mg/dL) 153 H 162 H 134 H (75-99) mg/dL Calcium (8.4-10.2) mg/dL Total Protein (6.3-8.2) g/dL Albumin (3.5-5.0) g/dL 10/06/20 10/06/20 10/06/20 Range/Units 00:13 01:15 02:19 RBC (4.30-5.90) m/uL Hgb (13.0-17.5) gm/dL Hct (39.0-53.0) % Plt Count (150-450) k/uL Chloride (98-107) mmol/L BUN (9-20) mg/dL Glucose (74-99) mg/dL POC Glucose (mg/dL) 114 H 124 H 123 H (75-99) mg/dL Calcium (8.4-10.2) mg/dL Total Protein (6.3-8.2) g/dL Albumin (3.5-5.0) g/dL 10/06/20 10/06/20 10/06/20 Range/Units 03:21 04:45 04:45 RBC 2.59 L (4.30-5.90) m/uL Hgb 8.1 L (13.0-17.5) gm/dL Hct 23.7 L (39.0-53.0) % Plt Count 72 L (150-450) k/uL Chloride 108 H (98-107) mmol/L BUN 28 H (9-20) mg/dL Glucose 108 H (74-99) mg/dL POC Glucose (mg/dL) 119 H (75-99) mg/dL Calcium 8.1 L (8.4-10.2) mg/dL Total Protein 4.9 L (6.3-8.2) g/dL Albumin 2.7 L (3.5-5.0) g/dL 10/06/20 10/06/20 10/06/20 Range/Units 04:48 06:26 07:09 RBC (4.30-5.90) m/uL Hgb (13.0-17.5) gm/dL Hct (39.0-53.0) % Plt Count (150-450) k/uL Chloride (98-107) mmol/L BUN (9-20) mg/dL Glucose (74-99) mg/dL POC Glucose (mg/dL) 119 H 109 H 142 H (75-99) mg/dL Calcium (8.4-10.2) mg/dL Total Protein (6.3-8.2) g/dL Albumin (3.5-5.0) g/dL 10/06/20 10/06/20 10/06/20 Range/Units 08:19 09:34 10:13 RBC (4.30-5.90) m/uL Hgb (13.0-17.5) gm/dL Hct (39.0-53.0) % Plt Count (150-450) k/uL Chloride (98-107) mmol/L BUN (9-20) mg/dL Glucose (74-99) mg/dL POC Glucose (mg/dL) 215 H 186 H 174 H (75-99) mg/dL Calcium (8.4-10.2) mg/dL Total Protein (6.3-8.2) g/dL Albumin (3.5-5.0) g/dL Assessment and Plan (1) Diabetic foot ulcer Current Visit: Yes Status: Acute Code(s): E11.621 - TYPE 2 DIABETES MELLITUS WITH FOOT ULCER; L97.509 - NON-PRESSURE CHRONIC ULCER OTH PRT UNSP FOOT W UNSP SEVERITY SNOMED Code(s): 375601746 (2) Non-healing ulcer of left foot with fat layer exposed Current Visit: Yes Status: Acute Code(s): L97.522 - NON-PRS CHRONIC ULCER OTH PRT LEFT FOOT W FAT LAYER EXPOSED SNOMED Code(s): 082977741
[2020-10-06 11:05] LABS: Glucose,Whole Blood 164 mg/dL (75-99)
[2020-10-06] MEDS ORDERED: METOPROLOL TARTRATE 12.5 MG TAB PO STA (11:25)
[2020-10-06 12:45] LABS: Glucose,Whole Blood 190 mg/dL (75-99)
[2020-10-06 13:48] LABS: Glucose,Whole Blood 242 mg/dL (75-99)
[2020-10-06 14:19] LABS: Glucose,Whole Blood 229 mg/dL (75-99)
[2020-10-06 15:23] LABS: Glucose,Whole Blood 223 mg/dL (75-99)
[2020-10-06] MEDS ORDERED: INSULIN DETEMIR (LEVEMIR) 100 UNIT/ML SYR SQ SCH (16:30)
[2020-10-06] MEDS: glipiZIDE 10 MG TAB PO SCH (16:33)
[2020-10-06 16:52] LABS: Glucose,Whole Blood 182 mg/dL (75-99)
[2020-10-06] MEDS: INSULIN ASPART (NovoLOG) 100 UNIT/ML VIAL SQ SCH ×2 (16:56→21:24)
--- NOTE | 2020-10-06 18:14 | P.PN ---
Subjective This is a pleasant 65 years old male with past medical history of coronary artery disease, diabetes mellitus, hypertension, status post cardiac cath. He is with severe triple vessel coronary artery disease and underwent bypass grafting with ARAMBULA to LAD. Today is postoperative day #1 Patient was sitting in chair with no significant dyspnea. He still have some pain at the surgery site. No nausea vomiting, no abdominal pain. No fever. Patient is diabetic and he is on Glucotrol, and Jardiance Hemodynamically patient is stable. Patient WBC is normal at 10.4, hemoglobin 9.3. Platelets slightly low at 135. BMP and liver enzymes are unremarkable. Sugars currently controlled 173 -247. Chest x-ray: Postoperative changes with patchy bilateral area of infiltrate Currently patient is on aspirin and Plavix, 10/06/2020 Patient sitting in chair. Feels better and less pain at surgical site. He is hemodynamically stable and in sinus rhythm. Labs showing slight drop of hemoglobin down to 8.1 as well as platelets 272 k . Patient has blood on his chest tube which most likely the source. Patient is currently on aspirin and Plavix while his heparin is held due to thrombocytopenia He was on insulin drip at 7 units per hour, last was discontinued and placed back on home dose of glipizide 10 mg twice daily. However jardiance 's is nonformulary in this hospital so start him on Levemir 7 units plus insulin sliding scale Objective - Vital Signs Vital signs: Vital Signs Temp 97.8 F 10/06/20 12:00 Pulse 102 H 10/06/20 17:00 Resp 18 10/06/20 17:00 BP 109/54 10/06/20 16:00 Pulse Ox 96 10/06/20 17:00 Intake & Output 10/05/20 10/06/20 10/06/20 18:59 06:59 18:59 Intake Total 2480.644 416.555 511.133 Output Total 845 845 175 Balance 1635.644 -428.445 336.133 Weight 132 kg 135 kg Intake: IV 1225 369 224 Albumin Human 5% 250 ml 500 In Empty Bag 1 bag @ 250 mls/hr IVPB Q1HR PRN Rx#: [id number] Lactated Ringers 1,000 ml 430 200 200 @ 20 mls/hr IV .Q24H JACOB Rx#:[id number] cardiac output 90 ceFAZolin 3 gm In Sodium 100 100 Chloride 0.9% 100 ml @ 100 mls/hr IVPB Q8HR JACOB Rx#:[id number] pressure bag 105 69 24 Intake, IV Titration 175.644 47.555 37.133 Amount Insulin Regular 100 unit 76.356 47.555 37.133 In Sodium Chloride 0.9% 100 ml @ Per Protocol IV .Q0M JACOB Rx#:[id number] Nitroglycerin-D5w Pmx 50 22.7 mg In Dextrose/Water 1 250ml.bag @ 5 MCG/MIN 1.5 mls/hr IV .Q24H JACOB Rx#: [id number] Norepinephrine 4 mg In 76.588 Sodium Chloride 0.9% 250 ml @ 0.05 MCG/KG/MIN 24. 365 mls/hr IV .[id number] JACOB Rx#:[id number] Oral 1080 250 Output: Chest Tube Drainage 350 290 175 left pleural 330 290 175 mediastinal 20 0 0 Drainage 20 Left Arm 20 Urine 495 535 0 Other: Voiding Method Indwelling Catheter Indwelling Catheter # Voids 0 ABP, PAP, CO, CI - Last Documented Arterial Blood Pressure 107/41 Pulmonary Artery Pressure 29/14 Cardiac Output 8.7 Cardiac Index 3.6 - Labs CBC & Chem 7: 10/06/20 04:45 10/06/20 04:45 Labs: Abnormal Lab Results - Last 24 Hours (Table) 10/05/20 10/05/20 10/05/20 Range/Units 18:01 18:56 20:12 RBC (4.30-5.90) m/uL Hgb (13.0-17.5) gm/dL Hct (39.0-53.0) % Plt Count (150-450) k/uL Chloride (98-107) mmol/L BUN (9-20) mg/dL Glucose (74-99) mg/dL POC Glucose (mg/dL) 202 H 213 H 174 H (75-99) mg/dL Calcium (8.4-10.2) mg/dL Total Protein (6.3-8.2) g/dL Albumin (3.5-5.0) g/dL 10/05/20 10/05/20 10/05/20 Range/Units 21:18 22:08 23:15 RBC (4.30-5.90) m/uL Hgb (13.0-17.5) gm/dL Hct (39.0-53.0) % Plt Count (150-450) k/uL Chloride (98-107) mmol/L BUN (9-20) mg/dL Glucose (74-99) mg/dL POC Glucose (mg/dL) 153 H 162 H 134 H (75-99) mg/dL Calcium (8.4-10.2) mg/dL Total Protein (6.3-8.2) g/dL Albumin (3.5-5.0) g/dL 10/06/20 10/06/20 10/06/20 Range/Units 00:13 01:15 02:19 RBC (4.30-5.90) m/uL Hgb (13.0-17.5) gm/dL Hct (39.0-53.0) % Plt Count (150-450) k/uL Chloride (98-107) mmol/L BUN (9-20) mg/dL Glucose (74-99) mg/dL POC Glucose (mg/dL) 114 H 124 H 123 H (75-99) mg/dL Calcium (8.4-10.2) mg/dL Total Protein (6.3-8.2) g/dL Albumin (3.5-5.0) g/dL 10/06/20 10/06/20 10/06/20 Range/Units 03:21 04:45 04:45 RBC 2.59 L (4.30-5.90) m/uL Hgb 8.1 L (13.0-17.5) gm/dL Hct 23.7 L (39.0-53.0) % Plt Count 72 L (150-450) k/uL Chloride 108 H (98-107) mmol/L BUN 28 H (9-20) mg/dL Glucose 108 H (74-99) mg/dL POC Glucose (mg/dL) 119 H (75-99) mg/dL Calcium 8.1 L (8.4-10.2) mg/dL Total Protein 4.9 L (6.3-8.2) g/dL Albumin 2.7 L (3.5-5.0) g/dL 10/06/20 10/06/20 10/06/20 Range/Units 04:48 06:26 07:09 RBC (4.30-5.90) m/uL Hgb (13.0-17.5) gm/dL Hct (39.0-53.0) % Plt Count (150-450) k/uL Chloride (98-107) mmol/L BUN (9-20) mg/dL Glucose (74-99) mg/dL POC Glucose (mg/dL) 119 H 109 H 142 H (75-99) mg/dL Calcium (8.4-10.2) mg/dL Total Protein (6.3-8.2) g/dL Albumin (3.5-5.0) g/dL 10/06/20 10/06/20 10/06/20 Range/Units 08:19 09:34 10:13 RBC (4.30-5.90) m/uL Hgb (13.0-17.5) gm/dL Hct (39.0-53.0) % Plt Count (150-450) k/uL Chloride (98-107) mmol/L BUN (9-20) mg/dL Glucose (74-99) mg/dL POC Glucose (mg/dL) 215 H 186 H 174 H (75-99) mg/dL Calcium (8.4-10.2) mg/dL Total Protein (6.3-8.2) g/dL Albumin (3.5-5.0) g/dL 10/06/20 10/06/20 10/06/20 Range/Units 11:03 12:43 13:46 RBC (4.30-5.90) m/uL Hgb (13.0-17.5) gm/dL Hct (39.0-53.0) % Plt Count (150-450) k/uL Chloride (98-107) mmol/L BUN (9-20) mg/dL Glucose (74-99) mg/dL POC Glucose (mg/dL) 164 H 190 H 242 H (75-99) mg/dL Calcium (8.4-10.2) mg/dL Total Protein (6.3-8.2) g/dL Albumin (3.5-5.0) g/dL 10/06/20 10/06/20 10/06/20 Range/Units 14:18 15:22 16:50 RBC (4.30-5.90) m/uL Hgb (13.0-17.5) gm/dL Hct (39.0-53.0) % Plt Count (150-450) k/uL Chloride (98-107) mmol/L BUN (9-20) mg/dL Glucose (74-99) mg/dL POC Glucose (mg/dL) 229 H 223 H 182 H (75-99) mg/dL Calcium (8.4-10.2) mg/dL Total Protein (6.3-8.2) g/dL Albumin (3.5-5.0) g/dL Assessment and Plan Assessment: Triple vessel coronary artery disease status post cardiac cath and bypass graf chatman with ARAMBULA to LAD Diabetes mellitus Hypertension Plan: This is a pleasant 65 years old male who presents with bypass grafting to the LAD. Discontinue with insulin drip, and start insulin sliding scale while monitoring his glucose closely. Start glipizide and Levemir Continue with aspirin and Plavix Several consultants on the case Labs and medication were reviewed.. Continue same treatment. Continue with symptomatic treatment. Resume home medication. Monitor lytes and vitals. DVT and GI prophylaxis. Further recommendations depends on the clinical course of the patient DVT prophylaxis: Discontinue Subcutaneous heparin, monitor platelet count. Troponin with aspirin and Plavix and mechanical GI Prophylaxis: Ppi
[2020-10-06 21:10] LABS: Glucose,Whole Blood 193 mg/dL (75-99)
[2020-10-06] MEDS: SENNOSIDES-DOCUSATE SODIUM 1 EACH TAB PO SCH (21:24)
[2020-10-06] MEDS: ATORVASTATIN 40 MG TAB PO SCH (21:24)
[2020-10-07] MEDS: DILTIAZEM ORAL 30 MG TAB PO SCH (00:15)
[2020-10-07] MEDS: KETOROLAC 15 MG/ML 1 ML VIAL IVP SCH ×2 (00:15→06:30)
[2020-10-07] MEDS: PANTOPRAZOLE 40 MG TABLET PO SCH (06:30)
[2020-10-07] MEDS ORDERED: INSULIN DETEMIR (LEVEMIR) 100 UNIT/ML SYR SQ SCH (07:15)
[2020-10-07] MEDS ORDERED: ACETAMINOPHEN TAB 325 MG TAB PO PRN (07:18)
[2020-10-07 07:22] LABS: Glucose,Whole Blood 196 mg/dL (75-99)
[2020-10-07] MEDS: glipiZIDE 10 MG TAB PO SCH ×2 (07:35→17:26)
[2020-10-07] MEDS: INSULIN ASPART (NovoLOG) 100 UNIT/ML VIAL SQ SCH ×4 (07:35→21:48)
[2020-10-07 07:39] LABS: Calcium 8.5 mg/dL (8.4-10.2); Potassium 4.5 mmol/L (3.5-5.1)
--- NOTE | 2020-10-07 08:30 | XR ---
EXAMINATION TYPE: XR chest 1V portable DATE OF EXAM: 10/07/2020 HISTORY: Shortness of breath. COMPARISON: 10/06/2020 TECHNIQUE: Single view of the chest is submitted. FINDINGS: Left-sided chest tube with small left apical residual pneumothorax noted estimated at less than 5%. There is no evidence for focal infiltrate. The heart is stable. Hilar and mediastinal structures are within normal limits. Degenerative changes are seen of the dorsal spine. IMPRESSION: 1. Left-sided chest tube with small left apical residual pneumothorax noted estimated at less than 5 %.
--- NOTE | 2020-10-07 08:44 | P.PN ---
Subjective Progress Note Date: 10/07/20 Principal diagnosis: Triple-vessel coronary artery disease, unstable angina. 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, never smoker, history of Covid infection in December 2019, remains unvaccinated POD #3 coronary artery bypass grafting 3 vessels, left internal mammary artery to the left anterior descending artery, left radial artery to the obtuse m arginal artery, reverse saphenous vein graft to posterior descending artery, endoscopic harvesting of the left greater saphenous vein above the knee, endoscopic harvesting of the left radial artery, ligation of the left atrial appendage using a 35 mm AtriClip, epi-aortic ultrasound, intraoperative t ransesophageal echocardiogram, closure of the sternum using titanium plating system Postoperative acute blood loss anemia and thrombocytopenia, expected outcomes of cardiac surgery given hemodilution and cardiopulmonary bypass pump Patient's currently sitting up in a recliner on the cardiac stepdown unit in no acute distress. States pain is controlled on current medication regimen, denies shortness of breath. Remains in sinus rhythm, hemodynamically stable. Left pleural chest tube remains. Patient states he is feeling well and to going home whenever we are ready to send him. No new concerns. Objective - Vital Signs Vital signs: Vital Signs Temp 97.9 F 10/07/20 04:00 Pulse 89 10/07/20 04:00 Resp 17 10/07/20 04:00 BP 112/58 10/07/20 04:00 Pulse Ox 94 L 10/07/20 04:00 Intake & Output 10/06/20 10/07/20 10/07/20 18:59 06:59 18:59 Intake Total 511.133 580 Output Total 175 990 Balance 336.133 -410 Weight 134 kg Intake: IV 224 100 Lactated Ringers 1,000 ml 200 100 @ 20 mls/hr IV .Q24H JACOB Rx#:[id number] pressure bag 24 Intake, IV Titration 37.133 Amount Insulin Regular 100 unit 37.133 In Sodium Chloride 0.9% 100 ml @ Per Protocol IV .Q0M JACOB Rx#:[id number] Oral 250 480 Output: Chest Tube Drainage 175 90 left pleural 175 90 mediastinal 0 Urine 0 900 Other: Voiding Method Urinal # Voids 0 0 ABP, PAP, CO, CI - Last Documented Arterial Blood Pressure 107/41 Pulmonary Artery Pressure 29/14 Cardiac Output 8.7 Cardiac Index 3.6 - Exam CONSTITUTIONAL: Appears comfortable, cooperative, no acute distress RESPIRATORY: Lungs sounds diminished bilaterally. Respirations even, nonlabored. Currently on room air with oxygen saturation 94%. Able to achieve 1250 mL on incentive spirometry. Strong cough. CARDIOVASCULAR: S1, S2 present. Regular rate and rhythm, sinus rhythm to sinus tach on telemetry. Sternum stable. Palpable peripheral pulses bilaterally. No edema present. No calf pain or tenderness noted. Heart hugger in place with patient demonstrating appropriate use. Antiembolism stockings, SCDs present. GASTROINTESTINAL: Abdomen soft, nontender, nondistended. Active bowel sounds present 4 quadrants. Tolerating diet. Positive flatus. GENITOURINARY: Continues to void INTEGUMENTARY: Skin is warm and dry with evidence of good perfusion. Anterior chest incision well approximated. EVH site well approximated without redness or drainage. Left radial artery harvest site without redness, patient able to wiggle all fingers and group appropriately, good cap refill. Chronic pressure ulcer present to plantar surface of foot, no redness or drainage present. NEUROLOGIC: Cranial nerves II through XII intact MUSKULOSKELETAL: Able to move all extremities, strength equal bilaterally PSYCHIATRIC: Alert and oriented to person place and time, appropriate affect, intact judgment and insight INVASIVE LINES AND TUBES: Left pleural chest tube present and connected to wall suction, no air leaks present, 50 mL serosanguineous drainage overnight, 300 mL since surgery. A/V epicardial pacemaker wires present, grounded. - Allied health notes Allied health notes reviewed: nursing - Labs CBC & Chem 7: 10/06/20 04:45 10/07/20 06:26 Labs: Abnormal Lab Results - Last 24 Hours (Table) 10/06/20 10/06/20 10/06/20 Range/Units 08:19 09:34 10:13 Sodium (137-145) mmol/L BUN (9-20) mg/dL Glucose (74-99) mg/dL POC Glucose (mg/dL) 215 H 186 H 174 H (75-99) mg/dL 10/06/20 10/06/20 10/06/20 Range/Units 11:03 12:43 13:46 Sodium (137-145) mmol/L BUN (9-20) mg/dL Glucose (74-99) mg/dL POC Glucose (mg/dL) 164 H 190 H 242 H (75-99) mg/dL 10/06/20 10/06/20 10/06/20 Range/Units 14:18 15:22 16:50 Sodium (137-145) mmol/L BUN (9-20) mg/dL Glucose (74-99) mg/dL POC Glucose (mg/dL) 229 H 223 H 182 H (75-99) mg/dL 10/06/20 10/07/20 10/07/20 Range/Units 21:08 06:26 07:20 Sodium 136 L (137-145) mmol/L BUN 36 H (9-20) mg/dL Glucose 165 H (74-99) mg/dL POC Glucose (mg/dL) 193 H 196 H (75-99) mg/dL - Imaging and Cardiology Chest x-ray: report reviewed, image reviewed Assessment and Plan Assessment: 1. Triple-vessel coronary artery disease, unstable angina, status post three- vessel CABG 2. History of hypertension, currently hypotensive on IV Levophed 3. Type 2 diabetes, preoperative hemoglobin A1c 6.4% 4. Peripheral arterial disease with bilateral lower extremity ulcers 5. Current nonhealing ulcer to the left foot with completion of 60 treatments of hyperbaric oxygen therapy, seeks treatment in the wound care center in [place] every Saturday 6. 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 Never smoker 8. History of Covid infection in December 2019, remains unvaccinated 9. Postoperative acute blood loss anemia and thrombocytopenia Plan: 1. Continue aspirin, statin, Plavix, beta ruperto therapy. Will increase beta ruperto therapy as tolerated, increased to 25 mg 3 times a day today 2. Continue Cardizem for radial artery spasm, will transition to Cardizem CD. Do not discontinue CCB without discussed with cardiac surgery 3. Encourage incentive spirometry use 10 times every hour while awake. Bronchodilators per pulmonology 4. Increase activity, ambulate as tolerated. PT/OT/cardiac rehab following 5. Will monitor daily labs and x-rays. Electrolyte replacement per protocol. No transfusion 6. GI/DVT prophylaxis 7. Pain control with current medication regimen 8. Insulin management per primary care service. Patient needs tight blood sugar control to promote sternal union and prevent infection 9. Wound care consulted for management of patient's chronic left foot wound, recommend absorptive silver dressing change daily, no weightbearing on forefoot, may walk on heel with walker 10. Discontinue left pleural chest tubes 11. Strict accurate intake and output. Daily weights 12. Will discontinue epicardial pacemaker wires later today versus tomorrow 13. Discharge planning in progress. Anticipate discharge to home with home care in the next 24-48 hours 14. More recommendations to follow Time with Patient: Greater than 30
[2020-10-07] MEDS: IPRATROPIUM-ALBUTEROL 3 ML NEB INHALATION SCH ×4 (08:50→19:25)
[2020-10-07 08:53] LABS: HCT 23.8 % (39.0-53.0); HGB 8.3 gm/dL (13.0-17.5); MCH 31.7 pg (25.0-35.0); MCHC 34.7 g/dL (31.0-37.0); MCV 91.4 fL (80.0-100.0); Mean Platelet Volume 8.2; RBC 2.61 m/uL (4.30-5.90); RDW 14.1 % (11.5-15.5); WBC 7.6 k/uL (3.8-10.6)
[2020-10-07] MEDS ORDERED: DILTIAZEM CD 120 MG CAP.ER.24H PO SCH (09:00)
[2020-10-07 09:01] LABS: Platelet Count 126 k/uL (150-450)
[2020-10-07] MEDS: MULTIVITAMINS, THERA 1 EACH TAB PO SCH (09:10)
[2020-10-07] MEDS: CLOPIDOGREL 75 MG TAB PO SCH (09:10)
[2020-10-07] MEDS: ASCORBIC ACID 500 MG TAB PO SCH (09:10)
[2020-10-07] MEDS: ASPIRIN 81 MG PO SCH (09:10)
[2020-10-07] MEDS: CHOLECALCIFEROL 25 MCG (1000 IU) TABLET PO SCH (09:10)
[2020-10-07] MEDS: METOPROLOL TARTRATE 25 MG TAB PO SCH ×3 (09:11→21:50)
[2020-10-07 11:50] LABS: Glucose,Whole Blood 251 mg/dL (75-99)
[2020-10-07] MEDS ORDERED: INSULIN DETEMIR (LEVEMIR) 100 UNIT/ML SYR SQ ONE ×2 (12:45→21:18)
--- NOTE | 2020-10-07 14:14 | P.PN ---
Subjective Progress Note Date: 10/07/20 This is a 65-year-old white male patient of Dr. Terry Watts/Lacie Walden with past medical history of hypertension, type 2 diabetes mellitus, peripheral arterial disease with left lower extremity nonhealing ulcer with history of amputation of toes. Patient was recently hospitalized with unstable angina at this hospital. EKG demonstrated evidence of prior inferior wall myocardial infarction. Heart catheterization showed RCA stenosis of 70-80%, circumflex stenosis of 90%, proximal LAD stenosis of 90% and the diagonal stenosis of 70- 80%. Transthoracic echocardiogram from 09/23/2020 demonstrated normal left ventricular systolic function with an EF of 55%, normal diastolic dysfunction, trace central mitral regurgitation and mild central tricuspid regurgitation. He was referred to CT surgery for coronary artery bypass grafting. On 10/04/2020 patient had a three-vessel coronary artery bypass grafting with a ARAMBULA to LAD, radial artery to obtuse marginal, SVG to the PDA, with endoscopic harvest of the left greater saphenous vein, and left radial artery, and ligation of the left atrial appendage. We are seeing the patient today on 10/05/2020, this is postoperative day #1. He was successfully weaned and extubated on postoperative day #0 at 2151. This morning he is on 2 L of oxygen his pulse ox is 100%. Today's chest x-ray has been reviewed showing some mild atelectasis at the left base. Is breathing comfortably, is awake and alert. He has left pleural and mediastinal chest tubes in place, with 400 mL of serosanguineous output from the left and 385 ML of serosanguineous output from the mediastinal chest tube. Urine output is in the order of 40-50 ML per hour. He is on lactated Ringer's at 50 ML per hour, insulin drip is at 3 units per hour, he is on Cardizem 5 mg per hour, and levofed at 0.02 mics per kilo per minute. patient received 1 L of 5% albumin early this morning. Today's labs have been reviewed, white blood cell count is 10.4, hemoglobin is 9.3, INR is 1.1 from yesterday's labs, sodium is 139, potassium is 4.5, chloride is 110, BUN of 27, and creatinine of 1.1, LFTs are unremarkable. Currently patient is in sinus mechanism with a rate of 83 bpm, blood pressure is 101/57, PA pressure is 22/10, with CVP of 9, cardiac output is 7.3, and cardiac index is 3.0. On 10/06/2020 patient seen in follow-up in the intensive care, he is postoperative day #2, status post three-vessel coronary artery bypass grafting with a ARAMBULA to LAD, radial arterial graft to the obtuse marginal, and SVG to the PDA. Patient is awake and alert, oriented 3, currently on room air, with a pulse ox of 95%, he is on lactated Ringer's at 20 ML per hour, and insulin infusion is at 7 units per hour, no vasoactive drips, he is in sinus mechanism, with a controlled rate. Blood pressure is stable, 106/42, CVP is 11, his [place] catheter has been removed. His left pleural chest tube had 620 ML of serosanguineous output in the last 24 hours, there is minimal output out of his mediastinal chest tube and there has only been 20 mL in last 24 hours, his urine output in the order of 35-45 ML per hour. He denies any shortness of breath, today's chest x-ray has been reviewed showing less than 5% left apical pneumothorax, and patchy areas of infiltrates or pulmonary congestion there is stable in appearance. No evidence of air leak out of the chest tubes, his pain is fairly well controlled, he is working on incentive spirometer, and he is achieving about all thousand units a day. Today's labs have been reviewed, his white blood cell count is 7.5, hemoglobin is 8.1, platelet count is 77, sodium is 137, potassium 3.9, chloride is 108, BUN is 28, creatinine 0.99 On today's evaluation on 10/07/2020 patient is seen on selective care unit, he sitting up in the recliner, currently on room air with pulse ox of 94-95%, hemodynamically has been stable, he is not on any drips, no IV fluids or vasoactive drips. He is in sinus mechanism shoulder rate, but pressure has been stable, he is breathing comfortably, he is receiving 1.5 L on the incentive spirometer, he got up and ambulated around the unit once today, tolerated activity well, today's chest x-ray has been reviewed showing small left apical pneumothorax, at less than 5%. Today's labs have been reviewed white blood cell count is 7.6, hemoglobin is 8.3, platelet count is 126, sodium is 136, the rest of electrolytes are within normal limits, BUN is 36 and creatinine is 1.1 Objective - Vital Signs Vital signs: Vital Signs Temp 97.9 F 10/07/20 04:00 Pulse 85 10/07/20 12:53 Resp 17 10/07/20 04:00 BP 112/58 10/07/20 04:00 Pulse Ox 94 L 10/07/20 04:00 Intake & Output 10/06/20 10/07/20 10/07/20 18:59 06:59 18:59 Intake Total 511.133 580 360 Output Total 175 990 Balance 336.133 -410 360 Weight 134 kg Intake: IV 224 100 Lactated Ringers 1,000 ml 200 100 @ 20 mls/hr IV .Q24H JACOB Rx#:[id number] pressure bag 24 Intake, IV Titration 37.133 Amount Insulin Regular 100 unit 37.133 In Sodium Chloride 0.9% 100 ml @ Per Protocol IV .Q0M JACOB Rx#:[id number] Oral 250 480 360 Output: Chest Tube Drainage 175 90 left pleural 175 90 mediastinal 0 Urine 0 900 Other: Voiding Method Urinal # Voids 0 0 ABP, PAP, CO, CI - Last Documented Arterial Blood Pressure 107/41 Pulmonary Artery Pressure 29/14 Cardiac Output 8.7 Cardiac Index 3.6 - Exam GENERAL EXAM: 65-year-old white male, sitting up in the recliner, currently on 2 L of oxygen a pulse ox in the 100% comfortable in no apparent distress. HEAD: Normocephalic/atraumatic. EYES: Normal reaction of pupils, equal size. Conjunctiva pink, sclera white. NOSE: Clear with pink turbinates. THROAT: No erythema or exudates. NECK: No masses, no JVD, no thyroid enlargement, no adenopathy. CHEST: No chest wall deformity. Symmetrical expansion. Midsternal incision is clean dry and intact, left pleural and mediastinal chest tubes in place, insertion site clean dry and intact, chest tubes are connected to Pleur-evac's, with small amount of serosanguineous output, no evidence of air leak noted. LUNGS: Equal air entry with no crackles, wheeze, rhonchi or dullness. CVS: Regular rate and rhythm, normal S1 and S2, no gallops, no murmurs, no rubs ABDOMEN: Soft, nontender. No hepatosplenomegaly, normal bowel sounds, no guarding or rigidity. EXTREMITIES: No clubbing, no edema, no cyanosis, 2+ pulses and upper and lower extremities. Patient has an ulcer on his left lateral foot, an open sore to the right hedrick. 2 toes amputated from his left foot MUSCULOSKELETAL: Muscle strength and tone normal. SPINE: No scoliosis or deformity SKIN: No rashes CENTRAL NERVOUS SYSTEM: Alert and oriented -3. No focal deficits, tone is normal in all 4 extremities. PSYCHIATRIC: Alert and oriented -3. Appropriate affect. Intact judgment and insight. - Labs CBC & Chem 7: 10/07/20 06:26 10/07/20 06:26 Labs: Abnormal Lab Results - Last 24 Hours (Table) 10/06/20 10/06/20 10/06/20 Range/Units 14:18 15:22 16:50 RBC (4.30-5.90) m/uL Hgb (13.0-17.5) gm/dL Hct (39.0-53.0) % Plt Count (150-450) k/uL Sodium (137-145) mmol/L BUN (9-20) mg/dL Glucose (74-99) mg/dL POC Glucose (mg/dL) 229 H 223 H 182 H (75-99) mg/dL 10/06/20 10/07/20 10/07/20 Range/Units 21:08 06:26 06:26 RBC 2.61 L (4.30-5.90) m/uL Hgb 8.3 L (13.0-17.5) gm/dL Hct 23.8 L (39.0-53.0) % Plt Count 126 L D (150-450) k/uL Sodium 136 L (137-145) mmol/L BUN 36 H (9-20) mg/dL Glucose 165 H (74-99) mg/dL POC Glucose (mg/dL) 193 H (75-99) mg/dL 10/07/20 10/07/20 Range/Units 07:20 11:49 RBC (4.30-5.90) m/uL Hgb (13.0-17.5) gm/dL Hct (39.0-53.0) % Plt Count (150-450) k/uL Sodium (137-145) mmol/L BUN (9-20) mg/dL Glucose (74-99) mg/dL POC Glucose (mg/dL) 196 H 251 H (75-99) mg/dL Assessment and Plan Plan: Assessment: #1. Symptomatic coronary artery disease, status post three-vessel coronary artery bypass grafting with the ARAMBULA to LAD, radial arterial graft to obtuse marginal, SVG to PDA, with endoscopic harvest of the left greater saphenous vein, and left radial artery, and ligation of the left atrial appendage on 10/04/2020, today is postoperative day #3 #2. Routine postoperative ventilator management, patient was successfully weaned and extubated on postop day #0 on 10/04/2020 at 2155, a little over 6 hour shalom after OR exit time #3. Hypertension #4. Type 2 diabetes mellitus #5. Peripheral arterial disease with bilateral lower extremity ulcers, status post amputation of 2 toes on left foot #6. Nonhealing ulcer to left foot #7. History of cataracts #8. Never smoker, with a normal preop FEV1 of 3.1 L or 87% of predicted Plan: Is doing well Treating comfortably Today's chest x-ray has been reviewed showing stable left apical pneumothorax of less than 5% Hemodynamically stable Encourage breathing and coughing Encourage incentive spirometer use Anticipate discharge home tomorrow I performed a history & physical examination of and discussed their management with my nurse practitioner, Alexus Jc. I reviewed the nurse practitioner's note and agree with the documented findings and plan of care. Lung sounds are positive for diminished breath sounds throughout the lung marsh. The findings and the impression was discussed with the patient. I attest to the docum entation by the nurse practitioner. Time with Patient: Less than 30
--- NOTE | 2020-10-07 14:17 | P.PN ---
Subjective This is a pleasant 65-year-old male past medical history significant for coronary artery disease, hypertension, dyslipidemia and diabetes mellitus. He follows in the office with Dr. Velazquez. He underwent coronary artery bypass grafting with ARAMBULA to LAD, ANNA to OM and SVG to PDA with left atrial appendage ligation on 10/04/20. Preoperative echocardiogram reveals preserved LV systolic function with ejection fraction 55% patient seen and examined at bedside, no acute distress. He denies any shortness of breath, chest pain, palpitations, lightheadedness or dizziness. Patient currently sitting up in the bedside chair. He is ambulatory into the halls with no concerns. He is hemodynamically stable. His left sided chest tube was removed today by CT surgery. Chest x-ray report revealed left-sided chest tube with small left apical residual pneumothorax. Blood pressure 112/58, heart rate in the 80s, afebrile, maintaining oxygen saturations on room air. Telemetry reviewed patient maintained sinus mechanism. Patient is currently maintained on aspirin 81 mg daily, atorvastatin 40 mg nightly, Plavix 75 mg daily, Cardizem 120 mg daily, metoprolol tartrate 25 mg 3 times a day. PHYSICAL EXAMINATION CONSTITUTIONAL: No apparent distress. HEENT: Head is normocephalic. No JVD. No carotid bruit. CHEST EXAMINATION: Lungs are clear to auscultation. No chest wall tenderness is noted on palpation or with deep breathing. Heart regular in place. HEART EXAMINATION: Regular rate and rhythm. S1, S2 heard. No murmurs, gallops or rub. EXTREMITIES: 2+ peripheral pulses, no lower extremity edema and no calf tenderness. Left radial artery site clean, dry, no redness. Antiembolism stockings, SCDs present. ASSESSMENT Triple-vessel coronary artery disease status post bypass grafting Thrombocytopenia Hypertension Diabetes mellitus Dyslipidemia Peripheral vascular disease PLAN Continue aspirin, statin, Plavix, beta ruperto therapy. Beta blockers increase per CT surgery. Hold SQ heparin and follow platelets. Encourage incentive spirometer use. Increase activity and ambulation as tolerated. Patient to follow up with Dr. Velazquez as an outpatient Patient has an appointment on 10/24/20. Further recommendations to follow based upon clinical course. Nurse Practitioner note has been reviewed, I agree with a documented findings a nd plan of care. Patient was seen and examined. Objective - Vital Signs Vital signs: Vital Signs Temp 97.9 F 10/07/20 04:00 Pulse 85 10/07/20 12:53 Resp 17 10/07/20 04:00 BP 112/58 10/07/20 04:00 Pulse Ox 94 L 10/07/20 04:00 Intake & Output 10/06/20 10/07/20 10/07/20 18:59 06:59 18:59 Intake Total 511.133 580 360 Output Total 175 990 Balance 336.133 -410 360 Weight 134 kg Intake: IV 224 100 Lactated Ringers 1,000 ml 200 100 @ 20 mls/hr IV .Q24H JACOB Rx#:[id number] pressure bag 24 Intake, IV Titration 37.133 Amount Insulin Regular 100 unit 37.133 In Sodium Chloride 0.9% 100 ml @ Per Protocol IV .Q0M JACOB Rx#:[id number] Oral 250 480 360 Output: Chest Tube Drainage 175 90 left pleural 175 90 mediastinal 0 Urine 0 900 Other: Voiding Method Urinal # Voids 0 0 ABP, PAP, CO, CI - Last Documented Arterial Blood Pressure 107/41 Pulmonary Artery Pressure 29/14 Cardiac Output 8.7 Cardiac Index 3.6 - Labs CBC & Chem 7: 10/07/20 06:26 10/07/20 06:26 Labs: Abnormal Lab Results - Last 24 Hours (Table) 10/06/20 10/06/20 10/06/20 Range/Units 14:18 15:22 16:50 RBC (4.30-5.90) m/uL Hgb (13.0-17.5) gm/dL Hct (39.0-53.0) % Plt Count (150-450) k/uL Sodium (137-145) mmol/L BUN (9-20) mg/dL Glucose (74-99) mg/dL POC Glucose (mg/dL) 229 H 223 H 182 H (75-99) mg/dL 10/06/20 10/07/20 10/07/20 Range/Units 21:08 06:26 06:26 RBC 2.61 L (4.30-5.90) m/uL Hgb 8.3 L (13.0-17.5) gm/dL Hct 23.8 L (39.0-53.0) % Plt Count 126 L D (150-450) k/uL Sodium 136 L (137-145) mmol/L BUN 36 H (9-20) mg/dL Glucose 165 H (74-99) mg/dL POC Glucose (mg/dL) 193 H (75-99) mg/dL 10/07/20 10/07/20 Range/Units 07:20 11:49 RBC (4.30-5.90) m/uL Hgb (13.0-17.5) gm/dL Hct (39.0-53.0) % Plt Count (150-450) k/uL Sodium (137-145) mmol/L BUN (9-20) mg/dL Glucose (74-99) mg/dL POC Glucose (mg/dL) 196 H 251 H (75-99) mg/dL
[2020-10-07 16:49] LABS: Glucose,Whole Blood 195 mg/dL (75-99)
[2020-10-07 20:43] LABS: Glucose,Whole Blood 224 mg/dL (75-99)
--- NOTE | 2020-10-07 21:21 | P.PN ---
Subjective This is a pleasant 65 years old male with past medical history of coronary artery disease, diabetes mellitus, hypertension, status post cardiac cath. He is with severe triple vessel coronary artery disease and underwent bypass grafting with ARAMBULA to LAD. Today is postoperative day #1 Patient was sitting in chair with no significant dyspnea. He still have some pain at the surgery site. No nausea vomiting, no abdominal pain. No fever. Patient is diabetic and he is on Glucotrol, and Jardiance Hemodynamically patient is stable. Patient WBC is normal at 10.4, hemoglobin 9.3. Platelets slightly low at 135. BMP and liver enzymes are unremarkable. Sugars currently controlled 173 -247. Chest x-ray: Postoperative changes with patchy bilateral area of infiltrate Currently patient is on aspirin and Plavix, 10/06/2020 Patient sitting in chair. Feels better and less pain at surgical site. He is hemodynamically stable and in sinus rhythm. Labs showing slight drop of hemoglobin down to 8.1 as well as platelets 272 k . Patient has blood on his chest tube which most likely the source. Patient is currently on aspirin and Plavix while his heparin is held due to thrombocytopenia He was on insulin drip at 7 units per hour, last was discontinued and placed back on home dose of glipizide 10 mg twice daily. However jardiance 's is nonformulary in this hospital so start him on Levemir 7 units plus insulin sliding scale 10/07/2020 Patient looks comfortable in chair. Denies chest pain or dyspnea or any other complaints. Vitals are stable. Low been stable at 8.3, dictated, improved 126. Heparin subcu was still on hold. Glucose still elevated and increased his Levemir to 15 units daily. Continue glipizide. And swabs to resume his Jardiance for his DM upon discharge instead of insulin Objective - Vital Signs Vital signs: Vital Signs Temp 97.9 F 10/07/20 04:00 Pulse 85 10/07/20 12:53 Resp 17 10/07/20 04:00 BP 112/58 10/07/20 04:00 Pulse Ox 94 L 10/07/20 04:00 Intake & Output 10/06/20 10/07/20 10/07/20 18:59 06:59 18:59 Intake Total 511.133 580 360 Output Total 175 990 Balance 336.133 -410 360 Weight 134 kg Intake: IV 224 100 Lactated Ringers 1,000 ml 200 100 @ 20 mls/hr IV .Q24H JACOB Rx#:[id number] pressure bag 24 Intake, IV Titration 37.133 Amount Insulin Regular 100 unit 37.133 In Sodium Chloride 0.9% 100 ml @ Per Protocol IV .Q0M JACOB Rx#:[id number] Oral 250 480 360 Output: Chest Tube Drainage 175 90 left pleural 175 90 mediastinal 0 Urine 0 900 Other: Voiding Method Urinal # Voids 0 0 ABP, PAP, CO, CI - Last Documented Arterial Blood Pressure 107/41 Pulmonary Artery Pressure 29/14 Cardiac Output 8.7 Cardiac Index 3.6 - Exam -GENERAL: The patient is alert and oriented x3, not in any acute distress. Obese HEENT: Pupils are round and equally reacting to light. EOMI. No scleral icterus. No conjunctival pallor. Normocephalic, atraumatic. No pharyngeal erythema. No thyromegaly. -CARDIOVASCULAR: S1 and S2 present. No murmurs, rubs, or gallops. midline sternal wound is healing and closed PULMONARY: Chest is clear to auscultation, no wheezing or crackles. ABDOMEN: Soft, nontender, nondistended, normoactive bowel sounds. No palpable organomegaly. MUSCULOSKELETAL: No joint swelling or deformity. EXTREMITIES: No cyanosis, clubbing, or pedal edema. NEUROLOGICAL: Gross neurological examination did not reveal any focal deficits. SKIN: No rashes. no petechiae. - Labs CBC & Chem 7: 10/07/20 06:26 10/07/20 06:26 Labs: Abnormal Lab Results - Last 24 Hours (Table) 10/06/20 10/06/20 10/06/20 Range/Units 15:22 16:50 21:08 RBC (4.30-5.90) m/uL Hgb (13.0-17.5) gm/dL Hct (39.0-53.0) % Plt Count (150-450) k/uL Sodium (137-145) mmol/L BUN (9-20) mg/dL Glucose (74-99) mg/dL POC Glucose (mg/dL) 223 H 182 H 193 H (75-99) mg/dL 10/07/20 10/07/20 10/07/20 Range/Units 06:26 06:26 07:20 RBC 2.61 L (4.30-5.90) m/uL Hgb 8.3 L (13.0-17.5) gm/dL Hct 23.8 L (39.0-53.0) % Plt Count 126 L D (150-450) k/uL Sodium 136 L (137-145) mmol/L BUN 36 H (9-20) mg/dL Glucose 165 H (74-99) mg/dL POC Glucose (mg/dL) 196 H (75-99) mg/dL 10/07/20 Range/Units 11:49 RBC (4.30-5.90) m/uL Hgb (13.0-17.5) gm/dL Hct (39.0-53.0) % Plt Count (150-450) k/uL Sodium (137-145) mmol/L BUN (9-20) mg/dL Glucose (74-99) mg/dL POC Glucose (mg/dL) 251 H (75-99) mg/dL Assessment and Plan Assessment: Triple vessel coronary artery disease status post cardiac cath and bypass grafting with ARAMBULA to LAD Diabetes mellitus, with hyperglycemia Hypertension Plan: This is a pleasant 65 years old male who presents with bypass grafting to the LAD. Discontinue with insulin drip, and start insulin sliding scale while monitoring his glucose closely. Start glipizide and Levemir Continue with aspirin and Plavix Several consultants on the case Labs and medication were reviewed.. Continue same treatment. Continue with symptomatic treatment. Resume home medication. Monitor lytes and vitals. DVT and GI prophylaxis. Further recommendations depends on the clinical course of the patient DVT prophylaxis: Discontinue Subcutaneous heparin, monitor platelet count. Troponin with aspirin and Plavix and mechanical GI Prophylaxis: Ppi
[2020-10-07] MEDS: ATORVASTATIN 40 MG TAB PO SCH (21:49)
[2020-10-07] MEDS: SENNOSIDES-DOCUSATE SODIUM 1 EACH TAB PO SCH (21:49)
[2020-10-08] MEDS ORDERED: INSULIN DETEMIR (LEVEMIR) 100 UNIT/ML SYR SQ SCH ×2 (07:00)
[2020-10-08 07:11] LABS: Glucose,Whole Blood 175 mg/dL (75-99)
[2020-10-08] MEDS: INSULIN ASPART (NovoLOG) 100 UNIT/ML VIAL SQ SCH (07:18)
[2020-10-08] MEDS: glipiZIDE 10 MG TAB PO SCH (07:19)
[2020-10-08] MEDS: PANTOPRAZOLE 40 MG TABLET PO SCH (07:19)
--- NOTE | 2020-10-08 07:29 | XR ---
EXAMINATION TYPE: XR chest 2V DATE OF EXAM: 10/08/2020 COMPARISON: 10/07/2020 HISTORY: Postop cardiac surgery TECHNIQUE: Frontal and lateral views of the chest are obtained. FINDINGS: There has been interval removal of the left-sided chest tube. There are median sternotomy wires. The heart size is prominent. The pulmonary vasculature is not nigel ested and there is no airspace or interstitial opacity. Graft there is no pneumothorax. There are sma ll bilateral pleural effusions The osseous structures are intact. IMPRESSION: Mild cardiomegaly and small bilateral pleural effusions post cardiac surgery. There has been interval removal of the left chest tube and there is no pneumothorax.
--- NOTE | 2020-10-08 07:48 | P.PN ---
Subjective Progress Note Date: 10/08/20 Principal diagnosis: Triple-vessel coronary artery disease, unstable angina. 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, never smoker, history of Covid infection in December 2019, remains unvaccinated POD #4 coronary artery bypass grafting 3 vessels, left internal mammary artery to the left anterior descending artery, left radial artery to the obtuse m arginal artery, reverse saphenous vein graft to posterior descending artery, endoscopic harvesting of the left greater saphenous vein above the knee, endoscopic harvesting of the left radial artery, ligation of the left atrial appendage using a 35 mm AtriClip, epi-aortic ultrasound, intraoperative t ransesophageal echocardiogram, closure of the sternum using titanium plating system Postoperative acute blood loss anemia and thrombocytopenia, expected outcomes of cardiac surgery given hemodilution and cardiopulmonary bypass pump Patient's currently sitting up in a recliner on the cardiac stepdown unit in no acute distress. States pain is controlled on current medication regimen, denies shortness of breath. Remains in sinus rhythm, hemodynamically stable. Patient states he is feeling well and ready to going home, plan is to go to sister's house for closer monitoring as the patient lives by himself. No new concerns. Objective - Vital Signs Vital signs: Vital Signs Temp 98.8 F 10/08/20 00:00 Pulse 105 H 10/08/20 02:00 Resp 16 10/08/20 00:00 BP 130/64 10/08/20 04:00 Pulse Ox 97 10/08/20 00:00 Intake & Output 10/07/20 10/08/20 10/08/20 18:59 06:59 18:59 Intake Total 600 Output Total 500 1125 Balance 100 -1125 Weight 136.3 kg Intake: Oral 600 Output: Urine 500 1125 Other: Voiding Method Urinal Urinal ABP, PAP, CO, CI - Last Documented Arterial Blood Pressure 107/41 Pulmonary Artery Pressure 29/14 Cardiac Output 8.7 Cardiac Index 3.6 - Exam CONSTITUTIONAL: Appears comfortable, cooperative, no acute distress RESPIRATORY: Lungs sounds diminished bilaterally. Respirations even, nonlabored. Currently on room air with oxygen saturation 94%. Able to achieve 1250 mL on incentive spirometry. Strong cough. CARDIOVASCULAR: S1, S2 present. Regular rate and rhythm, sinus rhythm on telemetry. Sternum stable. Palpable peripheral pulses bilaterally. Trace gen eralized edema present. No calf pain or tenderness noted. Heart hugger in place with patient demonstrating appropriate use. Antiembolism stockings, SCDs present. GASTROINTESTINAL: Abdomen soft, nontender, nondistended. Active bowel sounds present 4 quadrants. Tolerating diet. Positive bowel movements per patient GENITOURINARY: Continues to void INTEGUMENTARY: Skin is warm and dry with evidence of good perfusion. Anterior chest incision well approximated. EVH site well approximated without redness or drainage. Left radial artery harvest site without redness, patient able to wiggle all fingers and group appropriately, good cap refill. Chronic pressure ulcer present to plantar surface of foot, no redness or drainage present. NEUROLOGIC: Cranial nerves II through XII intact MUSKULOSKELETAL: Able to move all extremities, strength equal bilaterally PSYCHIATRIC: Alert and oriented to person place and time, appropriate affect, intact judgment and insight - Allied health notes Allied health notes reviewed: nursing - Labs CBC & Chem 7: 10/07/20 06:26 10/07/20 06:26 Labs: Abnormal Lab Results - Last 24 Hours (Table) 10/07/20 10/07/20 10/07/20 Range/Units 06:26 11:49 16:48 RBC 2.61 L (4.30-5.90) m/uL Hgb 8.3 L (13.0-17.5) gm/dL Hct 23.8 L (39.0-53.0) % Plt Count 126 L D (150-450) k/uL POC Glucose (mg/dL) 251 H 195 H (75-99) mg/dL 10/07/20 10/08/20 Range/Units 20:42 07:09 RBC (4.30-5.90) m/uL Hgb (13.0-17.5) gm/dL Hct (39.0-53.0) % Plt Count (150-450) k/uL POC Glucose (mg/dL) 224 H 175 H (75-99) mg/dL - Imaging and Cardiology Chest x-ray: report reviewed, image reviewed Assessment and Plan Assessment: 1. Triple-vessel coronary artery disease, unstable angina, status post three- vessel CABG 2. History of hypertension, currently hypotensive on IV Levophed 3. Type 2 diabetes, preoperative hemoglobin A1c 6.4% 4. Peripheral arterial disease with bilateral lower extremity ulcers 5. Current nonhealing ulcer to the left foot with completion of 60 treatments of hyperbaric oxygen therapy, seeks treatment in the wound care center in [place] every Saturday 6. 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 Never smoker 8. History of Covid infection in December 2019, remains unvaccinated 9. Postoperative acute blood loss anemia and thrombocytopenia Plan: 1. Continue aspirin, statin, Plavix, beta ruperto therapy. Will increase beta ruperto therapy as tolerated 2. Continue Cardizem for radial artery spasm. Do not discontinue CCB without discussed with cardiac surgery 3. Encourage incentive spirometry use 10 times every hour while awake. Broncho dilators per pulmonology 4. Increase activity, ambulate as tolerated. PT/OT/cardiac rehab following 5. Will monitor daily labs and x-rays. Electrolyte replacement per protocol. No transfusion 6. GI/DVT prophylaxis 7. Pain control with current medication regimen 8. Insulin management per primary care service. Patient needs tight blood sugar control to promote sternal union and prevent infection 9. Wound care consulted for management of patient's chronic left foot wound, recommend absorptive silver dressing change daily, no weightbearing on forefoot, may walk on heel with walker 10. Strict accurate intake and output. Daily weights 11. Discharge planning in progress. Anticipate discharge to sisters home with home care later today 12. More recommendations to follow Time with Patient: Greater than 30
[2020-10-08] MEDS: IPRATROPIUM-ALBUTEROL 3 ML NEB INHALATION SCH ×2 (08:09→11:14)
[2020-10-08 08:28] LABS: HCT 25.1 % (39.0-53.0); HGB 8.3 gm/dL (13.0-17.5); MCH 30.5 pg (25.0-35.0); MCHC 33.1 g/dL (31.0-37.0); MCV 92.3 fL (80.0-100.0); Platelet Count 162 k/uL (150-450); RBC 2.72 m/uL (4.30-5.90); RDW 13.6 % (11.5-15.5); WBC 7.4 k/uL (3.8-10.6)
[2020-10-08 08:42] LABS: Calcium 8.7 mg/dL (8.4-10.2); Potassium 4.8 mmol/L (3.5-5.1)
[2020-10-08] MEDS ORDERED: FUROSEMIDE 10 MG/ML 2 ML VIAL IV STA (08:54)
[2020-10-08] MEDS ORDERED: DILTIAZEM CD 180 MG CAP.ER.24H PO SCH (09:00)
[2020-10-08] MEDS: ASPIRIN 81 MG PO SCH (09:16)
[2020-10-08] MEDS: MULTIVITAMINS, THERA 1 EACH TAB PO SCH (09:16)
[2020-10-08] MEDS: CHOLECALCIFEROL 25 MCG (1000 IU) TABLET PO SCH (09:17)
[2020-10-08] MEDS: CLOPIDOGREL 75 MG TAB PO SCH (09:17)
[2020-10-08] MEDS: ASCORBIC ACID 500 MG TAB PO SCH (09:17)
[2020-10-08] MEDS: METOPROLOL TARTRATE 25 MG TAB PO SCH (09:17)
--- NOTE | 2020-10-08 09:22 | P.DS ---
Providers Date of admission: 10/04/20 05:22 Expected date of discharge: 10/08/20 Attending physician: Augustine Nichols Consults: 10/04/20 15:28 Consult Physician Routine Consulting Provider: Lennox Mabry Consult Reason/Comments: Puddler Pile Driving Consult: post cardiac surgery Do you want consulting provider notified?: Yes Consult Physician Routine Consulting Provider: Fahad Weller Consult Reason/Comments: Industrial Trainer Consult: post cardiac surgery Do you want consulting provider notified?: Yes Consult Physician Routine Consulting Provider: Samuel Velazquez Consult Reason/Comments: med mgmt; Win/Christine patient Do you want consulting provider notified?: Yes Primary care physician: Stated None Hospital Course: FINAL DIAGNOSIS: 1. Triple-vessel coronary artery disease, unstable angina 2. History of hypertension 3. Type 2 diabetes, preoperative hemoglobin A1c 6.4% 4. Peripheral arterial disease with bilateral lower semi-ulcers 5. Current nonhealing ulcer to the left foot with completion of 60 treatments of hyperbaric oxygen therapy 6. 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 Never smoker 8. History of covid infection in December 2019, remains on vaccinated 9. Postoperative acute blood loss anemia and thrombocytopenia, expected PRINCIPAL PROCEDURE: 1. Coronary artery bypass grafting 3 vessels, left internal mammary artery to the left anterior descending artery, left radial artery to the obtuse marginal artery, reverse saphenous vein graft to the posterior descending artery 2. Endoscopic harvesting of the left greater saphenous vein above the knee 3. Endoscopic harvesting of the left radial artery 4. Ligation of the left atrial appendage using a 35 mm AtriClip 5. Epi-aortic ultrasound 6. Intraoperative transesophageal echocardiogram 7. Closure of the sternotomy using titanium plating system HISTORY OF PRESENT ILLNESS: This is a 65-year-old gentleman who follows on an outpatient basis with Dr. Terry King and physician dietetic assistant Micki Walden. Over the last several weeks he had been experiencing unstable anginal in the form of precordial chest tightness with radiation to both arms, worse with exertion, relieved with rest. He was seen by Dr. Velazquez, EKG demonstrated evidence of prior inferior wall myocardial infarction, and he was recommended to undergo heart catheterization which demonstrated right coronary stenosis 70-80%, circumflex stenosis 90%, proximal LAD stenosis 90%, diagonal stenosis 70-80%. Of note, he had a transthoracic echocardiogram in the office demonstrating normal left ventricular systolic function with EF 55%, normal diastolic function, trace central mitral regurgitation, and mild central tricuspid regurgitation. Consultation was placed to Dr. Nichols from [facility]. He was recommended to undergo elective coronary artery bypass surgery. The usual perioperative course was discussed in detail with the patient and his family, all risks and benefits were explained, all questions were answered, and consent was obtained to proceed with surgery. The patient was discharged to home on maximal medical therapy to return as an outpatient for surgery at the earliest possible date. HOSPITAL COURSE: The patient was brought to the hospital on 10/04/2020, taken to the preoperative area, prepared in the usual fashion, and subsequently taken to the operating room where Dr. Nichols performed three-vessel CABG. Upon completion of surgery the patient was transferred to the cardiovascular intensive care unit where he was recovered and monitored hemodynamically. He was extubated, all lines, tubes, and drips were discontinued when appropriate, and he was transferred to 3 S. cardiac stepdown unit for further monitoring and rehabilitation. His oxygen was titrated down, he continued to work with physical and occupational therapy, he was tolerating oral diet, his pain was controlled, and he was ready to be discharged to home with [facility] care on postoperative day #4. He received written and verbal instruction regarding his medications, activity restrictions, signs and symptoms requiring physician notification, and follow-up appointments. COMPLICATIONS: The patient experienced no postoperative complications. Patient Condition at Discharge: Stable Plan - Discharge Summary Discharge Rx Participant: Yes New Discharge Prescriptions: New Metoprolol Tartrate [Lopressor] 25 mg PO TID #90 tab Clopidogrel [Plavix] 75 mg PO DAILY #30 tab Diltiazem Cd [Cardizem CD] 180 mg PO DAILY #30 cap.er.24h Pantoprazole [Protonix] 40 mg PO AC-BRKFST #30 tablet. Sennosides-Docusate Sodium [Senokot-S] 2 each PO HS PRN tab PRN Reason: Constipation Acetaminophen Tab [Tylenol] 650 mg PO Q4HR PRN tab PRN Reason: Fever And/ Or Pain Continue glipiZIDE [Glucotrol] 10 mg PO BID Empagliflozin [Jardiance] 25 mg PO DAILY Ascorbic Acid [Vitamin C] 1,000 mg PO DAILY Aspirin [Adult Low Dose Aspirin EC] 81 mg PO DAILY Atorvastatin [Lipitor] 40 mg PO HS #90 tab Cholecalciferol (Vitamin D3) [Vitamin D3 (5000 Iu)] 125 mcg PO DAILY Multivit-Min/FA/Lycopen/Lutein [Centrum Silver Men Tablet] 1 each PO DAILY Discontinued Lisinopril-Hctz 20-25 mg [Zestoretic 20-25] 1 tab PO DAILY Nitroglycerin Sl Tabs [Nitrostat] 0.4 mg SUBLINGUAL Q5M PRN #1 bottle PRN Reason: Chest Pain Carvedilol [Coreg] 12.5 mg PO BID Isosorbide Mononitrate ER [Imdur] 30 mg PO DAILY #90 tab.er.24h Mupirocin 2% Oint [Bactroban 2% Oint] 1 applic NASAL DAILY Discharge Medication List Ascorbic Acid [Vitamin C] 1,000 mg PO DAILY 09/23/20 [History] Aspirin [Adult Low Dose Aspirin EC] 81 mg PO DAILY 09/23/20 [History] Cholecalciferol (Vitamin D3) [Vitamin D3 (5000 Iu)] 125 mcg PO DAILY 09/23/20 [History] Empagliflozin [Jardiance] 25 mg PO DAILY 09/23/20 [History] Multivit-Min/FA/Lycopen/Lutein [Centrum Silver Men Tablet] 1 each PO DAILY 09/23/20 [History] glipiZIDE [Glucotrol] 10 mg PO BID 09/23/20 [History] Atorvastatin [Lipitor] 40 mg PO HS #90 tab 09/27/20 [Rx] Acetaminophen Tab [Tylenol] 650 mg PO Q4HR PRN tab 10/08/20 [Rx] Clopidogrel [Plavix] 75 mg PO DAILY #30 tab 10/08/20 [Rx] Diltiazem Cd [Cardizem CD] 180 mg PO DAILY #30 cap.er.24h 10/08/20 [Rx] Metoprolol Tartrate [Lopressor] 25 mg PO TID #90 tab 10/08/20 [Rx] Pantoprazole [Protonix] 40 mg PO AC-BRKFST #30 tablet. 10/08/20 [Rx] Sennosides-Docusate Sodium [Senokot-S] 2 each PO HS PRN tab 10/08/20 [Rx] Follow up Appointment(s)/Referral(s): Andria Milian NPC [Nurse Practitioner] - 10/12/20 2:00 pm (May be phone appointment due to distance from clinic office) [facility] ,Cardiac [NON-STAFF] - 4 Weeks (You will receive a phone call approximately 4-6 weeks after surgery for cardiac rehab evaluation) Angélica Hampton NPC [Nurse Practitioner] - 11/03/20 3:15 pm Micki Walden PAC [REFERRING] - 10/14/20 9:00 am [facility], [NON-STAFF] - Augustine Nichols MD [STAFF PHYSICIAN] - 10/31/20 9:30 am Domingo Velazquez MD [STAFF PHYSICIAN] - 10/24/20 3:30 pm (Appointment will be at the [place] office inside [facility]) Ambulatory/Diagnostic Orders: Complete Blood Count w/diff [LAB.AMB] Time Frame: 3 Days, Location: None Selected Comprehensive Metabolic Panel [LAB.AMB] Time Frame: 3 Days, Location: None Selected Activity/Diet/Wound Care/Special Instructions: DISCHARGE INSTRUCTIONS: 1. No driving for 4 weeks, or until physician gives their ok. 2. The patient should sleep in their own bed, no medical bed needed. 3. Stairs are not an issue. If the bedroom is upstairs, it is advised that the patient go up at night and down in the morning for the first week. Go slowly, using handrail and take 1 step at a time. 4. VEL hose are to be worn for 30 days or until physician discontinues. 5. Heart hugger is to be worn 100% of the time until physician discontinues.(except when showering) 6. No lifting, pushing, or pulling more than 10 pounds for 12 weeks. The physician will advise of any restriction changes. 7. The patient is expected to continue the prescribed walking program. 8. Continue pain control per as needed orders. 9. Continue with incentive spirometry and splinting/heart hugger until otherwise directed by the physician. 10. Must shower daily using liquid antibacterial soap and a separate white washcloth for each individual incision. 11. Routine sternal incision care. No powders, lotions, ointments on incisions. No dressings are necessary on incisions unless they are draining. Dermabond tape is to remain on sternal incision until surgeon follow-up. 12. Please call surgeon/MANAGER CUSTOMER for temp greater than 101 F or purulent drainage from incisions. 13. All prescriptions given by surgeon for 30 days. Refills need to be filled through feather edger/primary care physician. 14. A Red armband has been placed on the patient. It should be worn for 30 days post surgery and will be removed by the cardiac surgeons. If an ER visit is ne cessary, please make sure the number on the Red armband is called. 17. You have been referred to and are expected to begin Cardiac Rehab in approximately 4-6 weeks. HOME HEALTH SERVICES TO PROVIDE: RN SKILLED HOME CARE SERVICES FOR POST-OP SURGICAL PATIENTS WITH THE FOLLOWING: Coronary Artery Bypass Surgery (CABG), Mitral Valve Replacement/Repair ( MVR), Aortic Valve Replacement/Repair (AVR) RN TO CONTINUE EDUCATION FROM ``ROAD TO A HEALTH HEART PATIENT EDUCATION MANUAL (GIVEN TO PATIENT IN THE HOSPITAL) MEDICATION RECONCILIATION WITH EDUCATION NEEDED ON FIRST HOME VISIT EMPHASIZE IMPORTANCE OF WEARING BREAST SUPPORT/HEART HUGGER ENCOURAGE USE OF INCENTIVE SPIROMETER 10 X EVERY HOUR WHILE AWAKE ENCOURAGE UTILIZATION OF LOWER EXTREMITY COMPRESSION STOCKINGS/VEL HOSE and ELEVATE LEGS ABOVE LEVEL OF HEART WHILE AT REST. ENCOURAGE AMBULATION 3-5x/day INCREASING TOLERATES, WHILE AVOIDING EXTREMES IN TEMPERATURE FREQUENCY: RN TO OPEN THE PATIENT WITHIN 24 HOURS OF DISCHARGE FROM THE HOSPITAL WITH TELEHEALTH INSTALLED AT [facility], RN TO VISIT 2-3 X A WEEK FOR 4 WEEKS ESTABLISHED BY PATIENT NEEDS. LABORATORY: CBC, CMP TO BE DRAWN ON THE THIRD DAY HOME, (RAN STAT) FAX RESULTS TO [phone]. TELEHEALTH PARAMETERS: WEIGHT: NOTIFY MD OF WEIGHT GAIN OF 2 LBS IN 24 HOURS OR 5 LBS IN ONE WEEK HR: NOTIFY MD OF HR <55 BPM OR HR>100 BPM BP: NOTIFY MD IF BP <90/55 OR BP>140/100 O2 SAT: NOTIFY MD IF PO2<93% ON ROOM AIR SEND TELEHEALTH REPORT TO CLINICAL COORDINATOR AND CARDIOVASCULAR SURGEON THE FIRST WEEK OF CARE AND THEN BI-WEEKLY. PLEASE ADDITIONALLY COMMUNICATE ANY ABNORMALS AND NEW FINDINGS TO THE SURGEONS OFFICE. For any questions or concerns please call visitor services representative Andria @ or Tj @ TO FOLLOW UP WITH THE [facility] [place] NORMALLY SCHEDULED Discharge Disposition: HOME WITH HOME HEALTH SERVICES
[2020-10-08 11:53] VITALS: BP 115/70; PULSE 88; RESP 18; TEMP 98.7
[2020-10-08 12:06] LABS: Glucose,Whole Blood 232 mg/dL (75-99)
--- NOTE | 2020-10-08 12:11 | P.PN ---
Subjective Progress Note Date: 10/08/20 10/08/2020 the patient is being seen for follow-up. The patient's post triple- vessel bypass surgery. The patient is doing well. No specific complaints. All of that she was admitted removed. If symptoms discontinued. The patient is being considered for discharge home today. He was taken a combination of aspirin and Plavix. He is also on a combination of metoprolol 25 mg 3 times a day and Cardizem 180 mg by mouth daily. Lung x-ray from today showed showing any acute abnormalities. No evidence of any pneumothorax. He is using incentive spirometer. He is ambulating. He is on room air oxygen. Objective - Vital Signs Vital signs: Vital Signs Temp 98.7 F 10/08/20 11:52 Pulse 88 10/08/20 11:52 Resp 18 10/08/20 11:52 BP 115/70 10/08/20 11:52 Pulse Ox 98 10/08/20 11:52 Intake & Output 10/07/20 10/08/20 10/08/20 18:59 06:59 18:59 Intake Total 600 240 Output Total 500 1125 Balance 100 -1125 240 Weight 136.3 kg Intake: Oral 600 240 Output: Urine 500 1125 Other: Voiding Method Urinal Urinal Urinal # Voids 1 ABP, PAP, CO, CI - Last Documented Arterial Blood Pressure 107/41 Pulmonary Artery Pressure 29/14 Cardiac Output 8.7 Cardiac Index 3.6 - Exam CONSTITUTIONAL: Appears comfortable, cooperative, no acute distress RESPIRATORY: Lungs sounds diminished bilaterally. Respirations even, nonlabored. Currently on room air with oxygen saturation 94%. Able to achieve 1250 mL on incentive spirometry. Strong cough. CARDIOVASCULAR: S1, S2 present. Regular rate and rhythm, sinus rhythm on telemetry. Sternum stable. Palpable peripheral pulses bilaterally. Trace generalized edema present. No calf pain or tenderness noted. Heart hugger in place with patient demonstrating appropriate use. Antiembolism stockings, SCDs present. GASTROINTESTINAL: Abdomen soft, nontender, nondistended. Active bowel sounds present 4 quadrants. Tolerating diet. Positive bowel movements per patient GENITOURINARY: Continues to void INTEGUMENTARY: Skin is warm and dry with evidence of good perfusion. Anterior chest incision well approximated. EVH site well approximated without redness or drainage. Left radial artery harvest site without redness, patient able to wiggle all fingers and group appropriately, good cap refill. Chronic pressure ulcer present to plantar surface of foot, no redness or drainage present. NEUROLOGIC: Cranial nerves II through XII intact MUSKULOSKELETAL: Able to move all extremities, strength equal bilaterally PSYCHIATRIC: Alert and oriented to person place and time, appropriate affect, intact judgment and insight - Labs CBC & Chem 7: 10/08/20 07:19 10/08/20 07:19 Labs: Abnormal Lab Results - Last 24 Hours (Table) 10/07/20 10/07/20 10/08/20 Range/Units 16:48 20:42 07:09 RBC (4.30-5.90) m/uL Hgb (13.0-17.5) gm/dL Hct (39.0-53.0) % BUN (9-20) mg/dL Glucose (74-99) mg/dL POC Glucose (mg/dL) 195 H 224 H 175 H (75-99) mg/dL 10/08/20 10/08/20 10/08/20 Range/Units 07:19 07:19 12:04 RBC 2.72 L (4.30-5.90) m/uL Hgb 8.3 L (13.0-17.5) gm/dL Hct 25.1 L (39.0-53.0) % BUN 33 H (9-20) mg/dL Glucose 152 H (74-99) mg/dL POC Glucose (mg/dL) 232 H (75-99) mg/dL Assessment and Plan Plan: #1. Symptomatic coronary artery disease, status post three-vessel coronary artery bypass grafting with the ARAMBULA to LAD, radial arterial graft to obtuse marginal, SVG to PDA, with endoscopic harvest of the left greater saphenous vein, and left radial artery, and ligation of the left atrial appendage on 10/04/2020, today is postoperative day #4 #2. Routine postoperative ventilator management, patient was successfully weaned and extubated on postop day #0 on 10/04/2020 at 2155, a little over 6 hour shalom after OR exit time #3. Hypertension #4. Type 2 diabetes mellitus #5. Peripheral arterial disease with bilateral lower extremity ulcers, status post amputation of 2 toes on left foot #6. Nonhealing ulcer to left foot #7. History of cataracts #8. Never smoker, with a normal preop FEV1 of 3.1 L or 87% of predicted Plan: Is doing well Treating comfortably Today's chest x-ray is showing no evidence of any pneumothorax. The patient be discharged home to be followed up on outpatient basis. Cardiac medications were all arranged by cardiology and cardiothoracic team. Continue using incentive spirometer. Hemodynamically stable. No active pain issues.
--- NOTE | 2020-10-09 00:20 | P.PN ---
Subjective This is a pleasant 65 years old male with past medical history of coronary artery disease, diabetes mellitus, hypertension, status post cardiac cath. He is with severe triple vessel coronary artery disease and underwent bypass grafting with ARAMBULA to LAD. Today is postoperative day #1 Patient was sitting in chair with no significant dyspnea. He still have some pain at the surgery site. No nausea vomiting, no abdominal pain. No fever. Patient is diabetic and he is on Glucotrol, and Jardiance Hemodynamically patient is stable. Patient WBC is normal at 10.4, hemoglobin 9.3. Platelets slightly low at 135. BMP and liver enzymes are unremarkable. Sugars currently controlled 173 -247. Chest x-ray: Postoperative changes with patchy bilateral area of infiltrate Currently patient is on aspirin and Plavix, 10/06/2020 Patient sitting in chair. Feels better and less pain at surgical site. He is hemodynamically stable and in sinus rhythm. Labs showing slight drop of hemoglobin down to 8.1 as well as platelets 272 k . Patient has blood on his chest tube which most likely the source. Patient is currently on aspirin and Plavix while his heparin is held due to thrombocytopenia He was on insulin drip at 7 units per hour, last was discontinued and placed back on home dose of glipizide 10 mg twice daily. However jardiance 's is nonformulary in this hospital so start him on Levemir 7 units plus insulin sliding scale 10/07/2020 Patient looks comfortable in chair. Denies chest pain or dyspnea or any other complaints. Vitals are stable. Low been stable at 8.3, dictated, improved 126. Heparin subcu was still on hold. Glucose still elevated and increased his Levemir to 15 units daily. Continue glipizide. And swabs to resume his Jardiance for his DM upon discharge instead of insulin 10/08/2020 Patient today still doing better. He denies chest pain or dyspnea. No abdominal pain. No fever. Change in urine or bowel habits. He is hemodynamically stable.Jardiance Hemoglobin stable at 8.3. Platelets improved to normal at 162. BMP is unremarkable. Patient's wants to go back to his home dose of glipizide and guardian's. Glucometer is a provided at bedside. Patient was instructed to monitor his glucose 4 times a day's and the recommended to his doctor and to come to ER/call 911 if his glucose less than 70 or more than 400, he verbalized understanding and acceptance Several consultants on the case Objective - Vital Signs Vital signs: Vital Signs Temp 98.8 F 10/08/20 00:00 Pulse 77 10/08/20 08:17 Resp 16 10/08/20 00:00 BP 130/64 10/08/20 04:00 Pulse Ox 97 10/08/20 00:00 Intake & Output 10/07/20 10/08/20 10/08/20 18:59 06:59 18:59 Intake Total 600 240 Output Total 500 1125 Balance 100 -1125 240 Weight 136.3 kg Intake: Oral 600 240 Output: Urine 500 1125 Other: Voiding Method Urinal Urinal ABP, PAP, CO, CI - Last Documented Arterial Blood Pressure 107/41 Pulmonary Artery Pressure 29/14 Cardiac Output 8.7 Cardiac Index 3.6 - Exam -GENERAL: The patient is alert and oriented x3, not in any acute distress. Obese HEENT: Pupils are round and equally reacting to light. EOMI. No scleral icterus. No conjunctival pallor. Normocephalic, atraumatic. No pharyngeal erythema. No thyromegaly. -CARDIOVASCULAR: S1 and S2 present. No murmurs, rubs, or gallops. midline sternal wound is healing and closed PULMONARY: Chest is clear to auscultation, no wheezing or crackles. ABDOMEN: Soft, nontender, nondistended, normoactive bowel sounds. No palpable organomegaly. MUSCULOSKELETAL: No joint swelling or deformity. EXTREMITIES: No cyanosis, clubbing, or pedal edema. NEUROLOGICAL: Gross neurological examination did not reveal any focal deficits. SKIN: No rashes. no petechiae. - Labs CBC & Chem 7: 10/08/20 07:19 10/08/20 07:19 Labs: Abnormal Lab Results - Last 24 Hours (Table) 10/07/20 10/07/20 10/07/20 Range/Units 11:49 16:48 20:42 RBC (4.30-5.90) m/uL Hgb (13.0-17.5) gm/dL Hct (39.0-53.0) % BUN (9-20) mg/dL Glucose (74-99) mg/dL POC Glucose (mg/dL) 251 H 195 H 224 H (75-99) mg/dL 10/08/20 10/08/20 10/08/20 Range/Units 07:09 07:19 07:19 RBC 2.72 L (4.30-5.90) m/uL Hgb 8.3 L (13.0-17.5) gm/dL Hct 25.1 L (39.0-53.0) % BUN 33 H (9-20) mg/dL Glucose 152 H (74-99) mg/dL POC Glucose (mg/dL) 175 H (75-99) mg/dL Assessment and Plan Assessment: Triple vessel coronary artery disease status post cardiac cath and bypass grafting with ARAMBULA to LAD Diabetes mellitus, with hyperglycemia Hypertension Plan: This is a pleasant 65 years old male who presents with bypass grafting to the LAD. Discontinue with insulin drip, and start insulin sliding scale while monitoring his glucose closely. Start glipizide and Levemir Continue with aspirin and Plavix Several consultants on the case Labs and medication were reviewed.. Continue same treatment. Continue with symptomatic treatment. Resume home medication. Monitor lytes and vitals. DVT and GI prophylaxis. Further recommendations depends on the clinical course of the patient DVT prophylaxis: Discontinue Subcutaneous heparin, monitor platelet count. Troponin with aspirin and Plavix and mechanical GI Prophylaxis: Ppi
== END 2020-10-08 12:46 | disposition home health service (06) | DRG 236 ==
LOC: 2ORMAIN 05:22 → 2SICU 15:51 → 3SCARD 10-07 03:58
PROVIDERS: ADMIT Surgery; ATTEND Surgery
PROC: 02100AW Bypass Coronary Artery, One Artery from Aorta with Autologous Arterial Tissue, Open Approach (ICD-10-PCS; principal; 2020-10-04 08:00)
PROC: 03BC4ZZ Excision of Left Radial Artery, Percutaneous Endoscopic Approach (ICD-10-PCS; principal; 2020-10-04 08:00)
PROC: 02L70CK Occlusion of Left Atrial Appendage with Extraluminal Device, Open Approach (ICD-10-PCS; principal; 2020-10-04 08:00)
PROC: 06BQ4ZZ Excision of Left Saphenous Vein, Percutaneous Endoscopic Approach (ICD-10-PCS; principal; 2020-10-04 08:00)
PROC: 02100Z9 Bypass Coronary Artery, One Artery from Left Internal Mammary, Open Approach (ICD-10-PCS; principal; 2020-10-04 08:00)
PROC: 5A1221Z Performance of Cardiac Output, Continuous (ICD-10-PCS; principal; 2020-10-04 08:00)
PROC: 021009W Bypass Coronary Artery, One Artery from Aorta with Autologous Venous Tissue, Open Approach (ICD-10-PCS; principal; 2020-10-04 08:00)
PROC: 3E033XZ Introduction of Vasopressor into Peripheral Vein, Percutaneous Approach (ICD-10-PCS; principal; 2020-10-04 08:00)
PROC: B24BZZ4 Ultrasonography of Heart with Aorta, Transesophageal (ICD-10-PCS; 2020-10-04 08:00)
DX: I25.110 Atherosclerotic heart disease of native coronary artery with unstable angina pectoris (principal); E11.52 Type 2 diabetes mellitus with diabetic peripheral angiopathy with gangrene; D62 Acute posthemorrhagic anemia; J98.11 Atelectasis; D69.6 Thrombocytopenia, unspecified; E11.621 Type 2 diabetes mellitus with foot ulcer; E11.36 Type 2 diabetes mellitus with diabetic cataract; L97.522 Non-pressure chronic ulcer of other part of left foot with fat layer exposed; E11.65 Type 2 diabetes mellitus with hyperglycemia; E66.01 Morbid (severe) obesity due to excess calories; Z89.412 Acquired absence of left great toe; Z89.411 Acquired absence of right great toe; Z89.429 Acquired absence of other toe(s), unspecified side; E78.5 Hyperlipidemia, unspecified; I25.2 Old myocardial infarction; Z68.39 Body mass index [BMI] 39.0-39.9, adult; I10 Essential (primary) hypertension; I95.9 Hypotension, unspecified; I07.1 Rheumatic tricuspid insufficiency; H26.9 Unspecified cataract; Z79.82 Long term (current) use of aspirin; Z79.84 Long term (current) use of oral hypoglycemic drugs; Z79.899 Other long term (current) drug therapy; Z86.16 Personal history of COVID-19; Z98.42 Cataract extraction status, left eye; Z86.14 Personal history of Methicillin resistant Staphylococcus aureus infection; Z98.890 Other specified postprocedural states; Z71.3 Dietary counseling and surveillance; Z83.3 Family history of diabetes mellitus; Z80.9 Family history of malignant neoplasm, unspecified; Z82.49 Family history of ischemic heart disease and other diseases of the circulatory system
CPT/HCPCS: 71045; 71046; 80048; 80053; 82330; 82805; 83735; 85025; 85027; 85520; 85610; 85730; 86850; 86891; 86900; 86901; 86920; 94002; 94640

== ENCOUNTER 2020-10-11 22:34 | Observation (INO) | payer OTHER ==
[2020-10-11] MEDS ORDERED: SODIUM CHLORIDE 0.9% 500 ML 500 ML IV STA (22:58)
[2020-10-11] MEDS ORDERED: SODIUM CHLORIDE 0.9% 1,000 ML IV STA (22:58)
[2020-10-11] MEDS ORDERED: DILTIAZEM 125 MG in SODIUM CHLORIDE 0.9% 100 ML IV SCH (23:00)
[2020-10-11] MEDS ORDERED: DILTIAZEM DRIP BOLUS FROM BAG 1 MG SOLN IV ONE (23:00)
--- NOTE | 2020-10-11 23:01 | ED ---
Arrhythmia/Palpitations HPI - General Chief Complaint: Arrhythmia/Palpitations Stated Complaint: High heart rate Time Seen by Provider: 10/11/20 22:57 Source: patient, RN notes reviewed, old records reviewed Mode of arrival: wheelchair Limitations: no limitations - History of Present Illness Initial Comments: This is a 65-year-old male stents asymptomatic. Patient comes in for significant findings of elevated heart rate. Patient was sent in by nurse practitioner regarding elevated heart rate. Patient is asymptomatic here in the ER remains a symptomatically throughout stay. Patient is about 2 weeks out of a CABG. Patient has had no fevers no nausea vomiting or diarrhea. No significant recent change in medications again patient was sent in for elevated heart rate -: unknown Context: occurred during rest Arrhythmia History: SVT Associated Symptoms: denies other symptoms Treatments Prior to Arrival: other (none) - Related Data Home Medications Medication Instructions Recorded Confirmed Ascorbic Acid [Vitamin C] 1,000 mg PO DAILY 09/23/20 10/11/20 Aspirin [Adult Low Dose Aspirin EC] 81 mg PO DAILY 09/23/20 10/11/20 Cholecalciferol (Vitamin D3) 125 mcg PO DAILY 09/23/20 10/11/20 [Vitamin D3 (5000 Iu)] Empagliflozin [Jardiance] 25 mg PO DAILY 09/23/20 10/11/20 Acetaminophen Tab [Tylenol] 650 mg PO QID PRN 10/11/20 10/11/20 Sennosides-Docusate Sodium 1 tab PO DAILY PRN 10/11/20 10/11/20 [Senokot-S] Sennosides-Docusate Sodium 2 tab PO HS PRN 10/11/20 10/11/20 [Senokot-S] Previous Rx's Medication Instructions Recorded Atorvastatin [Lipitor] 40 mg PO HS #90 tab 09/27/20 Clopidogrel [Plavix] 75 mg PO DAILY #30 tab 10/08/20 Diltiazem Cd [Cardizem CD] 180 mg PO DAILY #30 cap.er.24h 10/08/20 Pantoprazole [Protonix] 40 mg PO AYAZ-GANGA #30 tablet. 10/08/20 Apixaban [Eliquis] 5 mg PO BID 30 Days #60 tab 10/12/20 Amiodarone [Cordarone] 400 mg PO Q12HR 60 Days #120 tab 10/13/20 Furosemide [Lasix] 20 mg PO DAILY 30 Days #30 tab 10/13/20 Metoprolol Tartrate [Lopressor] 50 mg PO BID tab 10/13/20 glipiZIDE [Glucotrol] 10 mg PO AC-BID tab 10/13/20 Allergies Allergy/AdvReac Type Severity Reaction Status Date / Time No Known Allergies Allergy Verified 10/11/20 23:26 Review of Systems ROS Statement: Those systems with pertinent positive or pertinent negative responses have been documented in the HPI. ROS Other: All systems not noted in ROS Statement are negative. Past Medical History Past Medical History: Coronary Artery Disease (CAD), Chest Pain / Angina, Diabetes Mellitus, Hyperlipidemia, Hypertension, Skin Disorder, Vascular Disorder Additional Past Medical History / Comment(s): WOUND BELOW LITTLE TOE LEFT FOOT-HAS CAST & WALKING BOOT., 60 treatments of hyperbaric oxygen therapy last dose 07/28/2020 History of Any Multi-Drug Resistant Organisms: MRSA Date of last positivie culture/infection: 2013 MDRO Source:: toe Past Surgical History: Coronary Bypass/CABG, Heart Catheterization Additional Past Surgical History / Comment(s): tin big toe amputation (2009, 2013)., Cataract removed left eye. triple vessel bypass 10/04/20 Past Anesthesia/Blood Transfusion Reactions: No Reported Reaction Past Psychological History: No Psychological Hx Reported Smoking Status: Never smoker - Past Family History Mother Family Medical History: Cancer Additional Family Medical History / Comment(s): of an aneurysm at 88 years old Father Family Medical History: Diabetes Mellitus General Exam Limitations: no limitations General appearance: alert, in no apparent distress Head exam: Present: atraumatic, normocephalic, normal inspection Eye exam: Present: normal appearance, PERRL, EOMI. Absent: scleral icterus, conjunctival injection, periorbital swelling ENT exam: Present: normal exam, mucous membranes moist Neck exam: Present: normal inspection. Absent: tenderness, meningismus, lymphadenopathy Respiratory exam: Present: normal lung sounds bilaterally. Absent: respiratory distress, wheezes, rales, rhonchi, stridor Cardiovascular Exam: Present: normal rhythm, tachycardia, normal heart sounds. Absent: systolic murmur, diastolic murmur, rubs, gallop, clicks GI/Abdominal exam: Present: soft, normal bowel sounds. Absent: distended, tenderness, guarding, rebound, rigid Extremities exam: Present: normal inspection, full ROM, normal capillary refill. Absent: tenderness, pedal edema, joint swelling, calf tenderness Back exam: Present: normal inspection Neurological exam: Present: alert, oriented X3, CN II-XII intact Psychiatric exam: Present: normal affect, normal mood Skin exam: Present: warm, dry, intact, normal color. Absent: rash Course Vital Signs 10/11/20 10/11/20 10/11/20 22:39 23:00 23:15 Temperature 98.6 F Pulse Rate 141 H 147 H Pulse Rate [ 147 H Java Programmer ] Respiratory 19 18 Rate Blood Pressure 125/88 124/82 Blood Pressure [Right Arm] O2 Sat by Pulse 98 98 Oximetry 10/11/20 10/12/20 10/12/20 23:40 00:20 00:32 Temperature Pulse Rate 145 H 144 H 140 H Pulse Rate [ Java Programmer ] Respiratory 18 18 18 Rate Blood Pressure 107/70 115/69 109/67 Blood Pressure [Right Arm] O2 Sat by Pulse 98 96 97 Oximetry 10/12/20 10/12/20 10/12/20 01:30 02:30 03:10 Temperature Pulse Rate 150 H 142 H 143 H Pulse Rate [ Java Programmer ] Respiratory 18 18 18 Rate Blood Pressure 104/66 102/63 102/70 Blood Pressure [Right Arm] O2 Sat by Pulse 98 98 97 Oximetry 10/12/20 10/12/20 10/12/20 04:30 05:30 08:00 Temperature 98.1 F Pulse Rate 138 H 134 H Pulse Rate [ 140 H Java Programmer ] Respiratory 18 18 18 Rate Blood Pressure 101/72 99/66 Blood Pressure 111/68 [Right Arm] O2 Sat by Pulse 97 97 98 Oximetry 10/12/20 10/12/20 08:38 11:29 Temperature 98.1 F 97.9 F Pulse Rate Pulse Rate [ 140 H 104 H Java Programmer ] Respiratory 18 18 Rate Blood Pressure Blood Pressure 111/65 111/77 [Right Arm] O2 Sat by Pulse 98 98 Oximetry - Reevaluation(s) Reevaluation #1: 10/12/20 04:23 Medical record is reviewed Reevaluation #2: 10/12/20 04:24 patient remains without any complaints - Consultations Consultation #1: Spoke with on-call cardiology as well as cardiothoracic surgery. Recommendations at this time is amiodarone and admission for likely cardioversion has been no improvement throughout ER stay EKG Findings - EKG Comments: EKG Findings:: EKG shows SVT 141 QRS 82 QTC 459 Medical Decision Making - Medical Decision Making 65 male who is 3 weeks out of CABG surgery coming in for persistent atrial flutter likely but tachycardia, SVT. Spoke with both cardiology and cardiothoracic surgery regarding patient's admission. Patient is started on amiodarone here in the ER but has no improvement in symptoms throughout ER stay. Patient is a symptomatic throughout ER stay - Lab Data Result diagrams: 10/13/20 08:32 10/13/20 08:32 Lab Results 10/11/20 10/11/20 10/11/20 Range/Units 23:05 23:05 23:05 WBC 9.9 (3.8-10.6) k/uL RBC 2.96 L (4.30-5.90) m/uL Hgb 9.2 L (13.0-17.5) gm/dL Hct 27.2 L (39.0-53.0) % MCV 91.9 (80.0-100.0) fL MCH 31.2 (25.0-35.0) pg MCHC 34.0 (31.0-37.0) g/dL RDW 13.7 (11.5-15.5) % Plt Count 291 (150-450) k/uL MPV 7.5 Neutrophils % 66 % Lymphocytes % 19 % Monocytes % 8 % Eosinophils % 4 % Basophils % 0 % Neutrophils # 6.5 (1.3-7.7) k/uL Lymphocytes # 1.9 (1.0-4.8) k/uL Monocytes # 0.8 (0-1.0) k/uL Eosinophils # 0.4 (0-0.7) k/uL Basophils # 0.0 (0-0.2) k/uL PT 10.3 (9.0-12.0) sec INR 1.0 (<1.2) APTT 22.3 (22.0-30.0) sec Sodium 136 L (137-145) mmol/L Potassium 4.9 (3.5-5.1) mmol/L Chloride 104 (98-107) mmol/L Carbon Dioxide 22 (22-30) mmol/L Anion Gap 10 mmol/L BUN 34 H (9-20) mg/dL Creatinine 1.37 H (0.66-1.25) mg/dL Est GFR (CKD-EPI)AfAm 63 (>60 ml/min/1.73 sqM) Est GFR (CKD-EPI)NonAf 54 (>60 ml/min/1.73 sqM) Glucose 215 H (74-99) mg/dL Plasma Lactic Acid Lewis (0.7-2.0) mmol/L Calcium 8.7 (8.4-10.2) mg/dL Phosphorus 3.9 (2.5-4.5) mg/dL Magnesium 2.2 (1.6-2.3) mg/dL Total Bilirubin 0.6 (0.2-1.3) mg/dL AST 30 (17-59) U/L ALT 19 (4-49) U/L Alkaline Phosphatase 115 (38-126) U/L Creatine Kinase 67 (55-170) U/L Troponin I (0.000-0.034) ng/mL NT-Pro-B Natriuret Pep pg/mL Total Protein 6.4 (6.3-8.2) g/dL Albumin 3.4 L (3.5-5.0) g/dL TSH 3.080 (0.465-4.680) mIU/L Urine Color Urine Appearance (Clear) Urine pH (5.0-8.0) Ur Specific [place] (1.001-1.035) Urine Protein (Negative) Urine Glucose (UA) (Negative) Urine Ketones (Negative) Urine Blood (Negative) Urine Nitrite (Negative) Urine Bilirubin (Negative) Urine Urobilinogen (<2.0) mg/dL Ur Leukocyte Esterase (Negative) 10/11/20 10/11/20 10/11/20 Range/Units 23:05 23:05 23:05 WBC (3.8-10.6) k/uL RBC (4.30-5.90) m/uL Hgb (13.0-17.5) gm/dL Hct (39.0-53.0) % MCV (80.0-100.0) fL MCH (25.0-35.0) pg MCHC (31.0-37.0) g/dL RDW (11.5-15.5) % Plt Count (150-450) k/uL MPV Neutrophils % % Lymphocytes % % Monocytes % % Eosinophils % % Basophils % % Neutrophils # (1.3-7.7) k/uL Lymphocytes # (1.0-4.8) k/uL Monocytes # (0-1.0) k/uL Eosinophils # (0-0.7) k/uL Basophils # (0-0.2) k/uL PT (9.0-12.0) sec INR (<1.2) APTT (22.0-30.0) sec Sodium (137-145) mmol/L Potassium (3.5-5.1) mmol/L Chloride (98-107) mmol/L Carbon Dioxide (22-30) mmol/L Anion Gap mmol/L BUN (9-20) mg/dL Creatinine (0.66-1.25) mg/dL Est GFR (CKD-EPI)AfAm (>60 ml/min/1.73 sqM) Est GFR (CKD-EPI)NonAf (>60 ml/min/1.73 sqM) Glucose (74-99) mg/dL Plasma Lactic Acid Lewis 1.5 (0.7-2.0) mmol/L Calcium (8.4-10.2) mg/dL Phosphorus (2.5-4.5) mg/dL Magnesium (1.6-2.3) mg/dL Total Bilirubin (0.2-1.3) mg/dL AST (17-59) U/L ALT (4-49) U/L Alkaline Phosphatase (38-126) U/L Creatine Kinase (55-170) U/L Troponin I 0.486 H* (0.000-0.034) ng/mL NT-Pro-B Natriuret Pep 3640 pg/mL Total Protein (6.3-8.2) g/dL Albumin (3.5-5.0) g/dL TSH (0.465-4.680) mIU/L Urine Color Urine Appearance (Clear) Urine pH (5.0-8.0) Ur Specific [place] (1.001-1.035) Urine Protein (Negative) Urine Glucose (UA) (Negative) Urine Ketones (Negative) Urine Blood (Negative) Urine Nitrite (Negative) Urine Bilirubin (Negative) Urine Urobilinogen (<2.0) mg/dL Ur Leukocyte Esterase (Negative) 10/12/20 Range/Units 02:30 WBC (3.8-10.6) k/uL RBC (4.30-5.90) m/uL Hgb (13.0-17.5) gm/dL Hct (39.0-53.0) % MCV (80.0-100.0) fL MCH (25.0-35.0) pg MCHC (31.0-37.0) g/dL RDW (11.5-15.5) % Plt Count (150-450) k/uL MPV Neutrophils % % Lymphocytes % % Monocytes % % Eosinophils % % Basophils % % Neutrophils # (1.3-7.7) k/uL Lymphocytes # (1.0-4.8) k/uL Monocytes # (0-1.0) k/uL Eosinophils # (0-0.7) k/uL Basophils # (0-0.2) k/uL PT (9.0-12.0) sec INR (<1.2) APTT (22.0-30.0) sec Sodium (137-145) mmol/L Potassium (3.5-5.1) mmol/L Chloride (98-107) mmol/L Carbon Dioxide (22-30) mmol/L Anion Gap mmol/L BUN (9-20) mg/dL Creatinine (0.66-1.25) mg/dL Est GFR (CKD-EPI)AfAm (>60 ml/min/1.73 sqM) Est GFR (CKD-EPI)NonAf (>60 ml/min/1.73 sqM) Glucose (74-99) mg/dL Plasma Lactic Acid Lewis (0.7-2.0) mmol/L Calcium (8.4-10.2) mg/dL Phosphorus (2.5-4.5) mg/dL Magnesium (1.6-2.3) mg/dL Total Bilirubin (0.2-1.3) mg/dL AST (17-59) U/L ALT (4-49) U/L Alkaline Phosphatase (38-126) U/L Creatine Kinase (55-170) U/L Troponin I (0.000-0.034) ng/mL NT-Pro-B Natriuret Pep pg/mL Total Protein (6.3-8.2) g/dL Albumin (3.5-5.0) g/dL TSH (0.465-4.680) mIU/L Urine Color Light Yellow Urine Appearance Clear (Clear) Urine pH 5.5 (5.0-8.0) Ur Specific [place] 1.025 (1.001-1.035) Urine Protein Negative (Negative) Urine Glucose (UA) 4+ H (Negative) Urine Ketones Negative (Negative) Urine Blood Negative (Negative) Urine Nitrite Negative (Negative) Urine Bilirubin Negative (Negative) Urine Urobilinogen <2.0 (<2.0) mg/dL Ur Leukocyte Esterase Negative (Negative) - Radiology Data Radiology results: report reviewed (Chest x-rays negative for acute disease), image reviewed Critical Care Time Critical Care Time: Yes Total Critical Care Time: 31 Disposition Clinical Impression: Atrial flutter, Supraventricular tachycardia, Tachycardia Disposition: ADMITTED IP TO THIS [facility] Condition: Serious Is patient prescribed a controlled substance at d/c from ED?: No
[2020-10-11 23:32] LABS: Albumin 3.4 g/dL (3.5-5.0); Calcium 8.7 mg/dL (8.4-10.2); Magnesium 2.2 mg/dL (1.6-2.3); Phosphorus 3.9 mg/dL (2.5-4.5); Potassium 4.9 mmol/L (3.5-5.1); Total Bilirubin 0.6 mg/dL (0.2-1.3); Total Protein 6.4 g/dL (6.3-8.2)
--- NOTE | 2020-10-11 23:45 | XR ---
EXAMINATION TYPE: XR chest 1V portable DATE OF EXAM: 10/11/2020 COMPARISON: 10/08/2020 HISTORY: Short of breath TECHNIQUE: Single view FINDINGS: Heart is enlarged. There is no gross heart failure. There is some coarsening of the lung ma rkings. There is mild blunting left costophrenic angle. There are sternal wires. IMPRESSION: Cardiomegaly with small left pleural effusion. Pleural fluid appears new compared to old exam. Pulmonary interstitial density increased compared to old exam. No obvious heart failure but acu te minimal heart failure not excluded.
[2020-10-11] MEDS ORDERED: SODIUM CHLORIDE 0.9% 500 ML 500 ML IV ONE (23:48)
[2020-10-11 23:58] LABS: Partial Thromboplastin Time 22.3 sec (22.0-30.0); Prothrombin Time 10.3 sec (9.0-12.0)
[2020-10-12] LABS: Basophils % (A) 0 %; Eosinophils # (A) 0.4 k/uL (0-0.7); Eosinophils % (A) 4 %; HCT 27.2 % (39.0-53.0); HGB 9.2 gm/dL (13.0-17.5); Lymphocytes # (A) 1.9 k/uL (1.0-4.8); Lymphocytes % (A) 19 %; MCH 31.2 pg (25.0-35.0); MCV 91.9 fL (80.0-100.0); Mean Platelet Volume 7.5; Monocytes # (A) 0.8 k/uL (0-1.0); Monocytes % (A) 8 %; Neutrophils # (A) 6.5 k/uL (1.3-7.7); Neutrophils % (A) 66 %; Platelet Count 291 k/uL (150-450); RBC 2.96 m/uL (4.30-5.90); RDW 13.7 % (11.5-15.5); WBC 9.9 k/uL (3.8-10.6)
[2020-10-12] MEDS ORDERED: METOPROLOL TARTRATE 5 MG/5 ML VIAL IVP STA (00:17)
[2020-10-12] MEDS ORDERED: SODIUM CHLORIDE 0.9% 500 ML 500 ML IV ONE (01:53)
[2020-10-12] MEDS ORDERED: HEPARIN SODIUM 1,000 UN/ML (10ML VL) IV ONE (01:54)
[2020-10-12] MEDS ORDERED: HEPARIN SODIUM 1,000 UN/ML (10ML VL) IV PRN (01:54)
[2020-10-12] MEDS ORDERED: HEPARIN SOD,PORK IN 0.45% NACL 25,000 UNIT in 0.45% NACL 1 250ML.BAG IV SCH (02:00)
[2020-10-12] MEDS ORDERED: DEXTROSE 5% IN WATER 100 ML with AMIODARONE 150 MG IV ONE ×2 (02:00→09:00)
[2020-10-12 03:10] LABS: Appearance,Urine Clear (Clear); Bilirubin,Urine Negative (Negative); Blood,Urine Negative (Negative); Color,Urine Light Yellow; Glucose,Urine (UA) 4+ (Negative); Ketones,Urine Negative (Negative); Leukocyte Esterase,Urine Negative (Negative); Nitrite,Urine Negative (Negative); PH, Urine 5.5 (5.0-8.0); Protein,Urine Negative (Negative); Specific Gravity,Urine 1.025 (1.001-1.035); Urobilinogen,Urine <2.0 mg/dL (<2.0)
[2020-10-12] MEDS ORDERED: NITROGLYCERIN SL TABS 0.4 MG TAB SUBLINGUAL PRN (03:25)
[2020-10-12] MEDS ORDERED: ASPIRIN 81 MG PO STA (03:25)
[2020-10-12] MEDS ORDERED: MORPHINE SULFATE 4 MG/ML SYRINGE IV PRN (03:25)
[2020-10-12] MEDS ORDERED: AMIODARONE 360 MG in DEXTROSE 5% IN WATER 200 ML IV ONE ×2 (03:30)
[2020-10-12] MEDS ORDERED: ACETAMINOPHEN TAB 325 MG TAB PO PRN (07:13)
[2020-10-12] MEDS ORDERED: SENNOSIDES-DOCUSATE SODIUM 1 EACH TAB PO PRN (07:13)
[2020-10-12 08:48] LABS: HCT 26.5 % (39.0-53.0); HGB 8.8 gm/dL (13.0-17.5); Hypochromasia Slight; MCH 31.4 pg (25.0-35.0); MCHC 33.3 g/dL (31.0-37.0); MCV 94.5 fL (80.0-100.0); Mean Platelet Volume 7.3; Platelet Count 315 k/uL (150-450); Poikilocytosis Slight; RDW 13.9 % (11.5-15.5); WBC 9.9 k/uL (3.8-10.6)
[2020-10-12] MEDS ORDERED: METOPROLOL TARTRATE 25 MG TAB PO SCH (09:00)
[2020-10-12 09:06] LABS: Calcium 8.4 mg/dL (8.4-10.2); Magnesium 2.1 mg/dL (1.6-2.3); Potassium 4.3 mmol/L (3.5-5.1)
[2020-10-12] MEDS: PANTOPRAZOLE 40 MG TABLET PO SCH (09:06)
[2020-10-12] MEDS: CLOPIDOGREL 75 MG TAB PO SCH (09:06)
[2020-10-12] MEDS: METOPROLOL TARTRATE 50 MG TAB PO SCH ×2 (09:06→20:27)
[2020-10-12] MEDS: CHOLECALCIFEROL 25 MCG (1000 IU) TABLET PO SCH (09:06)
[2020-10-12] MEDS: DILTIAZEM CD 180 MG CAP.ER.24H PO SCH (09:06)
[2020-10-12] MEDS: glipiZIDE 10 MG TAB PO SCH ×2 (09:06→17:07)
[2020-10-12] MEDS: ASCORBIC ACID 500 MG TAB PO SCH (09:06)
--- NOTE | 2020-10-12 09:09 | XR ---
EXAMINATION TYPE: XR chest 1V DATE OF EXAM: 10/12/2020 COMPARISON: NONE HISTORY: Shortness of breath FINDINGS: There are bilateral pleural effusions with cardiomegaly and bibasilar infiltrate. There is a diffuse interstitial pattern. Postsurgical changes. IMPRESSION: 1. Diffuse pleural-parenchymal changes are stable. Correlate for CHF versus interstitial pneumonitis with left lower lobe infiltrate and small effusion.
[2020-10-12 09:13] LABS: Glucose,Whole Blood 163 mg/dL (75-99)
[2020-10-12] MEDS: INSULIN ASPART (NovoLOG) 100 UNIT/ML VIAL SQ SCH ×4 (09:16→20:27)
[2020-10-12] MEDS ORDERED: AMIODARONE 450 MG in DEXTROSE 5% IN WATER 250 ML IV SCH ×2 (09:30)
--- NOTE | 2020-10-12 10:58 | P.GSCN ---
History of Present Illness Consult date: 10/12/20 Reason for Consult: Known to us from recent cabg Requesting physician: Sai Quinteros History of present illness: This is a 65 year old gentleman who follows on an outpatient basis with physician assistant quality manager Micki Wadlen for primary care. He has a previous medical history of coronary artery disease status post three-vessel CABG on 10/04/2020, hypertension, type 2 diabetes, peripheral arterial disease with bilateral lower extremity ulcers and current nonhealing ulcer to the left foot, and Covid infection in December 2019. He was discharged from [facility] 10/08/2020 and was recovering at home without incident until yesterday when the patient experienced increased heart rate with occasional palpitations. He denied any chest pain or shortness of breath. He was instructed to increase his metoprolol, however his heart rate continued to remain in the 140s and he was instructed to report to the emergency room. In the emergency room he was given IV Cardizem, IV Lopressor, and initiated on IV amiodarone as well as heparin. Currently he is in atrial fibrillation with heart rate in the low 100s, hemodynamically stable otherwise. On presentation to the emergency room his white blood cell count was 9.9, hemoglobin 9.2, BUN 34, creatinine 1.37, BNP 3640. Chest x-ray demonstrates cardiomegaly with small left pleural effusion. The patient was admitted to observation with consultation placed to cardiology and cardiothoracic surgery. Review of Systems Review of systems was completed and was negative except as noted - Cardiovascular Reports as per HPI, Reports rapid heart beat Past Medical History Past Medical History: Coronary Artery Disease (CAD), Chest Pain / Angina, Diabetes Mellitus, Hyperlipidemia, Hypertension, Skin Disorder, Vascular Disorder Additional Past Medical History / Comment(s): WOUND BELOW LITTLE TOE LEFT FOOT- HAS CAST & WALKING BOOT., 60 treatments of hyperbaric oxygen therapy last dose 07/28/2020 History of Any Multi-Drug Resistant Organisms: MRSA Year Discovered:: 2013 MDRO Source:: toe Past Surgical History: Coronary Bypass/CABG, Heart Catheterization Additional Past Surgical History / Comment(s): tin big toe amputation (2009, 2013)., Cataract removed left eye. triple vessel bypass 10/04/20 Past Anesthesia/Blood Transfusion Reactions: No Reported Reaction Past Psychological History: No Psychological Hx Reported Smoking Status: Never smoker Past Alcohol Use History: None Reported Past Drug Use History: None Reported - Past Family History Mother Family Medical History: Cancer Additional Family Medical History / Comment(s): of an aneurysm at 88 years old Father Family Medical History: Diabetes Mellitus Medications and Allergies Home Medications Medication Instructions Recorded Confirmed Type Ascorbic Acid [Vitamin C] 1,000 mg PO DAILY 09/23/20 10/11/20 History Aspirin [Adult Low Dose Aspirin EC] 81 mg PO DAILY 09/23/20 10/11/20 History Cholecalciferol (Vitamin D3) 125 mcg PO DAILY 09/23/20 10/11/20 History [Vitamin D3 (5000 Iu)] Empagliflozin [Jardiance] 25 mg PO DAILY 09/23/20 10/11/20 History glipiZIDE [Glucotrol] 10 mg PO BID 09/23/20 10/11/20 History Atorvastatin [Lipitor] 40 mg PO HS #90 tab 09/27/20 10/11/20 Rx Clopidogrel [Plavix] 75 mg PO DAILY #30 tab 10/08/20 10/11/20 Rx Diltiazem Cd [Cardizem CD] 180 mg PO DAILY #30 cap.er.24h 10/08/20 10/11/20 Rx Metoprolol Tartrate [Lopressor] 25 mg PO TID #90 tab 10/08/20 10/11/20 Rx Pantoprazole [Protonix] 40 mg PO AC-BRKFST #30 tablet.dr 10/08/20 10/11/20 Rx Acetaminophen Tab [Tylenol] 650 mg PO QID PRN 10/11/20 10/11/20 History Sennosides-Docusate Sodium 1 tab PO DAILY PRN 10/11/20 10/11/20 History [Senokot-S] Sennosides-Docusate Sodium 2 tab PO HS PRN 10/11/20 10/11/20 History [Senokot-S] Allergies Allergy/AdvReac Type Severity Reaction Status Date / Time No Known Allergies Allergy Verified 10/11/20 23:26 Surgical - Exam Vital Signs Temp Pulse Resp BP Pulse Ox 98.6 F 141 H 19 125/88 98 10/11/20 22:39 10/11/20 22:39 10/11/20 22:39 10/11/20 22:39 10/11/20 22:39 CONSTITUTIONAL: Awake and alert, appears comfortable, cooperative, well- developed, well-nourished, no pain, no acute distress EYES: Pupils equal, round, reactive to light, normal ocular movement ENT: Moist mucous membranes without oral lesions present NECK: No masses, no bruits, trachea midline RESPIRATORY: Lungs sounds diminished to auscultation bilaterally. Respirations even, nonlabored. Currently on room air with oxygen saturation 97%. Strong cough. No clubbing or cyanosis present CARDIOVASCULAR: S1, S2 present. Tachy, irregular rate and rhythm, rapid atrial fibrillation on telemetry. Palpable peripheral pulses bilaterally. Bilateral lower extremity edema present. No calf pain or tenderness noted. GASTROINTESTINAL: Abdomen soft, nontender, nondistended without masses or organomegaly noted. There is no rebound or guarding present. Active bowel sounds present 4 quadrants. GENITOURINARY: Deferred INTEGUMENTARY: Skin is warm and dry with evidence of good perfusion. Wound continues to remain present to left lower extremity NEUROLOGIC: Cranial nerves II through XII intact, normal coordination, no obvious motor or sensory deficits, speech is normal MUSKULOSKELETAL: Able to move all extremities, strength equal bilaterally, normal posture PSYCHIATRIC: Alert and oriented to person place and time, appropriate affect, intact judgment and insight Results - Labs 10/12/20 08:16 10/12/20 08:16 Abnormal Lab Results - Last 24 Hours (Table) 10/11/20 10/11/20 10/11/20 Range/Units 23:05 23:05 23:05 RBC 2.96 L (4.30-5.90) m/uL Hgb 9.2 L (13.0-17.5) gm/dL Hct 27.2 L (39.0-53.0) % Sodium 136 L (137-145) mmol/L Chloride (98-107) mmol/L Carbon Dioxide (22-30) mmol/L BUN 34 H (9-20) mg/dL Creatinine 1.37 H (0.66-1.25) mg/dL Glucose 215 H (74-99) mg/dL POC Glucose (mg/dL) (75-99) mg/dL Troponin I 0.486 H* (0.000-0.034) ng/mL Albumin 3.4 L (3.5-5.0) g/dL Urine Glucose (UA) (Negative) 10/12/20 10/12/20 10/12/20 Range/Units 02:30 04:19 08:16 RBC 2.80 L (4.30-5.90) m/uL Hgb 8.8 L (13.0-17.5) gm/dL Hct 26.5 L (39.0-53.0) % Sodium (137-145) mmol/L Chloride (98-107) mmol/L Carbon Dioxide (22-30) mmol/L BUN (9-20) mg/dL Creatinine (0.66-1.25) mg/dL Glucose (74-99) mg/dL POC Glucose (mg/dL) (75-99) mg/dL Troponin I 0.417 H* (0.000-0.034) ng/mL Albumin (3.5-5.0) g/dL Urine Glucose (UA) 4+ H (Negative) 10/12/20 10/12/20 Range/Units 08:16 09:12 RBC (4.30-5.90) m/uL Hgb (13.0-17.5) gm/dL Hct (39.0-53.0) % Sodium (137-145) mmol/L Chloride 109 H (98-107) mmol/L Carbon Dioxide 16 L (22-30) mmol/L BUN 31 H (9-20) mg/dL Creatinine (0.66-1.25) mg/dL Glucose 150 H (74-99) mg/dL POC Glucose (mg/dL) 163 H (75-99) mg/dL Troponin I (0.000-0.034) ng/mL Albumin (3.5-5.0) g/dL Urine Glucose (UA) (Negative) Diabetes panel 10/11/20 10/12/20 Range/Units 23:05 08:16 Sodium 136 L 137 (137-145) mmol/L Potassium 4.9 4.3 (3.5-5.1) mmol/L Chloride 104 109 H (98-107) mmol/L Carbon Dioxide 22 16 L (22-30) mmol/L BUN 34 H 31 H (9-20) mg/dL Creatinine 1.37 H 1.04 (0.66-1.25) mg/dL Glucose 215 H 150 H (74-99) mg/dL Calcium 8.7 8.4 (8.4-10.2) mg/dL AST 30 (17-59) U/L ALT 19 (4-49) U/L Alkaline Phosphatase 115 (38-126) U/L Total Protein 6.4 (6.3-8.2) g/dL Albumin 3.4 L (3.5-5.0) g/dL Thyroid panel 10/11/20 Range/Units 23:05 TSH 3.080 (0.465-4.680) mIU/L Calcium panel 10/11/20 10/12/20 Range/Units 23:05 08:16 Calcium 8.7 8.4 (8.4-10.2) mg/dL Phosphorus 3.9 (2.5-4.5) mg/dL Albumin 3.4 L (3.5-5.0) g/dL Pituitary panel 10/11/20 10/12/20 Range/Units 23:05 08:16 Sodium 136 L 137 (137-145) mmol/L Potassium 4.9 4.3 (3.5-5.1) mmol/L Chloride 104 109 H (98-107) mmol/L Carbon Dioxide 22 16 L (22-30) mmol/L BUN 34 H 31 H (9-20) mg/dL Creatinine 1.37 H 1.04 (0.66-1.25) mg/dL Glucose 215 H 150 H (74-99) mg/dL Calcium 8.7 8.4 (8.4-10.2) mg/dL TSH 3.080 (0.465-4.680) mIU/L Adrenal panel 10/11/20 10/12/20 Range/Units 23:05 08:16 Sodium 136 L 137 (137-145) mmol/L Potassium 4.9 4.3 (3.5-5.1) mmol/L Chloride 104 109 H (98-107) mmol/L Carbon Dioxide 22 16 L (22-30) mmol/L BUN 34 H 31 H (9-20) mg/dL Creatinine 1.37 H 1.04 (0.66-1.25) mg/dL Glucose 215 H 150 H (74-99) mg/dL Calcium 8.7 8.4 (8.4-10.2) mg/dL Total Bilirubin 0.6 (0.2-1.3) mg/dL AST 30 (17-59) U/L ALT 19 (4-49) U/L Alkaline Phosphatase 115 (38-126) U/L Total Protein 6.4 (6.3-8.2) g/dL Albumin 3.4 L (3.5-5.0) g/dL - Imaging Chest x-ray: report reviewed, image reviewed EKG: image reviewed Assessment and Plan Assessment: 1. Atrial fibrillation with rapid ventricular response, new onset 2. Triple-vessel coronary artery disease, unstable angina, status post three- vessel CABG 10/04/20 3. History of hypertension 4. Type 2 diabetes, preoperative hemoglobin A1c 6.4% 5. Peripheral arterial disease with bilateral lower extremity ulcers, current nonhealing ulcer to the left foot 6. 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 Never smoker 8. History of Covid infection in December 2019, remains unvaccinated Plan: The patient was seen and examined in the emergency room with Dr. Andrew. Chart/diagnostics were reviewed. We ordered second IV bolus of amiodarone. Continue aspirin, statin, Plavix, oral Cardizem, IV amiodarone, oral Lopressor which was increased to 50 mg twice daily. The patient may require cardioversion, has been nothing by mouth. Incentive spirometry ordered and should be encouraged. Will increase activity as tolerated. Sternal precautions in place. Follow-up appointments and discharge instructions placed on discharge plan. Likely patient will stay for 24 hours for observation. More recommendations to follow. Thank you for this consult. We will follow along with patient. Time with Patient: Greater than 30
[2020-10-12 11:37] LABS: Glucose,Whole Blood 141 mg/dL (75-99)
[2020-10-12] MEDS ORDERED: PROPOFOL 10 MG/ML 20 ML VIAL IV ONE (11:55)
--- NOTE | 2020-10-12 11:58 | P.CRDCN ---
History of Present Illness History of present illness: HISTORY OF PRESENTING ILLNESS This is a pleasant 65-year-old male past medical history significant for coronary artery disease s/p recent 3 vessel CABG on 10/04/20, hypertension, dyslipidemia and diabetes mellitus. He follows in the office with Dr. Velazquez. He presents to the emergency department with tachycardia. Patient was sent in regarding elevated heart rate. He states his visiting nurse was at his home yesterday checking his vital signs endocrine labs. He was found to be tachycardic HR 140s and was sent to the emergency department. Patient is asymptomatic here in the ER remains a asymptomatic throughout his stay. Of note 10/04/20 He underwent coronary artery bypass grafting with ARAMBULA to LAD, ANNA to OM and SVG to PDA with left atrial appendage ligation. He was discharged from [facility] 10/08/2020 was re covering at home with no acute events. He does state he did have some occasional palpitations. In the emergency room he was given IV Cardizem, IV Lopressor, and initiated on IV amiodarone as well as heparin. Currently he appears to be in atrial flutter with heart rate in the low 100s, he is hemodynamically stable. EKG performed patient in atrial fibrillation HR 111, nonspecific ST-T wave abnormalities. DIAGNOSTICS: Chest x-ray diffuse pleural parenchymal changes are stable. Left lower lobe infiltrate and small effusion. Laboratory data review WBC 9.9, hemoglobin 8.8, platelets 3:15, sodium 137, potassium 4.3, BUN 31, serum creatinine 1.0, troponin 0.42, proBNP 4640 09/26/2020 EKG demonstrated evidence of prior inferior wall myocardial infarction, and he was recommended to undergo heart catheterization which demonstrated right coronary stenosis 70-80%, circumflex stenosis 90%, proximal LAD stenosis 90%, diagonal stenosis 70-80%. 2D echocardiogram 09/23/20 in the office demonstrating normal left ventricular systolic function with EF 55%, normal diastolic function, trace central mitral regurgitation, and mild central tricuspid regurgitation. REVIEW OF SYSTEMS At the time of my exam: CONSTITUTIONAL: Denies fever or chills. CARDIOVASCULAR: +palpitations, Denies chest pain, shortness of breath, orthopnea, PND RESPIRATORY: Denies cough. GASTROINTESTINAL: Denies abdominal pain, diarrhea, constipation, nausea or vomiting. MUSCULOSKELETAL: Denies myalgias. NEUROLOGIC: Denies numbness, tingling, headacbe or weakness. ENDOCRINE: Denies fatigue, weight change, polydipsia or polyurina. GENITOURINARY: Denies burning, hematuria or urgency with micturation. HEMATOLOGIC: Denies history of anemia or bleeding. PHYSICAL EXAMINATION Blood pressure 111/77 heart rate 104 afebrile and maintaining oxygen saturation 98% on room air CONSTITUTIONAL: No apparent distress. HEENT: Head is normocephalic. Pupils are equal, round. Sclerae anicteric. Mucous membranes of the mouth are moist. No JVD. No carotid bruit. CHEST EXAMINATION: Lungs are clear to auscultation. No chest wall tenderness is noted on palpation or with deep breathing. Heart regular in place. HEART EXAMINATION: Regular rate and rhythm. S1, S2 heard. No murmurs, gallops or rub. ABDOMEN: Soft, nontender. Positive bowel sounds. EXTREMITIES: 2+ peripheral pulses, no lower extremity edema and no calf tenderness. NEUROLOGIC EXAMINATION: Patient is awake, alert and oriented x3. 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 I have discussed the risks, benefits and alternative therapies for the above- mentioned procedure and for both sedation/analgesia if indicated, as they pertain to this patient. The patient has indicated understanding and acceptance of the risks and procedures discussed. Questions have been answered appropriately and he is agreeable to move forward with the above-stated procedure. Plan for KARLA cardioversion with Dr. Thornton today. Continue cardiac telemetry Continue home cardiac medications Further recommendations based on clinical course Nurse Practitioner note has been reviewed, I agree with a documented findings and plan of care. Patient was seen and examined. Past Medical History Past Medical History: Coronary Artery Disease (CAD), Chest Pain / Angina, Diabetes Mellitus, Hyperlipidemia, Hypertension, Skin Disorder, Vascular Disorde r Additional Past Medical History / Comment(s): WOUND BELOW LITTLE TOE LEFT FOOT- HAS CAST & WALKING BOOT., 60 treatments of hyperbaric oxygen therapy last dose 07/28/2020 History of Any Multi-Drug Resistant Organisms: MRSA Date of last positivie culture/infection: 2013 MDRO Source:: toe Past Surgical History: Coronary Bypass/CABG, Heart Catheterization Additional Past Surgical History / Comment(s): tin big toe amputation (2009, 2013)., Cataract removed left eye. triple vessel bypass 10/04/20 Past Anesthesia/Blood Transfusion Reactions: No Reported Reaction Past Psychological History: No Psychological Hx Reported Smoking Status: Never smoker - Past Family History Mother Family Medical History: Cancer Additional Family Medical History / Comment(s): of an aneurysm at 88 years old Father Family Medical History: Diabetes Mellitus Medications and Allergies Home Medications Medication Instructions Recorded Confirmed Type Ascorbic Acid [Vitamin C] 1,000 mg PO DAILY 09/23/20 10/11/20 History Aspirin [Adult Low Dose Aspirin EC] 81 mg PO DAILY 09/23/20 10/11/20 History Cholecalciferol (Vitamin D3) 125 mcg PO DAILY 09/23/20 10/11/20 History [Vitamin D3 (5000 Iu)] Empagliflozin [Jardiance] 25 mg PO DAILY 09/23/20 10/11/20 History glipiZIDE [Glucotrol] 10 mg PO BID 09/23/20 10/11/20 History Atorvastatin [Lipitor] 40 mg PO HS #90 tab 09/27/20 10/11/20 Rx Clopidogrel [Plavix] 75 mg PO DAILY #30 tab 10/08/20 10/11/20 Rx Diltiazem Cd [Cardizem CD] 180 mg PO DAILY #30 cap.er.24h 10/08/20 10/11/20 Rx Metoprolol Tartrate [Lopressor] 25 mg PO TID #90 tab 10/08/20 10/11/20 Rx Pantoprazole [Protonix] 40 mg PO AC-BRKFST #30 tablet.dr 10/08/20 10/11/20 Rx Acetaminophen Tab [Tylenol] 650 mg PO QID PRN 10/11/20 10/11/20 History Sennosides-Docusate Sodium 1 tab PO DAILY PRN 10/11/20 10/11/20 History [Senokot-S] Sennosides-Docusate Sodium 2 tab PO HS PRN 10/11/20 10/11/20 History [Senokot-S] Allergies Allergy/AdvReac Type Severity Reaction Status Date / Time No Known Allergies Allergy Verified 10/11/20 23:26 Physical Exam Vitals: Vital Signs Temp Pulse Pulse Resp BP Pulse Ox 10/12/20 05:30 134 H 18 99/66 97 10/12/20 04:30 138 H 18 101/72 97 10/12/20 03:10 143 H 18 102/70 97 10/12/20 02:30 142 H 18 102/63 98 10/12/20 01:30 150 H 18 104/66 98 10/12/20 00:32 140 H 18 109/67 97 10/12/20 00:20 144 H 18 115/69 96 10/11/20 23:40 145 H 18 107/70 98 10/11/20 23:15 147 H 18 124/82 98 10/11/20 23:00 147 H 10/11/20 22:39 98.6 F 141 H 19 125/88 98 Intake and Output 10/11/20 10/12/20 10/12/20 22:59 06:59 14:59 Output Total 750 Balance -750 Output: Urine 750 Other: # Voids 1 Weight 130.635 kg Results 10/12/20 08:16 10/12/20 08:16 Cardiac Enzymes 10/11/20 10/11/20 10/12/20 Range/Units 23:05 23:05 04:19 AST 30 (17-59) U/L Troponin I 0.486 H* 0.417 H* (0.000-0.034) ng/mL Coagulation 10/11/20 Range/Units 23:05 PT 10.3 (9.0-12.0) sec APTT 22.3 (22.0-30.0) sec CBC 10/11/20 Range/Units 23:05 WBC 9.9 (3.8-10.6) k/uL RBC 2.96 L (4.30-5.90) m/uL Hgb 9.2 L (13.0-17.5) gm/dL Hct 27.2 L (39.0-53.0) % Plt Count 291 (150-450) k/uL Comprehensive Metabolic Panel 10/11/20 Range/Units 23:05 Sodium 136 L (137-145) mmol/L Potassium 4.9 (3.5-5.1) mmol/L Chloride 104 (98-107) mmol/L Carbon Dioxide 22 (22-30) mmol/L BUN 34 H (9-20) mg/dL Creatinine 1.37 H (0.66-1.25) mg/dL Glucose 215 H (74-99) mg/dL Calcium 8.7 (8.4-10.2) mg/dL AST 30 (17-59) U/L ALT 19 (4-49) U/L Alkaline Phosphatase 115 (38-126) U/L Total Protein 6.4 (6.3-8.2) g/dL Albumin 3.4 L (3.5-5.0) g/dL Current Medications Generic Name Dose Route Start Last Admin Trade Name Freq PRN Reason Stop Dose Admin Acetaminophen 650 mg 10/12/20 07:13 Acetaminophen Tab 325 Mg Tab PO QID PRN Fever and/ or Mild Pain Ascorbic Acid 1,000 mg 10/12/20 09:00 Ascorbic Acid 500 Mg Tab PO DAILY [facility] Aspirin 325 mg 10/13/20 09:00 Aspirin 325 Mg Tab PO DAILY [facility] Atorvastatin Calcium 40 mg 10/12/20 21:00 Atorvastatin 40 Mg Tab PO HS [facility] Cholecalciferol 125 mcg 10/12/20 09:00 Cholecalciferol 25 Mcg (1000 Iu) Tablet PO DAILY [facility] Clopidogrel Bisulfate 75 mg 10/12/20 09:00 Clopidogrel 75 Mg Tab PO DAILY [facility] Diltiazem HCl 180 mg 10/12/20 09:00 Diltiazem Cd 180 Mg Cap.Er.24h PO DAILY [facility] Glipizide 10 mg 10/12/20 07:30 Glipizide 10 Mg Tab PO AC-BID [facility] Heparin Sodium (Porcine) 0 unit 10/12/20 01:54 Heparin Sodium 1,000 Un/Ml (10ml Vl) IV PER PROTOCOL PRN Low PTT Protocol Heparin Sodium/Sodium Chloride 250 mls @ 10.046 mls/hr 10/12/20 02:00 10/12/20 02:23 25,000 unit/ Sodium Chloride IV 7.69 units/kg/hr .Q24H JACOB 10.046 mls/hr Administration Protocol 7.69 UNITS/KG/HR Amiodarone HCl 360 mg/ 200 mls @ 33.333 mls/hr 10/12/20 03:30 10/12/20 03:42 Dextrose/Water IV 10/12/20 09:29 1 mg/min .Q6H ONE 33.333 mls/hr Administration Protocol 1 MG/MIN Amiodarone HCl 450 mg/ 250 mls @ 16.667 mls/hr 10/12/20 09:30 Dextrose/Water IV 10/13/20 03:29 .Q15H JACOB Protocol 0.5 MG/MIN Insulin Aspart 0 unit 10/12/20 07:30 Insulin Aspart (Novolog) 100 Unit/Ml Vial SQ ACHS [facility] Protocol Metoprolol Tartrate 50 mg 10/12/20 09:00 Metoprolol Tartrate 25 Mg Tab PO BID JACOB Nitroglycerin 0.4 mg 10/12/20 03:25 Nitroglycerin Sl Tabs 0.4 Mg Tab SUBLINGUAL Q5M PRN Chest Pain Empagliflozin [ 25 mg 10/12/20 09:00 Jardiance] 25 Mg PO Tablet DAILY [facility] Pantoprazole Sodium 40 mg 10/12/20 07:30 Pantoprazole 40 Mg Tablet PO AC-BRKFST JAC[facility] Senna/Docusate Sodium 2 each 10/12/20 07:13 Sennosides-Docusate Sodium 1 Each Tab PO HS PRN Constipation Intake and Output 10/11/20 10/12/20 10/12/20 22:59 06:59 14:59 Output Total 750 Balance -750 Output: Urine 750 Other: # Voids 1 Weight 130.635 kg 10/11/20 23:05 10/11/20 23:05
[2020-10-12] MEDS ORDERED: IV FLUID CONTINUATION 1,000 ML IV ONE (12:04)
[2020-10-12] MEDS ORDERED: HEPARIN SOD,PORK IN 0.45% NACL 25,000 UNIT in 0.45% NACL 1 250ML.BAG IV ONE (12:08)
[2020-10-12] MEDS ORDERED: SODIUM CHLORIDE 0.9% 1,000 ML IV ONE ×2 (12:15)
--- NOTE | 2020-10-12 12:37 | P.PCN ---
Date of Procedure: 10/12/20 Preoperative Diagnosis: Atrial flutter with rapid ventricular response Postoperative Diagnosis: Successful conversion to sinus rhythm Procedure(s) Performed: KARLA followed by cardioversion Description of Procedure: KARLA: Patient was brought to the lab in a fasting state. Patient was prepped and draped in the usual fashion. The throat was sprayed with Hurricaine. Department of anesthesia provided anesthesia. A lubricated Omni probe was introduced in the oropharynx and advanced into the esophagus. Multiple views were obtained. Color, pulsed and continuous showed Doppler studies were done along with saline contrast bubble injection. Patient tolerated the procedure well. Findings: The atrial appendage is clipped. No smoke or clot noted in the atria. There is mild mitral regurgitation and [id number] tricuspid regurgitation. The left ankle function is normal. Left atrium appears slightly enlarged. Final impression: #1. No clot in the left atrium and left atrial appendage is clipped surgically. Plan: Proceed with cardioversion. CARDIOVERSION: Patient was given IV sedation by department of anesthesia. Anterior posterior paddles were applied and a sink may shock of 200 J was delivered. Patient converted to sinus rhythm. No immediate complications. Plan: Continue IV amiodarone and anticoagulation transferred to telemetry unit. If stable, patient will be discharged within 24 hours
[2020-10-12 14:28] LABS: Glucose,Whole Blood 132 mg/dL (75-99)
[2020-10-12] MEDS ORDERED: APIXABAN 5 MG TAB PO ONE (15:11)
[2020-10-12 17:07] LABS: Glucose,Whole Blood 162 mg/dL (75-99)
[2020-10-12] MEDS: AMIODARONE 200 MG TAB PO SCH ×2 (17:07→20:27)
[2020-10-12] MEDS: SODIUM CHLORIDE 0.9% 1,000 ML IV SCH (17:43)
--- NOTE | 2020-10-12 20:10 | P.HPIM ---
History of Present Illness This is a pleasant 65 years old male with past medical history of coronary artery disease, diabetes mellitus, hypertension, status post cardiac cath. He is with severe triple vessel coronary artery disease and underwent bypass gra fting with ARAMBULA to LAD on 10/04. Was recently discharged from the hospital on 10/08. Presents with tachycardia when his nurse practitioner found home with rapid heart rate. However patient comes to the emergency room asymptomatic. He denies chest pain or dyspnea On admission his heart rate was elevated about 150 down to 134 at times. Blood pressures 104/66, patient is afebrile. CBC is unremarkable except for mild anemia with hemoglobin 9.2, 3 days ago was 8.3. INR is normal at 1.0, BMP showing sodium of 136, creatinine slightly elevated at 1.3compared to 1.03 but 3 days ago. TSH is normal at 3.0. Urinalysis is not suspicious for infection. His troponin were elevated 0.42 EKG showed supraventricular tachycardia at 141 with QTC [address]-T changes. Chest x-ray: No acute process except for new small left pleural effusion. Pulmonary interstitial density increased compared to old exam. No obvious heart failure but acute minimal heart failure not excluded, In the emergency room patient received to 1/2 L of normal saline, was started on heparin drip, amiodarone drip, aspirin cardiology and cardiothoracic surgery team were consulted Review of Systems CONSTITUTIONAL: No fever, no malaise, no fatigue. HEENT: No recent visual problems or hearing problems. Denied any sore throat. CARDIOVASCULAR: No orthopnea, PND, no palpitations, no syncope. PULMONARY: No shortness of breath, no cough, no hemoptysis. GASTROINTESTINAL: No diarrhea, no nausea, no vomiting, no abdominal pain. Normoactive bowel sounds. NEUROLOGICAL: No headaches, no weakness, no numbness. HEMATOLOGICAL: Denies any bleeding or petechiae. GENITOURINARY: Denies any burning micturition, frequency, or urgency. MUSCULOSKELETAL/RHEUMATOLOGICAL: Denies any joint pain, swelling, or any muscle pain. ENDOCRINE: Denies any polyuria or polydipsia. Past Medical History Past Medical History: Coronary Artery Disease (CAD), Chest Pain / Angina, Diabetes Mellitus, Hyperlipidemia, Hypertension, Skin Disorder, Vascular Disorde r Additional Past Medical History / Comment(s): WOUND BELOW LITTLE TOE LEFT FOOT- HAS CAST & WALKING BOOT., 60 treatments of hyperbaric oxygen therapy last dose 07/28/2020 History of Any Multi-Drug Resistant Organisms: MRSA Date of last positivie culture/infection: 2013 MDRO Source:: toe Past Surgical History: Coronary Bypass/CABG, Heart Catheterization Additional Past Surgical History / Comment(s): tin big toe amputation (2009, 2013)., Cataract removed left eye. triple vessel bypass 10/04/20 Past Anesthesia/Blood Transfusion Reactions: No Reported Reaction Past Psychological History: No Psychological Hx Reported Smoking Status: Never smoker - Past Family History Mother Family Medical History: Cancer Additional Family Medical History / Comment(s): of an aneurysm at 88 years old Father Family Medical History: Diabetes Mellitus Medications and Allergies Home Medications Medication Instructions Recorded Confirmed Type Ascorbic Acid [Vitamin C] 1,000 mg PO DAILY 09/23/20 10/11/20 History Aspirin [Adult Low Dose Aspirin EC] 81 mg PO DAILY 09/23/20 10/11/20 History Cholecalciferol (Vitamin D3) 125 mcg PO DAILY 09/23/20 10/11/20 History [Vitamin D3 (5000 Iu)] Empagliflozin [Jardiance] 25 mg PO DAILY 09/23/20 10/11/20 History glipiZIDE [Glucotrol] 10 mg PO BID 09/23/20 10/11/20 History Atorvastatin [Lipitor] 40 mg PO HS #90 tab 09/27/20 10/11/20 Rx Clopidogrel [Plavix] 75 mg PO DAILY #30 tab 10/08/20 10/11/20 Rx Diltiazem Cd [Cardizem CD] 180 mg PO DAILY #30 cap.er.24h 10/08/20 10/11/20 Rx Metoprolol Tartrate [Lopressor] 25 mg PO TID #90 tab 10/08/20 10/11/20 Rx Pantoprazole [Protonix] 40 mg PO AC-BRKFST #30 tablet.dr 10/08/20 10/11/20 Rx Acetaminophen Tab [Tylenol] 650 mg PO QID PRN 10/11/20 10/11/20 History Sennosides-Docusate Sodium 1 tab PO DAILY PRN 10/11/20 10/11/20 History [Senokot-S] Sennosides-Docusate Sodium 2 tab PO HS PRN 10/11/20 10/11/20 History [Senokot-S] Apixaban [Eliquis] 5 mg PO BID 30 Days #60 tab 10/12/20 Rx Allergies Allergy/AdvReac Type Severity Reaction Status Date / Time No Known Allergies Allergy Verified 10/11/20 23:26 Physical Exam Vitals: Vital Signs Temp Pulse Pulse Resp BP Pulse Ox 10/12/20 05:30 134 H 18 99/66 97 10/12/20 04:30 138 H 18 101/72 97 10/12/20 03:10 143 H 18 102/70 97 10/12/20 02:30 142 H 18 102/63 98 10/12/20 01:30 150 H 18 104/66 98 10/12/20 00:32 140 H 18 109/67 97 10/12/20 00:20 144 H 18 115/69 96 10/11/20 23:40 145 H 18 107/70 98 10/11/20 23:15 147 H 18 124/82 98 10/11/20 23:00 147 H 10/11/20 22:39 98.6 F 141 H 19 125/88 98 Intake and Output 10/11/20 10/12/20 10/12/20 22:59 06:59 14:59 Output Total 750 Balance -750 Output: Urine 750 Other: # Voids 1 Weight 130.635 kg GENERAL: The patient is alert and oriented x3, not in any acute distress. Well developed, well nourished. HEENT: Pupils are round and equally reacting to light. EOMI. No scleral icterus. No conjunctival pallor. Normocephalic, atraumatic. No pharyngeal erythema. No thyromegaly. CARDIOVASCULAR: S1 and S2 present. No murmurs, rubs, or gallops. PULMONARY: Chest is clear to auscultation, no wheezing or crackles. ABDOMEN: Soft, nontender, nondistended, normoactive bowel sounds. No palpable organomegaly. MUSCULOSKELETAL: No joint swelling or deformity. EXTREMITIES: No cyanosis, clubbing, or pedal edema. NEUROLOGICAL: Gross neurological examination did not reveal any focal deficits. SKIN: No rashes. No petechiae Results CBC & Chem 7: 10/12/20 08:16 10/12/20 08:16 Labs: Abnormal Lab Results - Last 24 Hours (Table) 10/11/20 10/11/20 10/11/20 Range/Units 23:05 23:05 23:05 RBC 2.96 L (4.30-5.90) m/uL Hgb 9.2 L (13.0-17.5) gm/dL Hct 27.2 L (39.0-53.0) % Sodium 136 L (137-145) mmol/L BUN 34 H (9-20) mg/dL Creatinine 1.37 H (0.66-1.25) mg/dL Glucose 215 H (74-99) mg/dL Troponin I 0.486 H* (0.000-0.034) ng/mL Albumin 3.4 L (3.5-5.0) g/dL Urine Glucose (UA) (Negative) 10/12/20 10/12/20 Range/Units 02:30 04:19 RBC (4.30-5.90) m/uL Hgb (13.0-17.5) gm/dL Hct (39.0-53.0) % Sodium (137-145) mmol/L BUN (9-20) mg/dL Creatinine (0.66-1.25) mg/dL Glucose (74-99) mg/dL Troponin I 0.417 H* (0.000-0.034) ng/mL Albumin (3.5-5.0) g/dL Urine Glucose (UA) 4+ H (Negative) Assessment and Plan Assessment: SVT with elevated troponin Mild acute kidney injury, improved Mild pulmonary vascular congestion Triple vessel coronary artery disease status post cardiac cath and bypass grafting with ARAMBULA to LAD Diabetes mellitus, with hyperglycemia Hypertension Plan: This is a pleasant 65 years old male who had CABG about one week ago presents with SVT. And elevated troponin. Was started on heparin drip and amiodarone drip in the emergency room. Continue with aspirin, Plavix, metoprolol Cardiology and cardiothoracic surgery team consult Follow-up heart rate. Repeat chest x-ray Continue with insulin sliding scale. Continue with the glipizide Labs and medication were reviewed.. Continue same treatment. Continue with symptomatic treatment. Resume home medication. Monitor lytes and vitals. DVT and GI prophylaxis. Further recommendations depends on the clinical course of the patient DVT prophylaxis: Subcutaneous heparin GI Prophylaxis: Ppi PT/OT: Prognosis is guarded
[2020-10-12 20:18] LABS: Glucose,Whole Blood 135 mg/dL (75-99)
[2020-10-12] MEDS ORDERED: ATORVASTATIN 40 MG TAB PO SCH (21:00)
[2020-10-13 03:23] VITALS: TEMP 98.9
[2020-10-13 06:05] LABS: Glucose,Whole Blood 144 mg/dL (75-99)
[2020-10-13] MEDS: PANTOPRAZOLE 40 MG TABLET PO SCH (06:24)
[2020-10-13] MEDS: INSULIN ASPART (NovoLOG) 100 UNIT/ML VIAL SQ SCH ×2 (06:24→12:22)
[2020-10-13] MEDS: glipiZIDE 10 MG TAB PO SCH (06:24)
[2020-10-13] MEDS ORDERED: AMIODARONE 200 MG TAB PO SCH (07:00)
[2020-10-13] MEDS: ASCORBIC ACID 500 MG TAB PO SCH (08:40)
[2020-10-13] MEDS: DILTIAZEM CD 180 MG CAP.ER.24H PO SCH (08:40)
[2020-10-13] MEDS: AMIODARONE 200 MG TAB PO SCH (08:40)
[2020-10-13] MEDS: CHOLECALCIFEROL 25 MCG (1000 IU) TABLET PO SCH (08:40)
[2020-10-13] MEDS: CLOPIDOGREL 75 MG TAB PO SCH (08:41)
[2020-10-13] MEDS: METOPROLOL TARTRATE 50 MG TAB PO SCH (08:41)
[2020-10-13 08:45] VITALS: RESP 16
[2020-10-13] MEDS ORDERED: APIXABAN 5 MG TAB PO SCH ×2 (09:00→11:30)
[2020-10-13] MEDS ORDERED: ASPIRIN 325 MG TAB PO SCH (09:00)
[2020-10-13] MEDS ORDERED: ASPIRIN 81 MG PO SCH (09:00)
[2020-10-13 09:16] LABS: Basophils # (A) 0.1 k/uL (0-0.2); Basophils % (A) 1 %; Eosinophils # (A) 0.2 k/uL (0-0.7); Eosinophils % (A) 2 %; HCT 25.3 % (39.0-53.0); HGB 8.3 gm/dL (13.0-17.5); Hypochromasia Moderate; Lymphocytes # (A) 1.1 k/uL (1.0-4.8); Lymphocytes % (A) 13 %; MCH 31.4 pg (25.0-35.0); MCHC 32.7 g/dL (31.0-37.0); MCV 96.1 fL (80.0-100.0); Mean Platelet Volume 7.1; Monocytes # (A) 0.5 k/uL (0-1.0); Monocytes % (A) 6 %; Neutrophils # (A) 6.5 k/uL (1.3-7.7); Neutrophils % (A) 74 %; Platelet Count 361 k/uL (150-450); Poikilocytosis Slight; RBC 2.63 m/uL (4.30-5.90); RDW 14.5 % (11.5-15.5); WBC 8.7 k/uL (3.8-10.6)
[2020-10-13 09:22] LABS: Prothrombin Time 10.5 sec (9.0-12.0)
[2020-10-13 09:36] LABS: Albumin 3.1 g/dL (3.5-5.0); Calcium 8.5 mg/dL (8.4-10.2); Potassium 4.6 mmol/L (3.5-5.1); Total Bilirubin 0.8 mg/dL (0.2-1.3); Total Protein 6.1 g/dL (6.3-8.2)
--- NOTE | 2020-10-13 10:04 | XR ---
EXAMINATION TYPE: XR chest 2V DATE OF EXAM: 10/13/2020 COMPARISON: 10/12/2020 TECHNIQUE: PA and lateral views submitted. HISTORY: Post cardiac surgery FINDINGS: Postoperative change with cardiomegaly and left-sided infiltrate and small effusion. Diffuse intersti tial pattern with no pneumothorax. Arthropathy of the shoulders. IMPRESSION: 1. Left lower lobe infiltrate and small effusion correlate for interstitial pneumonitis versus CHF.
--- NOTE | 2020-10-13 11:31 | P.PN ---
Subjective This is a pleasant 65-year-old male past medical history significant for coronary artery disease s/p recent 3 vessel CABG on 10/04/20, hypertension, dyslipidemia and diabetes mellitus. He follows in the office with Dr. Velazquez. He presents to the emergency department with tachycardia. Patient was sent in regarding elevated heart rate. He states his visiting nurse was at his home yesterday checking his vital signs endocrine labs. He was found to be tachycardic HR 140s and was sent to the emergency department. Patient is asymptomatic here in the ER remains a asymptomatic throughout his stay. Of note 10/04/20 He underwent coronary artery bypass grafting with ARAMUBLA to LAD, ANNA to OM and SVG to PDA with left atrial appendage ligation. He was discharged from [facility] 10/08/2020 was re covering at home with no acute events. He does state he did have some occasional palpitations. In the emergency room he was given IV Cardizem, IV Lopressor, and initiated on IV amiodarone as well as heparin. Currently he appears to be in atrial flutter with heart rate in the low 100s, he is hemodynamically stable. EKG performed patient in atrial fibrillation HR 111, nonspecific ST-T wave abnormalities. 2D echocardiogram 09/23/20 in the office demonstrating normal left ventricular systolic function with EF 55%, normal diastolic function, trace central mitral regurgitation, and mild central tricuspid regurgitation. 10/13/2020: Patient is status post KARLA cardioversion yesterday with Dr. Thornton KARLA revealed no clot in left atrial appendage and left atrial appendage is clipped surgically. Patient was converted to sinus rhythm after a single shock. No complications. Patient continues to maintain sinus mechanism heart rate 70s to 80s. No further episodes of atrial fibrillation. Blood pressure 129/87, heart rate 90, afebrile, maintaining saturations on room air. Laboratory data review WBC 8.7, hemoglobin 8.3, platelets 361, sodium 138, potassium 4.6, BUN 29, serum creatinine 1.0. Patient currently maintained on amiodarone 400 mg twice a day, aspirin 81 mg daily, Plavix 75 mg daily, Cardizem 180 mg daily, metoprolol titrate 50 mg twice a day. PHYSICAL EXAMINATION CONSTITUTIONAL: No apparent distress. HEENT: Head is normocephalic. No JVD. CHEST EXAMINATION: Lungs are clear to auscultation. No chest wall tenderness is noted on palpation or with deep breathing. Heart regular in place. HEART EXAMINATION: Regular rate and rhythm. S1, S2 heard. No murmurs, gallops or rub. ABDOMEN: Soft, nontender. Positive bowel sounds. EXTREMITIES: 2+ peripheral pulses, no lower extremity edema and no calf tenderness. NEUROLOGIC EXAMINATION: Patient is awake, alert and oriented x3. 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 Script sent to pharmacy. Case management consulted for cost, per case management patient's copay is $0 Continue home cardiac medications, patient's metoprolol recently increased to 50mg BID From a cardiology perspective patient stable and discharged home. Patient follows with Dr. Velazquez in the outpatient office. Patient has appointment on 10/24/2020 Nurse Practitioner note has been reviewed, I agree with a documented findings and plan of care. Patient was seen and examined. Objective - Vital Signs Vital signs: Vital Signs Temp 98.9 F 10/13/20 03:22 Pulse 90 10/13/20 08:00 Resp 16 10/13/20 08:00 BP 129/87 10/13/20 08:00 Pulse Ox 96 10/13/20 08:00 Intake & Output 10/12/20 10/13/20 10/13/20 18:59 06:59 18:59 Intake Total 737.438 240 Output Total 750 Balance -12.562 240 Weight 130.9 kg 132.9 kg Intake: IV 250 Intake, IV Titration 247.438 Amount Heparin Sod,Pork in 0.45% 172.438 NaCl 25,000 unit In 0.45 % NaCl 1 250ml.bag @ 7.69 UNITS/KG/HR 10.046 mls/ hr IV .Q24H [facility] Rx#: [id number] Sodium Chloride 0.9% 1, 75 000 ml @ 20 mls/hr IV . Q24H [facility] Rx#:[id number] Oral 240 240 Output: Urine 750 Other: Voiding Method Urinal Urinal Urinal # Voids 1 1 - Labs CBC & Chem 7: 10/13/20 08:32 10/13/20 08:32 Labs: Abnormal Lab Results - Last 24 Hours (Table) 10/12/20 10/12/20 10/12/20 Range/Units 11:36 14:23 17:03 RBC (4.30-5.90) m/uL Hgb (13.0-17.5) gm/dL Hct (39.0-53.0) % Chloride (98-107) mmol/L Carbon Dioxide (22-30) mmol/L BUN (9-20) mg/dL Glucose (74-99) mg/dL POC Glucose (mg/dL) 141 H 132 H 162 H (75-99) mg/dL Total Protein (6.3-8.2) g/dL Albumin (3.5-5.0) g/dL 10/12/20 10/13/20 10/13/20 Range/Units 20:17 06:04 08:32 RBC 2.63 L (4.30-5.90) m/uL Hgb 8.3 L (13.0-17.5) gm/dL Hct 25.3 L (39.0-53.0) % Chloride (98-107) mmol/L Carbon Dioxide (22-30) mmol/L BUN (9-20) mg/dL Glucose (74-99) mg/dL POC Glucose (mg/dL) 135 H 144 H (75-99) mg/dL Total Protein (6.3-8.2) g/dL Albumin (3.5-5.0) g/dL 10/13/20 Range/Units 08:32 RBC (4.30-5.90) m/uL Hgb (13.0-17.5) gm/dL Hct (39.0-53.0) % Chloride 108 H (98-107) mmol/L Carbon Dioxide 19 L (22-30) mmol/L BUN 29 H (9-20) mg/dL Glucose 162 H (74-99) mg/dL POC Glucose (mg/dL) (75-99) mg/dL Total Protein 6.1 L (6.3-8.2) g/dL Albumin 3.1 L (3.5-5.0) g/dL
[2020-10-13 11:43] LABS: Glucose,Whole Blood 194 mg/dL (75-99)
[2020-10-13] MEDS: SODIUM CHLORIDE 0.9% 1,000 ML IV SCH (12:23)
[2020-10-13 12:26] VITALS: BP 111/58; PULSE 74
--- NOTE | 2020-10-13 12:40 | P.PN ---
Subjective Progress Note Date: 10/13/20 Principal diagnosis: Atrial flutter with rapid ventricular response, status post successful conversion to sinus rhythm with KARLA followed by cardioversion performed by cardiology. Past medical history significant for coronary artery disease status post three-vessel CABG on 10/04/2020, hypertension, type 2 diabetes mellitus, peripheral arterial disease with bilateral lower extremity ulcers and current nonhealing ulcer to the left foot and Covid infection in December 2019. Status post day #1 KARLA followed by cardioversion, successful conversion to sinus rhythm completed by Dr. Thornton. The patient was seen in follow-up today 10/13/2020 at his bedside on the cardiac stepdown unit. Currently he is sitting up to the bedside, awake, alert and oriented 3 and is in no acute distress. He underwent a transesophageal echocardiogram followed by cardioversion with successful conversion to sinus rhythm completed by Dr. Thornton yesterday 10/12/2020. Remote telemetry showing normal sinus rhythm heart rate 86 BPM. No further episodes of atrial flutter reported. Oxygen saturations are 96% on room air. He remains hemodynamically stable and is currently on no inotropic pressor support. The patient reports he feels well today. Objective - Vital Signs Vital signs: Vital Signs Temp 98.9 F 10/13/20 03:22 Pulse 90 10/13/20 08:00 Resp 16 10/13/20 08:00 BP 129/87 10/13/20 08:00 Pulse Ox 96 10/13/20 08:00 Intake & Output 10/12/20 10/13/20 10/13/20 18:59 06:59 18:59 Intake Total 737.438 Output Total 750 Balance -12.562 Weight 130.9 kg 132.9 kg Intake: IV 250 Intake, IV Titration 247.438 Amount Heparin Sod,Pork in 0.45% 172.438 NaCl 25,000 unit In 0.45 % NaCl 1 250ml.bag @ 7.69 UNITS/KG/HR 10.046 mls/ hr IV .Q24H [facility] Rx#: [id number] Sodium Chloride 0.9% 1, 75 000 ml @ 20 mls/hr IV . Q24H [facility] Rx#:[id number] Oral 240 Output: Urine 750 Other: Voiding Method Urinal Urinal # Voids 1 1 - Exam CONSTITUTIONAL: Sitting up to the bedside chair on the cardiac stepdown unit appears comfortable, cooperative, no apparent acute distress. HEENT: Neck is supple, no JVD, no lymphadenopathy. RESPIRATORY: Lungs sounds essentially clear throughout, diminished to his bilateral bases. Respirations are symmetrical and nonlabored. Currently on room air with oxygen saturations 96. Able to achieve 1750 mL on his incentive spirometry. Strong cough. CARDIOVASCULAR: Regular rhythm and rate. S1 and S2 present, negative for S3, gallop or murmur. Sternum is stable. Palpable peripheral pulses bilaterally, +1 edema to his bilateral lower extremities. No calf pain or tenderness noted. Heart hugger in place with patient demonstrating appropriate use. Knee-high VEL hose and sequential compression devices in place to his bilateral lower extremities. Remote telemetry showing normal sinus rhythm heart rate 86 BPM. GASTROINTESTINAL: Abdomen soft, nontender, nondistended. Active bowel sounds present 4 quadrants. Tolerating diet. Passing flatus. No guarding or rigidity. GENITOURINARY: Continues to void. INTEGUMENTARY: Skin is warm and dry with no evidence of clubbing or cyanosis. Midline sternal incision clean dry and well approximated, covered with dry intact dressing. Left lower extremity EVH sites well approximated without redness or drainage. Left arm radial artery harvest sites clean, dry and approximated. No drainage or redness is present. Wounds to his right lower extremity clean and dry, wound to his left foot with dressing clean, dry and intact. NEUROLOGIC: Cranial nerves II through XII intact. No focal deficits. MUSKULOSKELETAL: Able to move all extremities, strength equal bilaterally. PSYCHIATRIC: Alert and oriented to person place and time, appropriate affect, intact judgment and insight. - Allied health notes Allied health notes reviewed: nursing - Labs CBC & Chem 7: 10/13/20 08:32 10/13/20 08:32 Labs: Abnormal Lab Results - Last 24 Hours (Table) 10/12/20 10/12/20 10/12/20 Range/Units 11:36 14:23 17:03 POC Glucose (mg/dL) 141 H 132 H 162 H (75-99) mg/dL 10/12/20 10/13/20 Range/Units 20:17 06:04 POC Glucose (mg/dL) 135 H 144 H (75-99) mg/dL - Imaging and Cardiology Chest x-ray: report reviewed, image reviewed Assessment and Plan Assessment: 1. Atrial fibrillation with rapid ventricular response, new onset, status post KARLA with cardioversion, currently in normal sinus rhythm 2. Triple-vessel coronary artery disease, unstable angina, status post three- vessel on CABG 10/04/20 3. History of hypertension 4. Type 2 diabetes mellitus, preoperative hemoglobin A1c 6.4% 5. Peripheral arterial disease with bilateral lower extremity ulcers, current nonhealing ulcer to the left foot 6. 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 Lifetime nonsmoker 8. History of Covid infection in December 2019, remains unvaccinated Plan: 1. Continue to maximize medical therapy with aspirin, statin, Plavix, beta ruperto, Cardizem and Amiodarone. 2. Anticoagulation management per cardiology recommendations. 3. Continue to follow postoperative discharge instructions for cardiac surgery which has been reinforced with the patient, including sternal precautions and use of his heart hugger. 4. Continue to encourage use of incentive spirometry 10 times every hour while awake. 5. Diabetic management per primary care service recommendations. 6. Follow-up appointments and discharged instructions have been placed on his discharge plan. 7. Okay to be discharged home per the cardiothoracic surgery standpoint when okay with primary care service and other consultants. 8. More recommendations to follow based on patient's clinical course. Time with Patient: Greater than 30
--- NOTE | 2020-10-13 15:17 | P.CNPUL ---
History of Present Illness Consult date: 10/13/20 Requesting physician: Mac Conn Reason for consult: dyspnea, abnormal CXR/CT Chief complaint: Left lower lobe infiltrate small effusion, interstitial pneumonitis, CHF History of present illness: This is a 65-year-old white male patient who underwent three-vessel coronary artery bypass grafting on 10/04/2020, with ARAMBULA to the LAD, left radial artery to the obtuse marginal artery, reverse saphenous vein graft to the posterior descending artery, ligation of the left atrial appendage. Patient had transthoracic echocardiogram demonstrating normal left ventricular systolic function preop, with trace central mitral regurgitation, mild central tricuspid regurgitation. His past medical history is significant for hypertension, type 2 diabetes mellitus, coronary artery disease, peripheral arterial disease with history of bilateral lower extremity ulcers, status post amputation of 2 toes on his left foot, history of cataracts. Patient had a fairly uneventful postoperative course, he was discharged home on 10/08/2020, on postoperative day #4. He was successfully weaned and extubated on postoperative day #0, little over 6 hour shalom after surgery. Patient is a lifetime nonsmoker. His preop FEV1 was in the order of 3.1 L or 87% of predicted. On the day of his discharge his chest x-ray showed small bilateral pleural effusions. On 10/11/2020 patient came into the emergency department with complaints of palpitations. He had no complaints of fever, no chest pain, no chills, no nausea vomiting or diarrhea, no shortness of breath. EKG showed SVT with a rate of 141, subsequent EKG showed atrial fibrillation with rapid ventricular response. His chest x-ray on admission showed cardiomegaly with small left pleural effusion,, pulmonary interstitial density was increased compared to his discharge chest x-ray. His admission blood work showed that white blood cell, 9.9, hemoglobin of 9.2, INR is 1.0, sodium is 136, the rest of the electrolytes were within normal limits, B1 is 34, creatinine is 1.37, troponin was 0.486, proBNP was 3640, and urinalysis showed 4+ glucose but negative for any sign of infection. Patient was started on amiodarone infusion, he was started on Eliquis for anticoagulation, patient is also on Cardizem CD 180 mg daily. He underwent successful KARLA followed by cardioversion on 10/12/[address] Thornton. KARLA showed the atrial appendage was clipped, there was no smoke or clot noted in the atria, there was mild mitral regurgitation and mild to moderate tricuspid regurgitation. An cardioversion was successful. Follow-up chest x-ray today s hows left lower lobe infiltrate and small pleural effusion, diffuse interstitial pattern consistent with fluid overload and acute CHF. The patient is quite comfortable, he is on room air, he denies any shortness of breath. His chest x- ray today actually looks better compared to his x-ray from a couple days ago He is awaiting discharge home today. Vital signs are stable Review of Systems All systems: negative Constitutional: Denies chills, Denies fever Eyes: denies blurred vision, denies pain Ears, nose, mouth and throat: Denies headache, Denies sore throat Cardiovascular: Reports palpitations, Denies chest pain, Denies shortness of breath Respiratory: Denies cough Gastrointestinal: Denies abdominal pain, Denies diarrhea, Denies nausea, Denies vomiting Musculoskeletal: Denies myalgias Integumentary: Denies pruritus, Denies rash Neurological: Denies numbness, Denies weakness Psychiatric: Denies anxiety, Denies depression Endocrine: Denies fatigue, Denies weight change Past Medical History Past Medical History: Coronary Artery Disease (CAD), Chest Pain / Angina, Diabetes Mellitus, Hyperlipidemia, Hypertension, Skin Disorder, Vascular Disorder Additional Past Medical History / Comment(s): WOUND BELOW LITTLE TOE LEFT FOOT- HAS CAST & WALKING BOOT., 60 treatments of hyperbaric oxygen therapy last dose 07/28/2020 History of Any Multi-Drug Resistant Organisms: MRSA Date of last positivie culture/infection: 2013 MDRO Source:: toe Past Surgical History: Coronary Bypass/CABG, Heart Catheterization Additional Past Surgical History / Comment(s): tin big toe amputation ()., Cataract removed left eye. triple vessel bypass 10/04/20 Past Anesthesia/Blood Transfusion Reactions: No Reported Reaction Past Psychological History: No Psychological Hx Reported Smoking Status: Never smoker - Past Family History Mother Family Medical History: Cancer Additional Family Medical History / Comment(s): of an aneurysm at 88 years old Father Family Medical History: Diabetes Mellitus Medications and Allergies Home Medications Medication Instructions Recorded Confirmed Type Ascorbic Acid [Vitamin C] 1,000 mg PO DAILY 09/23/20 10/11/20 History Aspirin [Adult Low Dose Aspirin EC] 81 mg PO DAILY 09/23/20 10/11/20 History Cholecalciferol (Vitamin D3) 125 mcg PO DAILY 09/23/20 10/11/20 History [Vitamin D3 (5000 Iu)] Empagliflozin [Jardiance] 25 mg PO DAILY 09/23/20 10/11/20 History glipiZIDE [Glucotrol] 10 mg PO BID 09/23/20 10/11/20 History Atorvastatin [Lipitor] 40 mg PO HS #90 tab 09/27/20 10/11/20 Rx Clopidogrel [Plavix] 75 mg PO DAILY #30 tab 10/08/20 10/11/20 Rx Diltiazem Cd [Cardizem CD] 180 mg PO DAILY #30 cap.er.24h 10/08/20 10/11/20 Rx Pantoprazole [Protonix] 40 mg PO AC-BRKFST #30 tablet.dr 10/08/20 10/11/20 Rx Acetaminophen Tab [Tylenol] 650 mg PO QID PRN 10/11/20 10/11/20 History Sennosides-Docusate Sodium 1 tab PO DAILY PRN 10/11/20 10/11/20 History [Senokot-S] Sennosides-Docusate Sodium 2 tab PO HS PRN 10/11/20 10/11/20 History [Senokot-S] Apixaban [Eliquis] 5 mg PO BID 30 Days #60 tab 10/12/20 Rx Amiodarone [Cordarone] 400 mg PO Q12HR 60 Days #120 tab 10/13/20 Rx Metoprolol Tartrate [Lopressor] 50 mg PO BID tab 10/13/20 Rx Allergies Allergy/AdvReac Type Severity Reaction Status Date / Time No Known Allergies Allergy Verified 10/11/20 23:26 Physical Exam Vitals: Vital Signs Temp Pulse Resp BP Pulse Ox 10/13/20 12:00 74 16 111/58 99 10/13/20 08:00 90 16 129/87 96 10/13/20 03:22 98.9 F 80 17 111/69 98 10/13/20 01:18 77 17 10/13/20 00:00 99.2 F 77 17 105/67 96 10/12/20 20:00 98.5 F 90 17 138/79 100 10/12/20 16:32 98 F 83 16 138/79 99 10/12/20 16:30 98.0 F 83 16 138/79 99 10/12/20 15:50 80 16 123/61 10/12/20 15:35 82 16 117/56 10/12/20 15:20 80 16 129/63 Intake and Output 10/12/20 10/13/20 10/13/20 22:59 06:59 14:59 Intake Total 421.134 358 Balance 421.134 358 Intake: Intake, IV Titration 181.134 Amount Heparin Sod,Pork in 0.45% 106.134 NaCl 25,000 unit In 0.45 % NaCl 1 250ml.bag @ 7.69 UNITS/KG/HR 10.046 mls/ hr IV .Q24H [facility] Rx#: [id number] Sodium Chloride 0.9% 1, 75 000 ml @ 20 mls/hr IV . Q24H [facility] Rx#:[id number] Oral 240 358 Other: Voiding Method Urinal Urinal Urinal # Voids 1 1 Weight 132.9 kg GENERAL EXAM: Alert, very pleasant, 65-year-old white male, on room air, with a pulse ox of 99% comfortable in no apparent distress. HEAD: Normocephalic/atraumatic. EYES: Normal reaction of pupils, equal size. Conjunctiva pink, sclera white. NOSE: Clear with pink turbinates. THROAT: No erythema or exudates. NECK: No masses, no JVD, no thyroid enlargement, no adenopathy. CHEST: No chest wall deformity. Symmetrical expansion. Sternal incision and chest tube sites are clean dry and intact LUNGS: Equal air entry with no crackles, wheeze, rhonchi or dullness. CVS: Regular rate and rhythm, normal S1 and S2, no gallops, no murmurs, no rubs ABDOMEN: Soft, nontender. No hepatosplenomegaly, normal bowel sounds, no guarding or rigidity. EXTREMITIES: No clubbing, no edema, no cyanosis, 2+ pulses and upper and lower extremities. MUSCULOSKELETAL: Muscle strength and tone normal. SPINE: No scoliosis or deformity SKIN: No rashes CENTRAL NERVOUS SYSTEM: Alert and oriented -3. No focal deficits, tone is normal in all 4 extremities. PSYCHIATRIC: Alert and oriented -3. Appropriate affect. Intact judgment and insight. Results - Laboratory Findings CBC and BMP: 10/13/20 08:32 10/13/20 08:32 PT/INR, D-dimer PT 10.5 sec (9.0-12.0) 10/13/20 08:32 INR 1.0 (<1.2) 10/13/20 08:32 Abnormal lab findings: Abnormal Labs 10/11/20 10/11/20 10/11/20 23:05 23:05 23:05 RBC 2.96 L Hgb 9.2 L Hct 27.2 L Sodium 136 L Chloride Carbon Dioxide BUN 34 H Creatinine 1.37 H Glucose 215 H POC Glucose (mg/dL) Troponin I 0.486 H* Total Protein Albumin 3.4 L Urine Glucose (UA) 10/12/20 10/12/20 10/12/20 02:30 04:19 08:16 RBC 2.80 L Hgb 8.8 L Hct 26.5 L Sodium Chloride Carbon Dioxide BUN Creatinine Glucose POC Glucose (mg/dL) Troponin I 0.417 H* Total Protein Albumin Urine Glucose (UA) 4+ H 10/12/20 10/12/20 10/12/20 08:16 09:12 11:36 RBC Hgb Hct Sodium Chloride 109 H Carbon Dioxide 16 L BUN 31 H Creatinine Glucose 150 H POC Glucose (mg/dL) 163 H 141 H Troponin I Total Protein Albumin Urine Glucose (UA) 10/12/20 10/12/20 10/12/20 14:23 17:03 20:17 RBC Hgb Hct Sodium Chloride Carbon Dioxide BUN Creatinine Glucose POC Glucose (mg/dL) 132 H 162 H 135 H Troponin I Total Protein Albumin Urine Glucose (UA) 10/13/20 10/13/20 10/13/20 06:04 08:32 08:32 RBC 2.63 L Hgb 8.3 L Hct 25.3 L Sodium Chloride 108 H Carbon Dioxide 19 L BUN 29 H Creatinine Glucose 162 H POC Glucose (mg/dL) 144 H Troponin I Total Protein 6.1 L Albumin 3.1 L Urine Glucose (UA) 10/13/20 11:38 RBC Hgb Hct Sodium Chloride Carbon Dioxide BUN Creatinine Glucose POC Glucose (mg/dL) 194 H Troponin I Total Protein Albumin Urine Glucose (UA) - Diagnostic Findings Chest x-ray: report reviewed, image reviewed Additional studies: EKG reviewed Assessment and Plan Plan: Assessment: #1. Acute exacerbation of CHF with previously documented diastolic dysfunction, chest x-ray showing interstitial prominence, and small pleural effusions, started on oral Lasix 20 mg daily #2. New onset atrial fibrillation with RVR, status post KARLA and excessive cardioversion, currently in sinus mechanism, has been started on amiodarone and Eliquis #3. Triple-vessel coronary artery disease, status post three-vessel coronary artery bypass grafting on 10/04/2020 with left atrial appendage ligation #4. Hypertension #5. Type 2 diabetes mellitus #6. Dyslipidemia #7. History of peripheral vascular disease with bilateral lower extremity ulcers #8. History of nonhealing ulcers status post amputation of 2 toes on the left foot #9. Acute kidney injury, improved #10. Lifetime nonsmoker, normal preop FEV1 of 3.1 L Plan: Patient is breathing comfortably Today's chest x-ray shows improvement compared to his previous chest x-ray from 2 days ago He is maintaining stable O2 saturations on room air He status post successful KARLA and cardioversion Vital signs are stable Patient can be started on oral Lasix 20 mg daily and discharged home today He will need outpatient follow-up with Dr. Aldrich in the office in 7 days I performed a history & physical examination of the patient and discussed their management with my nurse practitioner, Alexus Jc. I reviewed the nurse practitioner's note and agree with the documented findings and plan of care. Lung sounds are positive for diminished breath sounds. The findings and the impression was discussed with the patient. I attest to the documentation by the nurse practitioner. Time with Patient: Greater than 30
== END 2020-10-13 16:37 | disposition home health service (06) ==
LOC: EC 22:34 → 3SCARD 10-12 03:25 → INTOOBSV 10-12 03:25 → 3SCARD 10-12 14:36
PROVIDERS: ADMIT Hospitalist; ATTEND Hospitalist
DX: I48.92 Unspecified atrial flutter (principal); D64.9 Anemia, unspecified; E11.52 Type 2 diabetes mellitus with diabetic peripheral angiopathy with gangrene; E11.621 Type 2 diabetes mellitus with foot ulcer; E11.65 Type 2 diabetes mellitus with hyperglycemia; E78.5 Hyperlipidemia, unspecified; I11.0 Hypertensive heart disease with heart failure; I25.10 Atherosclerotic heart disease of native coronary artery without angina pectoris; I47.1 Supraventricular tachycardia; I48.0 Paroxysmal atrial fibrillation; I50.32 Chronic diastolic (congestive) heart failure; J84.89 Other specified interstitial pulmonary diseases; L97.529 Non-pressure chronic ulcer of other part of left foot with unspecified severity; L97.919 Non-pressure chronic ulcer of unspecified part of right lower leg with unspecified severity; N17.9 Acute kidney failure, unspecified; Z79.01 Long term (current) use of anticoagulants; Z79.02 Long term (current) use of antithrombotics/antiplatelets; Z79.4 Long term (current) use of insulin; Z79.82 Long term (current) use of aspirin; Z79.899 Other long term (current) drug therapy; Z83.3 Family history of diabetes mellitus; Z86.16 Personal history of COVID-19; Z89.429 Acquired absence of other toe(s), unspecified side; Z95.1 Presence of aortocoronary bypass graft
CPT/HCPCS: 99285; 93312; 92960; 96376 ×2; 96368; 96365; 96366; 96367; 96375; 36415; 93005; 93320; 93325; 83880; 80053 ×2; 80048; 82550; 83605; 83735 ×2; 84100; 84443; 84484 ×2; 85025 ×2; 85027; 85610 ×2; 85730 ×2; 81003; 71045 ×2; 71046; G0378 ×2; J0282 ×2; J1644 ×2; J2704

== ENCOUNTER → 2020-12-08 | Outpatient (CLI) | payer OTHER ==
[2020-12-08 11:13] LABS: HCT 35.2 % (39.0-53.0); HGB 10.6 gm/dL (13.0-17.5); Hypochromasia Marked; MCH 26.2 pg (25.0-35.0); MCHC 30.2 g/dL (31.0-37.0); Mean Platelet Volume 7.3; Platelet Count 234 k/uL (150-450); RBC 4.05 m/uL (4.30-5.90); RDW 15.2 % (11.5-15.5)
[2020-12-08 11:17] LABS: MCV 86.9 fL (80.0-100.0)
[2020-12-08 11:21] LABS: Potassium 5.2 mmol/L (3.5-5.1)
== END | disposition home or self-care (01) ==
LOC: LABPAT 10:06
PROVIDERS: ATTEND Internal Medicine Cardiovascular Disease
DX: Z01.812 Encounter for preprocedural laboratory examination (principal); I48.11 Longstanding persistent atrial fibrillation
CPT/HCPCS: 36415; 80051; 82565; 84520; 85027

== ENCOUNTER 2020-12-20 07:18 | Day surgery (SDC) | payer OTHER ==
[2020-12-16 12:51] VITALS: BMI 38.9
[~2020-12-20 07:18] MED LIST changes: -ALBUMIN HUMAN 25% 50 ML IV ONE; -ALBUMIN HUMAN 5% 500 ML IVPB ONE; -ASPIRIN 325 MG TAB PO ONE; -CALCIUM CHLORIDE 100 MG/ML 10 ML SYRINGE IV ONE; -CHLORHEXIDINE GLUCONATE 15 ML CUP MUCOUS MEM ONE; -CLEVIDIPINE BUTYRATE 25 MG in EMPTY BAG 1 BAG IV ONE; -DEXAMETHASONE SOD PHOSPHATE 4 MG/ML 1 ML VIAL IV ONE; -DILTIAZEM 125 MG in SODIUM CHLORIDE 0.9% 100 ML IV ONE; -ELECTROLYTE-A SOLUTION 1,000 ML with POTASSIUM CHLORIDE 100 MEQ, MAGNESIUM SULFATE 16 M... IV ONE; -ELECTROLYTE-A SOLUTION 1,000 ML with POTASSIUM CHLORIDE 40 MEQ, MAGNESIUM SULFATE 16 ME... IV ONE; -HEPARIN SODIUM 1,000 UN/ML (10ML VL) IV ONE; -HEPARIN SODIUM,PORCINE 5,000 UNIT in SODIUM CHLORIDE 0.9% 500 ML 500 ML IV ONE; -INSULIN REGULAR 100 UNIT in SODIUM CHLORIDE 0.9% 100 ML IV ONE; -LACTATED RINGERS 1,000 ML IV ONE; -LACTATED RINGERS 1,000 ML IV SCH; -MAGNESIUM SULFATE MG 500 MG/ML IV ONE; -MANNITOL 25% 12.5 GM/50 ML VIAL IV ONE; -NITROGLYCERIN SL TABS 0.4 MG TAB SUBLINGUAL ONE; -NITROGLYCERIN-D5W PMX 25 MG/250 ML BTL IV ONE; -NITROGLYCERIN-D5W PMX 50 MG in DEXTROSE/WATER 1 250ML.BAG IV ONE; -NOREPINEPHRINE 4 MG in SODIUM CHLORIDE 0.9% 250 ML IV ONE; -ONDANSETRON 4 MG/2 ML VIAL IVP ONE; -PAPAVERINE 360 MG in SODIUM CHLORIDE 0.9% 90 ML IV ONE; -PHENYLEPHRINE 10 MG/ML VIAL IV ONE; -PHENYLEPHRINE 40 MG in SODIUM CHLORIDE 0.9% 250 ML IV ONE; -PROTAMINE SULFATE 10 MG/ML 25 ML VIAL IV ONE; -PROTAMINE SULFATE 250 MG in EMPTY BAG 1 BAG IV ONE; -SODIUM BICARB 8.4% 50 ML SYR (1 MEQ/ML) IV ONE; -SODIUM CHLORIDE 0.9% 1,000 ML IV ONE; +SODIUM CHLORIDE 0.9% 1,000 ML IV SCH; -TRANEXAMIC ACID 2,000 MG in SODIUM CHLORIDE 0.9% 80 ML IV ONE; -ceFAZolin 1,000 MG in SODIUM CHLORIDE 0.9% IRRIGATIO 1,000 ML IRRIGATION ONE; -ceFAZolin 3 GM in SODIUM CHLORIDE 0.9% 100 ML IVPB ONE; -propofoL 1,000 MG/100 ML VIAL IV ONE
[2020-12-20 07:59] LABS: Glucose,Whole Blood 135 mg/dL (75-99)
[2020-12-20] MEDS ORDERED: SODIUM CHLORIDE 0.9% 500 ML 500 ML IV ONE (08:00)
[2020-12-20 08:09] VITALS: RESP 16; TEMP 97.9
[2020-12-20] MEDS ORDERED: PROPOFOL 10 MG/ML 20 ML VIAL IV ONE (08:52)
[2020-12-20] MEDS ORDERED: LIDOCAINE 1% INJ 10MG/ML (20 ML MDV) ONE (08:52)
[2020-12-20] MEDS ORDERED: SODIUM CHLORIDE 0.9% 1,000 ML IV SCH (09:30)
[2020-12-20 11:02] VITALS: BP 118/72; PULSE 106
--- NOTE | 2020-12-20 11:21 | ECHOT ---
TRANSESOPHAGEAL ECHOCARDIOGRAM PROCEDURE: Transesophageal echocardiogram. INDICATION: Persistent atrial fibrillation. PROCEDURE DESCRIPTION: After obtaining informed consent, transesophageal echocardiogram was performed in left lateral position using an Omniplane probe. Local and IV sedation were obtained by the clinical reviewer. The patient underwent 2D, M-mode, color Doppler and spectral analysis. FINDINGS: 1. Left atrial appendage is occluded. Patient is status post surgery. I do not see any intracardiac thrombus. Left atrium, right atrium, right ventricle seem within normal limits. 2. Left ventricle has normal size and shows atypical septal motion with normal LV function. There is mild mitral regurgitation noted. There is trace aortic regurgitation noted. There is mild tricuspid regurgitation noted. 3. Interatrial septum: There is no evidence of [id number] shunt by color-flow Doppler or [id number] shunt by agitated saline contrast study. CONCLUSIONS: 1. No intracardiac thrombus. 2. Normal LV function. MMODL / IJN: [id number] /
--- NOTE | 2020-12-20 11:30 | PCN ---
PROCEDURE NOTE CARDIOVERSION NOTE: Patient converted to sinus rhythm after his intubation and sedation and seemed to be going in and out of atrial fibrillation on the rhythm strip. He is currently on amiodarone, which I am going to continue. The cardioversion procedure has been canceled. AJYCE / BEBE: [id number] /
== END 2020-12-20 10:55 | disposition home or self-care (01) ==
LOC: CATHCVL 07:18
PROVIDERS: ATTEND Internal Medicine Cardiovascular Disease
DX: I48.11 Longstanding persistent atrial fibrillation (principal); I10 Essential (primary) hypertension; E78.5 Hyperlipidemia, unspecified; Z20.822 Contact with and (suspected) exposure to COVID-19; E11.9 Type 2 diabetes mellitus without complications; I73.9 Peripheral vascular disease, unspecified; Z95.1 Presence of aortocoronary bypass graft; Z82.49 Family history of ischemic heart disease and other diseases of the circulatory system; Z79.84 Long term (current) use of oral hypoglycemic drugs; Z79.01 Long term (current) use of anticoagulants; Z79.82 Long term (current) use of aspirin; Z79.899 Other long term (current) drug therapy
CPT/HCPCS: 93312; 93320; 93325; 87635; J2001; J2704; 92960

== ENCOUNTER 2021-03-08 05:57 | Day surgery (SDC) | payer OTHER ==
[2021-03-01 16:00] VITALS: BMI 38.9
[2021-03-08] MEDS ORDERED: APIXABAN 5 MG TAB PO STA (06:07)
[2021-03-08 06:35] LABS: Glucose,Whole Blood 161 mg/dL (75-99)
[2021-03-08 06:46] LABS: Potassium 4.3 mmol/L (3.5-5.1)
[2021-03-08 07:49] VITALS: TEMP 98
[2021-03-08 07:50] VITALS: RESP 16
[2021-03-08 08:24] VITALS: PULSE 78
[2021-03-08] MEDS ORDERED: SODIUM CHLORIDE 0.9% 1,000 ML IV SCH (08:45)
[2021-03-08 09:13] VITALS: BP 114/73
--- NOTE | 2021-03-08 11:04 | ECHOT ---
TRANSESOPHAGEAL ECHOCARDIOGRAM INDICATION: Persistent atrial fibrillation to rule out intracardiac thrombus. PROCEDURE NOTE: After obtaining informed consent, transesophageal echocardiogram is performed in left lateral position using an Omniplane probe. Local and IV sedation were obtained by the aboriginal liaison officer. Color Doppler, 2D M-mode and spectral analysis were performed. Patient tolerated the procedure well without any obvious immediate complications. FINDINGS: There is no intracardiac thrombus within the left atrium, right atrium, right ventricle or left ventricle. Left atrial appendage has been closed at his bypass surgery. I do not see any thrombus around it. Mitral valve is anatomically normal. There is mild central mitral regurgitation noted. Left atrium appears mildly enlarged. Aortic valve is free of stenosis or regurgitation. There is mild tricuspid regurgitation. Interatrial septum: There is no evidence of jhrh-ta-jhsor shunt by color-flow Doppler or lgxwh-jl-moug shunt by agitated saline contrast study. Left ventricle has normal size, shows atypical septal motion with mild LV systolic dysfunction. Aortic root measures within normal limits. CONCLUSION: No intracardiac thrombus. PLAN: Patient will undergo cardioversion. MMODL / IJN: [id number] /
--- NOTE | 2021-03-09 08:23 | ECHOT ---
TRANSESOPHAGEAL ECHOCARDIOGRAM ADDENDUM TO TRANSESOPHAGEAL ECHOCARDIOGRAM: CARDIOVERSION NOTE: INDICATION: Persistent atrial fibrillation. PROCEDURE DESCRIPTION: After obtaining informed consent, anticoagulating the patient adequately with Eliquis and ensuring that there is no intracardiac thrombus with a transesophageal echo, patient underwent cardioversion using 100 joules of synchronized DC current, and following a single shock he converted to sinus rhythm. He will continue the Eliquis and rest of his medications and will follow up with me in the office in a week's time. JAYCE / ELVISN: [id number] /
== END 2021-03-08 09:10 | disposition home or self-care (01) ==
LOC: CATHCVL 05:57
PROVIDERS: ATTEND Internal Medicine Cardiovascular Disease
DX: I48.19 Other persistent atrial fibrillation (principal); I08.1 Rheumatic disorders of both mitral and tricuspid valves; I10 Essential (primary) hypertension; E11.9 Type 2 diabetes mellitus without complications; Z20.822 Contact with and (suspected) exposure to COVID-19; Z79.01 Long term (current) use of anticoagulants; Z95.1 Presence of aortocoronary bypass graft; Z79.84 Long term (current) use of oral hypoglycemic drugs; Z79.82 Long term (current) use of aspirin; Z79.899 Other long term (current) drug therapy
CPT/HCPCS: 80051; 87635; 92960; 93312; 93320; 93325

== ENCOUNTER → 2023-10-07 | Outpatient (CLI) | payer MEDICARE ==
[2023-10-07 17:33] LABS: ALT 22 U/L (10-49); AST 22 U/L (14-35); Chol/HDL Ratio 3.36 Ratio; LDL Cholesterol,Calculated 69.1 mg/dL (0.0-131.0)
== END | disposition home or self-care (01) ==
LOC: LABWHC1 08:24
PROVIDERS: ATTEND Internal Medicine Cardiovascular Disease
DX: E78.2 Mixed hyperlipidemia (principal)
CPT/HCPCS: 36415; 80061; 84450; 84460

== ENCOUNTER 2024-04-27 15:14 | Inpatient (IN) | payer MEDICARE ==
--- NOTE | 2024-04-27 16:03 | ED ---
Arrhythmia/Palpitations HPI - General Source: patient, RN notes reviewed Mode of arrival: ambulatory Limitations: no limitations <Dina Baldwin - Last Filed: 04/27/24 16:00> <Phuc Collins - Last Filed: 04/27/24 19:46> - General Chief Complaint: Arrhythmia/Palpitations Stated Complaint: hrt rcing sob Time Seen by Provider: 04/27/24 15:55 - History of Present Illness Initial Comments: Quick Note: This is a 68-year-old male who presents to the emergency department for tachycardia. States that he was sent from Dr. Velazquez's office for evaluation. Denies any chest pain or shortness of breath. Reports a history of A-fib that has required cardioversion in the past. (Dina Baldwin) Dictation was produced using [employer] dictation software. please excuse any grammatical, word or spelling errors. Chief Complaint: 68-year-old male scented to the emergency department for A-fib RVR History of Present Illness: Patient 68-year-old male he was at the etcher enameling office for 6-month checkup. He is found to be in A-fib RVR. Patient denies any symptoms. States etcher enameling told him come to the ER for further care. Patient has no chest pain. No shortness of breath. Denies any palpitations. The ROS documented in this emergency department record has been reviewed and confirmed by me. Those systems with pertinent positive or negative responses have been documented in the HPI. All other systems are other negative and/or noncontributory. (Phuc Collins) - Related Data Home Medications Medication Instructions Recorded Confirmed Metoprolol Tartrate [Lopressor] 75 mg PO BID 04/27/24 04/27/24 Ozempic (Unknown Dose) 1 dose SQ MO 04/27/24 04/27/24 Pioglitazone [Actos] 45 mg PO DAILY 04/27/24 04/27/24 glipiZIDE [Glucotrol] 10 mg PO DAILY 04/27/24 04/27/24 metFORMIN HCL 1,000 mg PO HS 04/27/24 04/27/24 Previous Rx's Medication Instructions Recorded Atorvastatin [Lipitor] 40 mg PO HS #90 tab 09/27/20 Diltiazem Cd [Cardizem CD] 180 mg PO DAILY #30 cap.er.24h 10/08/20 Furosemide [Lasix] 20 mg PO DAILY 30 Days #30 tab 10/13/20 Allergies Allergy/AdvReac Type Severity Reaction Status Date / Time No Known Allergies Allergy Verified 04/27/24 17:55 Review of Systems ROS Other: All systems not noted in ROS Statement are negative. <Dina Baldwin - Last Filed: 04/27/24 16:00> ROS Other: All systems not noted in ROS Statement are negative. <Phuc Collins - Last Filed: 04/27/24 19:46> ROS Statement: Those systems with pertinent positive or pertinent negative responses have been documented in the HPI. Past Medical History Past Medical History: Coronary Artery Disease (CAD), Chest Pain / Angina, Diabetes Mellitus, Hyperlipidemia, Hypertension, Skin Disorder, Vascular Disorder Additional Past Medical History / Comment(s): WOUND BELOW LITTLE TOE LEFT FOOT- HAS CAST & WALKING BOOT., 60 treatments of hyperbaric oxygen therapy last dose 07/28/2020. History of Any Multi-Drug Resistant Organisms: MRSA Date of last positivie culture/infection: 2013 MDRO Source:: toe Past Surgical History: Coronary Bypass/CABG, Heart Catheterization Additional Past Surgical History / Comment(s): tin big toe amputation (2009, 2013)., Cataract removed left eye. triple vessel bypass 10/04/20. Past Anesthesia/Blood Transfusion Reactions: No Reported Reaction Past Psychological History: No Psychological Hx Reported Smoking Status: Never smoker Past Alcohol Use History: Occasional Past Drug Use History: None Reported - Past Family History Mother Family Medical History: Cancer Additional Family Medical History / Comment(s): of an aneurysm at 88 years old Father Family Medical History: Diabetes Mellitus <Dina Baldwin - Last Filed: 04/27/24 16:00> General Exam Limitations: no limitations <Dina Baldwin - Last Filed: 04/27/24 16:00> <Phuc Collins - Last Filed: 04/27/24 19:46> - General Exam Comments Initial Comments: Visual Physical Exam Vital signs reviewed General: Well-appearing, nontoxic, no acute distress. Head: Normocephalic, atraumatic Eyes: PERRLA, EOMI ENT: Airway patent Chest: Nonlabored breathing Skin: No visual rash, normal skin tone Neuro: Alert and oriented 3 Musculoskeletal: No gross abnormalities (Dina Baldwin) PHYSICAL EXAM: General Impression: Alert and oriented x3, not in acute distress HEENT: Normocephalic atraumatic, extra-ocular movements intact, pupils equal and reactive to light bilaterally, mucous membranes moist. Cardiovascular: Irregularly irregular Chest: Able to complete full sentences, no retractions, no tachypnea Abdomen: abdomen soft, non-tender, non-distended, no organomegaly Musculoskeletal: Pulses present and equal in all extremities, no peripheral edema Motor: no focal deficits noted Neurological: CN II-XII grossly intact, no focal motor or sensory deficits noted Skin: Intact with no visualized rashes Psych: Normal affect and mood (Phuc Collins) Course Vital Signs 04/27/24 04/27/24 15:46 19:16 Temperature 98.5 F Pulse Rate 144 H 103 H Respiratory 18 18 Rate Blood Pressure 133/86 123/73 O2 Sat by Pulse 95 98 Oximetry EKG Findings - EKG Comments: EKG Findings:: My EKG interpretation: Ventricular rate 143, A-flutter, QRS 101, QTc 434. No IA prolongation, no QTC prolongation, no ST or T-wave changes noted. <Phuc Collins - Last Filed: 04/27/24 19:46> Medical Decision Making <Dina Baldwin - Last Filed: 04/27/24 16:00> - Lab Data Result diagrams: 04/27/24 16:01 04/27/24 16:01 <Phuc Collins - Last Filed: 04/27/24 19:46> - Medical Decision Making I performed the QuickNote portion of this chart. Signed Dina Baldwin PA-C. (Dina Baldwin) Was pt. sent in by a medical professional or institution ([facility], [employer] SUPERVISOR, urgent care, hospital, or retirement...) When possible be specific @ -Sent in from cardiology office Did you speak to anyone other than the patient for history (EMS, parent, family, police, friend...)? What history was obtained from this source @ -No Did you review nursing and triage notes (agree or disagree)? Why? @ -I reviewed and agree with nursing and triage notes Were old charts reviewed (outside hosp., previous admission, EMS record, old EKG, old radiological studies, urgent care reports/EKG's, retirement records)? Report findings @ -No old charts were reviewed Differential Diagnosis (chest pain, altered mental status, abdominal pain women, abdominal pain men, vaginal bleeding, musculoskeletal, weakness, fever, dyspnea, syncope, headache, dizziness, GI bleed, back pain, seizure, CVA, palpatations, mental health)? @ - Differential Palpitations: Ventricular arrhythmias, atrial arrhythmias, myocardial infarction, anemia, thyrotoxicosis, electrolyte imbalance, hypokalemia, pulmonary embolism, pulmonary disease, drugs, alcohol, anxiety, stress.... This is not meant to be an all-inclusive list. EKG interpreted by me (3pts min.). @ -See above X-rays interpreted by me (1pt min.). @ -Chest x-ray shows CHF CT interpreted by me (1pt min.). @ -None done U/S interpreted by me (1pt. min.). @ -None done What testing was considered but not performed or refused? (CT, X-rays, U/S, labs)? Why? @ -None What meds were considered but not given or refused? Why? @ -None Was smoking cessation discussed for >3mins.? @ -No Were there social determinants of health that impacted care today? How? (Homelessness, low income, unemployed, alcoholism, drug addiction, transportation, low edu. Level, literacy, decrease access to med. care, senior living, rehab)? @ -No Was there de-escalation of care discussed even if they declined (Discuss DNR or withdrawal of care, Hospice)? DNR status @ -No What co-morbidities impacted this encounter? (DM, HTN, Smoking, COPD, CAD, Cancer, CVA, ARF, Chemo, Hep., AIDS, mental health diagnosis, sleep apnea, morbid obesity)? @ -None Was patient admitted / discharged? Hospital course, mention meds given and route, prescriptions, significant lab abnormalities, going to OR and other pertinent info. @ -68-year-old male redirects emergency department from cardiology office for A-fib RVR. Vital signs upon arrival shows initial heart rate 144. Rest of vital signs within acceptable limits. Patient well-appearing with no complaints at the bedside. Patient started current Cardizem and heparin. Laboratory evaluation obtained. Labs within acceptable limits. Trope negative. Patient heart rate improved. Will be admitted consultation to cardiology. Did you discuss the management of the patient with other professionals (professionals i.e. , PA, [employer] SUPERVISOR, lab, RT, psych nurse, sr. social media & mobile manager, smoke inspector, teacher, chief analytics officer, case loader operator)? Give summary @ -Case discussed with hospitalist for admission Was critical care preformed (if so, how long)? @ -Yes, 33 minutes Undiagnosed new problem with uncertain prognosis? @ -No Drug Therapy requiring intensive monitoring for toxicity (Heparin, Nitro, Insulin, Cardizem)? @ -No Were any procedures done? @ -No Diagnosis/symptom? Acute, or Chronic, or Acute on Chronic? Uncomplicated (without systemic symptoms) or Complicated (systemic symptoms)? @ -New onset A-fib RVR Side effects of treatment? @ -No Exacerbation, Progression, or Severe Exacerbation? @ -No Poses a threat to life or bodily function? How? (Chest pain, USA, MS, pneumonia, PE, COPD, DKA, ARF, appy, cholecystitis, CVA, Diverticulitis, Homicidal, Suicidal, threat to staff... and all critical care pts) @ -yes (Phuc Collins) - Lab Data Lab Results 04/27/24 04/27/24 04/27/24 Range/Units 16:01 16:01 16:01 WBC 7.5 (3.8-10.6) k/uL RBC 4.86 (4.30-5.90) m/uL Hgb 14.3 (13.0-17.5) gm/dL Hct 44.9 (39.0-53.0) % MCV 92.3 (80.0-100.0) fL MCH 29.4 (25.0-35.0) pg MCHC 31.8 (31.0-37.0) g/dL RDW 14.5 (11.5-15.5) % Plt Count 171 (150-450) k/uL MPV 8.0 Neutrophils % 67 % Lymphocytes % 21 % Monocytes % 6 % Eosinophils % 4 % Basophils % 1 % Neutrophils # 5.1 (1.3-7.7) k/uL Lymphocytes # 1.6 (1.0-4.8) k/uL Monocytes # 0.4 (0-1.0) k/uL Eosinophils # 0.3 (0-0.7) k/uL Basophils # 0.0 (0-0.2) k/uL PT 11.6 (10.0-12.5) sec INR 1.1 (<1.2) APTT 24.7 (22.0-30.0) sec Sodium 140 (137-145) mmol/L Potassium 4.9 (3.5-5.1) mmol/L Chloride 104 (98-107) mmol/L Carbon Dioxide 25 (22-30) mmol/L Anion Gap 11 mmol/L BUN 24 H (9-20) mg/dL Creatinine 1.13 (0.66-1.25) mg/dL Est GFR (CKD-EPI)AfAm 78 (>60 ml/min/1.73 sqM) Est GFR (CKD-EPI)NonAf 67 (>60 ml/min/1.73 sqM) Glucose 175 H (74-99) mg/dL Calcium 9.5 (8.4-10.2) mg/dL Magnesium 1.9 (1.6-2.3) mg/dL Total Bilirubin 1.4 H (0.2-1.3) mg/dL AST 27 (17-59) U/L ALT 22 (4-49) U/L Alkaline Phosphatase 146 H (38-126) U/L Troponin I (0.000-0.034) ng/mL Total Protein 7.5 (6.3-8.2) g/dL Albumin 4.3 (3.5-5.0) g/dL 04/27/24 Range/Units 16:01 WBC (3.8-10.6) k/uL RBC (4.30-5.90) m/uL Hgb (13.0-17.5) gm/dL Hct (39.0-53.0) % MCV (80.0-100.0) fL MCH (25.0-35.0) pg MCHC (31.0-37.0) g/dL RDW (11.5-15.5) % Plt Count (150-450) k/uL MPV Neutrophils % % Lymphocytes % % Monocytes % % Eosinophils % % Basophils % % Neutrophils # (1.3-7.7) k/uL Lymphocytes # (1.0-4.8) k/uL Monocytes # (0-1.0) k/uL Eosinophils # (0-0.7) k/uL Basophils # (0-0.2) k/uL PT (10.0-12.5) sec INR (<1.2) APTT (22.0-30.0) sec Sodium (137-145) mmol/L Potassium (3.5-5.1) mmol/L Chloride (98-107) mmol/L Carbon Dioxide (22-30) mmol/L Anion Gap mmol/L BUN (9-20) mg/dL Creatinine (0.66-1.25) mg/dL Est GFR (CKD-EPI)AfAm (>60 ml/min/1.73 sqM) Est GFR (CKD-EPI)NonAf (>60 ml/min/1.73 sqM) Glucose (74-99) mg/dL Calcium (8.4-10.2) mg/dL Magnesium (1.6-2.3) mg/dL Total Bilirubin (0.2-1.3) mg/dL AST (17-59) U/L ALT (4-49) U/L Alkaline Phosphatase (38-126) U/L Troponin I <0.012 (0.000-0.034) ng/mL Total Protein (6.3-8.2) g/dL Albumin (3.5-5.0) g/dL Disposition <Dina Baldwin - Last Filed: 04/27/24 16:00> Decision Time: 19:46 <Phuc Collins - Last Filed: 04/27/24 19:46> Clinical Impression: Atrial fibrillation Disposition[facility] Condition: Fair Referrals: None,Stated [REFERRING] - 1-2 days
[2024-04-27 16:13] LABS: Basophils % (A) 1 %; Eosinophils # (A) 0.3 k/uL (0-0.7); Eosinophils % (A) 4 %; HCT 44.9 % (39.0-53.0); HGB 14.3 gm/dL (13.0-17.5); Lymphocytes # (A) 1.6 k/uL (1.0-4.8); Lymphocytes % (A) 21 %; MCH 29.4 pg (25.0-35.0); MCHC 31.8 g/dL (31.0-37.0); MCV 92.3 fL (80.0-100.0); Monocytes # (A) 0.4 k/uL (0-1.0); Monocytes % (A) 6 %; Neutrophils # (A) 5.1 k/uL (1.3-7.7); Neutrophils % (A) 67 %; Platelet Count 171 k/uL (150-450); RBC 4.86 m/uL (4.30-5.90); RDW 14.5 % (11.5-15.5); WBC 7.5 k/uL (3.8-10.6)
[2024-04-27 16:39] LABS: ALT 22 U/L (4-49); AST 27 U/L (17-59); African American GFR (CKD) 78 (>60 ml/min/1.73 sqM); Albumin 4.3 g/dL (3.5-5.0); Alkaline Phosphatase 146 U/L (38-126); Anion Gap 11 mmol/L; Blood Urea Nitrogen 24 mg/dL (9-20); Calcium 9.5 mg/dL (8.4-10.2); Carbon Dioxide 25 mmol/L (22-30); Chloride 104 mmol/L (98-107); Glucose 175 mg/dL (74-99); Magnesium 1.9 mg/dL (1.6-2.3); Non-African American GFR(CKD) 67 (>60 ml/min/1.73 sqM); Potassium 4.9 mmol/L (3.5-5.1); Sodium 140 mmol/L (137-145); Total Bilirubin 1.4 mg/dL (0.2-1.3); Total Protein 7.5 g/dL (6.3-8.2)
[2024-04-27 16:50] LABS: Partial Thromboplastin Time 24.7 sec (22.0-30.0)
[2024-04-27 17:03] LABS: INR 1.1 (<1.2); Prothrombin Time 11.6 sec (10.0-12.5)
[2024-04-27] MEDS: DILTIAZEM 125 MG in SODIUM CHLORIDE 0.9% 100 ML IV SCH (18:33)
[2024-04-27] MEDS: DILTIAZEM DRIP BOLUS FROM BAG 1 MG SOLN IV ONE (18:35)
[2024-04-27] MEDS: HEPARIN SODIUM 1,000 UN/ML (10ML VL) IV ONE (18:41)
[2024-04-27] MEDS: HEPARIN SOD,PORK IN 0.45% NACL 25,000 UNIT in 0.45% NACL 1 250ML.BAG IV SCH (18:42)
--- NOTE | 2024-04-27 19:34 | XR ---
EXAMINATION TYPE: XR chest 2V DATE OF EXAM: 04/27/2024 6:12 PM COMPARISON: 10/13/2020 CLINICAL INDICATION: Male, 68 years old with history of dysrhythmia, TECHNIQUE: XR chest 2V view(s) obtained. FINDINGS: The heart size is enlarged. The pulmonary vasculature is upper limits of normal. Mild diffuse increased lung markings are present. Early volume overload could be considered. IMPRESSION: 1. Clinical correlation recommended for early volume overload or congestive heart failure. [facility], , 04/27/2024 7:32 PM
[2024-04-27] MEDS ORDERED: NALOXONE 0.4 MG/ML 1 ML VIAL IV PRN (19:42)
[2024-04-27] MEDS: SODIUM CHLORIDE 0.9% 1,000 ML IV SCH (20:39)
[2024-04-27] MEDS ORDERED: DEXTROSE 50% SYRINGE 50 ML IVP PRN ×2 (21:35)
[2024-04-27 21:39] LABS: Glucose,Whole Blood 199 mg/dL (70-110)
[2024-04-27 22:07] LABS: Appearance,Urine Clear (Clear); Bilirubin,Urine Negative (Negative); Blood,Urine Negative (Negative); Color,Urine Yellow; Glucose,Urine (UA) 1+ (Negative); Ketones,Urine Negative (Negative); Leukocyte Esterase,Urine Negative (Negative); Nitrite,Urine Negative (Negative); Protein,Urine Trace (Negative); Specific Gravity,Urine 1.025 (1.001-1.035)
[2024-04-27] MEDS: ATORVASTATIN 40 MG TAB PO SCH (22:25)
[2024-04-27] MEDS: metFORMIN 500 MG TAB PO SCH (22:25)
[2024-04-27] MEDS: METOPROLOL TARTRATE 25 MG TAB PO SCH (22:26)
[2024-04-28] MEDS: FUROSEMIDE 20 MG TAB PO SCH (07:59)
[2024-04-28] MEDS: glipiZIDE 10 MG TAB PO SCH (07:59)
[2024-04-28 08:04] LABS: Glucose,Whole Blood 200 mg/dL (70-110)
[2024-04-28] MEDS: INSULIN ASPART (NovoLOG) 100 UNIT/ML VIAL SQ SCH (08:05)
[2024-04-28] MEDS: PIOGLITAZONE 45 MG TAB PO SCH (09:35)
[2024-04-28] MEDS: HEPARIN SODIUM 1,000 UN/ML (10ML VL) IV PRN (10:56)
[2024-04-28] MEDS: DILTIAZEM CD 180 MG CAP.ER.24H PO SCH (11:36)
--- NOTE | 2024-04-28 12:46 | P.CRDCN ---
History of Present Illness History of present illness: HISTORY OF PRESENT ILLNESS: This is a 68-year-old male with a past medical history significant for coronary artery disease with previous CABG, atrial fibrillation, diabetes, hypertension, hyperlipidemia, and morbid obesity. Patient follows in the office with Dr. Velazquez. We have been asked to see the patient in consultation for A-fib with RVR. Patient examined at the bedside in the emergency room. Patient was at the cardiology office yesterday when he was noted to be in A-fib with RVR with a heart rate of 140. The patient was advised to come to the emergency room. The patient states he has been feeling short of breath and having palpitations over the past few months. The patient was started on IV Cardizem and IV heparin. He remains on IV Cardizem at 10 mg an hour. Bedside telemetry reveals atrial fibrillation/flutter with a heart rate in the 60s. Patient does report that he is feeling better this morning. The patient states he was not taking any blood thinners on an outpatient basis. DIAGNOSTICS: - EKG reveals atrial flutter with RVR. Repeat EKG reveals atrial fl utter/fibrillation - Chest xray pulmonary vasculature is upper limits of normal. Mild diffuse incr eased lung markings are present. - Laboratory data: WBC 7.5. Hemoglobin 14.3. Platelet count 171. Sodium 140. Potassium 4.9. BUN 24. Creatinine 1.13. Troponin negative x 1. - Current home cardiac medications include Lipitor 40 mg at night, Cardizem CD 180mg daily, Lasix 20 mg daily, metoprolol tartrate 75 mg twice a day. - Most recent echocardiogram obtained in September 2021 revealed ejection fraction 55%, mild concentric LVH, small hypokinetic area in the inferior septal wall from mid wall to the apex. Mild TR. Mild MR. - Patient underwent Lexiscan stress test in June 2021 which was negative for ischemia REVIEW OF SYSTEMS: At the time of my exam: CONSTITUTIONAL: Denies fever or chills. HEENT: Denies blurred vision, vision changes, or eye pain. Denies hemoptysis CARDIOVASCULAR: Denies chest pain. Denies orthopnea. Denies PND. Denies palpitations RESPIRATORY: Denies shortness of breath. GASTROINTESTINAL: Denies abdominal pain. Denies nausea or vomiting. HEMATOLOGIC: Denies bleeding disorders. GENITOURINARY: Denies any blood in urine. SKIN: Denies pruitis. Denies rash. PHYSICAL EXAM: VITAL SIGNS: Reviewed. GENERAL: Well-developed in no acute distress. HEENT: Head is normocephalic. Pupils are equal, round. Sclerae anicteric. Mucous membranes of the mouth are moist. Neck supple. No JVD or thyromegaly LUNGS: Respirations even and unlabored. Lungs essentially clear to auscultation bilaterally. HEART: Irregular rate and rhythm. S1 and S2 heard. Systolic murmur noted ABDOMEN: Soft. Nondistended. Nontender. EXTREMITIES: Normal range of motion. No clubbing or cyanosis. Peripheral pulses intact. Trace bilateral lower extremity edema NEUROLOGIC: Awake and alert. Oriented x 3. ASSESSMENT: Palpitations and shortness of breath x 2 to 3 months Paroxysmal atrial fibrillation/typical atrial flutter with RVR, currently rate controlled Coronary artery disease with previous CABG Hypertension Hyperlipidemia Diabetes Morbid obesity: BMI 44.6 PLAN: Obtain 2D echo to assess cardiac structure and function Begin Xarelto 20 mg starting this evening. Continue IV heparin in the interim. Continue metoprolol tartrate 75 mg twice a day Discontinue IV Cardizem. Resume oral Cardizem 180 mg daily Continue telemetry monitoring Will consider outpatient KARLA/cardioversion Possible discharge home tomorrow if patient's heart rates remain controlled Patient to follow-up postdischarge with Dr. Velazquez Nurse practitioner note has been reviewed by physician. Signing provider agrees with the documented findings, assessment, and plan of care documented by [employer] as a scribe. Past Medical History Past Medical History: Coronary Artery Disease (CAD), Chest Pain / Angina, Diabetes Mellitus, Hyperlipidemia, Hypertension, Skin Disorder, Vascular Disorder Additional Past Medical History / Comment(s): WOUND BELOW LITTLE TOE LEFT FOOT- HAS CAST & WALKING BOOT., 60 treatments of hyperbaric oxygen therapy last dose 07/28/2020. History of Any Multi-Drug Resistant Organisms: MRSA Date of last positivie culture/infection: 2013 MDRO Source:: toe Past Surgical History: Coronary Bypass/CABG, Heart Catheterization Additional Past Surgical History / Comment(s): tin big toe amputation (2009, 201 4)., Cataract removed left eye. triple vessel bypass 10/04/20. Past Anesthesia/Blood Transfusion Reactions: No Reported Reaction Past Psychological History: No Psychological Hx Reported Smoking Status: Never smoker Past Alcohol Use History: Occasional Past Drug Use History: None Reported - Past Family History Mother Family Medical History: Cancer Additional Family Medical History / Comment(s): of an aneurysm at 88 years old Father Family Medical History: Diabetes Mellitus Medications and Allergies Home Medications Medication Instructions Recorded Confirmed Type Atorvastatin [Lipitor] 40 mg PO HS #90 tab 09/27/20 04/27/24 Rx Diltiazem Cd [Cardizem CD] 180 mg PO DAILY #30 cap.er.24h 10/08/20 04/27/24 Rx Furosemide [Lasix] 20 mg PO DAILY 30 Days #30 tab 10/13/20 04/27/24 Rx Metoprolol Tartrate [Lopressor] 75 mg PO BID 04/27/24 04/27/24 History Pioglitazone [Actos] 45 mg PO DAILY 04/27/24 04/27/24 History glipiZIDE [Glucotrol] 10 mg PO DAILY 04/27/24 04/27/24 History metFORMIN HCL 1,000 mg PO HS 04/27/24 04/27/24 History Semaglutide [Ozempic] 1 mg SQ MO 04/28/24 04/28/24 History Allergies Allergy/AdvReac Type Severity Reaction Status Date / Time No Known Allergies Allergy Verified 04/27/24 17:55 Physical Exam Vitals: Vital Signs Temp Pulse Pulse Resp BP Pulse Ox 04/28/24 09:36 65 22 110/73 98 04/28/24 08:12 65 04/28/24 07:50 65 20 104/66 97 04/28/24 06:00 65 18 111/74 96 04/28/24 04:00 67 15 105/74 93 L 04/27/24 23:00 86 20 116/75 98 04/27/24 22:00 101 H 20 107/51 94 L 04/27/24 21:30 123 H 22 121/99 97 04/27/24 20:01 114 H 28 H 109/64 98 04/27/24 19:16 103 H 18 123/73 98 04/27/24 15:46 98.5 F 144 H 18 133/86 95 Intake and Output 04/27/24 04/28/24 04/28/24 22:59 06:59 14:59 Intake Total 70.167 162.484 Balance 70.167 162.484 Intake: Intake, IV Titration 70.167 162.484 Amount Diltiazem 125 mg In 70.167 Sodium Chloride 0.9% 100 ml @ 10 MG/HR 10 mls/hr IV .[id number] [facility] Rx#: [id number] Heparin Sod,Pork in 0.45% 162.484 NaCl 25,000 unit In 0.45 % NaCl 1 250ml.bag @ 6. 522 UNITS/KG/HR 9.999 mls /hr IV .Q24H [facility] Rx#: [id number] Other: Weight 153.314 kg Results 04/27/24 16:01 04/27/24 16:01 Cardiac Enzymes 04/27/24 04/27/24 Range/Units 16:01 16:01 AST 27 (17-59) U/L Troponin I <0.012 (0.000-0.034) ng/mL Coagulation 04/27/24 04/28/24 04/28/24 Range/Units 16:01 00:56 10:00 PT 11.6 (10.0-12.5) sec APTT 24.7 34.5 H 29.4 (22.0-30.0) sec CBC 04/27/24 Range/Units 16:01 WBC 7.5 (3.8-10.6) k/uL RBC 4.86 (4.30-5.90) m/uL Hgb 14.3 (13.0-17.5) gm/dL Hct 44.9 (39.0-53.0) % Plt Count 171 (150-450) k/uL Comprehensive Metabolic Panel 04/27/24 Range/Units 16:01 Sodium 140 (137-145) mmol/L Potassium 4.9 (3.5-5.1) mmol/L Chloride 104 (98-107) mmol/L Carbon Dioxide 25 (22-30) mmol/L BUN 24 H (9-20) mg/dL Creatinine 1.13 (0.66-1.25) mg/dL Glucose 175 H (74-99) mg/dL Calcium 9.5 (8.4-10.2) mg/dL AST 27 (17-59) U/L ALT 22 (4-49) U/L Alkaline Phosphatase 146 H (38-126) U/L Total Protein 7.5 (6.3-8.2) g/dL Albumin 4.3 (3.5-5.0) g/dL Current Medications Generic Name Dose Route Start Last Admin Trade Name Freq PRN Reason Stop Dose Admin Atorvastatin Calcium 40 mg 04/27/24 21:45 04/27/24 22:25 Atorvastatin 40 Mg Tab PO 40 mg HS [facility] Administration Dextrose/Water 25 ml 04/27/24 21:35 Dextrose 50% Syringe 50 Ml IVP PER PROTOCOL PRN Hypoglycemia Protocol Dextrose/Water 50 ml 04/27/24 21:35 Dextrose 50% Syringe 50 Ml IVP PER PROTOCOL PRN Hypoglycemia Protocol Diltiazem HCl 180 mg 04/28/24 11:15 04/28/24 11:36 Diltiazem Cd 180 Mg Cap.Er.24h PO 180 mg DAILY [facility] Administration Furosemide 20 mg 04/28/24 09:00 04/28/24 07:59 Furosemide 20 Mg Tab PO 20 mg DAILY [facility] Administration Glipizide 10 mg 04/28/24 09:00 04/28/24 07:59 Glipizide 10 Mg Tab PO 10 mg DAILY [facility] Administration Heparin Sodium (Porcine) 0 unit 04/27/24 18:04 04/28/24 10:56 Heparin Sodium 1,000 Un/Ml (10ml Vl) IV 04/28/24 18:00 4,000 unit PER PROTOCOL PRN Administration Low PTT Protocol Heparin Sodium/Sodium Chloride 250 mls @ 9.999 mls/hr 04/27/24 18:15 04/28/24 10:57 25,000 unit/ Sodium Chloride IV 04/28/24 18:00 9.522 units/kg/hr .Q24H [facility] 14.599 mls/hr Administration Protocol 6.522 UNITS/KG/HR Sodium Chloride 1,000 mls @ 20 mls/hr 04/27/24 19:45 04/27/24 20:39 Saline 0.9% IV 20 mls/hr .Q24H [facility] Administration Insulin Aspart 0 unit 04/28/24 07:30 04/28/24 08:05 Insulin Aspart (Novolog) 100 Unit/Ml Vial SQ 2 unit AC-TID [facility] Administration Protocol Metformin HCl 1,000 mg 04/27/24 21:45 04/27/24 22:25 Metformin 500 Mg Tab PO 1,000 mg HS [facility] Administration Metoprolol Tartrate 75 mg 04/27/24 21:45 04/28/24 07:59 Metoprolol Tartrate 25 Mg Tab PO 75 mg BID [facility] Administration Naloxone HCl 0.2 mg 04/27/24 19:42 Naloxone 0.4 Mg/Ml 1 Ml Vial IV Q2M PRN Opioid Reversal Pioglitazone HCl 45 mg 04/28/24 09:00 04/28/24 09:35 Pioglitazone 45 Mg Tab PO 45 mg DAILY [facility] Administration Rivaroxaban 20 mg 04/28/24 17:30 Rivaroxaban 20 Mg Tab PO W/SUPPER [facility] Protocol Intake and Output 04/27/24 04/28/24 04/28/24 22:59 06:59 14:59 Intake Total 70.167 162.484 Balance 70.167 162.484 Intake: Intake, IV Titration 70.167 162.484 Amount Diltiazem 125 mg In 70.167 Sodium Chloride 0.9% 100 ml @ 10 MG/HR 10 mls/hr IV .[id number] [facility] Rx#: [id number] Heparin Sod,Pork in 0.45% 162.484 NaCl 25,000 unit In 0.45 % NaCl 1 250ml.bag @ 6. 522 UNITS/KG/HR 9.999 mls /hr IV .Q24H [facility] Rx#: [id number] Other: Weight 153.314 kg 04/27/24 16:01 04/27/24 16:01
[2024-04-28 13:02] LABS: Glucose,Whole Blood 138 mg/dL (70-110)
[2024-04-28] MEDS ORDERED: DEXTROSE 50% SYRINGE 50 ML IVP PRN ×2 (16:59)
--- NOTE | 2024-04-28 17:02 | P.HPIM ---
History of Present Illness H&P Date: 04/28/24 Chief Complaint: Palpitation Pleasant 68-year-old patient follows with devin Trimble. Chronic medical conditions include coronary bypass in 2020, diabetes, hypertensi on, hyperlipidemia, vascular disorder. Channeler Dr. Mony Velazquez. After his coronary bypass in 2020 about a week after he had to be cardioverted for atrial fibrillation. After 3 months again he to be cardioverted. But now for about couple of months patient been having episodes of shortness of breath palpitation chest discomfort with activity. He was sent in from Dr. Velazquez's office yesterday. Yesterday initial EKG recorded a heart rate of 143. With atrial flutter tachycardia. Patient is placed on IV heparin and IV Cardizem. Patient does feel a bit tired. Review of systems: GEN.: Tired EYES: None HEENT: None NECK: None RESPIRATORY: As above] CARDIOVASCULAR: As above e GASTROINTESTINAL: None GENITOURINARY: None MUSCULOSKELETAL: None LYMPHATICS: None HEMATOLOGICAL: None PSYCHIATRY: None NEUROLOGICAL: None Social history: Lives alone. 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 Does not smoke. Alcohol occasionally Physical examination: VITAL SIGNS: 98.5, 144, 18, 133 x 86, 95% room air upon presentation GENERAL: BMI 44.6, reclining awake slightly tired. EYES: Pupils equal. Conjunctiva stephen l. HEENT: External appearance of nose and ears normal, oral cavity grossly normal. NECK: JVD not raised; masses not palpable. HEART: Heart sounds are regular; no edema. LUNGS: Respiratory rate normal; clear to auscultation. ABDOMEN: Soft, nontender, liver spleen not palpable, no masses palpable. PSYCH: Alert and oriented x3; mood and affect stephen l. MUSCULOSKELETAL:No Clubbing/cyanosis;muscles-grossly intact NEUROLOGICAL: Cranial nerves grossly intact; no facial asymmetry, power and se nsation grossly intact. LYMPHATICS: No lymph nodes palpable in the axilla and neck INVESTIGATIONS, reviewed in the clinical context: April 27, 2024: White count 7.5 globin 14.3 platelets 171 sodium 140 potassium 4.8 creatinine 1.13 EKG tracing personally reviewed by me-heart rate 140/atrial flutter/tachycardia Chest x-ray film personally reviewed by me-cardiomegaly. Venous prominence Assessment plan: -Atrial flutter/tachycardia rate uncontrolled about 144 in presentation. Patient been having symptoms for close to 2 months. Started on IV Cardizem IV heparin in the ER. Telemetry. Cardiology consulted -Coronary artery disease with coronary bypass in 2020 Lipitor. -Acute congestive heart failure exacerbation EF not known. Precipitated uncontrolled atrial flutter IV Lasix 20 mg every 12. Fluid restriction. 2D echo. -Hyperlipidemia Lipitor 40 mg nightly -Diabetes mellitus type 2 on oral hypoglycemic Ozempic. Metformin. Glucotrol. Actos. -Essential hypertension Lopressor 75 twice daily. Cardizem CD 180 mg a day. -Morbid obesity BMI 44.6 Weight loss measures -IV heparin monitoring, follow PTT protocol -Full code Care was discussed with patient. Questions answered. Past Medical History Past Medical History: Coronary Artery Disease (CAD), Chest Pain / Angina, Diabetes Mellitus, Hyperlipidemia, Hypertension, Skin Disorder, Vascular Disorder Additional Past Medical History / Comment(s): WOUND BELOW LITTLE TOE LEFT FOOT- HAS CAST & WALKING BOOT., 60 treatments of hyperbaric oxygen therapy last dose 07/28/2020. History of Any Multi-Drug Resistant Organisms: MRSA Date of last positivie culture/infection: 2013 MDRO Source:: toe Past Surgical History: Coronary Bypass/CABG, Heart Catheterization Additional Past Surgical History / Comment(s): tin big toe amputation (2009, 2013)., Cataract removed left eye. triple vessel bypass 10/04/20. Past Anesthesia/Blood Transfusion Reactions: No Reported Reaction Past Psychological History: No Psychological Hx Reported Smoking Status: Never smoker Past Alcohol Use History: Occasional Past Drug Use History: None Reported - Past Family History Mother Family Medical History: Cancer Additional Family Medical History / Comment(s): of an aneurysm at 88 years old Father Family Medical History: Diabetes Mellitus Medications and Allergies Home Medications Medication Instructions Recorded Confirmed Type Atorvastatin [Lipitor] 40 mg PO HS #90 tab 09/27/20 04/27/24 Rx Diltiazem Cd [Cardizem CD] 180 mg PO DAILY #30 cap.er.24h 10/08/20 04/27/24 Rx Furosemide [Lasix] 20 mg PO DAILY 30 Days #30 tab 10/13/20 04/27/24 Rx Metoprolol Tartrate [Lopressor] 75 mg PO BID 04/27/24 04/27/24 History Pioglitazone [Actos] 45 mg PO DAILY 04/27/24 04/27/24 History glipiZIDE [Glucotrol] 10 mg PO DAILY 04/27/24 04/27/24 History metFORMIN HCL 1,000 mg PO HS 04/27/24 04/27/24 History Semaglutide [Ozempic] 1 mg SQ MO 04/28/24 04/28/24 History Allergies Allergy/AdvReac Type Severity Reaction Status Date / Time No Known Allergies Allergy Verified 04/27/24 17:55 Physical Exam Vitals: Vital Signs Pulse Pulse Resp BP Pulse Ox 04/28/24 15:00 65 20 116/85 95 04/28/24 12:10 66 18 113/77 96 04/28/24 09:36 65 22 110/73 98 04/28/24 08:12 65 04/28/24 07:50 65 20 104/66 97 04/28/24 06:00 65 18 111/74 96 04/28/24 04:00 67 15 105/74 93 L 04/27/24 23:00 86 20 116/75 98 04/27/24 22:00 101 H 20 107/51 94 L 04/27/24 21:30 123 H 22 121/99 97 04/27/24 20:01 114 H 28 H 109/64 98 04/27/24 19:16 103 H 18 123/73 98 Intake and Output 04/28/24 04/28/24 04/28/24 06:59 14:59 22:59 Intake Total 70.167 162.484 Balance 70.167 162.484 Intake: Intake, IV Titration 70.167 162.484 Amount Diltiazem 125 mg In 70.167 Sodium Chloride 0.9% 100 ml @ 10 MG/HR 10 mls/hr IV .[id number] [facility] Rx#: [id number] Heparin Sod,Pork in 0.45% 162.484 NaCl 25,000 unit In 0.45 % NaCl 1 250ml.bag @ 6. 522 UNITS/KG/HR 9.999 mls /hr IV .Q24H [facility] Rx#: [id number] Results CBC & Chem 7: 04/27/24 16:01 04/27/24 16:01 Labs: Abnormal Lab Results - Last 24 Hours (Table) 04/27/24 04/27/24 04/28/24 Range/Units 21:37 21:38 00:56 APTT 34.5 H (22.0-30.0) sec POC Glucose (mg/dL) 199 H (70-110) mg/dL Urine Protein Trace H (Negative) Urine Glucose (UA) 1+ H (Negative) 04/28/24 04/28/24 Range/Units 08:03 13:00 APTT (22.0-30.0) sec POC Glucose (mg/dL) 200 H 138 H (70-110) mg/dL Urine Protein (Negative) Urine Glucose (UA) (Negative)
[2024-04-28 17:42] LABS: Glucose,Whole Blood 140 mg/dL (70-110)
[2024-04-28] MEDS: RIVAROXABAN 20 MG TAB PO SCH (17:46)
[2024-04-28] MEDS: FUROSEMIDE 10 MG/ML 2 ML VIAL IV SCH (17:50)
[2024-04-28 20:39] LABS: Glucose,Whole Blood 153 mg/dL (70-110)
[2024-04-29 06:09] LABS: Glucose,Whole Blood 176 mg/dL (70-110)
[2024-04-29 08:42] LABS: African American GFR (CKD) 56 (>60 ml/min/1.73 sqM); Anion Gap 13 mmol/L; Blood Urea Nitrogen 39 mg/dL (9-20); Calcium 9.5 mg/dL (8.4-10.2); Carbon Dioxide 21 mmol/L (22-30); Chloride 103 mmol/L (98-107); Glucose 167 mg/dL (74-99); Non-African American GFR(CKD) 48 (>60 ml/min/1.73 sqM); Potassium 4.4 mmol/L (3.5-5.1); Sodium 137 mmol/L (137-145)
[2024-04-29 11:34] LABS: Glucose,Whole Blood 193 mg/dL (70-110)
--- NOTE | 2024-04-29 13:04 | CA ---
Transthoracic Echo Report Name: Mekhi Swift Age: 68 Gender: M : 1955 Exam Date: 04/29/2024 08:35 Exam Location: [place] Echo Ht (in): 73 Wt (lb): 338 Ordering Physician: Kaya Stokes Attending/Referring Phys: [id number], Kike Rough Patcher Mallorie Quinn RDCS Procedure CPT: Indications: LV function, A-fib Cardiac Hx: CABG 2020 Technical Quality: Very technically difficult study Contrast 1: Definity Total Dose (mL): 2 Contrast 2: Total Dose (mL): MEASUREMENTS (Male / Female) Normal Values 2D ECHO LV Diastolic Diameter PLAX 4.9 cm 4.2 - 5.9 / 3.9 - 5.3 cm LV Systolic Diameter PLAX 4.2 cm IVS Diastolic Thickness 1.3 cm 0.6 - 1.0 / 0.6 - 0.9 cm LVPW Diastolic Thickness 1.6 cm 0.6 - 1.0 / 0.6 - 0.9 cm LV Relative Wall Thickness 0.6 RV Internal Dim ED PLAX 3.8 cm LA Systolic Diameter LX 4.5 cm 3.0 - 4.0 / 2.7 - 3.8 cm LV Diastolic Volume MOD BP 84.5 cm??? 67 - 155 / 56 - 104 cm??? LV Systolic Volume MOD BP 51.1 cm??? 22 - 58 / 19 - 49 cm??? LV Ejection Fraction MOD BP 39.5 % >= 55 % LV Cardiac Index MOD BP 940.3 cm???/min???m??? LV Diastolic Volume MOD 4C 107.9 cm??? LV Systolic Volume MOD 4C 56.3 cm??? LV Ejection Fraction MOD 4C 47.8 % LV Cardiac Index MOD 4C 1451.8 cm???/min???m??? LV Diastolic Length 4C 7.9 cm LV Systolic Length 4C 7.2 cm LV Diastolic Volume MOD 2C 65.1 cm??? LV Systolic Volume MOD 2C 44.3 cm??? LV Ejection Fraction MOD 2C 31.9 % LV Cardiac Index MOD 2C 583.0 cm???/min???m??? LV Diastolic Length 2C 7.9 cm LV Systolic Length 2C 7.6 cm M-MODE Aortic Root Diameter MM 3.3 cm DOPPLER AV Peak Velocity 74.0 cm/s AV Peak Gradient 2.2 mmHg MV Area PHT 7.2 cm??? MV Deceleration Time 120.4 ms TR Peak Velocity 251.2 cm/s TR Peak Gradient 25.2 mmHg Right Ventricular Systolic Press 39.9 mmHg FINDINGS Left Ventricle Left ventricular ejection fraction is estimated at 30-35 %. Left ventricular cavity size normal. Mildly increased septal wall thickness. Moderately decreased left ventricular ejection fraction. Right Ventricle Moderate right ventricular dilatation. Mild pulmonary hypertension. Right Atrium Right atrium not well visualized. Left Atrium Mildly increased left atrial diameter. Mildly increased left atrial area. Mitral Valve Mitral valve not well visualized. Trace to mild mitral regurgitation. Aortic Valve Aortic valve not well visualized. No aortic valve stenosis or regurgitation. Tricuspid Valve Tricuspid valve not well visualized. Mild tricuspid regurgitation. Pulmonic Valve Pulmonic valve not well visualized. Pericardium No pericardial effusion. Aorta Normal size aortic root and proximal ascending aorta. CONCLUSIONS Extremely difficult study for interpretation with poorly visualized endocardium and intracardiac valves Definity was used Impaired LV function with EF between 30 to 35% Previewed by: Dr. Thierno Ryan MD (Electronically Signed) Final Date: 29 April 2024 13:03
--- NOTE | 2024-04-29 14:50 | P.PN ---
Subjective HISTORY OF PRESENT ILLNESS: This is a 68-year-old male with a past medical history significant for coronary artery disease with previous CABG, atrial fibrillation, diabetes, hypertension, hyperlipidemia, and morbid obesity. Patient follows in the office with Dr. Velazquez. We have been asked to see the patient in consultation for A-fib with RVR. Patient examined at the bedside in the emergency room. Patient was at the cardiology office yesterday when he was noted to be in A-fib with RVR with a heart rate of 140. The patient was advised to come to the emergency room. The patient states he has been feeling short of breath and having palpitations over the past few months. The patient was started on IV Cardizem and IV heparin. He remains on IV Cardizem at 10 mg an hour. Bedside telemetry reveals atrial fibrillation/flutter with a heart rate in the 60s. Patient does report that he is feeling better this morning. The patient states he was not taking any blood thinners on an outpatient basis. DIAGNOSTICS: - EKG reveals atrial flutter with RVR. Repeat EKG reveals atrial flutter/fibrillation - Chest xray pulmonary vasculature is upper limits of normal. Mild diffuse increased lung markings are present. - Laboratory data: WBC 7.5. Hemoglobin 14.3. Platelet count 171. Sodium 140. Potassium 4.9. BUN 24. Creatinine 1.13. Troponin negative x 1. - Current home cardiac medications include Lipitor 40 mg at night, Cardizem CD 180mg daily, Lasix 20 mg daily, metoprolol tartrate 75 mg twice a day. - Most recent echocardiogram obtained in September 2021 revealed ejection fraction 55%, mild concentric LVH, small hypokinetic area in the inferior septal wall from mid wall to the apex. Mild TR. Mild MR. - Patient underwent Lexiscan stress test in June 2021 which was negative for ischemia 04/29/2024 Patient examined this afternoon at the bedside. Patient denies chest pain or pressure. Denies shortness of breath. Patient was started on IV diuretics yesterday per primary medicine. Creatinine today increased to 1.48 from 1.13. Telemetry reveals atrial flutter/fibrillation with a heart rate in the 70s. Echocardiogram completed revealing ejection fraction 30 to 35%, mild pulmonary pretension, trace to mild MR and mild TR PHYSICAL EXAM: VITAL SIGNS: Reviewed. GENERAL: Well-developed in no acute distress. HEENT: Head is normocephalic. Pupils are equal, round. Sclerae anicteric. Mucous membranes of the mouth are moist. Neck supple. No JVD or thyromegaly LUNGS: Respirations even and unlabored. Lungs essentially clear to auscultation bilaterally. HEART: Irregular rate and rhythm. S1 and S2 heard. Systolic murmur noted ABDOMEN: Soft. Nondistended. Nontender. EXTREMITIES: Normal range of motion. No clubbing or cyanosis. Peripheral pulses intact. Trace bilateral lower extremity edema NEUROLOGIC: Awake and alert. Oriented x 3. ASSESSMENT: Palpitations and shortness of breath x 2 to 3 months Paroxysmal atrial fibrillation/typical atrial flutter with RVR, currently rate controlled Acute kidney injury secondary to diuresis Coronary artery disease with previous CABG Hypertension Hyperlipidemia Diabetes Morbid obesity: BMI 44.6 New onset cardiomyopathy, 30 to 35%, suspect nonischemic secondary to atrial fibrillation/flutter PLAN: Discontinue IV Lasix secondary to worsening creatinine. Resume oral Lasix starting tomorrow. Continue to monitor kidney function Continue oral anticoagulation with Xarelto Discontinue oral Cardizem secondary to cardiomyopathy Increase metoprolol to tartrate to 100 mg twice a day Continue telemetry monitoring Will consider outpatient KARLA/cardioversion Possible discharge home tomorrow if patient's heart rates remain controlled Patient to follow-up postdischarge with Dr. Velazquez Nurse practitioner note has been reviewed by physician. Signing provider agrees with the documented findings, assessment, and plan of care documented by CLAIMS CUSTOMER SERVICE REPRESENTATIVE as a scribe. Objective - Vital Signs Vital signs: Vital Signs Temp 97.5 F L 04/28/24 23:34 Pulse 65 04/29/24 08:00 Resp 18 04/29/24 08:00 BP 106/66 04/29/24 08:00 Pulse Ox 97 04/29/24 08:00 FiO2 Intake & Output 04/28/24 04/29/24 04/29/24 18:59 06:59 18:59 Intake Total 162.484 560 480 Balance 162.484 560 480 Weight 148.6 kg Intake: IV 20 Invasive Line 1 10 Invasive Line 2 10 Intake, IV Titration 162.484 Amount Heparin Sod,Pork in 0.45% 162.484 NaCl 25,000 unit In 0.45 % NaCl 1 250ml.bag @ 6. 522 UNITS/KG/HR 9.999 mls /hr IV .Q24H [facility] Rx#: [id number] Oral 540 480 Other: Voiding Method Toilet - Labs CBC & Chem 7: 04/27/24 16:01 04/29/24 07:18 Labs: Abnormal Lab Results - Last 24 Hours (Table) 04/28/24 04/28/24 04/28/24 Range/Units 13:00 17:40 20:37 Carbon Dioxide (22-30) mmol/L BUN (9-20) mg/dL Creatinine (0.66-1.25) mg/dL Glucose (74-99) mg/dL POC Glucose (mg/dL) 138 H 140 H 153 H (70-110) mg/dL 04/29/24 04/29/24 Range/Units 06:06 07:18 Carbon Dioxide 21 L (22-30) mmol/L BUN 39 H (9-20) mg/dL Creatinine 1.48 H (0.66-1.25) mg/dL Glucose 167 H (74-99) mg/dL POC Glucose (mg/dL) 176 H (70-110) mg/dL
--- NOTE | 2024-04-29 15:33 | P.PN ---
Progress Note - Text Progress Note Date: 04/29/24 Chief Complaint: Palpitation Pleasant 68-year-old patient follows with devin Trimble. Chronic medical conditions include coronary bypass in 2020, diabetes, hypertension, hyperlipidemia, vascular disorder. 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 Mony Velazquez. After his coronary bypass in 2020 about a week after he had to be cardioverted for atrial fibrillation. After 3 months again he to be cardioverted. But now for about couple of months patient been having episodes of shortness of breath palpitation chest discomfort with activity. He was sent in from Dr. Velazquez's office yesterday. Yesterday initial EKG recorded a heart rate of 143. With atrial flutter tachycardia. Patient is placed on IV heparin and IV Cardizem. Patient does feel a bit tired. April 29: Patient remains in atrial flutter. Heart rate in around 80. Did have the patient walk in the hallway. No cardiac symptoms. Patient is being switched over to oral Lasix. Some increase in creatinine. Otherwise feeling better. Active Medications Atorvastatin Calcium (Atorvastatin 40 Mg Tab) 40 mg PO [facility] Last Admin: 04/28/24 21:08 Dose: 40 mg Dextrose/Water (Dextrose 50% Syringe 50 Ml) 25 ml IVP PER PROTOCOL PRN; Protocol PRN Reason: Hypoglycemia Dextrose/Water (Dextrose 50% Syringe 50 Ml) 50 ml IVP PER PROTOCOL PRN; Protocol PRN Reason: Hypoglycemia Furosemide (Furosemide 20 Mg Tab) 20 mg PO DAILY [facility] Glipizide (Glipizide 10 Mg Tab) 10 mg PO DAILY [facility] Last Admin: 04/29/24 08:32 Dose: 10 mg Sodium Chloride (Saline 0.9%) 1,000 mls @ 20 mls/hr IV .Q24H [facility] Last Admin: 04/29/24 12:58 Dose: Not Given Insulin Aspart (Insulin Aspart (Novolog) 100 Unit/Ml Vial) 0 unit SQ AC-TID [facility]; Protocol Last Admin: 04/29/24 11:34 Dose: 2 unit Metformin HCl (Metformin 500 Mg Tab) 1,000 mg PO [facility] Last Admin: 04/28/24 21:08 Dose: 1,000 mg Metoprolol Tartrate (Metoprolol Tartrate 50 Mg Tab) 100 mg PO BID [facility] Naloxone HCl (Naloxone 0.4 Mg/Ml 1 Ml Vial) 0.2 mg IV Q2M PRN PRN Reason: Opioid Reversal Pioglitazone HCl (Pioglitazone 45 Mg Tab) 45 mg PO DAILY [facility] Last Admin: 04/29/24 08:33 Dose: 45 mg Rivaroxaban (Rivaroxaban 20 Mg Tab) 20 mg PO W/SUPPER [facility]; Protocol Last Admin: 04/28/24 17:46 Dose: 20 mg Social history: Lives alone. 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 Does not smoke. Alcohol occasionally Physical examination: VITAL SIGNS: 97.5, 80, 18, 106 x 66, 97% room air GENERAL: BMI 44.6, up in bed, comfortable EYES: Pupils equal. Conjunctiva stephen l. HEENT: External appearance of nose and ears normal, oral cavity grossly normal. NECK: JVD not raised; masses not palpable. HEART: Heart sounds irregular; no edema. LUNGS: Respiratory rate normal; clear to auscultation. ABDOMEN: Soft, nontender, liver spleen not palpable, no masses palpable. PSYCH: Alert and oriented x3; mood and affect stephen l. MUSCULOSKELETAL:No Clubbing/cyanosis;muscles-grossly intact INVESTIGATIONS, reviewed in the clinical context: 2D echo: EF 30 to 35%. Mild pulmonary hypertension. April 29: Potassium 4.4 BUN 39 creatinine 1.48 April 27, 2024: White count 7.5 globin 14.3 platelets 171 sodium 140 potassium 4.8 creatinine 1.13 EKG tracing personally reviewed by me-heart rate 140/atrial flutter/tachycardia Chest x-ray film personally reviewed by me-cardiomegaly. Venous prominence Assessment plan: -Atrial flutter/tachycardia rate uncontrolled about 144 in presentation. Patient been having symptoms for close to 2 months.: Ventricular rate around 80. Started on IV Cardizem IV heparin in the ER. Telemetry. Cardizem CD discontinued today by cardiology. Lopressor increased to 100 mg twice daily -Coronary artery disease with coronary bypass in 2020 Lipitor. -Acute congestive heart failure exacerbation from systolic dysfunction EF 30-35% with additional precipitated uncontrolled atrial flutter: Better IV Lasix 20 mg every 12., Now changed to 20 mg p.o. daily Fluid restriction. -Hyperlipidemia Lipitor 40 mg nightly -Diabetes mellitus type 2 on oral hypoglycemic Ozempic. Metformin. Glucotrol. Actos. -Essential hypertension Lopressor 100 milligram twice daily. Cardizem CD discontinued -Morbid obesity BMI 44.6 Weight loss measures -IV heparin discontinued -Full code Increase activity. Past Medical History Past Medical History: Coronary Artery Disease (CAD), Chest Pain / Angina, Diabetes Mellitus, Hyperlipidemia, Hypertension, Skin Disorder, Vascular Disorder Additional Past Medical History / Comment(s): WOUND BELOW LITTLE TOE LEFT FOOT- HAS CAST & WALKING BOOT., 60 treatments of hyperbaric oxygen therapy last dose 07/28/2020. History of Any Multi-Drug Resistant Organisms: MRSA Date of last positivie culture/infection: 2013 MDRO Source:: toe Past Surgical History: Coronary Bypass/CABG, Heart Catheterization Additional Past Surgical History / Comment(s): tin big toe amputation (2009, 2013)., Cataract removed left eye. triple vessel bypass 10/04/20. Past Anesthesia/Blood Transfusion Reactions: No Reported Reaction Past Psychological History: No Psychological Hx Reported Smoking Status: Never smoker Past Alcohol Use History: Occasional Past Drug Use History: None Reported
[2024-04-29 16:40] LABS: Glucose,Whole Blood 142 mg/dL (70-110)
[2024-04-29 20:08] LABS: Glucose,Whole Blood 159 mg/dL (70-110)
[2024-04-29] MEDS: METOPROLOL TARTRATE 50 MG TAB PO SCH (20:49)
[2024-04-30 06:08] LABS: Glucose,Whole Blood 139 mg/dL (70-110)
[2024-04-30 07:58] LABS: African American GFR (CKD) 60 (>60 ml/min/1.73 sqM); Anion Gap 9 mmol/L; Blood Urea Nitrogen 41 mg/dL (9-20); Calcium 9.5 mg/dL (8.4-10.2); Carbon Dioxide 24 mmol/L (22-30); Chloride 104 mmol/L (98-107); Glucose 144 mg/dL (74-99); Non-African American GFR(CKD) 52 (>60 ml/min/1.73 sqM); Potassium 4.5 mmol/L (3.5-5.1); Sodium 137 mmol/L (137-145)
[2024-04-30] MEDS: FUROSEMIDE 20 MG TAB PO SCH (08:44)
[2024-04-30 11:33] LABS: Glucose,Whole Blood 132 mg/dL (70-110)
[2024-04-30] MEDS: DAPAGLIFLOZIN PROPANEDIOL 10 MG TABLET PO SCH (13:37)
--- NOTE | 2024-04-30 13:50 | P.PN ---
Subjective HISTORY OF PRESENT ILLNESS: This is a 68-year-old male with a past medical history significant for coronary artery disease with previous CABG, atrial fibrillation, diabetes, hypertension, hyperlipidemia, and morbid obesity. Patient follows in the office with Dr. Velazquez. We have been asked to see the patient in consultation for A-fib with RVR. Patient examined at the bedside in the emergency room. Patient was at the cardiology office yesterday when he was noted to be in A-fib with RVR with a heart rate of 140. The patient was advised to come to the emergency room. The patient states he has been feeling short of breath and having palpitations over the past few months. The patient was started on IV Cardizem and IV heparin. He remains on IV Cardizem at 10 mg an hour. Bedside telemetry reveals atrial fibrillation/flutter with a heart rate in the 60s. Patient does report that he is feeling better this morning. The patient states he was not taking any blood thinners on an outpatient basis. DIAGNOSTICS: - EKG reveals atrial flutter with RVR. Repeat EKG reveals atrial flutter/fibrillation - Chest xray pulmonary vasculature is upper limits of normal. Mild diffuse increased lung markings are present. - Laboratory data: WBC 7.5. Hemoglobin 14.3. Platelet count 171. Sodium 140. Potassium 4.9. BUN 24. Creatinine 1.13. Troponin negative x 1. - Current home cardiac medications include Lipitor 40 mg at night, Cardizem CD 180mg daily, Lasix 20 mg daily, metoprolol tartrate 75 mg twice a day. - Most recent echocardiogram obtained in September 2021 revealed ejection fraction 55%, mild concentric LVH, small hypokinetic area in the inferior septal wall from mid wall to the apex. Mild TR. Mild MR. - Patient underwent Lexiscan stress test in June 2021 which was negative for ischemia 04/29/2024 Patient examined this afternoon at the bedside. Patient denies chest pain or pressure. Denies shortness of breath. Patient was started on IV diuretics yesterday per primary medicine. Creatinine today increased to 1.48 from 1.13. Telemetry reveals atrial flutter/fibrillation with a heart rate in the 70s. Echocardiogram completed revealing ejection fraction 30 to 35%, mild pulmonary pretension, trace to mild MR and mild TR 04/30/2024 Patient examined this afternoon. Patient is sitting up in the chair. Patient denies chest pain or pressure. He denies shortness of breath. Telemetry reveals atrial flutter with heart rates in the 90s. Creatinine is improved today at 1.39. PHYSICAL EXAM: VITAL SIGNS: Reviewed. GENERAL: Well-developed in no acute distress. HEENT: Head is normocephalic. Pupils are equal, round. Sclerae anicteric. Mucous membranes of the mouth are moist. Neck supple. No JVD or thyromegaly LUNGS: Respirations even and unlabored. Lungs essentially clear to auscultation bilaterally. HEART: Irregular rate and rhythm. S1 and S2 heard. Systolic murmur noted ABDOMEN: Soft. Nondistended. Nontender. EXTREMITIES: Normal range of motion. No clubbing or cyanosis. Peripheral pulses intact. Trace bilateral lower extremity edema NEUROLOGIC: Awake and alert. Oriented x 3. ASSESSMENT: Palpitations and shortness of breath x 2 to 3 months Paroxysmal atrial fibrillation/typical atrial flutter with RVR, currently rate controlled Acute kidney injury secondary to diuresis Coronary artery disease with previous CABG Hypertension Hyperlipidemia Diabetes Morbid obesity: BMI 44.6 New onset cardiomyopathy, 30 to 35%, suspect nonischemic secondary to atrial fibrillation/flutter PLAN: Continue oral anticoagulation with Xarelto Discontinue Actos Begin Farxiga 10 mg daily. Give first dose now. Recommend eventual addition of Entresto pending kidney function Continue telemetry monitoring Will consider outpatient KARLA/cardioversion Repeat kidney function in a.m. Possible discharge home tomorrow pending repeat BMP Patient to follow-up postdischarge with Dr. Velazquez Nurse practitioner note has been reviewed by physician. Signing provider agrees with the documented findings, assessment, and plan of care documented by ELECTRONIC SCALE ASSEMBLER AND TESTER as a scribe. Objective - Vital Signs Vital signs: Vital Signs Temp 97.6 F 04/30/24 08:00 Pulse 90 04/30/24 08:00 Resp 18 04/30/24 08:00 BP 126/72 04/30/24 08:00 Pulse Ox 98 04/30/24 08:00 FiO2 Intake & Output 04/29/24 04/30/24 04/30/24 18:59 06:59 18:59 Intake Total 1440 20 960 Balance 1440 20 960 Weight 150.5 kg Intake: IV 20 Invasive Line 1 10 Invasive Line 2 10 Oral 1440 960 Other: Voiding Method Toilet Toilet - Labs CBC & Chem 7: 04/27/24 16:01 04/30/24 06:47 Labs: Abnormal Lab Results - Last 24 Hours (Table) 04/29/24 04/29/24 04/30/24 Range/Units 16:39 20:07 06:07 BUN (9-20) mg/dL Creatinine (0.66-1.25) mg/dL Glucose (74-99) mg/dL POC Glucose (mg/dL) 142 H 159 H 139 H (70-110) mg/dL 04/30/24 04/30/24 Range/Units 06:47 11:31 BUN 41 H (9-20) mg/dL Creatinine 1.39 H (0.66-1.25) mg/dL Glucose 144 H (74-99) mg/dL POC Glucose (mg/dL) 132 H (70-110) mg/dL
[2024-04-30 16:25] LABS: Glucose,Whole Blood 139 mg/dL (70-110)
[2024-04-30] MEDS: metFORMIN 500 MG TAB PO SCH (16:35)
--- NOTE | 2024-04-30 16:40 | P.PN ---
Progress Note - Text Progress Note Date: 04/30/24 Chief Complaint: Palpitation Pleasant 68-year-old patient follows with devin Trimble. Chronic medical conditions include coronary bypass in 2020, diabetes, hypertension, hyperlipidemia, vascular disorder. Equities Analyst Dr. Mony Velazquez. After his coronary bypass in 2020 about a week after he had to be cardioverted for atrial fibrillation. After 3 months again he to be cardioverted. But now for about couple of months patient been having episodes of shortness of breath palpitation chest discomfort with activity. He was sent in from Dr. Velazquez's office yesterday. Yesterday initial EKG recorded a heart rate of 143. With atrial flutter tachycardia. Patient is placed on IV heparin and IV Cardizem. Patient does feel a bit tired. April 29: Patient remains in atrial flutter. Heart rate in around 80. Did have the patient walk in the hallway. No cardiac symptoms. Patient is being switched over to oral Lasix. Some increase in creatinine. Otherwise feeling better. April 30: Remains in atrial flutter with heart rate around 90s. Per cardiology Actos discontinued. Started on Farxiga. Would consider eventually adding Entresto. Possible outpatient KARLA cardioversion. On Xarelto. No cardiac symptoms. Ambulating. Possible CKD. Check renal ultrasound Active Medications Atorvastatin Calcium (Atorvastatin 40 Mg Tab) 40 mg PO HS [facility] Last Admin: 04/29/24 20:50 Dose: 40 mg Dapagliflozin (Dapagliflozin Propanediol 10 Mg Tablet) 10 mg PO DAILY [facility] Last Admin: 04/30/24 13:37 Dose: 10 mg Dextrose/Water (Dextrose 50% Syringe 50 Ml) 25 ml IVP PER PROTOCOL PRN; Protocol PRN Reason: Hypoglycemia Dextrose/Water (Dextrose 50% Syringe 50 Ml) 50 ml IVP PER PROTOCOL PRN; Protocol PRN Reason: Hypoglycemia Furosemide (Furosemide 20 Mg Tab) 20 mg PO DAILY [facility] Last Admin: 04/30/24 08:44 Dose: 20 mg Glipizide (Glipizide 10 Mg Tab) 10 mg PO DAILY [facility] Last Admin: 04/30/24 08:44 Dose: 10 mg Insulin Aspart (Insulin Aspart (Novolog) 100 Unit/Ml Vial) 0 unit SQ AC-TID [facility]; Protocol Last Admin: 04/30/24 13:37 Dose: Not Given Metformin HCl (Metformin 500 Mg Tab) 1,000 mg PO AC-BID [facility] Metoprolol Tartrate (Metoprolol Tartrate 50 Mg Tab) 100 mg PO BID [facility] Last Admin: 04/30/24 08:44 Dose: 100 mg Naloxone HCl (Naloxone 0.4 Mg/Ml 1 Ml Vial) 0.2 mg IV Q2M PRN PRN Reason: Opioid Reversal Rivaroxaban (Rivaroxaban 20 Mg Tab) 20 mg PO W/SUPPER [facility]; Protocol Last Admin: 04/29/24 16:41 Dose: 20 mg Social history: Lives alone. 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 Does not smoke. Alcohol occasionally Physical examination: VITAL SIGNS: 97.6, 90, 18, 126 x 72, 98% room air GENERAL: BMI 44.6, up in a chair, comfortable EYES: Pupils equal. Conjunctiva stephen l. HEENT: External appearance of nose and ears normal, oral cavity grossly normal. NECK: JVD not raised; masses not palpable. HEART: Heart sounds irregular; no edema. LUNGS: Respiratory rate normal; clear to auscultation. ABDOMEN: Soft, nontender, liver spleen not palpable, no masses palpable. PSYCH: Alert and oriented x3; mood and affect stephen l. MUSCULOSKELETAL:No Clubbing/cyanosis;muscles-grossly intact INVESTIGATIONS, reviewed in the clinical context: April 30: Potassium 4.5 BUN 41 creatinine 1.39 2D echo: EF 30 to 35%. Mild pulmonary hypertension. April 29: Potassium 4.4 BUN 39 creatinine 1.48 April 27, 2024: White count 7.5 globin 14.3 platelets 171 sodium 140 potassium 4.8 creatinine 1.13 EKG tracing personally reviewed by me-heart rate 140/atrial flutter/tachycardia Chest x-ray film personally reviewed by me-cardiomegaly. Venous prominence Assessment plan: -Atrial flutter/tachycardia rate uncontrolled about 144 in presentation. Patient been having symptoms for close to 2 months.: Rate controlled Started on IV Cardizem IV heparin in the ER. Telemetry. Cardizem CD discontinued Lopressor i 100 mg twice daily Xarelto -Coronary artery disease with coronary bypass in 2020 Lipitor. -Acute congestive heart failure exacerbation from systolic dysfunction EF 30-35% with additional precipitated uncontrolled atrial flutter: Better Received IV Lasix. Now on Lasix 20 mg a day Chastity added today Fluid restriction. -Hyperlipidemia Lipitor 40 mg nightly -Diabetes mellitus type 2 on oral hypoglycemic Ozempic. Metformin. Glucotrol. Actos. -Possible chronic kidney disease Has trace protein in the urine. Check renal ultrasound -Essential hypertension Lopressor 100 milligram twice daily. Cardizem CD discontinued -Morbid obesity BMI 44.6 Weight loss measures -IV heparin discontinued -Full code Past Medical History Past Medical History: Coronary Artery Disease (CAD), Chest Pain / Angina, Diabetes Mellitus, Hyperlipidemia, Hypertension, Skin Disorder, Vascular Disorder Additional Past Medical History / Comment(s): WOUND BELOW LITTLE TOE LEFT FOOT- HAS CAST & WALKING BOOT., 60 treatments of hyperbaric oxygen therapy last dose 07/28/2020. History of Any Multi-Drug Resistant Organisms: MRSA Date of last positivie culture/infection: 2013 MDRO Source:: toe Past Surgical History: Coronary Bypass/CABG, Heart Catheterization Additional Past Surgical History / Comment(s): tin big toe amputation (2009, 2013)., Cataract removed left eye. triple vessel bypass 10/04/20. Past Anesthesia/Blood Transfusion Reactions: No Reported Reaction Past Psychological History: No Psychological Hx Reported Smoking Status: Never smoker Past Alcohol Use History: Occasional Past Drug Use History: None Reported
--- NOTE | 2024-04-30 17:49 | US ---
EXAMINATION TYPE: US kidneys/renal and bladder DATE OF EXAM: 04/30/2024 COMPARISON: NONE CLINICAL INDICATION: Male, 68 years old with history of Evaluate for CKD; evaluate CKD TECHNIQUE: Grayscale imaging of the bilateral kidneys and urinary bladder: FINDINGS: EXAM MEASUREMENTS: Right Kidney: 10.9 x 6.5 x 5.5 cm Left Kidney: 11.5 x 6.3 x 4.6 cm limited due to pt body habitus. exam done portable Right Kidney: wnl as best seen Left Kidney: wnl as best seen Bladder: wnl Bilateral Jets seen: yes There is no evidence for hydronephrosis at this point in time. No nephrolithiasis is seen. No chato s are identified. Corticomedullary differentiation is maintained bilaterally. No significant cortica l thinning identified. The urinary bladder is anechoic. IMPRESSION: No hydronephrosis or nephrolithiasis. [facility], , 04/30/2024 5:47 PM
[2024-04-30 19:56] LABS: Glucose,Whole Blood 112 mg/dL (70-110)
[2024-05-01 06:06] LABS: Glucose,Whole Blood 99 mg/dL (70-110)
[2024-05-01 06:58] LABS: African American GFR (CKD) 56 (>60 ml/min/1.73 sqM); Anion Gap 9 mmol/L; Blood Urea Nitrogen 35 mg/dL (9-20); Calcium 9.5 mg/dL (8.4-10.2); Carbon Dioxide 27 mmol/L (22-30); Chloride 102 mmol/L (98-107); Glucose 100 mg/dL (74-99); Non-African American GFR(CKD) 48 (>60 ml/min/1.73 sqM); Potassium 4.6 mmol/L (3.5-5.1); Sodium 138 mmol/L (137-145)
[2024-05-01] MEDS ORDERED: DAPAGLIFLOZIN PROPANEDIOL 10 MG TABLET PO SCH (09:00)
[2024-05-01 11:30] VITALS: BP 121/84; PULSE 105; RESP 17; TEMP 97.2
[2024-05-01 11:35] LABS: Glucose,Whole Blood 132 mg/dL (70-110)
--- NOTE | 2024-05-01 12:43 | P.PN ---
Subjective HISTORY OF PRESENT ILLNESS: This is a 68-year-old male with a past medical history significant for coronary artery disease with previous CABG, atrial fibrillation, diabetes, hypertension, hyperlipidemia, and morbid obesity. Patient follows in the office with Dr. Velazquez. We have been asked to see the patient in consultation for A-fib with RVR. Patient examined at the bedside in the emergency room. Patient was at the cardiology office yesterday when he was noted to be in A-fib with RVR with a heart rate of 140. The patient was advised to come to the emergency room. The patient states he has been feeling short of breath and having palpitations over the past few months. The patient was started on IV Cardizem and IV heparin. He remains on IV Cardizem at 10 mg an hour. Bedside telemetry reveals atrial fibrillation/flutter with a heart rate in the 60s. Patient does report that he is feeling better this morning. The patient states he was not taking any blood thinners on an outpatient basis. DIAGNOSTICS: - EKG reveals atrial flutter with RVR. Repeat EKG reveals atrial flutter/fibrillation - Chest xray pulmonary vasculature is upper limits of normal. Mild diffuse increased lung markings are present. - Laboratory data: WBC 7.5. Hemoglobin 14.3. Platelet count 171. Sodium 140. Potassium 4.9. BUN 24. Creatinine 1.13. Troponin negative x 1. - Current home cardiac medications include Lipitor 40 mg at night, Cardizem CD 180mg daily, Lasix 20 mg daily, metoprolol tartrate 75 mg twice a day. - Most recent echocardiogram obtained in September 2021 revealed ejection fraction 55%, mild concentric LVH, small hypokinetic area in the inferior septal wall from mid wall to the apex. Mild TR. Mild MR. - Patient underwent Lexiscan stress test in June 2021 which was negative for ischemia 04/29/2024 Patient examined this afternoon at the bedside. Patient denies chest pain or pressure. Denies shortness of breath. Patient was started on IV diuretics yesterday per primary medicine. Creatinine today increased to 1.48 from 1.13. Telemetry reveals atrial flutter/fibrillation with a heart rate in the 70s. Echocardiogram completed revealing ejection fraction 30 to 35%, mild pulmonary pretension, trace to mild MR and mild TR 04/30/2024 Patient examined this afternoon. Patient is sitting up in the chair. Patient denies chest pain or pressure. He denies shortness of breath. Telemetry reveals atrial flutter with heart rates in the 90s. Creatinine is improved today at 1.39. 05/01/2024 Patient examined at the bedside. Patient denies chest pain or pressure. He denies shortness of breath. Telemetry reveals atrial flutter with controlled ventricular rates. Creatinine today 1.48. PHYSICAL EXAM: VITAL SIGNS: Reviewed. GENERAL: Well-developed in no acute distress. HEENT: Head is normocephalic. Pupils are equal, round. Sclerae anicteric. Mucous membranes of the mouth are moist. Neck supple. No JVD or thyromegaly LUNGS: Respirations even and unlabored. Lungs essentially clear to auscultation bilaterally. HEART: Irregular rate and rhythm. S1 and S2 heard. Systolic murmur noted ABDOMEN: Soft. Nondistended. Nontender. EXTREMITIES: Normal range of motion. No clubbing or cyanosis. Peripheral pulses intact. Trace bilateral lower extremity edema NEUROLOGIC: Awake and alert. Oriented x 3. ASSESSMENT: Palpitations and shortness of breath x 2 to 3 months Paroxysmal atrial fibrillation/typical atrial flutter with RVR, currently rate controlled Acute kidney injury secondary to diuresis Coronary artery disease with previous CABG Hypertension Hyperlipidemia Diabetes Morbid obesity: BMI 44.6 New onset cardiomyopathy, 30 to 35%, suspect nonischemic secondary to atrial fibrillation/flutter PLAN: Continue oral anticoagulation with Xarelto Recommend eventual outpatient addition of Entresto pending kidney function Will consider outpatient KARLA/cardioversion to restore sinus mechanism Patient may be discharged home today from a cardiac standpoint Patient to follow-up postdischarge with Dr. Velazquez Nurse practitioner note has been reviewed by physician. Signing provider agrees with the documented findings, assessment, and plan of care documented by DATA PROCESSOR as a scribe. Objective - Vital Signs Vital signs: Vital Signs Temp 97.6 F 05/01/24 07:55 Pulse 110 H 05/01/24 08:00 Resp 16 05/01/24 08:00 BP 139/75 05/01/24 07:55 Pulse Ox 96 05/01/24 07:55 FiO2 Intake & Output 04/30/24 05/01/24 05/01/24 18:59 06:59 18:59 Intake Total 1200 Balance 1200 Weight 148.5 kg Intake: Oral 1200 Other: Voiding Method Toilet Toilet Toilet # Voids 1 - Labs CBC & Chem 7: 04/27/24 16:01 05/01/24 05:37 Labs: Abnormal Lab Results - Last 24 Hours (Table) 04/30/24 04/30/24 04/30/24 Range/Units 11:31 16:23 19:55 BUN (9-20) mg/dL Creatinine (0.66-1.25) mg/dL Glucose (74-99) mg/dL POC Glucose (mg/dL) 132 H 139 H 112 H (70-110) mg/dL 05/01/24 Range/Units 05:37 BUN 35 H (9-20) mg/dL Creatinine 1.48 H (0.66-1.25) mg/dL Glucose 100 H (74-99) mg/dL POC Glucose (mg/dL) (70-110) mg/dL
--- NOTE | 2024-05-01 22:27 | P.DS ---
Providers Date of admission: 04/27/24 19:42 Expected date of discharge: 05/01/24 Attending physician: Samuel Velazquez Consults: 04/27/24 19:42 Consult Physician Routine Consulting Provider: Domingo Velazquez Consult Reason/Comments: afib rvr Do you want consulting provider notified?: Yes Primary care physician: [facility] Course: Chief Complaint: Palpitation Pleasant 68-year-old patient follows with devin Trimble. Chronic medical conditions include coronary bypass in 2020, diabetes, hypertension, hyperlipidemia, vascular disorder. Marketing Director Dr. Mony Velazquez. After his coronary bypass in 2020 about a week after he had to be cardioverted for atrial fibrillation. After 3 months again he to be cardioverted. But now for about couple of months patient been having episodes of shortness of breath palpitation chest discomfort with activity. He was sent in from Dr. Velazquez's office yesterday. Yesterday initial EKG recorded a heart rate of 143. With atrial flutter tachycardia. Patient is placed on IV heparin and IV Cardizem. Patient does feel a bit tired. April 29: Patient remains in atrial flutter. Heart rate in around 80. Did have the patient walk in the hallway. No cardiac symptoms. Patient is being switched over to oral Lasix. Some increase in creatinine. Otherwise feeling better. April 30: Remains in atrial flutter with heart rate around 90s. Per cardiology Actos discontinued. Started on Farxiga. Would consider eventually adding Entresto. Possible outpatient KARLA cardioversion. On Xarelto. No cardiac symptoms. Ambulating. Possible CKD. Check renal ultrasound May 01: Patient be discharged on Farxiga, Xarelto, Lopressor. Metformin was increased to 1000 mg twice daily. Actos Cardizem CD discontinued. Cleared by cardiology. Follow-up with Dr. Mony Velazquez. May consider outpatient KARLA/cardioversion. Otherwise patient feeling well up and about Social history: Lives alone. 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 Does not smoke. Alcohol occasionally Physical examination: VITAL SIGNS: 97.2, 105, 17, 121 x 84, 97% room air GENERAL: BMI 44.6, up in a chair, comfortable EYES: Pupils equal. Conjunctiva stephen l. HEENT: External appearance of nose and ears normal, oral cavity grossly normal. NECK: JVD not raised; masses not palpable. HEART: Heart sounds irregular; no edema. LUNGS: Respiratory rate normal; clear to auscultation. ABDOMEN: Soft, nontender, liver spleen not palpable, no masses palpable. PSYCH: Alert and oriented x3; mood and affect stephen l. MUSCULOSKELETAL:No Clubbing/cyanosis;muscles-grossly intact INVESTIGATIONS, reviewed in the clinical context: Renal ultrasound: Bilateral corticomedullary differentiation maintained. No cortical thinning May 01: Potassium 4.6 BUN 35 creatinine 1.48 2D echo: EF 30 to 35%. Mild pulmonary hypertension. April 27, 2024: White count 7.5 globin 14.3 platelets 171 sodium 140 potassium 4.8 creatinine 1.13 EKG tracing personally reviewed by me-heart rate 140/atrial flutter/tachycardia Chest x-ray film personally reviewed by me-cardiomegaly. Venous prominence Assessment plan: -Atrial flutter/tachycardia rate uncontrolled about 144 in presentation. Patient been having symptoms for close to 2 months.: Rate controlled Started on IV Cardizem IV heparin in the ER. Telemetry. Cardizem CD discontinued Lopressor i 100 mg twice daily Xarelto -Coronary artery disease with coronary bypass in 2020 Lipitor. -Acute congestive heart failure exacerbation from systolic dysfunction EF 30-35% with additional precipitated uncontrolled atrial flutter: Better Received IV Lasix. Now on Lasix 20 mg a day Farxiga added Fluid restriction. -Hyperlipidemia Lipitor 40 mg nightly -Diabetes mellitus type 2 on oral hypoglycemic Ozempic. Metformin. Glucotrol. Actos discontinued. -Possible chronic kidney disease stage III likely nephrosclerosis Has trace protein in the urine. Ultrasound unremarkable -Essential hypertension Lopressor 100 milligram twice daily. Cardizem CD discontinued -Morbid obesity BMI 44.6 Weight loss measures -IV heparin discontinued -Full code Disposition: Home Past Medical History Past Medical History: Coronary Artery Disease (CAD), Chest Pain / Angina, Diabetes Mellitus, Hyperlipidemia, Hypertension, Skin Disorder, Vascular D isorder Additional Past Medical History / Comment(s): WOUND BELOW LITTLE TOE LEFT FOOT- HAS CAST & WALKING BOOT., 60 treatments of hyperbaric oxygen therapy last dose 07/28/2020. History of Any Multi-Drug Resistant Organisms: MRSA Date of last positivie culture/infection: 2013 MDRO Source:: toe Past Surgical History: Coronary Bypass/CABG, Heart Catheterization Additional Past Surgical History / Comment(s): tin big toe amputation (2009, 2013)., Cataract removed left eye. triple vessel bypass 10/04/20. Past Anesthesia/Blood Transfusion Reactions: No Reported Reaction Past Psychological History: No Psychological Hx Reported Smoking Status: Never smoker Past Alcohol Use History: Occasional Past Drug Use History: None Reported Plan - Discharge Summary Discharge Rx Participant: Yes New Discharge Prescriptions: New Metoprolol Tartrate [Lopressor] 100 mg PO BID #60 tablet Rivaroxaban [Xarelto] 20 mg PO W/SUPPER #30 tab Dapagliflozin Propanediol [Farxiga] 10 mg PO DAILY #30 tab Continue Atorvastatin [Lipitor] 40 mg PO HS #90 tab Semaglutide [Ozempic] 1 mg SQ MO Furosemide [Lasix] 20 mg PO DAILY 30 Days #30 tab glipiZIDE [Glucotrol] 10 mg PO DAILY Changed metFORMIN HCL 1,000 mg PO AC-BID #60 tab Discontinued Pioglitazone [Actos] 45 mg PO DAILY Diltiazem Cd [Cardizem CD] 180 mg PO DAILY #30 cap.er.24h Metoprolol Tartrate [Lopressor] 75 mg PO BID Discharge Medication List Atorvastatin [Lipitor] 40 mg PO HS #90 tab 09/27/20 [Rx] Furosemide [Lasix] 20 mg PO DAILY 30 Days #30 tab 10/13/20 [Rx] glipiZIDE [Glucotrol] 10 mg PO DAILY 04/27/24 [History] Semaglutide [Ozempic] 1 mg SQ MO 04/28/24 [History] Dapagliflozin Propanediol [Farxiga] 10 mg PO DAILY #30 tab 05/01/24 [Rx] Metoprolol Tartrate [Lopressor] 100 mg PO BID #60 tablet 05/01/24 [Rx] Rivaroxaban [Xarelto] 20 mg PO W/SUPPER #30 tab 05/01/24 [Rx] metFORMIN HCL 1,000 mg PO AC-BID #60 tab 05/01/24 [Rx] Follow up Appointment(s)/Referral(s): Terry King DO [Primary Care Provider] - 1 Week (Call to set up appointment) Domingo Velazquez MD [STAFF PHYSICIAN] - 05/11/24 12:45 pm ([place] office ) Patient Instructions/Handouts: Atrial Flutter (DC) Discharge Disposition: HOME SELF-CARE
== END 2024-05-01 14:58 | disposition home or self-care (01) | DRG 308 ==
LOC: EC 15:14 → 3SCARD 19:42
PROVIDERS: ADMIT Hospitalist; ATTEND Hospitalist
DX: I48.0 Paroxysmal atrial fibrillation (principal); I50.21 Acute systolic (congestive) heart failure; I27.20 Pulmonary hypertension, unspecified; I13.0 Hypertensive heart and chronic kidney disease with heart failure and stage 1 through stage 4 chronic kidney disease, or unspecified chronic kidney disease; Z68.41 Body mass index [BMI] 40.0-44.9, adult; E11.22 Type 2 diabetes mellitus with diabetic chronic kidney disease; N18.30 Chronic kidney disease, stage 3 unspecified; N17.8 Other acute kidney failure; I48.3 Typical atrial flutter; E66.01 Morbid (severe) obesity due to excess calories; I42.8 Other cardiomyopathies; Z95.1 Presence of aortocoronary bypass graft; E78.5 Hyperlipidemia, unspecified; I25.10 Atherosclerotic heart disease of native coronary artery without angina pectoris; N14.0 Analgesic nephropathy; T50.2X5A Adverse effect of carbonic-anhydrase inhibitors, benzothiadiazides and other diuretics, initial encounter; Z79.899 Other long term (current) drug therapy; Z79.85 Long-term (current) use of injectable non-insulin antidiabetic drugs; Z79.84 Long term (current) use of oral hypoglycemic drugs; Z89.422 Acquired absence of other left toe(s); Z89.421 Acquired absence of other right toe(s); Z86.14 Personal history of Methicillin resistant Staphylococcus aureus infection
CPT/HCPCS: 36415; 71046; 76770; 80048; 80053; 81003; 83735; 84484; 85025; 85610; 85730; 93005; 93306; 96365; 96366; 96368; 96375; 99291

== ENCOUNTER 2024-05-26 05:49 | Day surgery (SDC) | payer MEDICARE ==
[2024-05-22 15:11] VITALS: BMI 44.1
[2024-05-26] MEDS ORDERED: SODIUM CHLORIDE 0.9% 1,000 ML IV SCH ×2 (07:00→07:45)
[2024-05-26 07:01] LABS: Glucose,Whole Blood 132 mg/dL (70-110)
[2024-05-26 07:03] VITALS: TEMP 98.1
[2024-05-26] MEDS: IV FLUID CONTINUATION 500 ML IV ONE (07:07)
[2024-05-26] MEDS ORDERED: BENZOCAINE SPRAY 1 CAN MUCOUS MEM PRN (07:10)
[2024-05-26] MEDS: SODIUM CHLORIDE 0.9% 500 ML IV SCH (07:13)
[2024-05-26] MEDS ORDERED: PROPOFOL 10 MG/ML 20 ML VIAL IV ONE (07:21)
[2024-05-26] MEDS ORDERED: LIDOCAINE 1% INJ 10MG/ML (20 ML MDV) ONE (07:21)
[2024-05-26] MEDS: BENZOCAINE SPRAY 1 EACH MM ONE (07:24)
[2024-05-26 08:06] VITALS: RESP 16
--- NOTE | 2024-05-26 08:44 | ECHOS ---
STRESS ECHOCARDIOGRAM INDICATION: To rule out intracardiac thrombus prior to cardioversion. PROCEDURE NOTE: After obtaining informed consent, transesophageal echocardiogram is performed in left lateral position using an Omniplane probe. Local and IV sedation were obtained by the publications production supervisor. The patient tolerated the procedure well without any obvious immediate complications. FINDINGS: 1. There is no intracardiac thrombus within the left atrium, right atrium, right ventricle, or left ventricle. 2. Left ventricle has normal size and systolic function. 3. There is biatrial enlargement. 4. Left atrial appendage is not well visualized, the patient probably had left atrial appendage occlusion during the surgery. Mitral valve is anatomically normal. There is mild mitral regurgitation noted. There is mild tricuspid regurgitation noted. Aortic valve is a three-leaflet valve. There is no evidence of aortic stenosis or regurgitation. Aortic root measures within normal limits. There is no evidence of [id number] shunt by color-flow Doppler or [id number] shunt by agitated saline contrast study. CONCLUSIONS: 1. No intracardiac thrombus. 2. Normal LV systolic function. PLAN: The patient will undergo cardioversion. MMODL / IJN: [id number] /
[2024-05-26 08:54] VITALS: BP 121/60; PULSE 84
--- NOTE | 2024-05-26 11:13 | PCN ---
PROCEDURE NOTE PROCEDURE: Cardioversion. INDICATION: Persistent atrial fibrillation with poorly controlled ventricular rate. PROCEDURE NOTE: After obtaining informed consent, cardioversion was performed with 150 joules of synchronized direct current. The patient converted to sinus rhythm following a single shock. He is adequately anticoagulated with Xarelto, and intracardiac thrombus was ruled out with a KARLA. The patient will continue the anticoagulant and the metoprolol that he is on. Follow up with me in 1 to 2 weeks' time. JAYCE / BEBE: [id number] /
== END 2024-05-26 09:32 | disposition home or self-care (01) ==
LOC: OR 05:49
PROVIDERS: ATTEND Internal Medicine Cardiovascular Disease
DX: I48.19 Other persistent atrial fibrillation (principal); I10 Essential (primary) hypertension; E11.9 Type 2 diabetes mellitus without complications; I25.810 Atherosclerosis of coronary artery bypass graft(s) without angina pectoris; E78.2 Mixed hyperlipidemia; Z79.82 Long term (current) use of aspirin; Z79.84 Long term (current) use of oral hypoglycemic drugs; Z79.01 Long term (current) use of anticoagulants; Z79.85 Long-term (current) use of injectable non-insulin antidiabetic drugs
CPT/HCPCS: 93312; 93320; 93325; 92960; J2003; J2704

== ENCOUNTER 2024-05-30 03:01 | Emergency (ER) | payer MEDICARE ==
[2024-05-30 03:16] VITALS: TEMP 98
--- NOTE | 2024-05-30 03:42 | ED ---
Chest Pain HPI - General Chief Complaint: Chest Pain Stated Complaint: Chest Pain, Difficulty Breathing Time Seen by Provider: 05/30/24 03:36 Source: patient Mode of arrival: ambulatory - History of Present Illness Initial Comments: This patient is a 69-year-old man with history of hypertension and atrial fibrillation, presenting to have evaluation for chest tightness and some dyspnea that has been going on for a number of days now. The patient reports that earlier in the week, he had cardioversion performed by Dr. Metzger to deal with atrial fibrillation with rapid ventricular rate. The patient had felt relatively well after that but then noticed over the coming days he was having some chest heaviness and shortness of breath. He has also had cough largely nonproductive though occasional some clear sputum. No fever or chills. He notes there may be some mild edema at the ankles. The patient's symptoms are little worse when he walks, little better at rest. MD Complaint: chest pain -: days(s) Onset: during rest Pain Location: substernal, left chest, right chest Pain Radiation: none Severity: moderate Quality: heaviness Consistency: constant Improves With: nothing Worsens With: exertion Anginal Symptoms: dyspnea Other Symptoms: cough Treatments Prior to Arrival: none - Related Data Home Medications Medication Instructions Recorded Confirmed glipiZIDE [Glucotrol] 10 mg PO DAILY 04/27/24 06/09/24 Semaglutide [Ozempic] 1 mg SQ MO 04/28/24 06/09/24 Pantoprazole [Protonix] 40 mg PO DAILY 06/01/24 06/09/24 Previous Rx's Medication Instructions Recorded Atorvastatin [Lipitor] 40 mg PO HS #90 tab 09/27/20 Dapagliflozin Propanediol [Farxiga] 10 mg PO DAILY #30 tab 05/01/24 Metoprolol Tartrate [Lopressor] 100 mg PO BID #60 tablet 05/01/24 Rivaroxaban [Xarelto] 20 mg PO W/SUPPER #30 tab 05/01/24 metFORMIN HCL 1,000 mg PO AC-BID #60 tab 05/01/24 Amiodarone [Cordarone] 400 mg PO BID #180 tab 06/12/24 Furosemide [Lasix] 40 mg PO DAILY #60 tablet 06/12/24 Psyllium Husk 100% [Metamucil 6 gm PO DAILY #30 packet 06/12/24 Packet] Allergies Allergy/AdvReac Type Severity Reaction Status Date / Time No Known Allergies Allergy Verified 06/09/24 17:34 Review of Systems ROS Statement: Those systems with pertinent positive or pertinent negative responses have been documented in the HPI. ROS Other: All systems not noted in ROS Statement are negative. Constitutional: Denies: fever, chills, weakness ENT: Denies: congestion Respiratory: Reports: cough, dyspnea. Denies: wheezes, hemoptysis Cardiovascular: Reports: chest pain, dyspnea on exertion, edema. Denies: palpitations, orthopnea, syncope Gastrointestinal: Denies: abdominal pain, nausea, vomiting, diarrhea, melena, hematochezia Genitourinary: Denies: dysuria, hematuria Musculoskeletal: Denies: back pain Skin: Denies: rash Neurological: Denies: headache, weakness EKG Findings - EKG Results: EKG: interpreted by ELSAD, sinus rhythm (Rate 76 bpm), normal axis, normal QRS - Blocks, [place], Hypertrophy, ST Abn: AV and intraventricular conduction: 1 AV block Repolarization changes or abnormalities: nonspecific abnormality, ST segment, and/or T wave Past Medical History Past Medical History: Atrial Fibrillation, Atrial Flutter, Coronary Artery Disease (CAD), Chest Pain / Angina, Diabetes Mellitus, Hyperlipidemia, Hypertension, Skin Disorder, Vascular Disorder Additional Past Medical History / Comment(s): 60 treatments of hyperbaric oxygen therapy last dose 07/28/2020, cardioverted 05/26/24 History of Any Multi-Drug Resistant Organisms: None Reported, MRSA Date of last positivie culture/infection: 2013 MDRO Source:: toe Past Surgical History: Coronary Bypass/CABG, Heart Catheterization Additional Past Surgical History / Comment(s): tin big toe amputation (2009, 2013), cataract removed left eye. triple vessel bypass 10/04/20 Past Anesthesia/Blood Transfusion Reactions: No Reported Reaction Past Psychological History: No Psychological Hx Reported Smoking Status: Never smoker Past Alcohol Use History: None Reported Past Drug Use History: None Reported - Past Family History Mother Family Medical History: Cancer Additional Family Medical History / Comment(s): of an aneurysm at 88 years old. Father Family Medical History: Diabetes Mellitus General Exam General appearance: alert, in no apparent distress Head exam: Present: atraumatic, normocephalic Eye exam: Present: normal appearance. Absent: scleral icterus, conjunctival injection ENT exam: Present: normal oropharynx Neck exam: Present: normal inspection Respiratory exam: Present: rales (Bilateral bases). Absent: respiratory distress, wheezes, rhonchi, stridor, accessory muscle use Cardiovascular Exam: Present: regular rate, normal rhythm, normal heart sounds. Absent: systolic murmur, diastolic murmur, rubs, gallop GI/Abdominal exam: Present: soft. Absent: distended, tenderness, guarding, rebound, mass Extremities exam: Present: normal inspection, normal capillary refill, pedal edema. Absent: calf tenderness Back exam: Present: normal inspection. Absent: CVA tenderness (R), CVA tenderness (L) Neurological exam: Present: alert Skin exam: Present: warm, dry, intact, normal color. Absent: rash Course Vital Signs 05/30/24 05/30/24 05/30/24 03:14 04:30 06:25 Temperature 98.0 F 98.0 F Pulse Rate 79 73 68 Respiratory 18 15 18 Rate Blood Pressure 158/89 139/70 137/71 O2 Sat by Pulse 97 95 94 L Oximetry Chest Pain MDM - MDM The patient had chest x-ray that I interpreted as showing some vascular congestion consistent with mild congestive heart failure. No pneumothorax. No infiltrate Was pt. sent in by a medical professional or institution ([facility], [facility], urgent care, hospital, or [facility]...) When possible be specific @ -[No] Did you speak to anyone other than the patient for history (EMS, parent, family, police, friend...)? What history was obtained from this source @ -[No] Did you review nursing and triage notes (agree or disagree)? Why? @ -[I reviewed and agree with nursing and triage notes] Were old charts reviewed (outside hosp., previous admission, EMS record, old EKG, old radiological studies, urgent care reports/EKG's, [facility] records)? Report findings @ -[Yes, old charts were reviewed] Differential Diagnosis (chest pain, altered mental status, abdominal pain women, abdominal pain men, vaginal bleeding, weakness, fever, dyspnea, syncope, headache, dizziness, GI bleed, back pain, seizure, CVA, palpatations, mental health, musculoskeletal)? @ -[Differential Dyspnea: Coronary syndrome, arrhythmia, tamponade, asthma, COPD, pulmonary embolism, pneumonia, pneumothorax, pulmonary effusion, anaphylaxis, diabetic ketoacidosis, flailed chest, pulmonary contusion, diaphragmatic rupture, anemia, neuromuscular, this is not meant to be an all-inclusive list. EKG interpreted by me (3pts min.). @ -[I interpreted as above] X-rays interpreted by me (1pt min.). @ -[I interpreted as above elbows usually pretty less have been out for a while CT interpreted by me (1pt min.). @ -[None done] U/S interpreted by me (1pt. min.). @ -[None done] What testing was considered but not performed or refused? (CT, X-rays, U/S, labs)? Why? @ -[None] What meds were considered but not given or refused? Why? @ -[None] Did you discuss the management of the patient with other professionals (professionals i.e. , PA, [facility], lab, RT, psych nurse, social insurance adviser, road equipment operator, teacher, special weapons and tactics officer, case management manager)? Give summary @ -[No] Was smoking cessation discussed for >3mins.? @ -[No] Was critical care preformed (if so, how long)? @ -[No] Were there social determinants of health that impacted care today? How? (Homelessness, low income, unemployed, alcoholism, drug addiction, transportation, low edu. Level, literacy, decrease access to med. care, senior living, rehab)? @ -[No] Was there de-escalation of care discussed even if they declined (Discuss DNR or withdrawal of care, Hospice)? DNR status @ -[No] What co-morbidities impacted this encounter? (DM, HTN, Smoking, COPD, CAD, Cancer, CVA, ARF, Chemo, Hep., AIDS, mental health diagnosis, sleep apnea, morbid obesity)? @ -[Hypertension, history of atrial fibrillation Was patient admitted / discharged? Hospital course, mention meds given and route, prescriptions, significant lab abnormalities, going to OR and other pertinent info. @ -[Patient is 69-year-old man here for dyspnea and chest heaviness. He does on the exam and with the studies appear to have mild congestive heart failure exacerbation. The patient is given additional dose of Lasix. He is offered admission but the patient wants to go home. We discussed appropriate further care and follow-up as well as return parameters. Undiagnosed new problem with uncertain prognosis? @ -[No] Drug Therapy requiring intensive monitoring for toxicity (Heparin, Nitro, Insulin, Cardizem)? @ -[No] Were any procedures done? @ -[No] Diagnosis/symptom? @ -[Acute exacerbation of congestive heart failure Acute, or Chronic, or Acute on Chronic? @ -[Acute Uncomplicated (without systemic symptoms) or Complicated (systemic symptoms)? @ -[Complicated by dyspnea Side effects of treatment? @ -[No] Exacerbation, Progression, or Severe Exacerbation? @ -[As above Poses a threat to life or bodily function? How? (Chest pain, [place], [place], pneumonia, PE, COPD, DKA, ARF, appy, cholecystitis, CVA, Diverticulitis, Homicidal, Suicidal, threat to staff... and all critical care pts) @ -[No] All treatments are based on ideal body weight as in ED triage Disposition Clinical Impression: Chest pain Disposition: HOME SELF-CARE Condition: Good Instructions (If sedation given, give patient instructions): Chest Pain (ED) Is patient prescribed a controlled substance at d/c from ED?: No Referrals: Terry King DO [Primary Care Provider] - 1-2 days
[2024-05-30] MEDS: ASPIRIN 81 MG PO STA (03:48)
[2024-05-30] MEDS: NITROGLYCERIN SL TABS 0.4 MG TAB SUBLINGUAL STA (03:49)
[2024-05-30 04:47] LABS: Basophils % (A) 0 %; Eosinophils # (A) 0.1 k/uL (0-0.7); Eosinophils % (A) 2 %; HCT 42.7 % (39.0-53.0); HGB 13.7 gm/dL (13.0-17.5); Hypochromasia Slight; Lymphocytes # (A) 0.4 k/uL (1.0-4.8); Lymphocytes % (A) 10 %; MCH 29.1 pg (25.0-35.0); MCHC 32.1 g/dL (31.0-37.0); MCV 90.7 fL (80.0-100.0); Mean Platelet Volume 8.4; Monocytes # (A) 0.3 k/uL (0-1.0); Monocytes % (A) 8 %; Neutrophils # (A) 3.3 k/uL (1.3-7.7); Neutrophils % (A) 76 %; Platelet Count 120 k/uL (150-450); RDW 14.9 % (11.5-15.5); WBC 4.4 k/uL (3.8-10.6)
[2024-05-30 04:58] LABS: ALT 25 U/L (4-49); AST 29 U/L (17-59); African American GFR (CKD) 84 (>60 ml/min/1.73 sqM); Albumin 3.9 g/dL (3.5-5.0); Alkaline Phosphatase 195 U/L (38-126); Anion Gap 15 mmol/L; Blood Urea Nitrogen 21 mg/dL (9-20); Calcium 8.3 mg/dL (8.4-10.2); Carbon Dioxide 19 mmol/L (22-30); Chloride 106 mmol/L (98-107); Glucose 113 mg/dL (74-99); Magnesium 1.6 mg/dL (1.6-2.3); Non-African American GFR(CKD) 72 (>60 ml/min/1.73 sqM); Potassium 4.2 mmol/L (3.5-5.1); Sodium 140 mmol/L (137-145); Total Bilirubin 1.5 mg/dL (0.2-1.3); Total Protein 6.9 g/dL (6.3-8.2)
[2024-05-30 05:02] LABS: INR 1.3 (<1.2); Prothrombin Time 13.6 sec (10.0-12.5)
[2024-05-30] MEDS: FUROSEMIDE 10 MG/ML 2 ML VIAL IV STA (05:11)
--- NOTE | 2024-05-30 05:36 | XR ---
EXAM: XR Chest, 2 Views CLINICAL HISTORY: ITS.REASON XR Reason: Chest Pain TECHNIQUE: Frontal and lateral views of the chest. COMPARISON: X-ray dated 04/27/2024. FINDINGS: Lungs: Mild prominence of the pulmonary vasculature which may represent pulmonary edema. Pleural space: Unremarkable. No pneumothorax. Heart: Mild to moderate enlargement of the cardiac silhouette. Mediastinum: Unremarkable. Normal mediastinal contour. Bones/joints: Degenerative changes are seen within the left shoulder and spine. Sternotomy wires are in place. No acute fracture. IMPRESSION: Findings suggestive of pulmonary edema. Otherwise no acute findings seen within the chest.
[2024-05-30 05:45] LABS: Influenza A Not Detected (Not Detectd); Influenza B Not Detected (Not Detectd); RSV Not Detected (Not Detectd)
[2024-05-30 06:27] VITALS: BP 137/71; PULSE 68; RESP 18
== END 2024-05-30 06:34 | disposition home or self-care (01) ==
LOC: EC 03:01
DX: I11.0 Hypertensive heart disease with heart failure (principal); I50.9 Heart failure, unspecified; I48.91 Unspecified atrial fibrillation; I25.10 Atherosclerotic heart disease of native coronary artery without angina pectoris
CPT/HCPCS: 36415; 93005; 85379; 83880; 80053; 83735; 84484; 85025; 85610; 85730; 87636; 71046; 99285; 96374; J1940

== ENCOUNTER 2024-05-31 17:28 | Inpatient (IN) | payer MEDICARE ==
--- NOTE | 2024-05-31 18:21 | ED ---
URI HPI - General Chief Complaint: Upper Respiratory Infection Stated Complaint: Coughing, vomiting Time Seen by Provider: 05/31/24 17:45 Source: patient, RN notes reviewed Mode of arrival: ambulatory Limitations: no limitations - History of Present Illness Initial Comments: This is a 69-year-old male with history including CAD, A-fib and DM presenting with cough x 6 days. Patient endorses having KARLA performed on 05/26/2024 with developing and worsening cough since that time. Patient was seen on 05/30/2024 in this ER with cardiac workup and diagnosis of pulmonary edema and Lasix sent to pharmacy. Patient states cough persists with occasional vomiting due to severity of cough. Also endorses fever, phlegm production and wheezing. Denies recent sick contact. Endorses use of Becca-Alvarado, Robitussin and Tylenol with minimal relief. Denies chills, dyspnea, chest pain, abdominal pain, nausea, diarrhea, hemoptysis. MD Complaint: fever, cough Onset/Timin -: days(s) Associated Symptoms: fever, cough, vomiting, other (Wheezing) Treatments Prior to Arrival: Acetaminophen, "cold medicine" - Related Data Home Medications Medication Instructions Recorded Confirmed glipiZIDE [Glucotrol] 10 mg PO DAILY 04/27/24 05/26/24 Semaglutide [Ozempic] 1 mg SQ MO 04/28/24 05/22/24 Previous Rx's Medication Instructions Recorded Atorvastatin [Lipitor] 40 mg PO HS #90 tab 09/27/20 Furosemide [Lasix] 20 mg PO DAILY 30 Days #30 tab 10/13/20 Dapagliflozin Propanediol [Farxiga] 10 mg PO DAILY #30 tab 05/01/24 Metoprolol Tartrate [Lopressor] 100 mg PO BID #60 tablet 05/01/24 Rivaroxaban [Xarelto] 20 mg PO W/SUPPER #30 tab 05/01/24 metFORMIN HCL 1,000 mg PO AC-BID #60 tab 05/01/24 Furosemide [Lasix] 20 mg PO BID #6 tab 05/30/24 Allergies Allergy/AdvReac Type Severity Reaction Status Date / Time No Known Allergies Allergy Verified 05/31/24 17:37 Review of Systems ROS Statement: Those systems with pertinent positive or pertinent negative responses have been documented in the HPI. ROS Other: All systems not noted in ROS Statement are negative. Past Medical History Past Medical History: Atrial Fibrillation, Atrial Flutter, Coronary Artery Disease (CAD), Chest Pain / Angina, Diabetes Mellitus, Hyperlipidemia, Hypertension, Skin Disorder, Vascular Disorder Additional Past Medical History / Comment(s): 60 treatments of hyperbaric oxygen therapy last dose 07/28/2020, cardioverted 05/26/24 History of Any Multi-Drug Resistant Organisms: None Reported, MRSA Date of last positivie culture/infection: 2013 MDRO Source:: toe Past Surgical History: Coronary Bypass/CABG, Heart Catheterization Additional Past Surgical History / Comment(s): tin big toe amputation (2009, 2013), cataract removed left eye. triple vessel bypass 10/04/20 Past Anesthesia/Blood Transfusion Reactions: No Reported Reaction Past Psychological History: No Psychological Hx Reported Smoking Status: Never smoker Past Alcohol Use History: None Reported Past Drug Use History: None Reported - Past Family History Mother Family Medical History: Cancer Additional Family Medical History / Comment(s): of an aneurysm at 88 years old. Father Family Medical History: Diabetes Mellitus General Exam Limitations: no limitations General appearance: alert, in no apparent distress Head exam: Present: atraumatic, normocephalic, normal inspection Eye exam: Present: normal appearance, PERRL, EOMI. Absent: scleral icterus, con junctival injection, periorbital swelling ENT exam: Present: normal exam, mucous membranes moist Neck exam: Present: normal inspection. Absent: tenderness, meningismus, lymphadenopathy Respiratory exam: Present: wheezes, rhonchi, decreased breath sounds, prolonged expiratory. Absent: respiratory distress, rales, stridor, accessory muscle use Cardiovascular Exam: Present: regular rate, normal rhythm, normal heart sounds. Absent: systolic murmur, diastolic murmur, rubs, gallop, clicks GI/Abdominal exam: Present: soft, normal bowel sounds. Absent: distended, tenderness, guarding, rebound, rigid Extremities exam: Present: normal inspection, full ROM, normal capillary refill. Absent: tenderness, pedal edema, joint swelling, calf tenderness Back exam: Present: normal inspection Neurological exam: Present: alert, oriented X3, CN II-XII intact Psychiatric exam: Present: normal affect, normal mood Skin exam: Present: warm, dry, intact, normal color. Absent: rash Course Vital Signs 05/31/24 05/31/2425 17:33 20:06 21:53 Temperature 100.9 F H 99.8 F H Pulse Rate 92 92 89 Respiratory 22 20 Rate Blood Pressure 158/83 138/78 O2 Sat by Pulse 91 L 88 L Oximetry 05/31/24 05/31/24 22:10 22:20 Temperature Pulse Rate 89 90 Respiratory Rate Blood Pressure O2 Sat by Pulse Oximetry Medical Decision Making - Medical Decision Making Was pt. sent in by a medical professional or institution (, PA, MARKETING CONTENT SPECIALIST, urgent care, hospital, or jail...) When possible be specific @ -No Did you speak to anyone other than the patient for history (EMS, parent, family, police, friend...)? What history was obtained from this source @ -No Did you review nursing and triage notes (agree or disagree)? Why? @ -I reviewed and agree with nursing and triage notes Were old charts reviewed (outside hosp., previous admission, EMS record, old EKG, old radiological studies, urgent care reports/EKG's, jail records)? Report findings @ -Chart from prior ER visit on 05/30/2024 reviewed. Differential Diagnosis (chest pain, altered mental status, abdominal pain women, abdominal pain men, vaginal bleeding, weakness, fever, dyspnea, syncope, headache, dizziness, GI bleed, back pain, seizure, CVA, palpatations, mental health, musculoskeletal)? @ -Differential Fever: Pneumonia, viral URI, endocarditis, myocarditis, pericarditis, otitis, sinusitis, peritonsillar Abscess, retropharyngeal Abscess, epiglottitis, peritonitis, appendicitis, Alyson cystitis, diverticulitis, hepatitis, colitis, UTI, PID, TOA, pyelonephritis, prostatitis, epididymitis, meningitis, encephalitis, pulmonary embolism, CVA, thyroid storm, pancreatitis, adrenal crisis, cavernous sinus thrombosis, this is not meant to be an all-inclusive list. EKG interpreted by me (3pts min.). @ -Not done X-rays interpreted by me (1pt min.). @ -CXR shows infiltrates throughout right mid and lower lung as well as left lower lobe. CT interpreted by me (1pt min.). @ -None done U/S interpreted by me (1pt. min.). @ -None done What testing was considered but not performed or refused? (CT, X-rays, U/S, martin bs)? Why? @ -None What meds were considered but not given or refused? Why? @ -None Did you discuss the management of the patient with other professionals (professionals i.e. , PA, MARKETING CONTENT SPECIALIST, lab, RT, psych nurse, health care social worker, director erp, teacher, plain clothes police officer, family caseworker)? Give summary @ - Spoke to Dr. Lorenzo from [facility] who agreed patient admission for pneumonia and hypoxia. Was smoking cessation discussed for >3mins.? @ -No Was critical care preformed (if so, how long)? @ -No Were there social determinants of health that impacted care today? How? (Homelessness, low income, unemployed, alcoholism, drug addiction, transportation, low edu. Level, literacy, decrease access to med. care, senior care, rehab)? @ -No Was there de-escalation of care discussed even if they declined (Discuss DNR or withdrawal of care, Hospice)? DNR status @ -No What co-morbidities impacted this encounter? (DM, HTN, Smoking, COPD, CAD, Cancer, CVA, ARF, Chemo, Hep., AIDS, mental health diagnosis, sleep apnea, morbid obesity)? @ -None Was patient admitted / discharged? Hospital course, mention meds given and route, prescriptions, significant lab abnormalities, going to OR and other pertinent info. @ -Lab work shows thrombocytopenia 106 and elevated alk phos 185. Otherwise unremarkable. Cepheid test negative. CXR shows infiltrates throughout right mid and lower lung as well as left lower lobe. Patient initially provided p.o. Motrin 800, IM Solu-Medrol and DuoNeb. Later given p.o. Tylenol, azithromycin and IV Rocephin. Patient continues to have difficulty breathing with coarse lung sounds and wheezing throughout and pulse oximetry not reading 88% room air. Spoke to Dr. Lorenzo from [facility] who agreed patient admission for pneumonia and hypoxia. Discussed patient with Dr. Quinteros. Undiagnosed new problem with uncertain prognosis? @ -No Drug Therapy requiring intensive monitoring for toxicity (Heparin, Nitro, Insulin, Cardizem)? @ -No Were any procedures done? @ -No Diagnosis/symptom? @ -Pneumonia, hypoxia Acute, or Chronic, or Acute on Chronic? @ -Acute Uncomplicated (without systemic symptoms) or Complicated (systemic symptoms)? @ -Complicated Side effects of treatment? @ -No Exacerbation, Progression, or Severe Exacerbation? @ -No Poses a threat to life or bodily function? How? (Chest pain, [place], [place], pneumonia, PE, COPD, DKA, ARF, appy, cholecystitis, CVA, Diverticulitis, Homicidal, Suicidal, threat to staff... and all critical care pts) @ -No - Lab Data Result diagrams: 05/31/24 18:59 05/31/24 18:59 Lab Results 05/31/24 05/31/24 05/31/24 Range/Units 17:53 18:59 18:59 WBC 4.7 (3.8-10.6) k/uL RBC 5.03 (4.30-5.90) m/uL Hgb 14.6 (13.0-17.5) gm/dL Hct 45.4 (39.0-53.0) % MCV 90.4 (80.0-100.0) fL MCH 29.1 (25.0-35.0) pg MCHC 32.2 (31.0-37.0) g/dL RDW 14.9 (11.5-15.5) % Plt Count 106 L (150-450) k/uL MPV 7.8 Neutrophils % 83 % Lymphocytes % 7 % Monocytes % 7 % Eosinophils % 0 % Basophils % 0 % Neutrophils # 3.9 (1.3-7.7) k/uL Lymphocytes # 0.3 L (1.0-4.8) k/uL Monocytes # 0.3 (0-1.0) k/uL Eosinophils # 0.0 (0-0.7) k/uL Basophils # 0.0 (0-0.2) k/uL Hypochromasia Slight Sodium 137 (137-145) mmol/L Potassium 4.3 (3.5-5.1) mmol/L Chloride 103 (98-107) mmol/L Carbon Dioxide 23 (22-30) mmol/L Anion Gap 11 mmol/L BUN 16 (9-20) mg/dL Creatinine 0.98 (0.66-1.25) mg/dL Est GFR (CKD-EPI)AfAm >90 (>60 ml/min/1.73 sqM) Est GFR (CKD-EPI)NonAf 80 (>60 ml/min/1.73 sqM) Glucose 87 (74-99) mg/dL Plasma Lactic Acid Lewis (0.7-2.0) mmol/L Calcium 8.6 (8.4-10.2) mg/dL Total Bilirubin 1.8 H (0.2-1.3) mg/dL AST 33 (17-59) U/L ALT 22 (4-49) U/L Alkaline Phosphatase 185 H (38-126) U/L Total Protein 7.4 (6.3-8.2) g/dL Albumin 4.1 (3.5-5.0) g/dL Influenza Type A (PCR) Not Detected (Not Detectd) Influenza Type B (PCR) Not Detected (Not Detectd) RSV (PCR) Not Detected (Not Detectd) SARS-CoV-2 (PCR) Not Detected (Not Detectd) 05/31/24 Range/Units 18:59 WBC (3.8-10.6) k/uL RBC (4.30-5.90) m/uL Hgb (13.0-17.5) gm/dL Hct (39.0-53.0) % MCV (80.0-100.0) fL MCH (25.0-35.0) pg MCHC (31.0-37.0) g/dL RDW (11.5-15.5) % Plt Count (150-450) k/uL MPV Neutrophils % % Lymphocytes % % Monocytes % % Eosinophils % % Basophils % % Neutrophils # (1.3-7.7) k/uL Lymphocytes # (1.0-4.8) k/uL Monocytes # (0-1.0) k/uL Eosinophils # (0-0.7) k/uL Basophils # (0-0.2) k/uL Hypochromasia Sodium (137-145) mmol/L Potassium (3.5-5.1) mmol/L Chloride (98-107) mmol/L Carbon Dioxide (22-30) mmol/L Anion Gap mmol/L BUN (9-20) mg/dL Creatinine (0.66-1.25) mg/dL Est GFR (CKD-EPI)AfAm (>60 ml/min/1.73 sqM) Est GFR (CKD-EPI)NonAf (>60 ml/min/1.73 sqM) Glucose (74-99) mg/dL Plasma Lactic Acid Lewis 1.7 (0.7-2.0) mmol/L Calcium (8.4-10.2) mg/dL Total Bilirubin (0.2-1.3) mg/dL AST (17-59) U/L ALT (4-49) U/L Alkaline Phosphatase (38-126) U/L Total Protein (6.3-8.2) g/dL Albumin (3.5-5.0) g/dL Influenza Type A (PCR) (Not Detectd) Influenza Type B (PCR) (Not Detectd) RSV (PCR) (Not Detectd) SARS-CoV-2 (PCR) (Not Detectd) Disposition Clinical Impression: Pneumonia, Hypoxia Disposition: ADMITTED IP TO THIS HOSP Condition: Good Is patient prescribed a controlled substance at d/c from ED?: No Time of Disposition: 21:45 Decision Date: 05/31/24 Decision Time: 21:45
--- NOTE | 2024-05-31 18:35 | XR ---
EXAMINATION TYPE: XR chest 2V DATE OF EXAM: 05/31/2024 6:27 PM COMPARISON: 05/30/2024 CLINICAL INDICATION: Male, 69 years old with history of Cough, fever: Shortness of breath TECHNIQUE: XR chest 2V views of the chest are obtained. FINDINGS: Scattered senescent parenchymal changes noted. Hyperinflation compatible with COPD. Reticular-nodular type infiltrate primarily through the right mid and right lower lung zones and left lower lobe suspicious for pneumonia. Correlate clinically and progress studies are recommended. Heart size is stable. Mediastinal structures are stable and grossly unremarkable. No evidence for hilar prominence. Degenerative changes dorsal spine. IMPRESSION: 1. Reticular-nodular type infiltrate primarily through the right mid and right lower lung zones and l eft lower lobe suspicious for pneumonia. Correlate clinically and progress studies are recommended. [facility], , 05/31/2024 6:32 PM
[2024-05-31 18:39] LABS: Influenza A Not Detected (Not Detectd); Influenza B Not Detected (Not Detectd); RSV Not Detected (Not Detectd)
[2024-05-31 19:07] LABS: Basophils % (A) 0 %; Eosinophils % (A) 0 %; HCT 45.4 % (39.0-53.0); HGB 14.6 gm/dL (13.0-17.5); Hypochromasia Slight; Lymphocytes # (A) 0.3 k/uL (1.0-4.8); Lymphocytes % (A) 7 %; MCH 29.1 pg (25.0-35.0); MCHC 32.2 g/dL (31.0-37.0); MCV 90.4 fL (80.0-100.0); Mean Platelet Volume 7.8; Monocytes # (A) 0.3 k/uL (0-1.0); Monocytes % (A) 7 %; Neutrophils # (A) 3.9 k/uL (1.3-7.7); Neutrophils % (A) 83 %; Platelet Count 106 k/uL (150-450); RBC 5.03 m/uL (4.30-5.90); RDW 14.9 % (11.5-15.5); WBC 4.7 k/uL (3.8-10.6)
[2024-05-31 19:12] LABS: ALT 22 U/L (4-49); AST 33 U/L (17-59); African American GFR (CKD) >90 (>60 ml/min/1.73 sqM); Albumin 4.1 g/dL (3.5-5.0); Alkaline Phosphatase 185 U/L (38-126); Anion Gap 11 mmol/L; Blood Urea Nitrogen 16 mg/dL (9-20); Calcium 8.6 mg/dL (8.4-10.2); Carbon Dioxide 23 mmol/L (22-30); Chloride 103 mmol/L (98-107); Glucose 87 mg/dL (74-99); Non-African American GFR(CKD) 80 (>60 ml/min/1.73 sqM); Potassium 4.3 mmol/L (3.5-5.1); Sodium 137 mmol/L (137-145); Total Bilirubin 1.8 mg/dL (0.2-1.3); Total Protein 7.4 g/dL (6.3-8.2)
[2024-05-31] MEDS: IPRATROPIUM-ALBUTEROL 3 ML NEB INHALATION STA (20:06)
[2024-05-31] MEDS: cefTRIAXone IN SWFI 1,000 MG/10 ML SYRINGE IVP STA (20:14)
[2024-05-31] MEDS: methylPREDNISolone SOD SUCCI 125 MG/2 ML VIAL IM ONE (20:17)
[2024-05-31] MEDS: ACETAMINOPHEN TAB 500 MG TAB PO STA (20:18)
[2024-05-31] MEDS: AZITHROMYCIN 500 MG TAB PO STA (20:18)
[2024-05-31] MEDS: IBUPROFEN 800 MG TAB PO STA (20:18)
[2024-05-31] MEDS: ALBUTEROL NEBULIZED 2.5 MG/3 ML INHALATION STA (22:10)
[2024-05-31] MEDS ORDERED: NALOXONE 0.4 MG/ML 1 ML VIAL IV PRN (22:25)
[2024-05-31] MEDS ORDERED: IBUPROFEN 400 MG TAB PO PRN (22:25)
[2024-05-31] MEDS ORDERED: ACETAMINOPHEN TAB 325 MG TAB PO PRN (22:25)
[2024-05-31] MEDS: ALBUTEROL NEBULIZED 2.5 MG/3 ML INHALATION SCH (22:37)
[2024-05-31] MEDS: SODIUM CHLORIDE 0.9% 1,000 ML IV SCH (22:49)
[2024-05-31] MEDS ORDERED: IPRATROPIUM-ALBUTEROL 3 ML NEB INHALATION PRN (22:56)
[2024-05-31] MEDS: DEXAMETHASONE SOD PHOSPHATE 4 MG/ML 1 ML VIAL IVP SCH (23:13)
--- NOTE | 2024-06-01 03:01 | P.HPIM ---
History of Present Illness H&P Date: 05/31/24 Patient is a 69-year-old male with a PMH of A-fib on Xarelto, type II DM, CAD, and hyperlipidemia who presents to the emergency room with complaints of shortness of breath and cough. Patient reports that he underwent a KARLA on 05/26 and since then has had a mild cough. He reports subsequently developing gradually worsening cough. Patient presented to the ER on 05/30 with complaints of shortness of breath at which time he was diagnosed with pulmonary edema and discharged home on Lasix. His symptoms however did not improve and he thereby presented again to the ER today. He also reports some fever and chills at home. Reports that the cough is productive of yellow-green phlegm. Denies chest discomfort, nausea, vomiting, abdominal pain, diarrhea. Also denies hemoptysis. Chest x-ray in the emergency room was consistent with bilateral pneumonia. Laboratory evaluation revealed respiratory viral panel unremarkable, WBC count 4.7, hemoglobin 14.6, platelet count 106, sodium 137, potassium 4.3, chloride 103, CO2 23, BUN 16, creatinine 0.98, and glucose 80 with total bilirubin 1.8 and alk phos 185. Vital signs in the emergency room were Tmax 100.9 F with SpO2 88% on room air. ED documentation reviewed and case discussed with ED provider. Review of systems: Pertinent positives and negatives as discussed in HPI, a complete review of systems was performed and all other systems are negative. Physical examination: Vital signs reviewed General: non toxic, no distress, appears at stated age, obese Derm: no unusual rashes/lesions, warm Head: atraumatic, normocephalic, symmetric Eyes: EOMI, no lid lag, anicteric sclera, pupils equal round reactive to light ENT: Nose and ears atraumatic Neck: No cervical lymphadenopathy, trachea midline, supple Mouth: no lip lesion, mucus membranes moist Cardiovascular: S1S2 reg, no murmur, positive dorsalis pedis pulse bilateral, no edema Lungs: Bilateral scattered coarse breath sounds with mild expiratory wheezing, no accessory muscle use Abdominal: soft, nontender to palpation, no guarding Ext: muscle strength 5 out of 5 in all 4 extremities grossly, no gross muscle atrophy, no contractures, Neuro: CN II-XI grossly intact, no gross focal neuro deficits Psych: Alert, oriented, appropriate affect Assessment: Acute hypoxic respiratory failure secondary to community-acquired pneumonia Thrombocytopenia Elevated T bilirubin Chronic conditions: A-fib, type II DM, CAD, hyperlipidemia Imaging: Chest x-ray in the emergency room was consistent with bilateral pneumonia. Data Review: Laboratory evaluation revealed respiratory viral panel unremarkable, WBC count 4.7, hemoglobin 14.6, platelet count 106, sodium 137, potassium 4.3, chloride 103, CO2 23, BUN 16, creatinine 0.98, and glucose 80 with total bilirubin 1.8 and alk phos 185. Vital signs in the emergency room were Tmax 100.9 F with SpO2 88% on room air. Plan: Continue with azithromycin and ceftriaxone Continue DuoNebs [id number] and as needed Continue with home medications including Xarelto and Lipitor Hold oral hypoglycemics Insulin sliding scale with blood glucose monitoring Monitor LFTs Follow-up sputum cultures, Legionella testing Obtain echocardiogram Monitor CBC DVT prophylaxis: Xarelto The patient is admitted with an anticipated greater than than 2 midnight stay for evaluation of community-acquired pneumonia CODE STATUS: Full Code Discussed with: Patient Anticipated discharge place: Home Past Medical History Past Medical History: Atrial Fibrillation, Atrial Flutter, Coronary Artery Disease (CAD), Chest Pain / Angina, Diabetes Mellitus, Hyperlipidemia, Hypertension, Skin Disorder, Vascular Disorder Additional Past Medical History / Comment(s): 60 treatments of hyperbaric oxygen therapy last dose 07/28/2020, cardioverted 05/26/24 History of Any Multi-Drug Resistant Organisms: None Reported, MRSA Date of last positivie culture/infection: 2013 MDRO Source:: toe Past Surgical History: Coronary Bypass/CABG, Heart Catheterization Additional Past Surgical History / Comment(s): tin big toe amputation (2009, 2013), cataract removed left eye. triple vessel bypass 10/04/20 Past Anesthesia/Blood Transfusion Reactions: No Reported Reaction Past Psychological History: No Psychological Hx Reported Smoking Status: Never smoker Past Alcohol Use History: None Reported Past Drug Use History: None Reported - Past Family History Mother Family Medical History: Cancer Additional Family Medical History / Comment(s): of an aneurysm at 88 years old. Father Family Medical History: Diabetes Mellitus Medications and Allergies Home Medications Medication Instructions Recorded Confirmed Type Atorvastatin [Lipitor] 40 mg PO HS #90 tab 09/27/20 05/26/24 Rx Furosemide [Lasix] 20 mg PO DAILY 30 Days #30 tab 10/13/20 05/22/24 Rx glipiZIDE [Glucotrol] 10 mg PO DAILY 04/27/24 05/26/24 History Semaglutide [Ozempic] 1 mg SQ MO 04/28/24 05/22/24 History Dapagliflozin Propanediol [Farxiga] 10 mg PO DAILY #30 tab 05/01/24 05/26/24 Rx Metoprolol Tartrate [Lopressor] 100 mg PO BID #60 tablet 05/01/24 05/26/24 Rx Rivaroxaban [Xarelto] 20 mg PO W/SUPPER #30 tab 05/01/24 05/26/24 Rx metFORMIN HCL 1,000 mg PO AC-BID #60 tab 05/01/24 05/26/24 Rx Furosemide [Lasix] 20 mg PO BID #6 tab 05/30/24 Rx Allergies Allergy/AdvReac Type Severity Reaction Status Date / Time No Known Allergies Allergy Verified 05/31/24 17:37 Physical Exam Vitals: Vital Signs Temp Pulse Resp BP Pulse Ox 06/01/24 01:00 75 14 105/48 96 05/31/24 22:20 90 05/31/24 22:10 89 05/31/24 21:53 99.8 F H 89 20 138/78 88 L 05/31/24 20:06 92 05/31/24 17:33 100.9 F H 92 22 158/83 91 L Intake and Output 05/31/24 05/31/24 06/01/24 14:59 22:59 06:59 Other: Weight 149.685 kg Results CBC & Chem 7: 05/31/24 18:59 05/31/24 18:59 Labs: Abnormal Lab Results - Last 24 Hours (Table) 05/31/24 05/31/24 Range/Units 18:59 18:59 Plt Count 106 L (150-450) k/uL Lymphocytes # 0.3 L (1.0-4.8) k/uL Total Bilirubin 1.8 H (0.2-1.3) mg/dL Alkaline Phosphatase 185 H (38-126) U/L
[2024-06-01 03:12] LABS: Glucose,Whole Blood 128 mg/dL (70-110)
[2024-06-01 06:48] LABS: HCT 44.9 % (39.0-53.0); HGB 13.9 gm/dL (13.0-17.5); Hypochromasia Slight; MCH 28.8 pg (25.0-35.0); MCHC 30.9 g/dL (31.0-37.0); MCV 93.2 fL (80.0-100.0); Mean Platelet Volume 8.6; RBC 4.82 m/uL (4.30-5.90); RDW 15.1 % (11.5-15.5); WBC 3.2 k/uL (3.8-10.6)
[2024-06-01 07:09] LABS: ALT 20 U/L (4-49); AST 26 U/L (17-59); African American GFR (CKD) 87 (>60 ml/min/1.73 sqM); Albumin 3.7 g/dL (3.5-5.0); Albumin/Globulin Ratio 1.2; Alkaline Phosphatase 158 U/L (38-126); Anion Gap 14 mmol/L; Blood Urea Nitrogen 20 mg/dL (9-20); Calcium 8.3 mg/dL (8.4-10.2); Carbon Dioxide 20 mmol/L (22-30); Chloride 103 mmol/L (98-107); Globulin 3.1 g/dL; Glucose 169 mg/dL (74-99); Non-African American GFR(CKD) 75 (>60 ml/min/1.73 sqM); Potassium 3.8 mmol/L (3.5-5.1); Sodium 137 mmol/L (137-145); Total Bilirubin 1.2 mg/dL (0.2-1.3); Total Protein 6.8 g/dL (6.3-8.2)
[2024-06-01] MEDS ORDERED: metFORMIN 500 MG TAB PO SCH (07:30)
[2024-06-01] MEDS: AZITHROMYCIN 500 MG TAB PO SCH (08:16)
[2024-06-01] MEDS: FUROSEMIDE 20 MG TAB PO SCH (08:17)
[2024-06-01] MEDS: DAPAGLIFLOZIN PROPANEDIOL 10 MG TABLET PO SCH (08:17)
[2024-06-01] MEDS: IPRATROPIUM-ALBUTEROL 3 ML NEB INHALATION SCH (08:18)
[2024-06-01] MEDS: METOPROLOL TARTRATE 50 MG TAB PO SCH (08:18)
[2024-06-01 08:19] LABS: Platelet Count 96 k/uL (150-450)
[2024-06-01] MEDS: INSULIN LISPRO (HumaLOG) 100 UNIT/ML 10 mL VL SQ SCH (08:19)
[2024-06-01] MEDS: NON FORMULARY DRUG (Semaglutide [Ozempic] 1 MG/0.75 ML Each) SQ SCH (08:20)
[2024-06-01] MEDS ORDERED: glipiZIDE 5 MG TAB PO SCH (09:00)
[2024-06-01 13:36] LABS: Glucose,Whole Blood 253 mg/dL (70-110)
[2024-06-01] MEDS: LACTATED RINGERS 500 ML IV ONE (14:15)
--- NOTE | 2024-06-01 14:17 | P.CNPUL ---
History of Present Illness Consult date: 06/01/24 Requesting physician: Ida Lorenzo Reason for consult: dyspnea, cough Chief complaint: Shortness of breath, cough, congestion History of present illness: This is a pleasant 69-year-old male patient coronary artery disease with previous coronary artery bypass grafting x 3 in September 2020, chronic atrial fibrillation status post cardioversion just last week. He also has a history of hypertension hyperlipidemia and diabetes mellitus. He presented here to the emergency room yesterday with a 2 to 3-day history of increasing shortness of breath, cough and congestion. Nodular type infiltrate primarily through the right mid and right lower lung zones. Left lower lobe as well suspicious for pneumonia. 13.9. Platelets 96,000. 137. Potassium 3.8. Bicarb 20. BUN 20. Creatinine 1.02. Glucose 169. The patient is seen today in consultation in the emergency department. He is currently sitting up in a chair. Awake and alert in no acute distress. He is maintaining O2 saturations in the 90s on 2 L/min per nasal cannula. He has normal saline at 100 mL/h. He was initiated on ceftriaxone and azithromycin. Review of Systems REVIEW OF SYSTEMS: CONSTITUTIONAL: Denies any recent significant weight loss or weight gain. EYES: Denies change in vision. EARS, NOSE, MOUTH, THROAT: Denies headaches, denies sore throat. CARDIOVASCULAR: Denies chest pain, palpitations or syncopal episodes. RESPIRATORY: Positive for shortness of breath, cough, congestion no hemoptysis. GASTROINTESTINAL: Denies change in appetite, denies abdominal pain GENITOURINARY: Denies hematuria, denies infections. MUSKULOSKELETAL: Denies pain, denies swelling. INTEGUMENTARY: Denies rash, denies eczema. NEUROLOGICAL: Denies recent memory loss, no recent seizure activity. PSYCHIATRIC: Denies anxiety, denies depression. HEMATOLOGIC/LYMPHATIC: Denies anemia, denies enlarged lymph nodes. Past Medical History Past Medical History: Atrial Fibrillation, Atrial Flutter, Coronary Artery Disease (CAD), Chest Pain / Angina, Diabetes Mellitus, Hyperlipidemia, Hypertension, Skin Disorder, Vascular Disorder Additional Past Medical History / Comment(s): 60 treatments of hyperbaric oxygen therapy last dose 07/28/2020, cardioverted 05/26/24 History of Any Multi-Drug Resistant Organisms: None Reported, MRSA Date of last positivie culture/infection: 2014 MDRO Source:: toe Past Surgical History: Coronary Bypass/CABG, Heart Catheterization Additional Past Surgical History / Comment(s): tin big toe amputation (2009, 2013), cataract removed left eye. triple vessel bypass 10/04/20 Past Anesthesia/Blood Transfusion Reactions: No Reported Reaction Past Psychological History: No Psychological Hx Reported Smoking Status: Never smoker Past Alcohol Use History: None Reported Past Drug Use History: None Reported - Past Family History Mother Family Medical History: Cancer Additional Family Medical History / Comment(s): of an aneurysm at 88 years old. Father Family Medical History: Diabetes Mellitus Medications and Allergies Home Medications Medication Instructions Recorded Confirmed Type Atorvastatin [Lipitor] 40 mg PO HS #90 tab 09/27/20 06/01/24 Rx glipiZIDE [Glucotrol] 10 mg PO DAILY 04/27/24 06/01/24 History Semaglutide [Ozempic] 1 mg SQ MO 04/28/24 06/01/24 History Dapagliflozin Propanediol [Farxiga] 10 mg PO DAILY #30 tab 05/01/24 06/01/24 Rx Metoprolol Tartrate [Lopressor] 100 mg PO BID #60 tablet 05/01/24 06/01/24 Rx Rivaroxaban [Xarelto] 20 mg PO W/SUPPER #30 tab 05/01/24 06/01/24 Rx metFORMIN HCL 1,000 mg PO AC-BID #60 tab 05/01/24 06/01/24 Rx Furosemide [Lasix] 20 mg PO BID #6 tab 05/30/24 06/01/24 Rx Pantoprazole [Protonix] 40 mg PO DAILY 06/01/24 06/01/24 History Allergies Allergy/AdvReac Type Severity Reaction Status Date / Time No Known Allergies Allergy Verified 06/01/24 10:25 Physical Exam Vitals: Vital Signs Temp Pulse Resp BP Pulse Ox 06/01/24 13:51 84 20 136/67 98 06/01/24 12:13 76 06/01/24 12:04 80 06/01/24 10:15 97.9 F 80 18 125/48 98 06/01/24 08:30 82 06/01/24 08:20 76 06/01/24 06:00 97.5 F L 73 14 102/45 99 06/01/24 01:00 75 17 105/48 96 05/31/24 22:20 90 05/31/24 22:10 89 05/31/24 21:53 99.8 F H 89 20 138/78 88 L 05/31/24 20:06 92 05/31/24 17:33 100.9 F H 92 22 158/83 91 L Intake and Output 05/31/24 06/01/24 06/01/24 22:59 06:59 14:59 Other: Weight 149.685 kg GENERAL EXAM: Alert, pleasant obese 69-year-old male patient, on 2 L nasal cannula, up in a chair, comfortable in no apparent distress. HEAD: Normocephalic. EYES: Normal reaction of pupils, equal size. NOSE: Clear with pink turbinates. THROAT: No erythema or exudates. NECK: No masses, no JVD. CHEST: No chest wall deformity. LUNGS: Equal air entry with bilateral scattered rhonchi. CVS: S1 and S2 normal with no audible murmur, regular rhythm. ABDOMEN: No hepatosplenomegaly, normal bowel sounds, no guarding or rigidity. SPINE: No scoliosis or deformity SKIN: No rashes CENTRAL NERVOUS SYSTEM: No focal deficits, tone is normal in all 4 extremities. EXTREMITIES: There is no peripheral edema. No clubbing, no cyanosis. Peripheral pulses are intact. Results - Laboratory Findings CBC and BMP: 06/01/24 06:17 06/01/24 06:17 Abnormal lab findings: Abnormal Labs 05/31/24 05/31/24 06/01/24 18:59 18:59 03:10 WBC MCHC Plt Count 106 L Lymphocytes # 0.3 L Carbon Dioxide Glucose POC Glucose (mg/dL) 128 H Calcium Total Bilirubin 1.8 H Alkaline Phosphatase 185 H 06/01/24 06/01/24 06/01/24 06:17 06:17 13:34 WBC 3.2 L MCHC 30.9 L Plt Count 96 L Lymphocytes # Carbon Dioxide 20 L Glucose 169 H POC Glucose (mg/dL) 253 H Calcium 8.3 L Total Bilirubin Alkaline Phosphatase 158 H - Diagnostic Findings Chest x-ray: image reviewed Assessment and Plan Assessment: Acute hypoxic respiratory failure secondary to an acute community-acquired pneumonia. Viral screen negative Atrial fibrillation with recent cardioversion last week, maintained on Xarelto History of coronary disease with previous coronary artery bypass grafting Hyperlipidemia Hypertension Diabetes mellitus Plan: The patient was seen and evaluated Chest x-ray, labs and medications reviewed Currently stable on 2 L nasal cannula Titrate down/off the FiO2 as tolerated Continue bronchodilators Discontinue Decadron Continue ceftriaxone and azithromycin Anticoagulated with Xarelto We will continue to follow and make further recommendations based on his clinical status I have personally seen and examined the patient, performed the documentation and the assessment and plan as written. Number of minutes spent on the visit: 20 Dictation was produced using [employer] dictation software. Please excuse any grammatical, word or spelling errors.
--- NOTE | 2024-06-01 16:02 | P.PN ---
Subjective Progress Note Date: 06/01/24 69-year-old male with a PMH of A-fib on Xarelto, type II DM, CAD, HFrEF (most recent echocardiogram 04/28/2024 showed EF 30-35%) and hyperlipidemia who presents to the emergency room with complaints of shortness of breath and cough. Patient reports that he underwent a KARLA on 05/26 and since then has had a mild cough. He reports subsequently developing gradually worsening cough. Patient presented to the ER on 05/30 with complaints of shortness of breath at which time he was diagnosed with pulmonary edema and discharged home on Lasix. His symptoms however did not improve and he thereby presented again to the ER today. He also reports some fever and chills at home. Reports that the cough is productive of yellow-green phlegm. Denies chest discomfort, nausea, vomiting, abdominal pain, diarrhea. Also denies hemoptysis. Chest x-ray in the emergency room was consistent with bilateral pneumonia. Laboratory evaluation revealed respiratory viral panel unremarkable, WBC count 4.7, hemoglobin 14.6, platelet count 106, sodium 137, potassium 4.3, chloride 103, CO2 23, BUN 16, creatinine 0.98, and glucose 80 with total bilirubin 1.8 and alk phos 185. Vital signs in the emergency room were Tmax 100.9 F with SpO2 88% on room air. 06/01 - Patient seen and examined at bedside this morning, remaining in the ED. States his breathing is somewhat improved, however still has worsening orthopnea. Has been utilizing nasal cannula on and off throughout the morning depending on how his breathing is doing. Most recently on 2 L nasal cannula saturating at 98%. He has no acute complaints this time other than worsening shortness of breath while lying down. REVIEW OF SYSTEMS: Pertinent positives and negatives noted in HPI. Physical Exam: General: nontoxic, no distress, appears at stated age, obese Derm: warm, dry, intact HEENT: atraumatic, normocephalic, symmetric; EOMI, anicteric sclera; no lip lesion, mucus membranes moist; JVD observable while seated ~10cm Eyes: EOMI, anicteric sclera Mouth: no lip lesion, mucus membranes moist Cardiovascular: S1 S2 reg, no murmur, rubs, or gallops Lungs: Rales heard in the bilateral lower lobes, some rhonchi noted in the right lower lobe Abdominal: soft, non-tender to palpataion, no appreciable organomegaly Extremities: no gross muscle atrophy, no edema, no contractures; wraps around bilateral lower extremities to prevent significant edema from forming Neuro: Alert, Oriented, CNII-XII grossly intact, gait normal Psych: well appearing, appropriate affect Data Received Today: Labs: WBC 3.2, hemoglobin 13.9, hematocrit 44.9, platelet 96; sodium 137, potassium 3.8, bicarb 20, anion gap 14, BUN 1.02, creatinine 87, glucose 169, calcium 8.3, total bilirubin 1.2, alkaline phosphatase 158 Imagining: No new imaging. Assessment and plan 61-year-old man with PMH of atrial fibrillation maintained on Xarelto, type 2 diabetes mellitus, CAD, hyperlipidemia and HFrEF (most recent echocardiogram 04/28/2024 showed EF 30-35%) presents to the emergency department with worsening shortness of breath. He is admitted with an anticipated stay of greater than 2 midnights for further evaluation of likely community-acquired pneumonia. #Sepsis #Leukopenia and lymphopenia #Acute hypoxic respiratory failure likely secondary to community-acquired pneumonia -Continues requiring 2 L oxygen via nasal cannula, Tmax on arrival 100.9 F -WBC 3.2 this morning -Had received approximately 800 cc in total of normal saline prior to evidence of sepsis with leukopenia, holding IV fluids at this time secondary to signs of possible HFrEF exacerbation -Reevaluate in a.m. to determine need for increasing Lasix dose, to manage her fluid overload; if able to give fluids for sepsis management, utilize lactated Ringer's -Continue with azithromycin and ceftriaxone -Continue with DuoNebs [id number] and as needed -Sputum and blood cultures both ordered, currently pending; Legionella testing pending -Continue to monitor CBC and vital signs -Titrate down/off FiO2 as tolerated #HFrEF, 30-35% (most recent echocardiogram 04/28/2024) -Continue home metoprolol tartrate 100 mg twice daily and Farxiga 10 mg daily; hold Ozempic -Echocardiogram ordered, currently pending at this time -Holding all IV fluids at this time, due to symptomology of fluid overload likely secondary to acute exacerbation of HFrEF #Thrombocytopenia -Platelet 96 today -Continue monitor CBC closely #Elevated total bilirubin, resolved -Continue to monitor CMP Chronic conditions: #Atrial fibrillation maintained on Xarelto #Type 2 diabetes mellitus #CAD #Hyperlipidemia -Continue home medications other than those mentioned as being held -Hold Ozempic DVT ppx: Xarelto 20 mg with dinner Code status: Full code Anticipated discharge place: Pending clinical course Anticipated discharge time: Pending clinical course Dictation was produced using [employer] dictation software. please excuse any grammatical, word or spelling errors. I saw and evaluated the patient during the perera and critical portions of this encounter, and discussed the case in detail with the resident author of this note, I agree with the Assessment and Plan, and my changes, if any, are highl ighted in blue. Objective - Vital Signs Vital signs: Vital Signs Temp 97.9 F 06/01/24 10:15 Pulse 84 06/01/24 13:51 Resp 20 06/01/24 13:51 BP 136/67 06/01/24 13:51 Pulse Ox 98 06/01/24 13:51 FiO2 Intake & Output 05/31/24 06/01/24 06/01/24 18:59 06:59 18:59 Weight 149.685 kg - Labs CBC & Chem 7: 06/01/24 06:17 06/01/24 06:17 Labs: Abnormal Lab Results - Last 24 Hours (Table) 05/31/24 05/31/24 06/01/24 Range/Units 18:59 18:59 03:10 WBC (3.8-10.6) k/uL MCHC (31.0-37.0) g/dL Plt Count 106 L (150-450) k/uL Lymphocytes # 0.3 L (1.0-4.8) k/uL Carbon Dioxide (22-30) mmol/L Glucose (74-99) mg/dL POC Glucose (mg/dL) 128 H (70-110) mg/dL Calcium (8.4-10.2) mg/dL Total Bilirubin 1.8 H (0.2-1.3) mg/dL Alkaline Phosphatase 185 H (38-126) U/L 06/01/24 06/01/24 06/01/24 Range/Units 06:17 06:17 13:34 WBC 3.2 L (3.8-10.6) k/uL MCHC 30.9 L (31.0-37.0) g/dL Plt Count 96 L (150-450) k/uL Lymphocytes # (1.0-4.8) k/uL Carbon Dioxide 20 L (22-30) mmol/L Glucose 169 H (74-99) mg/dL POC Glucose (mg/dL) 253 H (70-110) mg/dL Calcium 8.3 L (8.4-10.2) mg/dL Total Bilirubin (0.2-1.3) mg/dL Alkaline Phosphatase 158 H (38-126) U/L
[2024-06-01 16:43] LABS: Glucose,Whole Blood 216 mg/dL (70-110)
[2024-06-01] MEDS: RIVAROXABAN 20 MG TAB PO SCH (16:48)
[2024-06-01 20:02] LABS: Glucose,Whole Blood 216 mg/dL (70-110)
[2024-06-01] MEDS: ATORVASTATIN 40 MG TAB PO SCH (20:19)
[2024-06-02 05:14] LABS: Basophils % (A) 0 %; Eosinophils % (A) 0 %; HCT 46.1 % (39.0-53.0); HGB 14.3 gm/dL (13.0-17.5); Hypochromasia Slight; Lymphocytes # (A) 0.6 k/uL (1.0-4.8); Lymphocytes % (A) 7 %; MCH 28.2 pg (25.0-35.0); MCV 91.1 fL (80.0-100.0); Mean Platelet Volume 8.1; Monocytes # (A) 0.4 k/uL (0-1.0); Monocytes % (A) 6 %; Neutrophils # (A) 6.2 k/uL (1.3-7.7); Neutrophils % (A) 84 %; Platelet Count 135 k/uL (150-450); RBC 5.06 m/uL (4.30-5.90); RDW 14.8 % (11.5-15.5); WBC 7.4 k/uL (3.8-10.6)
[2024-06-02 06:10] LABS: African American GFR (CKD) 72 (>60 ml/min/1.73 sqM); Anion Gap 11 mmol/L; Blood Urea Nitrogen 31 mg/dL (9-20); Calcium 8.8 mg/dL (8.4-10.2); Carbon Dioxide 23 mmol/L (22-30); Chloride 100 mmol/L (98-107); Glucose 193 mg/dL (74-99); Non-African American GFR(CKD) 62 (>60 ml/min/1.73 sqM); Potassium 4.1 mmol/L (3.5-5.1); Sodium 134 mmol/L (137-145)
[2024-06-02 07:18] LABS: Glucose,Whole Blood 156 mg/dL (70-110)
--- NOTE | 2024-06-02 08:20 | XR ---
EXAMINATION TYPE: XR chest 1V portable DATE OF EXAM: 06/02/2024 8:15 AM COMPARISON: Chest radiographs from 05/31/2024 TECHNIQUE: XR chest 1V portable Portable AP radiograph of the chest. CLINICAL INDICATION:Male, 69 years old with history of history chf; FINDINGS: Lungs/Pleura: There is no evidence of pleural effusion or pneumothorax. Bilateral patchy perihilar op acities. Heart/mediastinum: Cardiomediastinal silhouette is enlarged and stable. Left atrial appendage occlusi on devices present. Musculoskeletal: No acute osseous pathology. Midline sternotomy wires and hardware are noted and stab le. IMPRESSION: Similar cardiomegaly with bilateral perihilar opacities which may represent and/or pulmonary edema. [facility], , 06/02/2024 8:18 AM
[2024-06-02] MEDS: predniSONE 10 MG TAB PO SCH (09:17)
[2024-06-02 12:13] LABS: Glucose,Whole Blood 172 mg/dL (70-110)
[2024-06-02] MEDS: FUROSEMIDE 10 MG/ML 4 ML VIAL IV SCH (13:03)
--- NOTE | 2024-06-02 13:17 | P.PN ---
Subjective Progress Note Date: 06/02/24 69-year-old male with a PMH of A-fib on Xarelto, type II DM, CAD, HFrEF (most recent echocardiogram 04/28/2024 showed EF 30-35%) and hyperlipidemia who presents to the emergency room with complaints of shortness of breath and cough. Patient reports that he underwent a KARLA on 05/26 and since then has had a mild cough. He reports subsequently developing gradually worsening cough. Patient presented to the ER on 05/30 with complaints of shortness of breath at which time he was diagnosed with pulmonary edema and discharged home on Lasix. His symptoms however did not improve and he thereby presented again to the ER today. He also reports some fever and chills at home. Reports that the cough is productive of yellow-green phlegm. Denies chest discomfort, nausea, vomiting, abdominal pain, diarrhea. Also denies hemoptysis. Chest x-ray in the emergency room was consistent with bilateral pneumonia. Laboratory evaluation revealed respiratory viral panel unremarkable, WBC count 4.7, hemoglobin 14.6, platelet count 106, sodium 137, potassium 4.3, chloride 103, CO2 23, BUN 16, creatinine 0.98, and glucose 80 with total bilirubin 1.8 and alk phos 185. Vital signs in the emergency room were Tmax 100.9 F with SpO2 88% on room air. 06/01 - Patient seen and examined at bedside this morning, remaining in the ED. States his breathing is somewhat improved, however still has worsening orthopnea. Has been utilizing nasal cannula on and off throughout the morning depending on how his breathing is doing. Most recently on 2 L nasal cannula saturating at 98%. He has no acute complaints this time other than worsening shortness of breath while lying down. 06/02 - Patient seen and examined at bedside this morning, now on the fifth floor. REVIEW OF SYSTEMS: Pertinent positives and negatives noted in HPI. Physical Exam: General: nontoxic, no distress, appears at stated age, obese Derm: warm, dry, intact HEENT: atraumatic, normocephalic, symmetric; EOMI, anicteric sclera; no lip lesion, mucus membranes moist; JVD observable while seated ~10cm Eyes: EOMI, anicteric sclera Mouth: no lip lesion, mucus membranes moist Cardiovascular: S1 S2 reg, no murmur, rubs, or gallops Lungs: Rales heard in the bilateral lower lobes, some rhonchi noted in the right lower lobe Abdominal: soft, non-tender to palpataion, no appreciable organomegaly Extremities: no gross muscle atrophy, no edema, no contractures; wraps around bilateral lower extremities to prevent significant edema from forming Neuro: Alert, Oriented, CNII-XII grossly intact, gait normal Psych: well appearing, appropriate affect Data Received Today: Labs: WBC 7.4, hemoglobin 14.3, hematocrit 46.1, platelet 135; sodium 134, potassium 4.1, BUN 31, creatinine 1.20, calcium 8.8 Imagining: Chest x-ray this morning showed perihilar opacities bilaterally which may represent pulmonary edema Assessment and plan 61-year-old man with PMH of atrial fibrillation maintained on Xarelto, type 2 diabetes mellitus, CAD, hyperlipidemia and HFrEF (most recent echocardiogram 04/28/2024 showed EF 30-35%) presents to the emergency department with worsening shortness of breath. He is admitted with an anticipated stay of greater than 2 midnights for further evaluation of likely community-acquired pneumonia. #Acute on chronic HFrEF, 30-35% (most recent echocardiogram 04/28/2024) #Acute hypoxic respiratory failure likely secondary to above -Continue home metoprolol tartrate 100 mg twice daily and Farxiga 10 mg daily; hold Ozempic -Echocardiogram ordered, currently pending at this time -Continue with DuoNebs [id number] and as needed -Increase Lasix to 40 mg every 12 hours -BNP shown to be 2880 -Strict I's and O's, daily weights #Sepsis, resolving #Leukopenia and lymphopenia, resolving -Saturating 95% on room air, has remained afebrile -WBC 7.4 this morning -Discontinued antibiotics secondary to negative procalcitonin -Sputum culture ordered, currently pending; Legionella testing pending -Preliminary blood culture showed to be negative -Continue to monitor CBC and vital signs #Thrombocytopenia, improving -Platelet 135 today -Continue monitor CBC closely #Elevated total bilirubin, resolved -Continue to monitor CMP #Type 2 diabetes mellitus -Blood glucose monitoring ACHS -Sliding scale ACHS -Hold Ozempic -Monitor for hypoglycemia Chronic conditions: #Atrial fibrillation maintained on Xarelto #CAD #Hyperlipidemia -Continue home medications other than those mentioned as being held DVT ppx: Xarelto 20 mg with dinner Code status: Full code Anticipated discharge place: Pending clinical course Anticipated discharge time: Pending clinical course Dictation was produced using [employer] dictation software. please excuse any grammatical, word or spelling errors. I saw and evaluated the patient during the perera and critical portions of this encounter, and discussed the case in detail with the resident author of this note, I agree with the Assessment and Plan, and my changes, if any, are highlighted in blue. Objective - Vital Signs Vital signs: Vital Signs Temp 98.5 F 06/02/24 06:59 Pulse 90 06/02/24 06:59 Resp 16 06/02/24 06:59 BP 149/78 06/02/24 06:59 Pulse Ox 95 06/02/24 06:59 FiO2 Intake & Output 06/01/24 06/02/24 06/02/24 18:59 06:59 18:59 Intake Total 590 Balance 590 Weight 149.685 kg Intake: Oral 590 Other: # Voids 2 - Labs CBC & Chem 7: 06/02/24 04:36 06/02/24 04:36 Labs: Abnormal Lab Results - Last 24 Hours (Table) 06/01/24 06/01/24 06/01/24 Range/Units 06:17 13:34 16:42 Plt Count 96 L (150-450) k/uL Lymphocytes # (1.0-4.8) k/uL Sodium (137-145) mmol/L BUN (9-20) mg/dL Glucose (74-99) mg/dL POC Glucose (mg/dL) 253 H 216 H (70-110) mg/dL 06/01/24 06/02/24 06/02/24 Range/Units 20:01 04:36 04:36 Plt Count 135 L (150-450) k/uL Lymphocytes # 0.6 L (1.0-4.8) k/uL Sodium 134 L (137-145) mmol/L BUN 31 H (9-20) mg/dL Glucose 193 H (74-99) mg/dL POC Glucose (mg/dL) 216 H (70-110) mg/dL 06/02/24 Range/Units 07:00 Plt Count (150-450) k/uL Lymphocytes # (1.0-4.8) k/uL Sodium (137-145) mmol/L BUN (9-20) mg/dL Glucose (74-99) mg/dL POC Glucose (mg/dL) 156 H (70-110) mg/dL Microbiology - Last 24 Hours (Table) 05/31/24 20:05 Blood Culture - Preliminary Blood
--- NOTE | 2024-06-02 13:31 | P.PN ---
Subjective Progress Note Date: 06/02/24 This is a pleasant 69-year-old male patient coronary artery disease with previous coronary artery bypass grafting x 3 in September 2020, chronic atrial fibrillation status post cardioversion just last week. He also has a history of hypertension hyperlipidemia and diabetes mellitus. He presented here to the e mergency room yesterday with a 2 to 3-day history of increasing shortness of breath, cough and congestion. Nodular type infiltrate primarily through the right mid and right lower lung zones. Left lower lobe as well suspicious for pneumonia. 13.9. Platelets 96,000. 137. Potassium 3.8. Bicarb 20. BUN 20. Creatinine 1.02. Glucose 169. The patient is seen today in consultation in the emergency department. He is currently sitting up in a chair. Awake and alert in no acute distress. He is maintaining O2 saturations in the 90s on 2 L/min per nasal cannula. He has normal saline at 100 mL/h. He was initiated on ceftriaxone and azithromycin. The patient is seen today June 02, 2024 in follow-up on the regular medical floor. He is awake and alert in no acute distress. Currently sitting up in a chair at the bedside. Maintaining good O2 saturations in the 90s on room air. No IV fluids. His procalcitonin was 0.16. Chest x-ray continues to show similar cardiomegaly with bilateral perihilar opacities. White count 10.4. Hemoglobin 14.3. Platelets 135. Sodium 134. Potassium 4.1. Bicarb 23. BUN 31. Creatinine 1.2. Glucose 193. proBNP 2880. He is receiving Lasix 40 mg IV every 12 hours. Anticoagulated with Xarelto. Remains on DuoNeb inhalations. Objective - Vital Signs Vital signs: Vital Signs Temp 98.0 F 06/02/24 11:19 Pulse 84 06/02/24 11:19 Resp 18 06/02/24 11:19 BP 151/84 06/02/24 11:19 Pulse Ox 95 06/02/24 11:19 FiO2 Intake & Output 06/01/24 06/02/24 06/02/24 18:59 06:59 18:59 Intake Total 590 Balance 590 Weight 149.685 kg Intake: Oral 590 Other: # Voids 2 - Exam GENERAL EXAM: Alert, active, pleasant 69-year-old male, sitting up in a chair, on room air, comfortable in no apparent distress. HEAD: Normocephalic. EYES: Normal reaction of pupils, equal size. NOSE: Clear with pink turbinates. THROAT: No erythema or exudates. NECK: No masses, no JVD. CHEST: No chest wall deformity. LUNGS: Equal air entry with few scattered rhonchi, end expiratory wheeze. CVS: S1 and S2 normal with no audible murmur, regular rhythm. ABDOMEN: No hepatosplenomegaly, normal bowel sounds, no guarding or rigidity. SPINE: No scoliosis or deformity SKIN: No rashes CENTRAL NERVOUS SYSTEM: No focal deficits, tone is normal in all 4 extremities. EXTREMITIES: There is no peripheral edema. No clubbing, no cyanosis. Peripheral pulses are intact. - Labs CBC & Chem 7: 06/02/24 04:36 06/02/24 04:36 Labs: Abnormal Lab Results - Last 24 Hours (Table) 06/01/24 06/01/24 06/01/24 Range/Units 13:34 16:42 20:01 Plt Count (150-450) k/uL Lymphocytes # (1.0-4.8) k/uL Sodium (137-145) mmol/L BUN (9-20) mg/dL Glucose (74-99) mg/dL POC Glucose (mg/dL) 253 H 216 H 216 H (70-110) mg/dL 06/02/24 06/02/24 06/02/24 Range/Units 04:36 04:36 07:00 Plt Count 135 L (150-450) k/uL Lymphocytes # 0.6 L (1.0-4.8) k/uL Sodium 134 L (137-145) mmol/L BUN 31 H (9-20) mg/dL Glucose 193 H (74-99) mg/dL POC Glucose (mg/dL) 156 H (70-110) mg/dL 06/02/24 Range/Units 12:10 Plt Count (150-450) k/uL Lymphocytes # (1.0-4.8) k/uL Sodium (137-145) mmol/L BUN (9-20) mg/dL Glucose (74-99) mg/dL POC Glucose (mg/dL) 172 H (70-110) mg/dL Microbiology - Last 24 Hours (Table) 05/31/24 20:05 Blood Culture - Preliminary Blood Assessment and Plan Assessment: Acute hypoxic respiratory failure secondary to an acute exacerbation of mild congestive heart failure, systolic versus diastolic. proBNP 2880. Procalcitonin negative. Viral screen negative Atrial fibrillation with recent cardioversion last week, maintained on Xarelto History of coronary disease with previous coronary artery bypass grafting Hyperlipidemia Hypertension Diabetes mellitus Plan: The patient was seen and evaluated Chest x-ray, labs and medications reviewed Currently stable on room air proBNP elevated Initiated on IV diuretics Procalcitonin negative Antibiotics discontinued Continue bronchodilators Continue prednisone Anticoagulated with Xarelto We will continue to follow I have personally seen and examined the patient, performed the documentation and the assessment and plan as written. Number of minutes spent on the visit: 10 Dictation was produced using [employer] dictation software. Please excuse any grammatical, word or spelling errors.
[2024-06-02 17:16] LABS: Glucose,Whole Blood 237 mg/dL (70-110)
[2024-06-02 20:07] LABS: Glucose,Whole Blood 262 mg/dL (70-110)
[2024-06-03 05:46] LABS: Basophils % (A) 0 %; Eosinophils % (A) 0 %; HCT 46.4 % (39.0-53.0); HGB 14.8 gm/dL (13.0-17.5); Hypochromasia Slight; Lymphocytes # (A) 1.2 k/uL (1.0-4.8); Lymphocytes % (A) 20 %; MCH 28.9 pg (25.0-35.0); MCHC 31.9 g/dL (31.0-37.0); MCV 90.6 fL (80.0-100.0); Mean Platelet Volume 8.2; Monocytes # (A) 0.5 k/uL (0-1.0); Monocytes % (A) 9 %; Neutrophils # (A) 3.8 k/uL (1.3-7.7); Neutrophils % (A) 67 %; Platelet Count 135 k/uL (150-450); RBC 5.12 m/uL (4.30-5.90); RDW 14.9 % (11.5-15.5); WBC 5.6 k/uL (3.8-10.6)
[2024-06-03 05:50] LABS: African American GFR (CKD) 83 (>60 ml/min/1.73 sqM); Anion Gap 9 mmol/L; Blood Urea Nitrogen 31 mg/dL (9-20); Calcium 8.8 mg/dL (8.4-10.2); Carbon Dioxide 27 mmol/L (22-30); Chloride 100 mmol/L (98-107); Glucose 195 mg/dL (74-99); Non-African American GFR(CKD) 72 (>60 ml/min/1.73 sqM); Potassium 3.7 mmol/L (3.5-5.1); Sodium 136 mmol/L (137-145)
[2024-06-03 07:09] LABS: Glucose,Whole Blood 180 mg/dL (70-110)
--- NOTE | 2024-06-03 09:35 | XR ---
EXAMINATION TYPE: XR chest 1V portable DATE OF EXAM: 06/03/2024 9:31 AM COMPARISON: Multiple radiographs, with the most recent on 06/02/2024 TECHNIQUE: XR chest 1V portable Portable AP radiograph of the chest. CLINICAL INDICATION:Male, 69 years old with history of chf; FINDINGS: Lungs/Pleura: There is no evidence of pleural effusion or pneumothorax. Bilateral patchy perihilar re ticular nodular opacities. Heart/mediastinum: Cardiomediastinal silhouette is enlarged and stable. Left atrial appendage occlusi on devices present. Musculoskeletal: No acute osseous pathology. Midline sternotomy wires and hardware are noted and stab le. IMPRESSION: Similar cardiomegaly with bilateral reticulonodular opacities which may represent pneumonia and/or pu lmonary edema. [facility], , 06/03/2024 9:33 AM
--- NOTE | 2024-06-03 11:52 | P.PN ---
Subjective Progress Note Date: 06/03/24 69-year-old male with a PMH of A-fib on Xarelto, type II DM, CAD, HFrEF (most recent echocardiogram 04/28/2024 showed EF 30-35%) and hyperlipidemia who presents to the emergency room with complaints of shortness of breath and cough. Patient reports that he underwent a KARLA on 05/26 and since then has had a mild cough. He reports subsequently developing gradually worsening cough. Patient presented to the ER on 05/30 with complaints of shortness of breath at which time he was diagnosed with pulmonary edema and discharged home on Lasix. His symptoms however did not improve and he thereby presented again to the ER today. He also reports some fever and chills at home. Reports that the cough is productive of yellow-green phlegm. Denies chest discomfort, nausea, vomiting, abdominal pain, diarrhea. Also denies hemoptysis. Chest x-ray in the emergency room was consistent with bilateral pneumonia. Laboratory evaluation revealed respiratory viral panel unremarkable, WBC count 4.7, hemoglobin 14.6, platelet count 106, sodium 137, potassium 4.3, chloride 103, CO2 23, BUN 16, creatinine 0.98, and glucose 80 with total bilirubin 1.8 and alk phos 185. Vital signs in the emergency room were Tmax 100.9 F with SpO2 88% on room air. 06/01 - Patient seen and examined at bedside this morning, remaining in the ED. States his breathing is somewhat improved, however still has worsening orthopnea. Has been utilizing nasal cannula on and off throughout the morning depending on how his breathing is doing. Most recently on 2 L nasal cannula saturating at 98%. He has no acute complaints this time other than worsening shortness of breath while lying down. 06/02 - Patient seen and examined at bedside this morning, now on the fifth floor. 06/03 - Patient seen and examined at bedside this morning. Yesterday, his procalcitonin came back negative and his antibiotics were discontinued. It was determined that his symptoms are more in line with an acute exacerbation of his heart failure. He was initiated on Lasix 40 mg every 12 hours. On evaluation this morning, he is comfortable on room air saturating in the mid 90%'s. He has no acute complaints at this time. Plan at this point is for discharge tomorrow with continued improvement of his physical symptoms. REVIEW OF SYSTEMS: Pertinent positives and negatives noted in HPI. Physical Exam: General: nontoxic, no distress, appears at stated age, obese Derm: warm, dry, intact HEENT: atraumatic, normocephalic, symmetric; EOMI, anicteric sclera; no lip lesion, mucus membranes moist; JVD observable while seated ~10cm Eyes: EOMI, anicteric sclera Mouth: no lip lesion, mucus membranes moist Cardiovascular: S1 S2 reg, no murmur, rubs, or gallops Lungs: Rales heard in the bilateral lower lobes, some rhonchi noted in the right lower lobe; improving Abdominal: soft, non-tender to palpataion, no appreciable organomegaly Extremities: no gross muscle atrophy, no edema, no contractures; wraps around bilateral lower extremities to prevent significant edema from forming Neuro: Alert, Oriented, CNII-XII grossly intact, gait normal Psych: well appearing, appropriate affect Data Received Today: Labs: WBCs 5.6, hemoglobin 14.8, hematocrit 46.4, platelet 135; sodium 136, potassium 3.7, BUN 31, creatinine 1.07, glucose 195, calcium 8.8 Imagining: Chest x-ray this morning showed similar cardiomegaly with bilateral reticulonodular opacities Assessment and plan 61-year-old man with PMH of atrial fibrillation maintained on Xarelto, type 2 diabetes mellitus, CAD, hyperlipidemia and HFrEF (most recent echocardiogram 04/28/2024 showed EF 30-35%) presents to the emergency department with worsening shortness of breath. He is admitted with an anticipated stay of greater than 2 midnights for further evaluation of likely acute on chronic HFpEF. #Acute on chronic HFpEF (EF previously 30-35% in 04/2024, most recently on KARLA in 05/2024 showed normal LV function) #Atrial fibrillation with poorly controlled ventricular rate, s/p cardioversion on 05/26/24 #Acute hypoxic respiratory failure likely secondary to above -Continue home metoprolol tartrate 100 mg twice daily and Farxiga 10 mg daily; hold Ozempic -Echocardiogram ordered, currently pending at this time -Continue with Haven [id number] and as needed -Increase Lasix to 40 mg every 12 hours, monitor for electrolytes -BNP shown to be 2880 -Strict I's and O's, daily weights -Discussed with pulmonology, discontinue steroids #SIRs positive, resolving #Leukopenia and lymphopenia, resolving -Saturating 95% on room air, has remained afebrile -WBC 7.4 this morning -Discontinued antibiotics secondary to negative procalcitonin -Sputum culture ordered, currently pending; -Urine Legionella antigen negative -Preliminary blood culture showed to be negative -Continue to monitor CBC and vital signs #Thrombocytopenia, improving -Platelet 135 today -Continue monitor CBC closely #Elevated total bilirubin, resolved -Continue to monitor CMP #Type 2 diabetes mellitus -Blood glucose monitoring ACHS -Sliding scale ACHS -Hold Ozempic -Monitor for hypoglycemia Chronic conditions: #Atrial fibrillation maintained on Xarelto #CAD #Hyperlipidemia -Continue home medications other than those mentioned as being held DVT ppx: Xarelto 20 mg with dinner Code status: Full code Anticipated discharge place: Home Anticipated discharge time: Tomorrow Dictation was produced using [employer] dictation software. please excuse any grammatical, word or spelling errors. I have seen and evaluated the patient today. Discussed with the resident and agree with the residents finding and plan as documented in the resident's note. Changes highlighted in blue font. Objective - Vital Signs Vital signs: Vital Signs Temp 97.7 F 06/03/24 08:02 Pulse 70 06/03/24 08:02 Resp 16 06/03/24 08:02 BP 147/76 06/03/24 08:02 Pulse Ox 93 L 06/03/24 08:02 FiO2 Intake & Output 06/02/24 06/03/24 06/03/24 18:59 06:59 18:59 Intake Total 240 1080 Balance 240 1080 Weight 145.6 kg 144.5 kg Intake: Oral 240 1080 - Labs CBC & Chem 7: 06/03/24 04:35 06/03/24 04:35 Labs: Abnormal Lab Results - Last 24 Hours (Table) 06/02/24 06/02/24 06/02/24 Range/Units 12:10 17:14 20:04 Plt Count (150-450) k/uL Sodium (137-145) mmol/L BUN (9-20) mg/dL Glucose (74-99) mg/dL POC Glucose (mg/dL) 172 H 237 H 262 H (70-110) mg/dL 06/03/24 06/03/24 06/03/24 Range/Units 04:35 04:35 07:08 Plt Count 135 L (150-450) k/uL Sodium 136 L (137-145) mmol/L BUN 31 H (9-20) mg/dL Glucose 195 H (74-99) mg/dL POC Glucose (mg/dL) 180 H (70-110) mg/dL Microbiology - Last 24 Hours (Table) 05/31/24 20:05 Blood Culture - Preliminary Blood
[2024-06-03 12:09] LABS: Glucose,Whole Blood 182 mg/dL (70-110)
--- NOTE | 2024-06-03 12:14 | P.PN ---
Subjective Progress Note Date: 06/03/24 This is a pleasant 69-year-old male patient coronary artery disease with previous coronary artery bypass grafting x 3 in September 2020, chronic atrial fibrillation status post cardioversion just last week. He also has a history of hypertension hyperlipidemia and diabetes mellitus. He presented here to the e mergency room yesterday with a 2 to 3-day history of increasing shortness of breath, cough and congestion. Nodular type infiltrate primarily through the right mid and right lower lung zones. Left lower lobe as well suspicious for pneumonia. 13.9. Platelets 96,000. 137. Potassium 3.8. Bicarb 20. BUN 20. Creatinine 1.02. Glucose 169. The patient is seen today in consultation in the emergency department. He is currently sitting up in a chair. Awake and alert in no acute distress. He is maintaining O2 saturations in the 90s on 2 L/min per nasal cannula. He has normal saline at 100 mL/h. He was initiated on ceftriaxone and azithromycin. The patient is seen today June 02, 2024 in follow-up on the regular medical floor. He is awake and alert in no acute distress. Currently sitting up in a chair at the bedside. Maintaining good O2 saturations in the 90s on room air. No IV fluids. His procalcitonin was 0.16. Chest x-ray continues to show similar cardiomegaly with bilateral perihilar opacities. White count 10.4. Hemoglobin 14.3. Platelets 135. Sodium 134. Potassium 4.1. Bicarb 23. BUN 31. Creatinine 1.2. Glucose 193. proBNP 2880. He is receiving Lasix 40 mg IV every 12 hours. Anticoagulated with Xarelto. Remains on DuoNeb inhalations. The patient is seen today June 03, 2024 in follow-up on the regular medical floor. He is awake and alert in no acute distress. Maintaining good O2 saturations in the 90s on room air. He is sitting up in a chair at the bedside. His procalcitonin was negative at 0.16. He remains on DuoNeb inhalations. Continued on IV diuretics. No accurate I&O. Anticoagulated with Xarelto. White count 5.6. Hemoglobin 14.8. Platelets 135. Sodium 136. Potassium 3.7. Bicarb 27. BUN 31. Creatinine 1.07. Glucose 195. Serum continues to show similar cardiomegaly with bilateral reticular nodule opacities, possible pul monary edema. Objective - Vital Signs Vital signs: Vital Signs Temp 97.7 F 06/03/24 08:02 Pulse 83 06/03/24 11:58 Resp 16 06/03/24 09:56 BP 147/76 06/03/24 08:02 Pulse Ox 93 L 06/03/24 08:02 FiO2 Intake & Output 06/02/24 06/03/24 06/03/24 18:59 06:59 18:59 Intake Total 240 1080 Balance 240 1080 Weight 145.6 kg 144.5 kg Intake: Oral 240 1080 Other: Voiding Method Toilet - Exam GENERAL EXAM: Alert, 69-year-old male, sitting up in a chair, on room air, comfortable in no apparent distress. HEAD: Normocephalic. EYES: Normal reaction of pupils, equal size. NOSE: Clear with pink turbinates. THROAT: No erythema or exudates. NECK: No masses, no JVD. CHEST: No chest wall deformity. LUNGS: Equal air entry with few scattered rhonchi. CVS: S1 and S2 normal with no audible murmur, regular rhythm. ABDOMEN: No hepatosplenomegaly, normal bowel sounds, no guarding or rigidity. SPINE: No scoliosis or deformity SKIN: No rashes CENTRAL NERVOUS SYSTEM: No focal deficits, tone is normal in all 4 extremities. EXTREMITIES: There is no peripheral edema. No clubbing, no cyanosis. Peripheral pulses are intact. - Labs CBC & Chem 7: 06/03/24 04:35 06/03/24 04:35 Labs: Abnormal Lab Results - Last 24 Hours (Table) 06/02/24 06/02/24 06/02/24 Range/Units 12:10 17:14 20:04 Plt Count (150-450) k/uL Sodium (137-145) mmol/L BUN (9-20) mg/dL Glucose (74-99) mg/dL POC Glucose (mg/dL) 172 H 237 H 262 H (70-110) mg/dL 06/03/24 06/03/24 06/03/24 Range/Units 04:35 04:35 07:08 Plt Count 135 L (150-450) k/uL Sodium 136 L (137-145) mmol/L BUN 31 H (9-20) mg/dL Glucose 195 H (74-99) mg/dL POC Glucose (mg/dL) 180 H (70-110) mg/dL Microbiology - Last 24 Hours (Table) 05/31/24 20:05 Blood Culture - Preliminary Blood Assessment and Plan Assessment: Acute hypoxic respiratory failure secondary to an acute exacerbation of mild congestive heart failure, systolic versus diastolic. proBNP 2880. Procalcitonin negative. Viral screen negative Atrial fibrillation with recent KARLA/cardioversion last week, maintained on Xarelto History of coronary disease with previous coronary artery bypass grafting Hyperlipidemia Hypertension Diabetes mellitus Plan: The patient was seen and evaluated Chest x-ray, labs and medications reviewed Currently stable and on room air oxygen Remains on diuretics Discontinue prednisone Anticoagulated with Xarelto Cleared for discharge Keep his appointment with cardiology as scheduled I have personally seen and examined the patient, performed the documentation and the assessment and plan as written. Number of minutes spent on the visit: 10 Dictation was produced using [employer] dictation software. Please excuse any grammatical, word or spelling errors.
[2024-06-03 17:05] LABS: Glucose,Whole Blood 201 mg/dL (70-110)
[2024-06-03 20:16] LABS: Glucose,Whole Blood 245 mg/dL (70-110)
[2024-06-04 07:06] LABS: Glucose,Whole Blood 163 mg/dL (70-110)
[2024-06-04 08:06] VITALS: BP 116/85; RESP 20; TEMP 97.8
[2024-06-04 11:43] VITALS: PULSE 72
--- NOTE | 2024-06-04 11:51 | P.DS ---
Providers Date of admission: 05/31/24 22:28 Expected date of discharge: 06/04/24 Attending physician: Ida Lorenzo MD Consults: 05/31/24 22:25 Consult Physician Stat Consulting Provider: Maricel Aldrich Consult Reason/Comments: Pneumonia, hypoxia Do you want consulting provider notified?: Yes, Notify in am [facility] Course: Discharge diagnoses; #Acute on chronic HFpEF (EF previously 30-35% in 04/2024, most recently on KARLA in 05/2024 showed normal LV function) #Atrial fibrillation with poorly controlled ventricular rate, s/p cardioversion on 05/26/24 #Acute hypoxic respiratory failure likely secondary to above #SIRs positive, resolving #Leukopenia and lymphopenia, resolving #Thrombocytopenia, improving #Elevated total bilirubin, resolved #Type 2 diabetes mellitus #Atrial fibrillation maintained on Xarelto #CAD #Hyperlipidemia Hospital course; 69-year-old male with a PMH of A-fib on Xarelto, type II DM, CAD, HFpEF (most recent echocardiogram 04/28/2024 showed EF 30-35% and KARLA on 05/26 which showed normal left ventricular function) and hyperlipidemia who presents to the emergency room with complaints of shortness of breath and cough. Patient reports that he underwent a KARLA on 05/26 and since then has had a mild cough. He reports subsequently developing gradually worsening cough. Patient presented to the ER on 05/30 with complaints of shortness of breath at which time he was diagnosed with pulmonary edema and discharged home on Lasix. On arrival he was reporting a cough with productive yellow/green phlegm and the x-ray completed in the emergency department showed evidence of possible bilateral pneumonia or pulmonary edema. His viral panel was unremarkable, however patient did note some fevers and chills and had a Tmax of 100.9 F and was started on antibiotics. The next day when evaluated he felt as though his breathing was somewhat improved however had noted orthopnea and became increasingly short of breath when attempting to lie down to go to sleep, he was more comfortable in chair. At this time lab result for procalcitonin were negative, and his antibiotics were discontinued. Blood work for proBNP which showed to be 2880, indicating a picture more likely exacerbation of heart failure. At that time patient had his Lasix increased to 40 mg twice daily which led to a progressive improvement of his symptoms. He will be discharged with an increased dose of Lasix, 40 mg to be taken orally twice daily. He knows to follow-up closely with his primary care physician and prevention coordinator. He has no acute complaints today and is happy to be discharged. Physical Exam: General: nontoxic, no distress, appears at stated age, obese Derm: warm, dry, intact HEENT: atraumatic, normocephalic, symmetric; EOMI, anicteric sclera; no lip lesion, mucus membranes moist; JVD improved Eyes: EOMI, anicteric sclera Mouth: no lip lesion, mucus membranes moist Cardiovascular: S1 S2 reg, no murmur, rubs, or gallops Lungs: Breath sounds were bilaterally Abdominal: soft, non-tender to palpataion, no appreciable organomegaly Extremities: no gross muscle atrophy, no edema, no contractures; wraps around bilateral lower extremities to prevent significant edema from forming Neuro: Alert, Oriented, CNII-XII grossly intact, gait normal Psych: well appearing, appropriate affect Dictation was produced using [employer] dictation software. please excuse any grammatical, word or spelling errors. Silvestre Chávez MD PGY-1 IM A total of 38 minutes of time were spent preparing this complex discharge summary. Patient was discharged on 06/04/2024 at 1019. I have seen and evaluated the patient today. Discussed with the resident and agree with the residents finding and plan as documented in the resident's note. Changes highlighted in blue font. Patient Condition at Discharge: Good Plan - Discharge Summary New Discharge Prescriptions: New Furosemide [Lasix] 40 mg PO BID #60 tablet Continue Atorvastatin [Lipitor] 40 mg PO HS #90 tab Semaglutide [Ozempic] 1 mg SQ MO Metoprolol Tartrate [Lopressor] 100 mg PO BID #60 tablet Rivaroxaban [Xarelto] 20 mg PO W/SUPPER #30 tab glipiZIDE [Glucotrol] 10 mg PO DAILY Dapagliflozin Propanediol [Farxiga] 10 mg PO DAILY #30 tab metFORMIN HCL 1,000 mg PO AC-BID #60 tab Pantoprazole [Protonix] 40 mg PO DAILY Discontinued Furosemide [Lasix] 20 mg PO BID #6 tab Discharge Medication List Atorvastatin [Lipitor] 40 mg PO HS #90 tab 09/27/20 [Rx] glipiZIDE [Glucotrol] 10 mg PO DAILY 04/27/24 [History] Semaglutide [Ozempic] 1 mg SQ MO 04/28/24 [History] Dapagliflozin Propanediol [Farxiga] 10 mg PO DAILY #30 tab 05/01/24 [Rx] Metoprolol Tartrate [Lopressor] 100 mg PO BID #60 tablet 05/01/24 [Rx] Rivaroxaban [Xarelto] 20 mg PO W/SUPPER #30 tab 05/01/24 [Rx] metFORMIN HCL 1,000 mg PO AC-BID #60 tab 05/01/24 [Rx] Pantoprazole [Protonix] 40 mg PO DAILY 06/01/24 [History] Furosemide [Lasix] 40 mg PO BID #60 tablet 06/04/24 [Rx] Follow up Appointment(s)/Referral(s): Terry King DO [Primary Care Provider] - 06/11/24 11:30 am (Appointment with Alison HOPPER) Domingo Velazquez MD [STAFF PHYSICIAN] - 06/15/24 4:30 pm Patient Instructions/Handouts: Heart Failure (GEN) Discharge Disposition: HOME SELF-CARE
--- NOTE | 2024-06-04 12:45 | P.PN ---
Subjective Progress Note Date: 06/04/24 This is a pleasant 69-year-old male patient coronary artery disease with previous coronary artery bypass grafting x 3 in September 2020, chronic atrial fibrillation status post cardioversion just last week. He also has a history of hypertension hyperlipidemia and diabetes mellitus. He presented here to the e mergency room yesterday with a 2 to 3-day history of increasing shortness of breath, cough and congestion. Nodular type infiltrate primarily through the right mid and right lower lung zones. Left lower lobe as well suspicious for pneumonia. 13.9. Platelets 96,000. 137. Potassium 3.8. Bicarb 20. BUN 20. Creatinine 1.02. Glucose 169. The patient is seen today in consultation in the emergency department. He is currently sitting up in a chair. Awake and alert in no acute distress. He is maintaining O2 saturations in the 90s on 2 L/min per nasal cannula. He has normal saline at 100 mL/h. He was initiated on ceftriaxone and azithromycin. The patient is seen today June 02, 2024 in follow-up on the regular medical floor. He is awake and alert in no acute distress. Currently sitting up in a chair at the bedside. Maintaining good O2 saturations in the 90s on room air. No IV fluids. His procalcitonin was 0.16. Chest x-ray continues to show similar cardiomegaly with bilateral perihilar opacities. White count 10.4. Hemoglobin 14.3. Platelets 135. Sodium 134. Potassium 4.1. Bicarb 23. BUN 31. Creatinine 1.2. Glucose 193. proBNP 2880. He is receiving Lasix 40 mg IV every 12 hours. Anticoagulated with Xarelto. Remains on DuoNeb inhalations. The patient is seen today June 03, 2024 in follow-up on the regular medical floor. He is awake and alert in no acute distress. Maintaining good O2 saturations in the 90s on room air. He is sitting up in a chair at the bedside. His procalcitonin was negative at 0.16. He remains on DuoNeb inhalations. Continued on IV diuretics. No accurate I&O. Anticoagulated with Xarelto. White count 5.6. Hemoglobin 14.8. Platelets 135. Sodium 136. Potassium 3.7. Bicarb 27. BUN 31. Creatinine 1.07. Glucose 195. Serum continues to show similar cardiomegaly with bilateral reticular nodule opacities, possible pul monary edema. The patient is seen today June 04, 2024 in follow-up on the regular medical floor. He is currently sitting up in a chair at the bedside. Awake and alert in no acute distress. He denies any worsening shortness of breath, cough or congestion. He has been afebrile. Hemodynamically stable. Maintaining good O2 saturations in the 90s on room air. No IV fluids. IV diuretics. Anti coagulated with Xarelto. Currently in a -1.3 L balance. Glucose 163. Objective - Vital Signs Vital signs: Vital Signs Temp 97.8 F 06/04/24 07:05 Pulse 72 06/04/24 11:42 Resp 20 06/04/24 07:05 BP 116/85 06/04/24 07:05 Pulse Ox 94 L 06/04/24 07:54 FiO2 Intake & Output 06/03/24 06/04/24 06/04/24 18:59 06:59 18:59 Intake Total 1620 Output Total 900 1300 Balance 720 -1300 Weight 142.5 kg Intake: Oral 1620 Output: Urine 900 1300 Other: Voiding Method Toilet Toilet - Exam GENERAL EXAM: Alert, obese 69-year-old male, up in a chair, on room air, in no apparent distress. HEAD: Normocephalic. EYES: Normal reaction of pupils, equal size. NOSE: Clear with pink turbinates. THROAT: No erythema or exudates. NECK: No masses, no JVD. CHEST: No chest wall deformity. LUNGS: Equal air entry with faint end expiratory wheeze. CVS: S1 and S2 normal with no audible murmur, regular rhythm. ABDOMEN: No hepatosplenomegaly, normal bowel sounds, no guarding or rigidity. SPINE: No scoliosis or deformity SKIN: No rashes CENTRAL NERVOUS SYSTEM: No focal deficits, tone is normal in all 4 extremities. EXTREMITIES: There is 1+ peripheral edema. No clubbing, no cyanosis. Peripheral pulses are intact. - Labs CBC & Chem 7: 06/03/24 04:35 06/03/24 04:35 Labs: Abnormal Lab Results - Last 24 Hours (Table) 06/03/24 06/03/24 06/04/24 Range/Units 17:04 20:14 07:05 POC Glucose (mg/dL) 201 H 245 H 163 H (70-110) mg/dL Microbiology - Last 24 Hours (Table) 06/02/24 21:15 Gram Stain - Preliminary Sputum Sputum Culture - Preliminary 05/31/24 20:05 Blood Culture - Preliminary Blood Assessment and Plan Assessment: Acute hypoxic respiratory failure secondary to an acute exacerbation of mild congestive heart failure, systolic versus diastolic. proBNP 2880. Procalcitonin negative. Viral screen negative Atrial fibrillation with recent KARLA/cardioversion last week, maintained on Xarelto History of coronary disease with previous coronary artery bypass grafting Hyperlipidemia Hypertension Diabetes mellitus Plan: The patient was seen and evaluated Medications reviewed Stable and on room air oxygen Remains on diuretics Anticoagulated with Xarelto Cleared for discharge To follow-up in our office for pulmonary function testing This patient was seen independently by the pulmonary nurse practitioner addressing pulmonary issues I have personally seen and examined the patient, performed the documentation and the assessment and plan as written. Number of minutes spent on the visit: 24 Dictation was produced using [employer] dictation software. Please excuse any grammatical, word or spelling errors.
--- NOTE | 2024-06-08 12:59 | CDI ---
Documentation Clarification Form Date: 06/08/2024 12:49:15 PM From: Carola Patel Phone: Admit Date: 05/31/2024 10:28:00 PM Patient Name: Mekhi Swift Visit Number: [id number] Discharge Date: 06/04/2024 12:05:00 PM ATTENTION: The Clinical Documentation Specialists (CDI) and [facility] Coding Staff appreciate your assistance in clarifying documentation. Please respond to the clarification below the line at the bottom and electronically sign. The CDI & [facility] Coding staff will review the response and follow-up if needed. Please note: Queries are made part of the Legal Health Record. If you have any questions, please contact the author of this message via ITS. Doctor/Provider: Ida Lorenzo Diabetes is documented H&P and throughout the Notes. Additional specificity regarding the diabetes diagnosis is requested. History/Risk Factors: 69yo M, ACHF, HTN, AHRF, CAP, sepsis, leukopenia,lymphopenia, thrombocytopenia, DMII, A fib, CAD, HLD Home Rx: glipizide [Glucotrol] 10 mg PO DAILY, Semaglutide [Ozempic] 1 mg SQ MO, and Dapagliflozin Propanediol [Farxiga] 10 mg PO DAILY, metformin HCL 1,000 mg PO AC-BID Clinical Indicators: Glucose 05/31 80-87 06/01 128-253 06/02 156-253 06/03 172-262 06/04 163-201 Treatment: monitor; Hold oral hypoglycemic. Insulin sliding scale with blood glucosemonitoring. Monitor LFTs Please clarify the diabetes, if known: [X] Diabetes Type 2 with hyperglycemia [ ] Diabetes Type 2 with hypoglycemia [ ] Other, please specify [ ] Unable to Determine (Template Last Revised: May 2020) MTDD
--- NOTE | 2024-06-08 13:29 | CDI ---
Documentation Clarification Form Date: 06/08/2024 01:00:31 PM From: Carola Patel Phone: Admit Date: 05/31/2024 10:28:00 PM Patient Name: Mekhi Swift Visit Number: [id number] Discharge Date: 06/04/2024 12:05:00 PM ATTENTION: The Clinical Documentation Specialists (CDI) and [facility] Coding Staff appreciate your assistance in clarifying documentation. Please respond to the clarification below the line at the bottom and electronically sign. The CDI & [facility] Coding staff will review the response and follow-up if needed. Please note: Queries are made part of the Legal Health Record. If you have any questions, please contact the author of this message via ITS. Doctor/Provider: Ida Lorenzo Your patient has the documented diagnosis of: Acute on chronic HFpEF Progress Note 06/03 and DCS HFrEFexacerbation per Progress Note 06/01- 06/03 Additional information regarding the type of CHF is requested. History/Risk Factors: 69yo M, ACHF, HTN, AHRF, CAP, sepsis, leukopenia, lymphopenia, thrombocytopenia, DMII, A fib, CAD, HLD Clinical Indicators: VS/Pulse OX: 88-91 BNP: 2880 Echo: 04/28/2024 showed EF 30-35% KARLA: 05/2024 showed normal LV function) Chest X Ray: 05/31 Reticular-nodulartypeinfiltrateprimarily through the right mid and right lower lung zones and left lower lobesuspicious forpneumonia. Correlate clinically and progressstudiesarerecommended. 06/02 Similarcardiomegalywith bilateral perihilaropacitieswhich may represent and/orpulmonary edema. Treatment: Discharged home on Lasix. In your professional opinion, can you please clarify the type of CHF if known? [ ] Acute on Chronic Systolic Heart Failure (reduced EF) [ ] Acute on Chronic Diastolic Heart Failure (preserved EF) [ ] Acute on Chronic Heart Failure Systolic & Diastolic Heart Failure [ ] Other, please specify [x] Unable to determine (Template Last Revised: April 2020) MTDD
--- NOTE | 2024-06-08 13:36 | CDI ---
Documentation Clarification Form Date: 06/08/2024 01:30:33 PM From: Carola Patel Phone: Admit Date: 05/31/2024 10:28:00 PM Patient Name: Mekhi Swift Visit Number: [id number] Discharge Date: 06/04/2024 12:05:00 PM ATTENTION: The Clinical Documentation Specialists (CDI) and [facility] Coding Staff appreciate your assistance in clarifying documentation. Please respond to the clarification below the line at the bottom and electronically sign. The CDI & [facility] Coding staff will review the response and follow-up if needed. Please note: Queries are made part of the Legal Health Record. If you have any questions, please contact the author of this message via ITS. Doctor/Provider: Ida Lorenzo Patient has a documented BMI of 41.4. Additional clarification is requested. History/Risk Factors: 69yo M, ACHF, HTN, AHRF, CAP, sepsis, leukopenia, lymphopenia, thrombocytopenia, DMII, A fib, CAD, HLD Clinical Indicators: Patients weight: 149.685 Patients height: 61 Calculated BMI: 41.4 Treatments: monitored; is Please clarify if patients BMI indicates an additional diagnosis: [ ] Obesity, Class 1 [ ] Obesity, Class 2 [x] Obesity , Class 3 Morbid /Extreme/severe [ ] No additional diagnosis/not clinically significant [ ] Other, please specify ____ [ ] Unable to determine Reference: NIH Classification for BMI Overweight BMI 2529.9 Obesity (Class 1) BMI 3034.9 Obesity (Class 2) BMI 3539.9 Morbid obesity (Class 3/Extreme/severe) BMI =40 (Template Last Revised: July 2020) MTDD
== END 2024-06-04 12:05 | disposition home or self-care (01) | DRG 291 ==
LOC: EC 17:28 → 5NMEDONC 22:28
PROVIDERS: ADMIT Internal Medicine; ATTEND Internal Medicine
DX: I11.0 Hypertensive heart disease with heart failure (principal); J96.01 Acute respiratory failure with hypoxia; D69.6 Thrombocytopenia, unspecified; Z79.01 Long term (current) use of anticoagulants; D72.810 Lymphocytopenia; E11.65 Type 2 diabetes mellitus with hyperglycemia; E66.813 Obesity, class 3; Z68.41 Body mass index [BMI] 40.0-44.9, adult; I48.20 Chronic atrial fibrillation, unspecified; R65.10 Systemic inflammatory response syndrome (SIRS) of non-infectious origin without acute organ dysfunction; I50.9 Heart failure, unspecified; E78.5 Hyperlipidemia, unspecified; I25.10 Atherosclerotic heart disease of native coronary artery without angina pectoris; Z89.412 Acquired absence of left great toe; Z89.411 Acquired absence of right great toe; Z95.1 Presence of aortocoronary bypass graft; Z86.14 Personal history of Methicillin resistant Staphylococcus aureus infection; Z79.84 Long term (current) use of oral hypoglycemic drugs; Z79.899 Other long term (current) drug therapy; Z79.85 Long-term (current) use of injectable non-insulin antidiabetic drugs
CPT/HCPCS: 36415; 71045; 71046; 80048; 80053; 83605; 83880; 84145; 85025; 85027; 87040; 87070; 87205; 87449; 87636; 94640; 94760; 96361; 96365; 96372; 96375; 96376; 99285

== ENCOUNTER 2024-06-09 15:37 | Inpatient (IN) | payer MEDICARE ==
--- NOTE | 2024-06-09 15:59 | ED ---
General Adult HPI - General Chief complaint: Arrhythmia/Palpitations Stated complaint: Irreg heart rate Time Seen by Provider: 06/09/24 15:44 Source: patient, family, RN notes reviewed Mode of arrival: ambulatory Limitations: no limitations - History of Present Illness Initial comments: Patient is a 69-year-old male present to the emergency department with concerns with palpitations. Patient does have history of A-fib. Patient is on Xarelto. Patient did see Dr. Metzger and was advised to come back to the hospital. Patient did have cardioversion done 1 week ago. Patient denies any chest discomfort. Patient states there may be minimal associated dyspnea. Patient does have leg edema however this is chronic for him. - Related Data Home Medications Medication Instructions Recorded Confirmed glipiZIDE [Glucotrol] 10 mg PO DAILY 04/27/24 06/01/24 Semaglutide [Ozempic] 1 mg SQ MO 04/28/24 06/01/24 Pantoprazole [Protonix] 40 mg PO DAILY 06/01/24 06/01/24 Previous Rx's Medication Instructions Recorded Atorvastatin [Lipitor] 40 mg PO HS #90 tab 09/27/20 Dapagliflozin Propanediol [Farxiga] 10 mg PO DAILY #30 tab 05/01/24 Metoprolol Tartrate [Lopressor] 100 mg PO BID #60 tablet 05/01/24 Rivaroxaban [Xarelto] 20 mg PO W/SUPPER #30 tab 05/01/24 metFORMIN HCL 1,000 mg PO AC-BID #60 tab 05/01/24 Furosemide [Lasix] 40 mg PO BID #60 tablet 06/04/24 Allergies Allergy/AdvReac Type Severity Reaction Status Date / Time No Known Allergies Allergy Verified 06/09/24 15:43 Review of Systems ROS Statement: Those systems with pertinent positive or pertinent negative responses have been documented in the HPI. ROS Other: All systems not noted in ROS Statement are negative. Constitutional: Denies: fever Eyes: Denies: eye pain ENT: Denies: ear pain Respiratory: Reports: as per HPI, dyspnea Cardiovascular: Reports: palpitations, edema. Denies: chest pain Gastrointestinal: Denies: abdominal pain Musculoskeletal: Denies: back pain Past Medical History Past Medical History: Atrial Fibrillation, Atrial Flutter, Coronary Artery Disease (CAD), Chest Pain / Angina, Diabetes Mellitus, Hyperlipidemia, Hypertension, Skin Disorder, Vascular Disorder Additional Past Medical History / Comment(s): 60 treatments of hyperbaric oxygen therapy last dose 07/28/2020, cardioverted 05/26/24 History of Any Multi-Drug Resistant Organisms: None Reported, MRSA Date of last positivie culture/infection: 2013 MDRO Source:: toe Past Surgical History: Coronary Bypass/CABG, Heart Catheterization Additional Past Surgical History / Comment(s): tin big toe amputation (2009, 2013), cataract removed left eye. triple vessel bypass 10/04/20 Past Anesthesia/Blood Transfusion Reactions: No Reported Reaction Past Psychological History: No Psychological Hx Reported Smoking Status: Never smoker Past Alcohol Use History: None Reported Past Drug Use History: None Reported - Past Family History Mother Family Medical History: Cancer Additional Family Medical History / Comment(s): of an aneurysm at 88 years old. Father Family Medical History: Diabetes Mellitus General Exam Limitations: no limitations General appearance: alert, in no apparent distress Head exam: Present: normocephalic Eye exam: Present: normal appearance Respiratory exam: Present: normal lung sounds bilaterally Cardiovascular Exam: Present: tachycardia, irregular rhythm GI/Abdominal exam: Present: soft. Absent: tenderness Extremities exam: Present: pedal edema. Absent: calf tenderness Neurological exam: Present: alert Psychiatric exam: Present: normal affect, normal mood Skin exam: Present: normal color Course Vital Signs 06/09/24 15:41 Temperature 98 F Pulse Rate 141 H Respiratory 20 Rate Blood Pressure 143/100 O2 Sat by Pulse 97 Oximetry EKG Findings - EKG Results: EKG: interpreted by ERMD (Atrial flutter. Nonspecific T waves.), normal axis, normal QRS EKG shows: tachycardia Medical Decision Making - Medical Decision Making Was pt. sent in by a medical professional or institution (, PA, POWER SAW OPERATOR, urgent care, hospital, or [place] health [place] facility...) When possible be specific @ -Patient was sent in by cardiology Dr. Metzger Did you speak to anyone other than the patient for history (EMS, parent, family, police, friend...)? What history was obtained from this source @ -No Did you review nursing and triage notes (agree or disagree)? Why? @ -I reviewed and agree with nursing and triage notes Were old charts reviewed (outside hosp., previous admission, EMS record, old EKG, old radiological studies, urgent care reports/EKG's, [place] health care facility records)? Report findings @ -Previous admission reviewed Differential Diagnosis (chest pain, altered mental status, abdominal pain women, abdominal pain men, vaginal bleeding, weakness, fever, dyspnea, syncope, headache, dizziness, GI bleed, back pain, seizure, CVA, palpatations, mental health, musculoskeletal)? @ -Differential Palpitations Ventricular arrhythmias, atrial arrhythmias, myocardial infarction, anemia, thyrotoxicosis, electrolyte imbalance, hypokalemia, pulmonary embolism, pulmonary disease, drugs, alcohol, anxiety, stress.... This is not meant to be an all-inclusive list. EKG interpreted by me (3pts min.). @ -As above X-rays interpreted by me (1pt min.). @ -Chest x-ray shows no acute process. Postoperative changes CT interpreted by me (1pt min.). @ -None done U/S interpreted by me (1pt. min.). @ -None done What testing was considered but not performed or refused? (CT, X-rays, U/S, labs)? Why? @ -None What meds were considered but not given or refused? Why? @ -None Did you discuss the management of the patient with other professionals (professionals i.e. , PA, POWER SAW OPERATOR, lab, RT, psych nurse, psych social worker, plow shaker, te acher, cash management officer, comp field case manager)? Give summary @ -Case was discussed with Dr. Velazquez who will admit covering Dr. Watts Was smoking cessation discussed for >3mins.? @ -No Was critical care preformed (if so, how long)? @ -31 minutes critical care time Were there social determinants of health that impacted care today? How? (Homelessness, low income, unemployed, alcoholism, drug addiction, tra nsportation, low edu. Level, literacy, decrease access to med. care, intermediate, rehab)? @ -No Was there de-escalation of care discussed even if they declined (Discuss DNR or withdrawal of care, Hospice)? DNR status @ -No What co-morbidities impacted this encounter? (DM, HTN, Smoking, COPD, CAD, Cancer, CVA, ARF, Chemo, Hep., AIDS, mental health diagnosis, sleep apnea, morbid obesity)? @ -History of A-fib Was patient admitted / discharged? Hospital course, mention meds given and route, prescriptions, significant lab abnormalities, going to OR and other pertinent info. @ -Patient presents with recurrent A-fib RVR. Patient placed on Cardizem drip. Patient to be admitted with cardiac consult. Patient and family updated. Admission orders written. Undiagnosed new problem with uncertain prognosis? @ -No Drug Therapy requiring intensive monitoring for toxicity (Heparin, Nitro, Insulin, Cardizem)? @ -Cardizem drip Were any procedures done? @ -No Diagnosis/symptom? @ -A-fib with RVR Acute, or Chronic, or Acute on Chronic? @ -Acute Uncomplicated (without systemic symptoms) or Complicated (systemic symptoms)? @ -Default Side effects of treatment? @ -No Exacerbation, Progression, or Severe Exacerbation? @ -No Poses a threat to life or bodily function? How? (Chest pain, [place], [place], pneumonia, PE, COPD, DKA, ARF, appy, cholecystitis, CVA, Diverticulitis, Homicidal, Suicidal, threat to staff... and all critical care pts) @ -Threat to cardiac function - Lab Data Result diagrams: 06/09/24 15:58 06/09/24 15:58 Lab Results 06/09/24 06/09/24 06/09/24 Range/Units 15:58 15:58 15:58 WBC 7.1 (3.8-10.6) k/uL RBC 5.42 (4.30-5.90) m/uL Hgb 15.8 (13.0-17.5) gm/dL Hct 49.5 (39.0-53.0) % MCV 91.3 (80.0-100.0) fL MCH 29.1 (25.0-35.0) pg MCHC 31.9 (31.0-37.0) g/dL RDW 14.7 (11.5-15.5) % Plt Count 242 (150-450) k/uL MPV 7.8 Neutrophils % 59 % Lymphocytes % 29 % Monocytes % 7 % Eosinophils % 3 % Basophils % 1 % Neutrophils # 4.2 (1.3-7.7) k/uL Lymphocytes # 2.0 (1.0-4.8) k/uL Monocytes # 0.5 (0-1.0) k/uL Eosinophils # 0.2 (0-0.7) k/uL Basophils # 0.0 (0-0.2) k/uL Hypochromasia Slight PT 13.3 H (10.0-12.5) sec INR 1.2 H (<1.2) APTT 27.8 (22.0-30.0) sec Sodium 140 (137-145) mmol/L Potassium 5.1 (3.5-5.1) mmol/L Chloride 103 (98-107) mmol/L Carbon Dioxide 27 (22-30) mmol/L Anion Gap 10 mmol/L BUN 28 H (9-20) mg/dL Creatinine 1.40 H (0.66-1.25) mg/dL Est GFR (CKD-EPI)AfAm 60 (>60 ml/min/1.73 sqM) Est GFR (CKD-EPI)NonAf 51 (>60 ml/min/1.73 sqM) Glucose 213 H (74-99) mg/dL Calcium 9.4 (8.4-10.2) mg/dL Magnesium 2.0 (1.6-2.3) mg/dL Total Bilirubin 1.3 (0.2-1.3) mg/dL AST 29 (17-59) U/L ALT 27 (4-49) U/L Alkaline Phosphatase 166 H (38-126) U/L Troponin I (0.000-0.034) ng/mL NT-Pro-B Natriuret Pep 3440 pg/mL Total Protein 7.6 (6.3-8.2) g/dL Albumin 4.0 (3.5-5.0) g/dL TSH 1.920 (0.465-4.680) mIU/L 06/09/24 Range/Units 15:58 WBC (3.8-10.6) k/uL RBC (4.30-5.90) m/uL Hgb (13.0-17.5) gm/dL Hct (39.0-53.0) % MCV (80.0-100.0) fL MCH (25.0-35.0) pg MCHC (31.0-37.0) g/dL RDW (11.5-15.5) % Plt Count (150-450) k/uL MPV Neutrophils % % Lymphocytes % % Monocytes % % Eosinophils % % Basophils % % Neutrophils # (1.3-7.7) k/uL Lymphocytes # (1.0-4.8) k/uL Monocytes # (0-1.0) k/uL Eosinophils # (0-0.7) k/uL Basophils # (0-0.2) k/uL Hypochromasia PT (10.0-12.5) sec INR (<1.2) APTT (22.0-30.0) sec Sodium (137-145) mmol/L Potassium (3.5-5.1) mmol/L Chloride (98-107) mmol/L Carbon Dioxide (22-30) mmol/L Anion Gap mmol/L BUN (9-20) mg/dL Creatinine (0.66-1.25) mg/dL Est GFR (CKD-EPI)AfAm (>60 ml/min/1.73 sqM) Est GFR (CKD-EPI)NonAf (>60 ml/min/1.73 sqM) Glucose (74-99) mg/dL Calcium (8.4-10.2) mg/dL Magnesium (1.6-2.3) mg/dL Total Bilirubin (0.2-1.3) mg/dL AST (17-59) U/L ALT (4-49) U/L Alkaline Phosphatase (38-126) U/L Troponin I <0.012 (0.000-0.034) ng/mL NT-Pro-B Natriuret Pep pg/mL Total Protein (6.3-8.2) g/dL Albumin (3.5-5.0) g/dL TSH (0.465-4.680) mIU/L Disposition Clinical Impression: Atrial fibrillation, Tachycardia Disposition: ADMITTED IP TO THIS HOSP Is patient prescribed a controlled substance at d/c from ED?: No Referrals: Terry King DO [Primary Care Provider] - 1-2 days Time of Disposition: 17:19
[2024-06-09 16:24] LABS: INR 1.2 (<1.2); Partial Thromboplastin Time 27.8 sec (22.0-30.0); Prothrombin Time 13.3 sec (10.0-12.5)
[2024-06-09 16:27] LABS: ALT 27 U/L (4-49); AST 29 U/L (17-59); African American GFR (CKD) 60 (>60 ml/min/1.73 sqM); Alkaline Phosphatase 166 U/L (38-126); Anion Gap 10 mmol/L; Blood Urea Nitrogen 28 mg/dL (9-20); Calcium 9.4 mg/dL (8.4-10.2); Carbon Dioxide 27 mmol/L (22-30); Chloride 103 mmol/L (98-107); Glucose 213 mg/dL (74-99); Non-African American GFR(CKD) 51 (>60 ml/min/1.73 sqM); Potassium 5.1 mmol/L (3.5-5.1); Sodium 140 mmol/L (137-145); Total Bilirubin 1.3 mg/dL (0.2-1.3); Total Protein 7.6 g/dL (6.3-8.2)
[2024-06-09 16:33] LABS: NT-Pro-B-Type Natriuretic Pept 3440 pg/mL
[2024-06-09 16:35] LABS: Basophils % (A) 1 %; Eosinophils # (A) 0.2 k/uL (0-0.7); Eosinophils % (A) 3 %; HCT 49.5 % (39.0-53.0); HGB 15.8 gm/dL (13.0-17.5); Hypochromasia Slight; Lymphocytes % (A) 29 %; MCH 29.1 pg (25.0-35.0); MCHC 31.9 g/dL (31.0-37.0); MCV 91.3 fL (80.0-100.0); Mean Platelet Volume 7.8; Monocytes # (A) 0.5 k/uL (0-1.0); Monocytes % (A) 7 %; Neutrophils # (A) 4.2 k/uL (1.3-7.7); Neutrophils % (A) 59 %; Platelet Count 242 k/uL (150-450); RBC 5.42 m/uL (4.30-5.90); RDW 14.7 % (11.5-15.5); WBC 7.1 k/uL (3.8-10.6)
[2024-06-09] MEDS: DILTIAZEM 125 MG in SODIUM CHLORIDE 0.9% 100 ML IV SCH (16:35)
[2024-06-09] MEDS: DILTIAZEM DRIP BOLUS FROM BAG 1 MG SOLN IV ONE (16:36)
--- NOTE | 2024-06-09 16:46 | XR ---
EXAMINATION TYPE: XR chest 1V portable DATE OF EXAM: 06/09/2024 4:36 PM COMPARISON: Chest radiographs from 06/03/2024 CLINICAL INDICATION: Male, 69 years old with history of dysrhythmia; TECHNIQUE: XR chest 1V portable Frontal view of the chest. FINDINGS: Lungs/Pleura: There is no evidence of pleural effusion, focal consolidation, or pneumothorax. Pulmonary vascularity: Unremarkable. Heart/mediastinum: Cardiomediastinal silhouette is enlarged. Atherosclerotic calcifications are seen in the aorta. Left atrial appendage occlusion device is present. Musculoskeletal: No acute osseous pathology. Midline sternotomy wires are noted. IMPRESSION: No acute cardiopulmonary disease/process. [facility], , 06/09/2024 4:43 PM
[2024-06-09] MEDS ORDERED: ACETAMINOPHEN TAB 325 MG TAB PO PRN (17:19)
[2024-06-09] MEDS ORDERED: NALOXONE 0.4 MG/ML 1 ML VIAL IV PRN (17:19)
[2024-06-09] MEDS: FUROSEMIDE 40 MG TAB PO SCH (20:12)
[2024-06-09] MEDS: ATORVASTATIN 40 MG TAB PO SCH (20:12)
[2024-06-09] MEDS: METOPROLOL TARTRATE 50 MG TAB PO SCH (20:12)
[2024-06-09] MEDS ORDERED: DEXTROSE 50% SYRINGE 50 ML IVP PRN ×2 (21:43)
--- NOTE | 2024-06-09 21:46 | P.HPIM ---
History of Present Illness H&P Date: 06/09/24 Chief Complaint: Not feeling well Pleasant 69-year-old patient follows with devin Trimble/MEDICAL CLAIMS ASSISTANT. With Dr. JENKINS. Chronic medical conditions include coronary bypass in 2020, diabetes, hypertension, hyperlipidemia, vascular disorder. Cafe Operator Dr. Mony Velazquez. Intermittent A-fib./Flutter Patient in April of this year had a EF of 30-35%. Followed by [facility] in May of this year showed preserved LV function. Patient did undergo cardioversion on May 26, 2024. Recently in the hospital for the same. Patient was last 3 weeks has been having intermittent cough spells. Sometimes perspiration. Has been in and out of atrial fibrillation or flutter tachycardia. Patient had gone to see his mainframe systems administrator Dr. Velazquez today. Heart rate found to be in the 140s. Scented to the ER. Started on Cardizem drip 5 mg an hour. On the drip patient heart rate remains around 140s. Does feel a bit tired. Review of systems: GEN.: Tired EYES: None HEENT: None NECK: None RESPIRATORY: As above] CARDIOVASCULAR: As above GASTROINTESTINAL: None GENITOURINARY: None MUSCULOSKELETAL: None LYMPHATICS: None HEMATOLOGICAL: None PSYCHIATRY: None NEUROLOGICAL: None Social history: Lives alone. 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 Does not smoke. Alcohol occasionally Physical examination: VITAL SIGNS: 98, 140, 18, 119 x 77, 98% room GENERAL: BMI 42.2, sitting at edge of the bed, bit tired EYES: Pupils equal. Conjunctiva stephen l. HEENT: External appearance of nose and ears normal, oral cavity grossly normal. NECK: JVD not raised; masses not palpable. HEART: Heart sounds irregular; no edema. LUNGS: Respiratory rate normal; clear to auscultation. ABDOMEN: Soft, nontender, liver spleen not palpable, no masses palpable. PSYCH: Alert and oriented x3; mood and affect stephen l. MUSCULOSKELETAL:No Clubbing/cyanosis;muscles-grossly intact NEUROLOGICAL: Cranial nerves grossly intact; no facial asymmetry, power and sensation grossly intact. LYMPHATICS: No lymph nodes palpable in the axilla and neck INVESTIGATIONS, reviewed in the clinical context: June 09, 2024: White count 7.1 hemoglobin 15.8 platelets 242 sodium 140 potassium 5.1 BUN 28 creatinine 1.4 Troponin I less than 0.012 x 2 proBNP 3440 TSH 1.9 EKG tracing personally reviewed by me-atrial flutter/flutter/tachycardia rate 124 Chest x-ray film personally reviewed by me-venous prominence. Cardiomegaly Recent test: [facility] [May 26, 2024] no intracardiac thrombus. No shunt. Normal LV function. Creatinine 1.07 on June 03, 2024 Assessment plan: -Recurrent atrial flutter/tachycardia rate uncontrolled about 140s on presentation. Patient had to go down cardioversion following a [facility] on May 26. Started on IV Cardizem 5 mg an hour I in the ER. Telemetry. Xarelto Cardiology consulted. Given recurrent episodes of flutter tachycardia will consult production expert Dr. Delbert Chamberlain. -Coronary artery disease with coronary bypass in 2020 Lipitor. -Acute congestive heart failure exacerbation from preserved ejection fraction precipitated by atrial fibrillation/flutter r IV Lasix 60 mg every 12. Fluid restriction. I's and O's. -Hyperlipidemia Lipitor 40 mg nightly -Diabetes mellitus type 2 on oral hypoglycemic Ozempic. Metformin. Glipizide. Farxiga. Follow Accu-Cheks -Acute kidney injury. Could be ATN. Recent ultrasound unremarkable Creatinine was 1.07 on June 03. Will hold off Farxiga. -Essential hypertension Lopressor 100 milligram twice daily. -Morbid obesity BMI 42.2 Weight loss measures -IV heparin discontinued -Full code Patient IV Cardizem drip. Consult electrophysiology as a flutter fib has not been controlled. Given the complexity and severity of patient's condition expect the patient to be in the hospital at least for 2 overnights Past Medical History Past Medical History: Atrial Fibrillation, Atrial Flutter, Coronary Artery Disease (CAD), Chest Pain / Angina, Diabetes Mellitus, Hyperlipidemia, Hyperte nsion, Skin Disorder, Vascular Disorder Additional Past Medical History / Comment(s): 60 treatments of hyperbaric oxygen therapy last dose 07/28/2020, cardioverted 05/26/24 History of Any Multi-Drug Resistant Organisms: None Reported, MRSA Date of last positivie culture/infection: 2013 MDRO Source:: toe Past Surgical History: Coronary Bypass/CABG, Heart Catheterization Additional Past Surgical History / Comment(s): tin big toe amputation (), cataract removed left eye. triple vessel bypass 10/04/20 Past Anesthesia/Blood Transfusion Reactions: No Reported Reaction Past Psychological History: No Psychological Hx Reported Smoking Status: Never smoker Past Alcohol Use History: None Reported Past Drug Use History: None Reported - Past Family History Mother Family Medical History: Cancer Additional Family Medical History / Comment(s): of an aneurysm at 88 years old. Father Family Medical History: Diabetes Mellitus Medications and Allergies Home Medications Medication Instructions Recorded Confirmed Type Atorvastatin [Lipitor] 40 mg PO HS #90 tab 09/27/20 06/09/24 Rx glipiZIDE [Glucotrol] 10 mg PO DAILY 04/27/24 06/09/24 History Semaglutide [Ozempic] 1 mg SQ MO 04/28/24 06/09/24 History Dapagliflozin Propanediol [Farxiga] 10 mg PO DAILY #30 tab 05/01/24 06/09/24 Rx Metoprolol Tartrate [Lopressor] 100 mg PO BID #60 tablet 05/01/24 06/09/24 Rx Rivaroxaban [Xarelto] 20 mg PO W/SUPPER #30 tab 05/01/24 06/09/24 Rx metFORMIN HCL 1,000 mg PO AC-BID #60 tab 05/01/24 06/09/24 Rx Pantoprazole [Protonix] 40 mg PO DAILY 06/01/24 06/09/24 History Furosemide [Lasix] 40 mg PO BID #60 tablet 06/04/24 06/09/24 Rx Allergies Allergy/AdvReac Type Severity Reaction Status Date / Time No Known Allergies Allergy Verified 06/09/24 17:34 Physical Exam Vitals: Vital Signs Temp Pulse Resp BP Pulse Ox 06/09/24 20:06 109 H 18 119/77 98 06/09/24 18:48 133 H 20 105/71 99 06/09/24 15:41 98 F 141 H 20 143/100 97 Intake and Output 06/09/24 06/09/24 06/09/24 06:59 14:59 22:59 Other: Weight 145.15 kg Results CBC & Chem 7: 06/09/24 15:58 06/09/24 15:58 Labs: Abnormal Lab Results - Last 24 Hours (Table) 06/09/24 06/09/24 Range/Units 15:58 15:58 PT 13.3 H (10.0-12.5) sec INR 1.2 H (<1.2) BUN 28 H (9-20) mg/dL Creatinine 1.40 H (0.66-1.25) mg/dL Glucose 213 H (74-99) mg/dL Alkaline Phosphatase 166 H (38-126) U/L
[2024-06-09 21:56] LABS: Glucose,Whole Blood 191 mg/dL (70-110)
[2024-06-09] MEDS: INSULIN LISPRO (HumaLOG) 100 UNIT/ML 10 mL VL SQ SCH (22:30)
[2024-06-09] MEDS: PSYLLIUM HUSK 100% 6 GM PACKET PO SCH (22:31)
[2024-06-10 06:46] LABS: Glucose,Whole Blood 179 mg/dL (70-110)
[2024-06-10] MEDS: glipiZIDE 5 MG TAB PO SCH (06:47)
[2024-06-10] MEDS: FUROSEMIDE 10 MG/ML 10 ML VIAL IV SCH (06:47)
[2024-06-10] MEDS ORDERED: metFORMIN 500 MG TAB PO SCH (07:30)
[2024-06-10] MEDS ORDERED: METOPROLOL TARTRATE 25 MG TAB PO SCH (09:00)
[2024-06-10] MEDS: FUROSEMIDE 40 MG TAB PO SCH (09:40)
[2024-06-10] MEDS: METOPROLOL TARTRATE 50 MG TAB PO SCH (09:40)
[2024-06-10] MEDS: DAPAGLIFLOZIN PROPANEDIOL 10 MG TABLET PO SCH (09:40)
[2024-06-10] MEDS: PANTOPRAZOLE 40 MG TABLET PO SCH (09:50)
[2024-06-10 11:21] LABS: African American GFR (CKD) 73 (>60 ml/min/1.73 sqM); Anion Gap 11 mmol/L; Blood Urea Nitrogen 26 mg/dL (9-20); Calcium 9.4 mg/dL (8.4-10.2); Carbon Dioxide 26 mmol/L (22-30); Chloride 100 mmol/L (98-107); Glucose 192 mg/dL (74-99); Non-African American GFR(CKD) 63 (>60 ml/min/1.73 sqM); Potassium 4.2 mmol/L (3.5-5.1); Sodium 137 mmol/L (137-145)
--- NOTE | 2024-06-10 11:27 | P.CRDCN ---
History of Present Illness History of present illness: HISTORY OF PRESENT ILLNESS: This is a 69-year-old male with a past medical history significant for coronary artery disease with previous CABG, hypertension, hyperlipidemia, atrial fibrill ation, and previous cardioversion. Patient follows in the office with Dr. Velazquez. We have been asked to see the patient in consultation for atrial fibrillation. Patient examined at the bedside in the ER. Patient was seen in the cardiology office yesterday and was found to be in atrial flutter with a heart rate of 140. He was directed to come to the emergency room by Dr. Velazquez. Patient currently denies chest pain or pressure. He denies shortness of breath. Vital signs are stable. Patient states that he was recently diagnosed with double pneumonia and has been feeling congested since that time. DIAGNOSTICS: - EKG reveals atrial flutter with RVR. - Chest xray negative for acute process - Laboratory data: WBC 7.1. Hemoglobin 15.8. Platelet count 242. Sodium 140. Potassium 5.1. BUN 28. Creatinine 1.40. Troponin negative x 3. proBNP 3440. TSH 1.920. - Current home cardiac medications include Lipitor 40 mg at night, Farxiga 10 mg daily, Lasix 40 mg twice a day, metoprolol tartrate 100 mg twice a day, Xarelto 20 mg with dinner. - Most recent echocardiogram obtained in April 2024 revealed ejection fraction 30 to 35%, mild pulmonary hypertension, trace to mild MR - Patient underwent Lexiscan stress test in June 2021 which was negative for ischemia REVIEW OF SYSTEMS: At the time of my exam: CONSTITUTIONAL: Denies fever or chills. HEENT: Denies blurred vision, vision changes, or eye pain. Denies hemoptysis CARDIOVASCULAR: Denies chest pain. Denies orthopnea. Denies PND. Denies palpitations RESPIRATORY: Denies shortness of breath. GASTROINTESTINAL: Denies abdominal pain. Denies nausea or vomiting. HEMATOLOGIC: Denies bleeding disorders. GENITOURINARY: Denies any blood in urine. SKIN: Denies pruitis. Denies rash. PHYSICAL EXAM: VITAL SIGNS: Reviewed. GENERAL: Well-developed in no acute distress. HEENT: Head is normocephalic. Pupils are equal, round. Sclerae anicteric. Mucous membranes of the mouth are moist. Neck supple. No JVD or thyromegaly LUNGS: Respirations even and unlabored. Lungs essentially clear to auscultation bilaterally. HEART: Tachycardic. Irregular rate and rhythm. S1 and S2 heard. ABDOMEN: Soft. Nondistended. Nontender. EXTREMITIES: Normal range of motion. No clubbing or cyanosis. Peripheral pulses intact. No lower extremity edema NEUROLOGIC: Awake and alert. Oriented x 3. ASSESSMENT: Recent outpatient diagnosis of bilateral pneumonia Paroxysmal typical atrial flutter with RVR History of atrial fibrillation with recent cardioversion, 05/25/2024 Acute on chronic heart failure with reduced EF, 30 to 35% Coronary artery disease with previous CABG, 2020 Ischemic cardiomyopathy Mild pulmonary hypertension Hypertension Hyperlipidemia Morbid obesity: BMI 42.2 Suspected sleep apnea Occasional alcohol use, patient reports drinking 2-3 times a week PLAN: No need to repeat echocardiogram as this was performed in April 2024 Increase metoprolol tartrate to 100 mg twice a day Discontinue IV Lasix. Begin oral Lasix 40 mg daily Continue anticoagulation with Xarelto Discontinue IV Cardizem. Begin oral cardizem Recommend outpatient sleep study evaluation Recommend abstinence from alcohol Continue telemetry monitoring Will discuss case with Dr. Chamberlain. Patient will require eventual ablation. Further recommendations pending patient course Nurse practitioner note has been reviewed by physician. Signing provider agrees with the documented findings, assessment, and plan of care documented by VAMP THROATER as a scribe. Past Medical History Past Medical History: Atrial Fibrillation, Atrial Flutter, Coronary Artery Disease (CAD), Chest Pain / Angina, Diabetes Mellitus, Hyperlipidemia, Hypertension, Skin Disorder, Vascular Disorder Additional Past Medical History / Comment(s): 60 treatments of hyperbaric oxygen therapy last dose 07/28/2020, cardioverted 05/26/24 History of Any Multi-Drug Resistant Organisms: None Reported, MRSA Date of last positivie culture/infection: 2013 MDRO Source:: toe Past Surgical History: Coronary Bypass/CABG, Heart Catheterization Additional Past Surgical History / Comment(s): tin big toe amputation (2009, 2013), cataract removed left eye. triple vessel bypass 10/04/20 Past Anesthesia/Blood Transfusion Reactions: No Reported Reaction Past Psychological History: No Psychological Hx Reported Smoking Status: Never smoker Past Alcohol Use History: None Reported Past Drug Use History: None Reported - Past Family History Mother Family Medical History: Cancer Additional Family Medical History / Comment(s): of an aneurysm at 88 years old. Father Family Medical History: Diabetes Mellitus Medications and Allergies Home Medications Medication Instructions Recorded Confirmed Type Atorvastatin [Lipitor] 40 mg PO HS #90 tab 09/27/20 06/09/24 Rx glipiZIDE [Glucotrol] 10 mg PO DAILY 04/27/24 06/09/24 History Semaglutide [Ozempic] 1 mg SQ MO 04/28/24 06/09/24 History Dapagliflozin Propanediol [Farxiga] 10 mg PO DAILY #30 tab 05/01/24 06/09/24 Rx Metoprolol Tartrate [Lopressor] 100 mg PO BID #60 tablet 05/01/24 06/09/24 Rx Rivaroxaban [Xarelto] 20 mg PO W/SUPPER #30 tab 05/01/24 06/09/24 Rx metFORMIN HCL 1,000 mg PO AC-BID #60 tab 05/01/24 06/09/24 Rx Pantoprazole [Protonix] 40 mg PO DAILY 06/01/24 06/09/24 History Furosemide [Lasix] 40 mg PO BID #60 tablet 06/04/24 06/09/24 Rx Allergies Allergy/AdvReac Type Severity Reaction Status Date / Time No Known Allergies Allergy Verified 06/09/24 17:34 Physical Exam Vitals: Vital Signs Temp Pulse Pulse Resp BP BP Pulse Ox 06/10/24 04:00 98.2 F 71 16 101/70 95 06/10/24 00:00 82 18 96/80 94 L 06/09/24 20:06 109 H 18 119/77 98 06/09/24 18:48 133 H 20 105/71 99 06/09/24 15:41 98 F 141 H 20 143/100 97 Intake and Output 06/09/24 06/10/24 06/10/24 22:59 06:59 14:59 Other: Voiding Method Toilet # Voids 1 Weight 145.15 kg Results 06/09/24 15:58 06/10/24 10:35 Cardiac Enzymes 06/09/24 06/09/24 06/09/24 Range/Units 15:58 15:58 18:28 AST 29 (17-59) U/L Troponin I <0.012 <0.012 (0.000-0.034) ng/mL 06/09/24 Range/Units 21:47 AST (17-59) U/L Troponin I <0.012 (0.000-0.034) ng/mL Coagulation 06/09/24 Range/Units 15:58 PT 13.3 H (10.0-12.5) sec APTT 27.8 (22.0-30.0) sec CBC 06/09/24 Range/Units 15:58 WBC 7.1 (3.8-10.6) k/uL RBC 5.42 (4.30-5.90) m/uL Hgb 15.8 (13.0-17.5) gm/dL Hct 49.5 (39.0-53.0) % Plt Count 242 (150-450) k/uL Comprehensive Metabolic Panel 06/09/24 Range/Units 15:58 Sodium 140 (137-145) mmol/L Potassium 5.1 (3.5-5.1) mmol/L Chloride 103 (98-107) mmol/L Carbon Dioxide 27 (22-30) mmol/L BUN 28 H (9-20) mg/dL Creatinine 1.40 H (0.66-1.25) mg/dL Glucose 213 H (74-99) mg/dL Calcium 9.4 (8.4-10.2) mg/dL AST 29 (17-59) U/L ALT 27 (4-49) U/L Alkaline Phosphatase 166 H (38-126) U/L Total Protein 7.6 (6.3-8.2) g/dL Albumin 4.0 (3.5-5.0) g/dL Current Medications Generic Name Dose Route Start Last Admin Trade Name Supaq PRN Reason Stop Dose Admin Acetaminophen 650 mg 06/09/24 17:19 Acetaminophen Tab 325 Mg Tab PO Q6HR PRN Mild Pain or Fever > 100.5 Atorvastatin Calcium 40 mg 06/09/24 21:00 06/09/24 20:12 Atorvastatin 40 Mg Tab PO 40 mg HS JACOB Administration Dapagliflozin 10 mg 06/10/24 09:00 Dapagliflozin Propanediol 10 Mg Tablet PO DAILY JACOB Dextrose/Water 25 ml 06/09/24 21:43 Dextrose 50% Syringe 50 Ml IVP PER PROTOCOL PRN Hypoglycemia Protocol Dextrose/Water 50 ml 06/09/24 21:43 Dextrose 50% Syringe 50 Ml IVP PER PROTOCOL PRN Hypoglycemia Protocol Furosemide 60 mg 06/10/24 07:00 06/10/24 06:47 Furosemide 10 Mg/Ml 10 Ml Vial IV 60 mg Q12H JACOB Administration Glipizide 10 mg 06/10/24 07:30 06/10/24 06:47 Glipizide 5 Mg Tab PO 10 mg AC-BRKFST JACOB Administration Diltiazem HCl 125 mg/ Sodium 125 mls @ 5 mls/hr 06/09/24 16:00 06/09/24 16:35 Chloride IV 5 mg/hr .Q24H JACOB 5 mls/hr Administration 5 MG/HR Insulin Human Lispro 0 unit 06/09/24 21:43 06/09/24 22:30 Insulin Lispro (Humalog) 100 Unit/Ml 10 Ml Vl SQ 2 unit ACHS JACOB Administration Protocol Metoprolol Tartrate 25 mg 06/10/24 09:00 Metoprolol Tartrate 25 Mg Tab PO TID JACOB Naloxone HCl 0.2 mg 06/09/24 17:19 Naloxone 0.4 Mg/Ml 1 Ml Vial IV Q2M PRN Opioid Reversal Pantoprazole Sodium 40 mg 06/10/24 09:00 Pantoprazole 40 Mg Tablet PO DAILY [facility] Psyllium Hydrophilic Mucilloid 6 gm 06/09/24 22:00 06/09/24 22:31 Psyllium Husk 100% 6 Gm Packet PO 6 gm BID JACOB Administration Rivaroxaban 20 mg 06/10/24 17:30 Rivaroxaban 20 Mg Tab PO W/SUPPER [facility] Protocol Intake and Output 06/09/24 06/10/24 06/10/24 22:59 06:59 14:59 Other: Voiding Method Toilet # Voids 1 Weight 145.15 kg 06/09/24 15:58 06/09/24 15:58
[2024-06-10 11:46] LABS: Glucose,Whole Blood 176 mg/dL (70-110)
[2024-06-10] MEDS: MAGNESIUM SULFATE-D5W PMX 1 GM in DEXTROSE/WATER 1 100ML.BAG IVPB SCH (13:40)
[2024-06-10 16:36] LABS: Glucose,Whole Blood 176 mg/dL (70-110)
--- NOTE | 2024-06-10 16:37 | P.PN ---
Progress Note - Text Progress Note Date: 06/10/24 Chief Complaint: Not feeling well Pleasant 69-year-old patient follows with devin Trimble/CREAM SEPARATOR OPERATOR. With Dr. JENKINS. Chronic medical conditions include coronary bypass in 2020, diabetes, hypertension, hyperlipidemia, vascular disorder. Consumer Affairs Specialist Dr. Mony Velazquez. In termittent A-fib./Flutter Patient in April of this year had a EF of 30-35%. Followed by [facility] in May of this year showed preserved LV function. Patient did undergo cardioversion on May 26, 2024. Recently in the hospital for the same. Patient was last 3 weeks has been having intermittent cough spells. Sometimes perspiration. Has been in and out of atrial fibrillation or flutter tachycardi a. Patient had gone to see his bilingual account manager Dr. Velazquez today. Heart rate found to be in the 140s. Scented to the ER. Started on Cardizem drip 5 mg an hour. On the drip patient heart rate remains around 140s. Does feel a bit tired. June 10: Patient overflowing the ER. Seen this afternoon. Sitting up and eating lunch. Heart rate remains in 140s. Per cardio metoprolol increased to 100 twice daily. IV Lasix was switched to p.o. Lasix. Patient also switched over to oral Cardizem and IV Cardizem was discontinued. Pending input from Dr. King. Patient denies any chest pain or palpitation. Slightly tired Active Medications Acetaminophen (Acetaminophen Tab 325 Mg Tab) 650 mg PO Q6HR PRN PRN Reason: Mild Pain or Fever > 100.5 Atorvastatin Calcium (Atorvastatin 40 Mg Tab) 40 mg PO HS [facility] Last Admin: 06/09/24 20:12 Dose: 40 mg Dapagliflozin (Dapagliflozin Propanediol 10 Mg Tablet) 10 mg PO DAILY [facility] Last Admin: 06/10/24 09:40 Dose: 10 mg Dextrose/Water (Dextrose 50% Syringe 50 Ml) 25 ml IVP PER PROTOCOL PRN; Protocol PRN Reason: Hypoglycemia Dextrose/Water (Dextrose 50% Syringe 50 Ml) 50 ml IVP PER PROTOCOL PRN; Protocol PRN Reason: Hypoglycemia Diltiazem HCl (Diltiazem Oral 30 Mg Tab) 30 mg PO TID [facility] Furosemide (Furosemide 40 Mg Tab) 40 mg PO DAILY [facility] Last Admin: 06/10/24 09:40 Dose: 40 mg Glipizide (Glipizide 5 Mg Tab) 10 mg PO AC-BRKFST [facility] Last Admin: 06/10/24 06:47 Dose: 10 mg Magnesium Sulfate/Dextrose 1 (gm/ IV Solution) 100 mls @ 100 mls/hr IVPB Q1H [facility] Stop: 06/10/24 17:14 Last Admin: 06/10/24 13:40 Dose: 100 mls/hr Insulin Human Lispro (Insulin Lispro (Humalog) 100 Unit/Ml 10 Ml Vl) 0 unit SQ ACHS [facility]; Protocol Last Admin: 06/10/24 12:37 Dose: 2 unit Metoprolol Tartrate (Metoprolol Tartrate 50 Mg Tab) 100 mg PO BID [facility] Last Admin: 06/10/24 09:40 Dose: 100 mg Naloxone HCl (Naloxone 0.4 Mg/Ml 1 Ml Vial) 0.2 mg IV Q2M PRN PRN Reason: Opioid Reversal Pantoprazole Sodium (Pantoprazole 40 Mg Tablet) 40 mg PO DAILY [facility] Last Admin: 06/10/24 09:50 Dose: 40 mg Psyllium Hydrophilic Mucilloid (Psyllium Husk 100% 6 Gm Packet) 6 gm PO BID [facility] Last Admin: 06/10/24 09:41 Dose: 6 gm Rivaroxaban (Rivaroxaban 20 Mg Tab) 20 mg PO W/SUPPER [facility]; Protocol Social history: Lives alone. 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 Does not smoke. Alcohol occasionally Physical examination: VITAL SIGNS: 97.6, 140s, 17, 116 x 54, 94% room air GENERAL: BMI 42.2, up in a chair, eating lunch EYES: Pupils equal. Conjunctiva stephen l. HEENT: External appearance of nose and ears normal, oral cavity grossly normal. NECK: JVD not raised; masses not palpable. HEART: Heart sounds irregular; no edema. LUNGS: Respiratory rate normal; clear to auscultation. ABDOMEN: Soft, nontender, liver spleen not palpable, no masses palpable. PSYCH: Alert and oriented x3; mood and affect stephen l. MUSCULOSKELETAL:No Clubbing/cyanosis;muscles-grossly intact INVESTIGATIONS, reviewed in the clinical context: June 10: Potassium 4.2 BUN 26 creatinine 1.18 June 09, 2024: White count 7.1 hemoglobin 15.8 platelets 242 sodium 140 potassium 5.1 BUN 28 creatinine 1.4 Troponin I less than 0.012 x 2 proBNP 3440 TSH 1.9 EKG tracing personally reviewed by me-atrial flutter/flutter/tachycardia rate 124 Chest x-ray film personally reviewed by me-venous prominence. Cardiomegaly Recent test: [facility] [May 26, 2024] no intracardiac thrombus. No shunt. Normal LV function. Creatinine 1.07 on June 03, 2024 Assessment plan: -Recurrent atrial flutter/tachycardia rate uncontrolled about 140s on presentati on. cardioversion following a KARLA on May 26.: Remains uncontrolled Started on IV Cardizem 5 mg an hour I in the ER. Telemetry. Today: IV Cardizem discontinued.Cardizem 30 mg 3 times daily and Lopressor increased to 100 mg twice daily Xarelto Seen by Dr. West from cardiology. Await input from Dr. Delbert Chamberlain. -Coronary artery disease with coronary bypass in 2020 Lipitor. -Acute congestive heart failure exacerbation from preserved ejection fraction precipitated by atrial fibrillation/flutter r: Better IV Lasix given. Fluid restriction. I's and O's. Switch to to oral Lasix today -Hyperlipidemia Lipitor 40 mg nightly -Diabetes mellitus type 2 on oral hypoglycemic Ozempic. Metformin. Glipizide. Farxiga. Follow Accu-Cheks -Acute kidney injury. Could be ATN. Recent ultrasound unremarkable Creatinine was 1.07 on June 03. Will hold off Farxiga. -Essential hypertension Lopressor 100 milligram twice daily. -Morbid obesity BMI 42.2 Weight loss measures -IV heparin discontinued -Full code Discussed with patient Past Medical History Past Medical History: Atrial Fibrillation, Atrial Flutter, Coronary Artery Disease (CAD), Chest Pain / Angina, Diabetes Mellitus, Hyperlipidemia, Hypertension, Skin Disorder, Vascular Disorder Additional Past Medical History / Comment(s): 60 treatments of hyperbaric oxygen therapy last dose 07/28/2020, cardioverted 05/26/24 History of Any Multi-Drug Resistant Organisms: None Reported, MRSA Date of last positivie culture/infection: 2013 MDRO Source:: toe Past Surgical History: Coronary Bypass/CABG, Heart Catheterization Additional Past Surgical History / Comment(s): tin big toe amputation (2009, 2013), cataract removed left eye. triple vessel bypass 10/04/20 Past Anesthesia/Blood Transfusion Reactions: No Reported Reaction Past Psychological History: No Psychological Hx Reported Smoking Status: Never smoker Past Alcohol Use History: None Reported Past Drug Use History: None Reported
[2024-06-10] MEDS: RIVAROXABAN 20 MG TAB PO SCH (17:22)
[2024-06-10] MEDS: DILTIAZEM ORAL 30 MG TAB PO SCH (17:22)
[2024-06-10 20:32] LABS: Glucose,Whole Blood 208 mg/dL (70-110)
[2024-06-11 05:59] LABS: Glucose,Whole Blood 167 mg/dL (70-110)
--- NOTE | 2024-06-11 09:55 | CDI ---
Documentation Clarification Form Date: 06/11/2024 08:53:26 AM From: Eusebia Miller RN CCDS Phone: [phone] Admit Date: 06/09/2024 09:43:00 PM Patient Name: Mekhi Swift Visit Number: [id number] Discharge Date: ATTENTION: The Clinical Documentation Specialists (CDI) and [facility] Coding Staff appreciate your assistance in clarifying documentation. Please respond to the clarification below the line at the bottom and electronically sign. The CDI & [facility] Coding staff will review the response and follow-up if needed. Please note: Queries are made part of the Legal Health Record. If you have any questions, please contact the author of this message via ITS. Doctor: Samuel Velazquez There is documentation of acute kidney injury. Could be ATN, 06/10 Medicine progress note. Additional clarification of the acuity of the condition is requested. History/Risk Factors: 69 year old male presents to the ED for 3 weeks of intermittent cough spells and sometimes perspiration. Has been in and out of atrial fibrillation or flutter tachycardia. Sent in by commercial truck driver for heart rate in the 140s. Medical History: Cardioversion 05/26/2024, recently in hospital for same, HTN, HLD, DM, Intermittent aifb/fltter, and CABG in 2020 Clinical Indicators: 06/10 BUN 26 / CR 1.18 / GFR 63 06/09 BUN 28 / CR 1.40 / GFR 51 06/03 BUN 31 / CR 1.07 / GFR 72 04/29 BUN 39 / CR 1.48 / GFR 48 Treatment: Monitoring I&Os, Monitoring Chemistry labs, 06/10 Lasix IV x 1; /2 Lasix po daily, /2 magnesium sulfate ivpb x 4 bags Can you please clarify the acuity of the Acute Kidney Injury ? [ ] ANITA [ ] ANITA with ATN [ ] Other, please specify _see my discharge summary [ ] Unable to determine (Template Last Revised: April 2020) ROMD
[2024-06-11 11:21] LABS: Glucose,Whole Blood 175 mg/dL (70-110)
--- NOTE | 2024-06-11 11:34 | P.PN ---
Subjective HISTORY OF PRESENT ILLNESS: This is a 69-year-old male with a past medical history significant for coronary artery disease with previous CABG, hypertension, hyperlipidemia, atrial fibrillation, and previous cardioversion. Patient follows in the office with Dr. Velazquez. We have been asked to see the patient in consultation for atrial fibrillation. Patient examined at the bedside in the ER. Patient was seen in the cardiology office yesterday and was found to be in atrial flutter with a heart rate of 140. He was directed to come to the emergency room by Dr. Velazquez. Patient currently denies chest pain or pressure. He denies shortness of breath. Vital signs are stable. Patient states that he was recently diagnosed with double pneumonia and has been feeling congested since that time. DIAGNOSTICS: - EKG reveals atrial flutter with RVR. - Chest xray negative for acute process - Laboratory data: WBC 7.1. Hemoglobin 15.8. Platelet count 242. Sodium 140. Potassium 5.1. BUN 28. Creatinine 1.40. Troponin negative x 3. proBNP 3440. TSH 1.920. - Current home cardiac medications include Lipitor 40 mg at night, Farxiga 10 mg daily, Lasix 40 mg twice a day, metoprolol tartrate 100 mg twice a day, Xarelto 20 mg with dinner. - Most recent echocardiogram obtained in April 2024 revealed ejection fraction 30 to 35%, mild pulmonary hypertension, trace to mild MR - Patient underwent Lexiscan stress test in June 2021 which was negative for ischemia 06/11/2024 Patient examined this morning at the bedside. Patient currently denies chest pain or pressure. He denies shortness of breath. He remains in atrial flutter with a heart rate in the 130s. PHYSICAL EXAM: VITAL SIGNS: Reviewed. GENERAL: Well-developed in no acute distress. HEENT: Head is normocephalic. Pupils are equal, round. Sclerae anicteric. Mucous membranes of the mouth are moist. Neck supple. No JVD or thyromegaly LUNGS: Respirations even and unlabored. Lungs essentially clear to auscultation bilaterally. HEART: Tachycardic. Irregular rate and rhythm. S1 and S2 heard. ABDOMEN: Soft. Nondistended. Nontender. EXTREMITIES: Normal range of motion. No clubbing or cyanosis. Peripheral pulses intact. No lower extremity edema NEUROLOGIC: Awake and alert. Oriented x 3. ASSESSMENT: Recent outpatient diagnosis of bilateral pneumonia Paroxysmal typical atrial flutter with RVR History of atrial fibrillation with recent cardioversion, 05/25/2024 Acute on chronic heart failure with reduced EF, 30 to 35% Coronary artery disease with previous CABG, 2020 Ischemic cardiomyopathy Mild pulmonary hypertension Hypertension Hyperlipidemia Morbid obesity: BMI 42.2 Suspected sleep apnea Occasional alcohol use, patient reports drinking 2-3 times a week PLAN: No need to repeat echocardiogram as this was performed in April 2024 Continue anticoagulation with Xarelto Continue Lipitor, Farxiga, Cardizem, Lasix, metoprolol N.p.o. at midnight Patient to undergo cardioversion tomorrow morning with Dr. Velazquez Recommend outpatient sleep study evaluation Recommend abstinence from alcohol Continue telemetry monitoring Dr. West to discuss case with Dr. Chamberlain. Patient will require eventual ablation. Further recommendations pending patient course Nurse practitioner note has been reviewed by physician. Signing provider agrees with the documented findings, assessment, and plan of care documented by [employer] as a scribe. Objective - Vital Signs Vital signs: Vital Signs Temp 97.9 F 06/11/24 08:00 Pulse 132 H 06/11/24 08:00 Resp 16 06/11/24 08:00 BP 106/70 06/11/24 08:00 Pulse Ox 94 L 06/11/24 08:00 FiO2 Intake & Output 06/10/24 06/11/24 06/11/24 18:59 06:59 18:59 Intake Total 180 Output Total 600 Balance 180 -600 Weight 145.15 kg 138.4 kg Intake: Oral 180 Output: Urine 600 Other: Voiding Method Toilet # Voids 1 - Labs CBC & Chem 7: 06/09/24 15:58 06/10/24 10:35 Labs: Abnormal Lab Results - Last 24 Hours (Table) 06/10/24 06/10/24 06/10/24 Range/Units 11:44 16:34 20:30 POC Glucose (mg/dL) 176 H 176 H 208 H (70-110) mg/dL 06/11/24 06/11/24 Range/Units 05:55 11:17 POC Glucose (mg/dL) 167 H 175 H (70-110) mg/dL
[2024-06-11] MEDS: METOPROLOL TARTRATE 50 MG TAB PO SCH (11:48)
[2024-06-11] MEDS: DILTIAZEM ORAL 30 MG TAB PO SCH (11:49)
--- NOTE | 2024-06-11 15:58 | P.PN ---
Progress Note - Text Progress Note Date: 06/11/24 Chief Complaint: Not feeling well Pleasant 69-year-old patient follows with devin Trimble/[employer]. With Dr. JENKINS. Chronic medical conditions include coronary bypass in 2020, diabetes, hypertension, hyperlipidemia, vascular disorder. 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 Mony Velazquez. In termittent A-fib./Flutter Patient in April of this year had a EF of 30-35%. Followed by [facility] in May of this year showed preserved LV function. Patient did undergo cardioversion on May 26, 2024. Recently in the hospital for the same. Patient was last 3 weeks has been having intermittent cough spells. Sometimes perspiration. Has been in and out of atrial fibrillation or flutter tachycardi a. 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 Velazquez today. Heart rate found to be in the 140s. Scented to the ER. Started on Cardizem drip 5 mg an hour. On the drip patient heart rate remains around 140s. Does feel a bit tired. June 10: Patient overflowing the ER. Seen this afternoon. Sitting up and eating lunch. Heart rate remains in 140s. Per cardio metoprolol increased to 100 twice daily. IV Lasix was switched to p.o. Lasix. Patient also switched over to oral Cardizem and IV Cardizem was discontinued. Pending input from Dr. King. Patient denies any chest pain or palpitation. Slightly tired June 11: Heart rate remains in 140s. On p.o. Cardizem. Lopressor. Per cardiology plan for cardioversion tomorrow. Breathing stable Active Medications Acetaminophen (Acetaminophen Tab 325 Mg Tab) 650 mg PO Q6HR PRN PRN Reason: Mild Pain or Fever > 100.5 Atorvastatin Calcium (Atorvastatin 40 Mg Tab) 40 mg PO HS [facility] Last Admin: 06/10/24 21:08 Dose: 40 mg Dapagliflozin (Dapagliflozin Propanediol 10 Mg Tablet) 10 mg PO DAILY [facility] Last Admin: 06/11/24 08:52 Dose: 10 mg Dextrose/Water (Dextrose 50% Syringe 50 Ml) 25 ml IVP PER PROTOCOL PRN; Protocol PRN Reason: Hypoglycemia Dextrose/Water (Dextrose 50% Syringe 50 Ml) 50 ml IVP PER PROTOCOL PRN; Protocol PRN Reason: Hypoglycemia Diltiazem HCl (Diltiazem Oral 30 Mg Tab) 30 mg PO TID [facility] Last Admin: 06/11/24 11:49 Dose: 30 mg Furosemide (Furosemide 40 Mg Tab) 40 mg PO DAILY [facility] Last Admin: 06/11/24 08:52 Dose: 40 mg Glipizide (Glipizide 5 Mg Tab) 10 mg PO AC-BRKFST [facility] Last Admin: 06/11/24 06:11 Dose: Not Given Sodium Chloride (Saline 0.9%) 1,000 mls @ 20 mls/hr IV .Q24H [facility] Insulin Human Lispro (Insulin Lispro (Humalog) 100 Unit/Ml 10 Ml Vl) 0 unit SQ ACHS [facility]; Protocol Last Admin: 06/11/24 11:49 Dose: 2 unit Metoprolol Tartrate (Metoprolol Tartrate 50 Mg Tab) 100 mg PO BID [facility] Last Admin: 06/11/24 11:48 Dose: 100 mg Naloxone HCl (Naloxone 0.4 Mg/Ml 1 Ml Vial) 0.2 mg IV Q2M PRN PRN Reason: Opioid Reversal Pantoprazole Sodium (Pantoprazole 40 Mg Tablet) 40 mg PO DAILY [facility] Last Admin: 06/11/24 08:51 Dose: 40 mg Psyllium Hydrophilic Mucilloid (Psyllium Husk 100% 6 Gm Packet) 6 gm PO BID [facility] Last Admin: 06/11/24 08:52 Dose: 6 gm Rivaroxaban (Rivaroxaban 20 Mg Tab) 20 mg PO W/SUPPER [facility]; Protocol Last Admin: 06/10/24 17:22 Dose: 20 mg Social history: Lives alone. 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 Does not smoke. Alcohol occasionally Physical examination: VITAL SIGNS: 97.7, 145, 16, 119 x 77, 94% room GENERAL: BMI 42.2, sitting up EYES: Pupils equal. Conjunctiva stephen l. HEENT: External appearance of nose and ears normal, oral cavity grossly normal. NECK: JVD not raised; masses not palpable. HEART: Heart sounds irregular; no edema. LUNGS: Respiratory rate normal; clear to auscultation. ABDOMEN: Soft, nontender, liver spleen not palpable, no masses palpable. PSYCH: Alert and oriented x3; mood and affect stephen l. MUSCULOSKELETAL:No Clubbing/cyanosis;muscles-grossly intact INVESTIGATIONS, reviewed in the clinical context: June 10: Potassium 4.2 BUN 26 creatinine 1.18 June 09, 2024: White count 7.1 hemoglobin 15.8 platelets 242 sodium 140 potassium 5.1 BUN 28 creatinine 1.4 Troponin I less than 0.012 x 2 proBNP 3440 TSH 1.9 EKG tracing personally reviewed by me-atrial flutter/flutter/tachycardia rate 124 Chest x-ray film personally reviewed by me-venous prominence. Cardiomegaly Recent test: [facility] [May 26, 2024] no intracardiac thrombus. No shunt. Normal LV function. Creatinine 1.07 on June 03, 2024 Assessment plan: -Recurrent atrial flutter/tachycardia rate uncontrolled about 140s on presentation. cardioversion following a [facility] on May 26.: Remains uncontrolled Cardizem 30 mg 3 times daily and Lopressor increased to 100 mg twice daily Xarelto Plan for cardioversion tomorrow -Coronary artery disease with coronary bypass in 2020 Lipitor. -Acute congestive heart failure exacerbation from preserved ejection fraction precipitated by atrial fibrillation/flutter r: Better IV Lasix given. Fluid restriction. I's and O's. Switch to to oral Lasix today -Hyperlipidemia Lipitor 40 mg nightly -Diabetes mellitus type 2 on oral hypoglycemic Ozempic. Metformin. Glipizide. Farxiga. Follow Accu-Cheks -Acute kidney injury. Could be ATN. Recent ultrasound unremarkable Creatinine was 1.07 on June 03. Will hold off Farxiga. -Essential hypertension Lopressor 100 milligram twice daily. -Morbid obesity BMI 42.2 Weight loss measures -IV heparin discontinued -Full code Discussed. Plan for cardioversion tomorrow Past Medical History Past Medical History: Atrial Fibrillation, Atrial Flutter, Coronary Artery Dise ase (CAD), Chest Pain / Angina, Diabetes Mellitus, Hyperlipidemia, Hypertension, Skin Disorder, Vascular Disorder Additional Past Medical History / Comment(s): 60 treatments of hyperbaric oxygen therapy last dose 07/28/2020, cardioverted 05/26/24 History of Any Multi-Drug Resistant Organisms: None Reported, MRSA Date of last positivie culture/infection: 2013 MDRO Source:: toe Past Surgical History: Coronary Bypass/CABG, Heart Catheterization Additional Past Surgical History / Comment(s): tin big toe amputation (2009, 2013), cataract removed left eye. triple vessel bypass 10/04/20 Past Anesthesia/Blood Transfusion Reactions: No Reported Reaction Past Psychological History: No Psychological Hx Reported Smoking Status: Never smoker Past Alcohol Use History: None Reported Past Drug Use History: None Reported
[2024-06-11 16:17] LABS: Glucose,Whole Blood 200 mg/dL (70-110)
[2024-06-11 19:48] LABS: Glucose,Whole Blood 183 mg/dL (70-110)
[2024-06-11] MEDS: SODIUM CHLORIDE 0.9% 1,000 ML IV SCH (22:04)
[2024-06-12 05:59] LABS: Glucose,Whole Blood 163 mg/dL (70-110)
[2024-06-12] MEDS ORDERED: PROPOFOL 10 MG/ML 20 ML VIAL IV ONE (07:33)
[2024-06-12] MEDS: SODIUM CHLORIDE 0.9% 500 ML 500 ML IV ONE (07:49)
[2024-06-12 08:01] VITALS: RESP 16
[2024-06-12 10:41] VITALS: TEMP 97.5
[2024-06-12 11:26] LABS: Glucose,Whole Blood 281 mg/dL (70-110)
[2024-06-12 12:00] VITALS: BP 110/66; PULSE 84
--- NOTE | 2024-06-12 13:37 | P.PN ---
Subjective HISTORY OF PRESENT ILLNESS: This is a 69-year-old male with a past medical history significant for coronary artery disease with previous CABG, hypertension, hyperlipidemia, atrial fibrillation, and previous cardioversion. Patient follows in the office with Dr. Velazquez. We have been asked to see the patient in consultation for atrial fibrillation. Patient examined at the bedside in the ER. Patient was seen in the cardiology office yesterday and was found to be in atrial flutter with a heart rate of 140. He was directed to come to the emergency room by Dr. Velazquez. Patient currently denies chest pain or pressure. He denies shortness of breath. Vital signs are stable. Patient states that he was recently diagnosed with double pneumonia and has been feeling congested since that time. DIAGNOSTICS: - EKG reveals atrial flutter with RVR. - Chest xray negative for acute process - Laboratory data: WBC 7.1. Hemoglobin 15.8. Platelet count 242. Sodium 140. Potassium 5.1. BUN 28. Creatinine 1.40. Troponin negative x 3. proBNP 3440. TSH 1.920. - Current home cardiac medications include Lipitor 40 mg at night, Farxiga 10 mg daily, Lasix 40 mg twice a day, metoprolol tartrate 100 mg twice a day, Xarelto 20 mg with dinner. - Most recent echocardiogram obtained in April 2024 revealed ejection fraction 30 to 35%, mild pulmonary hypertension, trace to mild MR - Patient underwent Lexiscan stress test in June 2021 which was negative for ischemia 06/11/2024 Patient examined this morning at the bedside. Patient currently denies chest pain or pressure. He denies shortness of breath. He remains in atrial flutter with a heart rate in the 130s. 06/12/2024 Patient underwent cardioversion this morning with Dr. Velazquez. He is maintaining sinus mechanism. Denies chest pain or pressure. Denies shortness of breath. Vital signs are stable. PHYSICAL EXAM: VITAL SIGNS: Reviewed. GENERAL: Well-developed in no acute distress. HEENT: Head is normocephalic. Pupils are equal, round. Sclerae anicteric. Mucous membranes of the mouth are moist. Neck supple. No JVD or thyromegaly LUNGS: Respirations even and unlabored. Lungs essentially clear to auscultation bilaterally. HEART: Regular rate and rhythm. S1 and S2 heard. ABDOMEN: Soft. Nondistended. Nontender. EXTREMITIES: Normal range of motion. No clubbing or cyanosis. Peripheral pulses intact. No lower extremity edema NEUROLOGIC: Awake and alert. Oriented x 3. ASSESSMENT: Recent outpatient diagnosis of bilateral pneumonia Paroxysmal typical atrial flutter with RVR, status post cardioversion 06/12/2024 History of atrial fibrillation with recent cardioversion, 05/25/2024 Acute on chronic heart failure with reduced EF, 30 to 35% Coronary artery disease with previous CABG, 2020 Ischemic cardiomyopathy Mild pulmonary hypertension Hypertension Hyperlipidemia Morbid obesity: BMI 42.2 Suspected sleep apnea Occasional alcohol use, patient reports drinking 2-3 times a week PLAN: Discontinue oral Cardizem Continue metoprolol tartrate 100 mg twice a day Add oral amiodarone 400 mg twice a day for 7 days then decrease to 200 mg twice a day for 7 days, then decrease to 200 mg daily Continue additional cardiac medications including Lipitor, metoprolol, Xarelto, and Lasix Recommend outpatient sleep study evaluation Recommend abstinence from alcohol Recommend eventual A-fib/flutter ablation Patient may be discharged home today from a cardiac standpoint Patient to follow-up postdischarge with Dr. Velazquez Nurse practitioner note has been reviewed by physician. Signing provider agrees with the documented findings, assessment, and plan of care documented by [employer] as a scribe. Objective - Vital Signs Vital signs: Vital Signs Temp 97.5 F L 06/12/24 11:15 Pulse 84 06/12/24 11:15 Resp 16 06/12/24 11:15 BP 110/66 06/12/24 11:15 Pulse Ox 94 L 06/12/24 11:15 FiO2 Intake & Output 06/11/24 06/12/24 06/12/24 18:59 06:59 18:59 Intake Total 600 341 Balance 600 341 Weight 138 kg Intake: IV 105 Invasive Line 1 5 Oral 600 236 Other: Voiding Method Toilet # Voids 3 - Labs CBC & Chem 7: 06/09/24 15:58 06/10/24 10:35 Labs: Abnormal Lab Results - Last 24 Hours (Table) 06/11/24 06/11/24 06/12/24 Range/Units 16:15 19:42 05:58 POC Glucose (mg/dL) 200 H 183 H 163 H (70-110) mg/dL 04/04/25 Range/Units 11:22 POC Glucose (mg/dL) 281 H (70-110) mg/dL
--- NOTE | 2024-06-12 17:08 | P.DS ---
Providers Date of admission: 06/09/24 21:43 Expected date of discharge: 06/12/24 Attending physician: Samuel Velazquez Consults: 06/09/24 17:19 Consult Physician Urgent Consulting Provider: Domingo Velazquez Consult Reason/Comments: a fib Do you want consulting provider notified?: Yes 06/09/24 21:36 Consult Physician Routine Consulting Provider: Delbert Chamberlain Consult Reason/Comments: Recurrent a flutter tachycardia fibrillation Do you want consulting provider notified?: Yes Primary care physician: Terry Hunt [facility] Course: Chief Complaint: Not feeling well Pleasant 69-year-old patient follows with devin Trimble/[employer]. With Dr. JENKINS. Chronic medical conditions include coronary bypass in 2020, diabetes, hypertension, hyperlipidemia, vascular disorder. 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 Mony Velazquez. Intermittent A-fib./Flutter Patient in April of this year had a EF of 30-35%. Followed by [facility] in May of this year showed preserved LV function. Patient did undergo cardioversion on May 26, 2024. Recently in the hospital for the same. Patient was last 3 weeks has been having intermittent cough spells. Sometimes perspiration. Has been in and out of atrial fibrillation or flutter tachycardia. Patient had gone to see his fire production operator Dr. Velazquez today. Heart rate found to be in the 140s. Scented to the ER. Started on Cardizem drip 5 mg an hour. On the drip patient heart rate remains around 140s. Does feel a bit tired. June 10: Patient overflowing the ER. Seen this afternoon. Sitting up and eating lunch. Heart rate remains in 140s. Per cardio metoprolol increased to 100 twice daily. IV Lasix was switched to p.o. Lasix. Patient also switched over to oral Cardizem and IV Cardizem was discontinued. Pending input from Dr. King. Patient denies any chest pain or palpitation. Slightly tired June 11: Heart rate remains in 140s. On p.o. Cardizem. Lopressor. Per cardiology plan for cardioversion tomorrow. Breathing stable June 12: Patient underwent cardioversion by Dr. Mony Velazquez today. Remained in sinus rhythm. Patient be discharged also on amiodarone. Will follow-up with his fire production operator Dr. Tumma. No chest pain or shortness of breath. Mannie Social history: Lives alone. 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 Alcohol occasionally Physical examination: VITAL SIGNS: 97.5, 84, 16, 110 x 66, 94% room air GENERAL: In a chair, comfortable EYES: Pupils equal. Conjunctiva stephen l. HEENT: External appearance of nose and ears normal, oral cavity grossly normal. NECK: JVD not raised; masses not palpable. HEART: Heart sounds regular no edema. LUNGS: Respiratory rate normal; clear to auscultation. ABDOMEN: Soft, nontender, liver spleen not palpable, no masses palpable. PSYCH: Alert and oriented x3; mood and affect stephen l. MUSCULOSKELETAL:No Clubbing/cyanosis;muscles-grossly intact INVESTIGATIONS, reviewed in the clinical context: June 10: Potassium 4.2 BUN 26 creatinine 1.18 June 09, 2024: White count 7.1 hemoglobin 15.8 platelets 242 sodium 140 potassium 5.1 BUN 28 creatinine 1.4 Troponin I less than 0.012 x 2 proBNP 3440 TSH 1.9 EKG tracing personally reviewed by me-atrial flutter/flutter/tachycardia rate 124 Chest x-ray film personally reviewed by me-venous prominence. Cardiomegaly Recent test: [facility] [May 26, 2024] no intracardiac thrombus. No shunt. Normal LV function. Creatinine 1.07 on June 03, 2024 Assessment plan: -Recurrent atrial flutter/tachycardia rate uncontrolled about 140s on presentation. cardioversion following a [facility] on May 26.: None sinus rhythm Amiodarone and d Lopressor i 100 mg twice daily Xarelto Cardioversion today without as Tumma. Now in sinus rhythm -Coronary artery disease with coronary bypass in 2020 Lipitor. -Acute congestive heart failure exacerbation from preserved ejection fraction precipitated by atrial fibrillation/flutter r: Better IV Lasix given. Fluid restriction. I's and O's. Discharged on Lasix 40 mg a day -Hyperlipidemia Lipitor 40 mg nightly -Diabetes mellitus type 2 on oral hypoglycemic Ozempic. Metformin. Glipizide. Farxiga. Follow Accu-Cheks -Acute kidney injury. Could be ATN. Recent ultrasound unremarkable Creatinine was 1.07 on June 03. Will hold off Farxiga. -Essential hypertension Lopressor 100 milligram twice daily. -Morbid obesity BMI 42.2 Weight loss measures -IV heparin discontinued -Full code Disposition: Home Past Medical History Past Medical History: Atrial Fibrillation, Atrial Flutter, Coronary Artery Disease (CAD), Chest Pain / Angina, Diabetes Mellitus, Hyperlipidemia, Hypertension, Skin Disorder, Vascular Disorder Additional Past Medical History / Comment(s): 60 treatments of hyperbaric oxygen therapy last dose 07/28/2020, cardioverted 05/26/24 History of Any Multi-Drug Resistant Organisms: None Reported, MRSA Date of last positivie culture/infection: 2013 MDRO Source:: toe Past Surgical History: Coronary Bypass/CABG, Heart Catheterization Additional Past Surgical History / Comment(s): tin big toe amputation (2009, 2013), cataract removed left eye. triple vessel bypass 10/04/20 Past Anesthesia/Blood Transfusion Reactions: No Reported Reaction Past Psychological History: No Psychological Hx Reported Smoking Status: Never smoker Past Alcohol Use History: None Reported Past Drug Use History: None Reported Plan - Discharge Summary Discharge Rx Participant: No New Discharge Prescriptions: New Amiodarone [Cordarone] 400 mg PO BID #180 tab Psyllium Husk 100% [Metamucil Packet] 6 gm PO DAILY #30 packet Continue Atorvastatin [Lipitor] 40 mg PO HS #90 tab Semaglutide [Ozempic] 1 mg SQ MO Metoprolol Tartrate [Lopressor] 100 mg PO BID #60 tablet Rivaroxaban [Xarelto] 20 mg PO W/SUPPER #30 tab glipiZIDE [Glucotrol] 10 mg PO DAILY Dapagliflozin Propanediol [Farxiga] 10 mg PO DAILY #30 tab metFORMIN HCL 1,000 mg PO AC-BID #60 tab Pantoprazole [Protonix] 40 mg PO DAILY Changed Furosemide [Lasix] 40 mg PO DAILY #60 tablet Discharge Medication List Atorvastatin [Lipitor] 40 mg PO HS #90 tab 09/27/20 [Rx] glipiZIDE [Glucotrol] 10 mg PO DAILY 04/27/24 [History] Semaglutide [Ozempic] 1 mg SQ MO 04/28/24 [History] Dapagliflozin Propanediol [Farxiga] 10 mg PO DAILY #30 tab 05/01/24 [Rx] Metoprolol Tartrate [Lopressor] 100 mg PO BID #60 tablet 05/01/24 [Rx] Rivaroxaban [Xarelto] 20 mg PO W/SUPPER #30 tab 05/01/24 [Rx] metFORMIN HCL 1,000 mg PO AC-BID #60 tab 05/01/24 [Rx] Pantoprazole [Protonix] 40 mg PO DAILY 06/01/24 [History] Amiodarone [Cordarone] 400 mg PO BID #180 tab 06/12/24 [Rx] Furosemide [Lasix] 40 mg PO DAILY #60 tablet 06/12/24 [Rx] Psyllium Husk 100% [Metamucil Packet] 6 gm PO DAILY #30 packet 06/12/24 [Rx] Follow up Appointment(s)/Referral(s): Terry Jenkins DO [Primary Care Provider] - 06/15/24 8:00 am (KEEP APPOINTMENT MADE PRIOR TO ADMISSION SATURDAY) Domingo Velazquez MD [STAFF PHYSICIAN] - 06/19/24 8:45 am (SATURDAY) Patient Instructions/Handouts: Atrial Flutter (DC), Cardioversion (DC) Discharge Disposition: HOME SELF-CARE
[2024-06-12] MEDS ORDERED: AMIODARONE 200 MG TAB PO SCH (21:00)
== END 2024-06-12 14:08 | disposition home or self-care (01) | DRG 291 ==
LOC: EC 15:37 → 3SCARD 17:21 → OBSVTOIN 21:43 → 3SCARD 06-10 12:45
PROVIDERS: ADMIT Hospitalist; ATTEND Hospitalist
PROC: 5A2204Z Restoration of Cardiac Rhythm, Single (ICD-10-PCS; principal; 2024-06-12 07:30)
DX: I11.0 Hypertensive heart disease with heart failure (principal); I50.23 Acute on chronic systolic (congestive) heart failure; N17.0 Acute kidney failure with tubular necrosis; I27.20 Pulmonary hypertension, unspecified; Z79.01 Long term (current) use of anticoagulants; Z68.41 Body mass index [BMI] 40.0-44.9, adult; E11.9 Type 2 diabetes mellitus without complications; I34.0 Nonrheumatic mitral (valve) insufficiency; I48.3 Typical atrial flutter; E66.01 Morbid (severe) obesity due to excess calories; I50.22 Chronic systolic (congestive) heart failure; Z11.52 Encounter for screening for COVID-19; Z95.1 Presence of aortocoronary bypass graft; E78.5 Hyperlipidemia, unspecified; I25.10 Atherosclerotic heart disease of native coronary artery without angina pectoris; I25.5 Ischemic cardiomyopathy; Z79.84 Long term (current) use of oral hypoglycemic drugs; Z79.899 Other long term (current) drug therapy; Z83.3 Family history of diabetes mellitus; Z89.429 Acquired absence of other toe(s), unspecified side
CPT/HCPCS: 36415; 71045; 80048; 80053; 83735; 83880; 84443; 84484; 85025; 85610; 85730; 92960; 93005; 96365; 96366; 96367; 96375; 99291

== ENCOUNTER → 2024-07-24 | Outpatient (CLI) | payer MEDICARE ==
[2024-07-24 15:28] LABS: BUN/Creat Ratio 16.21 Ratio (12.00-20.00); Blood Urea Nitrogen 22.7 mg/dL (9.0-27.0); Calcium 9.1 mg/dL (8.7-10.3); Carbon Dioxide 23.2 mmol/L (21.6-31.8); Chloride 106 mmol/L (96-109); Glucose 183 mg/dL (70-110); Potassium 4.7 mmol/L (3.5-5.5); Sodium 142 mmol/L (135-145)
[2024-07-25 03:07] LABS: NT-Pro-B-Type Natriuretic Pept 329 pg/mL (0-125)
== END | disposition home or self-care (01) ==
LOC: LABWHC1 08:38
PROVIDERS: ATTEND Internal Medicine Cardiovascular Disease
DX: I50.22 Chronic systolic (congestive) heart failure (principal)
CPT/HCPCS: 36415; 80048; 83880